=== PATIENT | female | born 1950 | race African-American/Black ===

== ENCOUNTER 2017-01-15 17:34 | Emergency (ER) | payer OTHER ==
[2017-01-15 17:41] VITALS: BP 151/53; PULSE 53; TEMP 98.4; BMI 41.9
--- NOTE | 2017-01-15 19:47 | PDOC ---
Attending Attestation - Resident Resident Name: Reyes Barnett - HPI HPI: 01/15/17 19:52 Pt comes with multiple complaints; chest pain, back pain and headache. Pt is slightly anxious and she wants to stay in the hospital as she thinks she breathed in some fumes and it is affecting her breathing. Pt wants to go to a group home because she doesn't want to go back home. - Physicial Exam PE: 01/16/17 00:36 Agree with resident exam. Pt's labs are normal; CXR normal; EKG NSR. - Medical Decision Making 01/16/17 00:37 Pt will be discharged as she is feeling better after hydration and meds for headache. She will be sent to a group home at [address]
[2017-01-15] MEDS ORDERED: SODIUM CHLORIDE 0.9% 1000 ML INFUS.BAG IV ONE ×2 (19:50→20:48)
[2017-01-15] MEDS ORDERED: ACETAMINOPHEN 1000 MG/100 ML VIAL (NON FORMULARY) IVPB ONE (19:50)
[2017-01-15] MEDS ORDERED: METOCLOPRAMIDE HCL INJECTION 10 MG/2 ML VIAL IVPB ONE (19:50)
[2017-01-15 19:52] LABS: BASOPHIL 0.6 % (0-2.0); EOSINOPHIL 1.7 % (0-4.5); MCH 30.6 pg (25.7-33.7); MEAN PLT VOLUME 9.4 fl (7.5-11.1); NEUTROPHILS 56.5 % (42.8-82.8); PLATELET COUNT 205 K/MM3 (134-434); RDW 13.6 % (11.6-15.6); WHITE BLOOD COUNT 4.3 K/mm3 (4.0-10.0)
[2017-01-15] MEDS ORDERED: METOCLOPRAMIDE HCL INJECTION 10 MG/2 ML VIAL ONE (19:59)
[2017-01-15] MEDS ORDERED: ACETAMINOPHEN INJECTION 100 ML IVPB ONE (19:59)
[2017-01-15 20:17] LABS: ALBUMIN 3.4 g/dl (3.4-5.0); ANION GAP 8 (8-16); BILIRUBIN,TOTAL 0.3 mg/dL (0.2-1.0); CALCIUM 8.8 mg/dL (8.5-10.1); CO2 28 mmol/L (21-32); CREATININE 1.1 mg/dL (0.55-1.02); SGOT/AST 12 U/L (15-37); SGPT/ALT 20 U/L (12-78); TOT PROT 6.7 g/dl (6.4-8.2)
[2017-01-15 20:20] LABS: ALK PHOS 95 U/L (45-117); CPK 244 IU/L (26-192); TROPONIN I < 0.02 ng/ml (0.00-0.05)
--- NOTE | 2017-01-15 20:28 | PDOC ---
History of Present Illness - General Chief Complaint: Headache Stated Complaint: HEADACHE Time Seen by Provider: 01/15/17 19:07 History Source: Patient Exam Limitations: No Limitations - History of Present Illness Initial Comments: 01/15/17 20:21 The patient is a 66F with a PMH of PR, CAD, HLD, DM, pacemaker, asthma, schizoaffective disorder who presented to the ED with complaints of a headache and chest pain. The patient states that her CP started 2 days ago, is retrosternal, does not radiate, and is not associated with nausea, vomiting, diaphoresis, or SOB. Her headache is located in her frontal area and radiates down her neck bilaterally and posteriorly. She states that it started last night after she smelled the food she was cooking in her kitchen. She also expressed that she has not been sleeping well and requested admission to the hospital so that she can sleep. Past History - Past Medical History Allergies/Adverse Reactions: Allergies Allergy/AdvReac Type Severity Reaction Status Date / Time morphine Allergy Intermediate Difficulty Verified 01/15/17 17:41 Breathing oxycodone HCl [From Percocet] Allergy Intermediate Verified 01/15/17 17:41 ibuprofen [From Motrin] Allergy Verified 01/15/17 17:41 Home Medications: Ambulatory Orders Amlodipine Besylate [Norvasc -] 10 mg PO DAILY #0 tablet 10/17/11 Benztropine Mesylate 2 mg PO DAILY #1 tablet 10/17/11 Divalproex Sodium [Depakote] 500 mg PO DAILY #0 tablet. 10/17/11 Quinapril HCl [Accupril] 40 mg PO DAILY #0 tablet 10/17/11 Divalproex [Depakote -] 1,000 mg PO HS 10/24/13 Atorvastatin Ca [Lipitor] 20 mg PO HS 01/15/17 Metoprolol Succinate [Toprol XL -] 25 mg PO DAILY 01/15/17 Sitagliptin Phosphate [Januvia] 50 mg PO DAILY 01/15/17 Anemia: No Asthma: Yes Cancer: No Cardiac Disorders: Yes CVA: No COPD: No Dementia: No Diabetes: Yes GI Disorders: No Disorders: No HTN: Yes Hypercholesterolemia: Yes Liver Disease: No Psychiatric Problems: Yes (schizo-effective disorder) Seizures: No Thyroid Disease: No Other medical history: CONSTIPATION - Surgical History Abdominal Surgery: Yes (HERNIA) Appendectomy: No Cardiac Surgery: Yes (STENT AND PACEMAKER) Cholecystectomy: No Lung Surgery: No Neurologic Surgery: No Orthopedic Surgery: No - Immunization History Immunization Up to Date: Yes (FLU/PNA) - Suicide/Smoking/Psychosocial Hx Smoking Status: No Smoking History: Never smoked Have you smoked in the past 12 months: No Number of Cigarettes Smoked Daily: 0 Hx Alcohol Use: No Drug/Substance Use Hx: No Substance Use Type: None Hx Substance Use Treatment: No Review of Systems - Review of Systems Able to Perform ROS?: Yes Is the patient limited Icelandic proficient: No Constitutional: No: Chills, Fever HEENTM: No: Blurred Vision, Double Vision Respiratory: No: Cough, Orthopnea, Shortness of Breath Cardiac (ROS): Yes: Chest Pain. No: Lightheadedness, Palpitations ABD/GI: No: Constipated, Diarrhea, Nausea, Vomiting : No: Burning, Dysuria, Discharge Musculoskeletal: Yes: Back Pain Integumentary: No: Bruising, Pallor, Pruritus, Rash Neurological: Yes: Numbness (b/l legs). No: Headache, Tingling, Weakness *Physical Exam - Vital Signs Last Vital Signs Temp Pulse Resp BP Pulse Ox 98.4 F 53 L 20 151/53 95 01/15/17 17:38 01/15/17 17:38 01/15/17 17:38 01/15/17 17:38 01/15/17 17:38 - Physical Exam General Appearance: Yes: Nourished, Appropriately Dressed, Obese. No: Apparent Distress HEENT: positive: Normal Voice, Hearing Grossly Normal. negative: Tonsillar Exudate, Tonsillar Erythema Respiratory/Chest: positive: Lungs Clear, Normal Breath Sounds. negative: Chest Tender, Respiratory Distress, Accessory Muscle Use, Rales, Rhonchi, Stridor, Wheezing Cardiovascular: positive: Regular Rhythm, Regular Rate, S1, S2. negative: Diastolic Murmur, Systolic Murmur Gastrointestinal/Abdominal: positive: Flat, Soft, Protuberent. negative: Tender , Distended, Guarding, Rebound, Tenderness Musculoskeletal: negative: CVA Tenderness, CVA Tenderness (R), CVA Tenderness (L ) Extremity: positive: Normal Inspection. negative: Coldness, Cyanosis, Swelling , Calf Tenderness Integumentary: positive: Dry, Warm. 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 negative: Abnormal Cranial NS, EOM Palsy, Facial Droop, Numbness, Sensory Deficit, Confused, Disoriented Heart Score/ECG Review - ECG Impressions Comment:: 01/15/17 20:33 NSR Rate 86 QRS 70 QT/QTC 374/447 ED Treatment Course - LABORATORY CBC & Chemistry Diagram: 01/15/17 19:40 01/15/17 19:40 - ADDITIONAL ORDERS Additional order review: 01/15/17 19:40 RBC 3.98 MCV 90.0 MCHC 34.0 RDW 13.6 MPV 9.4 Neutrophils % 56.5 Lymphocytes % 31.4 D Monocytes % 9.8 Eosinophils % 1.7 Basophils % 0.6 - Medications Given in the ED: ED Medications Discontinued Medications Generic Name Dose Route Start Last Admin Trade Name Freq PRN Reason Stop Dose Admin Acetaminophen 1,000 mg 01/15/17 19:50 01/15/17 20:17 Ofirmev Injection - IVPB 01/15/17 19:51 1,000 mg ONCE ONE Administration Sodium Chloride 500 ml 01/15/17 19:50 01/15/17 20:16 Normal Saline - IV 01/15/17 19:51 500 ml ONCE ONE Administration Medical Decision Making - Medical Decision Making 01/15/17 20:42 The patient is a 66F with a PMH of PR, CAD, DM, HLD, s/p pacemaker, and schizoaffective disorder who presents to the ED with multiple complaints. CP does not sound cardiac in nature but due to her significant history, I will order the cardiac profile and EKG to r/o any acute process. For her headache, this does not sound like a hemorrhage but I will do serial neuro exams to assess the patient. I will reassess the patient when labs return. 01/15/17 20:55 Labs WNL. Will reassess BG after fluids. Patient states that she is feeling better. 01/15/17 22:27 Patient states she is feeling better and ready for d/c. I have instructed her to follow up with her primary care doctor on Tuesday and take tylenol as needed. *DC/Admit/Observation/Transfer Diagnosis at time of Disposition: Headache Qualifiers: Headache type: unspecified Headache chronicity pattern: acute headache Intractability: not intractable Qualified Code(s): R51 - Headache - Discharge Dispostion Disposition: HOME Condition at time of disposition: Stable Admit: No - Patient Instructions Printed Discharge Instructions: Easing a Headache [address] Additional Instructions: Please return to the ER if symptoms persist, worsen, or if new symptoms arise. Please follow up with your primary care doctor on Tuesday.
[2017-01-15 20:33] LABS: GLUCOSE,RANDOM 323 mg/dL (74-106)
--- NOTE | 2017-01-16 08:36 | EKG ---
Test Reason : Blood Pressure : / mmHG Vent. Rate : 086 BPM Atrial Rate : 086 BPM P-R Int : 158 ms QRS Dur : 070 ms QT Int : 374 ms P-R-T Axes : 075 064 057 degrees QTc Int : 447 ms NORMAL SINUS RHYTHM NONSPECIFIC T WAVE ABNORMALITY ABNORMAL ECG Confirmed by MD RENO, CONSTANTINO ([id number]) on 01/16/2017 8:36:33 AM Referred By: Confirmed By:CONSTANTINO BOJORQUEZ MD
== END 2017-01-16 00:06 | disposition home or self-care (01) ==
LOC: JER 17:34
PROC: 3E033NZ Introduction of Analgesics, Hypnotics, Sedatives into Peripheral Vein, Percutaneous Approach (ICD-10-PCS; principal; 2017-01-15)
PROC: 3E033GC Introduction of Other Therapeutic Substance into Peripheral Vein, Percutaneous Approach (ICD-10-PCS; 2017-01-15)
DX: R51 Headache (principal); I25.10 Atherosclerotic heart disease of native coronary artery without angina pectoris; I10 Essential (primary) hypertension; Z95.5 Presence of coronary angioplasty implant and graft; Z95.0 Presence of cardiac pacemaker; J45.909 Unspecified asthma, uncomplicated; F25.9 Schizoaffective disorder, unspecified
CPT/HCPCS: 36415; 71020-TC; 80053; 82553; 83880; 84484; 85025; 93005; 93010; 96374; 96375; 99282-25

== ENCOUNTER 2017-05-23 06:17 | Day surgery (SDC) | payer OTHER ==
[2017-05-20 14:57] VITALS: BMI 40.8
[2017-05-23] MEDS ORDERED: ONDANSETRON 4 MG/2 ML VIAL IVPUSH PRN (09:16)
[2017-05-23] MEDS ORDERED: LIDOCAINE HCL 1%, 10 MG/ML (20ML VIAL) ONE (09:22)
[2017-05-23] MEDS ORDERED: LACTATED RINGERS SOLUTION 1,000 ML IV SCH (09:30)
[2017-05-23] MEDS ORDERED: MIDAZOLAM HCL 2 MG/2 ML SINGLE DOSE VIAL ONE ×2 (09:52→09:56)
[2017-05-23] MEDS ORDERED: ceFAZolin SODIUM 1 GM VIAL IVPB ONE (10:02)
[2017-05-23] MEDS ORDERED: PROPOFOL 20 ML ONE (10:02)
[2017-05-23] MEDS ORDERED: LIDOCAINE HCL 1%, 10 MG/ML (20ML VIAL) NR ONE (10:11)
[2017-05-23] MEDS ORDERED: BACITRACIN 50,000 UNITS VIAL TP ONE (10:30)
[2017-05-23] MEDS ORDERED: LIDOCAINE HCL 2% (20ML MULTI-DOSE VIAL) NR ONE (10:41)
[2017-05-23] MEDS ORDERED: LIDOCAINE HCL 2% (50ML VIAL) NR ONE (10:43)
[2017-05-23 12:28] VITALS: BP 130/70; PULSE 72
[2017-05-23 12:33] VITALS: TEMP 98.1
--- NOTE | 2017-05-23 17:26 | OP ---
Operative Note - Note: Operative Date: 05/23/17 Pre-Operative Diagnosis: urge incontinence Operation: full intestim implant Post-Operative Diagnosis: Same as Pre-op Surgeon: Yovany Tao Anesthesia: Fractional
== END 2017-05-23 17:37 | disposition home or self-care (01) ==
LOC: JASU-SURG 06:17
PROVIDERS: ATTEND Urology
PROC: 01HY0MZ Insertion of Neurostimulator Lead into Peripheral Nerve, Open Approach (ICD-10-PCS; 2017-05-23)
PROC: 0JH70CZ Insertion of Single Array Rechargeable Stimulator Generator into Back Subcutaneous Tissue and Fascia, Open Approach (ICD-10-PCS; principal; 2017-05-23 09:00)
DX: N39.41 Urge incontinence (principal); E66.01 Morbid (severe) obesity due to excess calories; E11.9 Type 2 diabetes mellitus without complications
CPT/HCPCS: 64581; 64590; C1767; C1778; 76000-TC; 82962; 94760

== ENCOUNTER 2018-02-08 05:32 | Emergency (ER) | payer OTHER ==
[2018-02-08 06:07] VITALS: BP 132/77; TEMP 98.5; BMI 43.7
[2018-02-08] MEDS ORDERED: ACETAMINOPHEN 1000 MG/100 ML VIAL (NON FORMULARY) IVPB ONE (06:32)
--- NOTE | 2018-02-08 06:35 | PDOC ---
History of Present Illness - General Chief Complaint: Pain Stated Complaint: SHOULDER/BACK PAIN Time Seen by Provider: 02/08/18 06:19 History Source: Patient - History of Present Illness Initial Comments: 02/08/18 06:35 67 year old female c/o b/l shoulder and lower back pain which is chronic. patient rpeorts that she takes tylenol 500 mg bid now the pain has been relieved with that dose. patient has poor tolerance to narcotic pain management due to side effects. denies trauma/ injury. denies incontinence of bowel or urine. no saddle anesthesia symptoms. no numbness or tingling to lower extremities.denies chest pain, abdominal pain, NVD Past History - Past Medical History Allergies/Adverse Reactions: Allergies Allergy/AdvReac Type Severity Reaction Status Date / Time codeine Allergy Intermediate Verified 02/08/18 06:18 morphine Allergy Intermediate Difficulty Verified 02/08/18 06:18 Breathing oxycodone HCl [From Percocet] Allergy Intermediate Verified 02/08/18 06:18 ibuprofen [From Motrin] Allergy Verified 02/08/18 06:18 Home Medications: Ambulatory Orders Atorvastatin Ca [Lipitor] 20 mg PO HS 01/15/17 Amlodipine Besylate 10 mg PO DAILY 05/20/17 Insulin Lispro Protamin/Lispro [Humalog Mix 75-25 Kwikpen] 70 unit SQ BID Omeprazole 20 mg PO DAILY 05/20/17 Sitagliptin Phosphate [Januvia] 100 mg PO DAILY 05/20/17 Divalproex [Depakote -] 250 mg PO DAILY 12/03/17 Divalproex [Depakote -] 500 mg PO DAILY 12/03/17 Mirabegron [Myrbetriq] 50 mg PO BID 12/03/17 Paliperidone Palmitate [Invega Sustenna] 234 mg IM ASDIR 12/03/17 Quinapril HCl 40 mg PO DAILY 12/03/17 Aspirin [ASA -] 81 mg PO DAILY 02/08/18 Anemia: No Asthma: Yes Cancer: No Cardiac Disorders: Yes (STENT) CVA: No COPD: No DVT: No Dementia: No Diabetes: Yes GI Disorders: No Disorders: No HTN: Yes Hypercholesterolemia: Yes Liver Disease: No Psychiatric Problems: Yes (schizo-effective disorder) Seizures: No Thyroid Disease: No - Surgical History Abdominal Surgery: Yes (HERNIA) Appendectomy: No Cardiac Surgery: Yes (STENT AND PACEMAKER) Cholecystectomy: No Lung Surgery: No Neurologic Surgery: No Orthopedic Surgery: Yes (TAY KNEE REPLACEMENT) - Immunization History Immunization Up to Date: Yes (FLU/PNA) - Suicide/Smoking/Psychosocial Hx Smoking Status: No Smoking History: Never smoked Have you smoked in the past 12 months: No Number of Cigarettes Smoked Daily: 0 Hx Alcohol Use: No Drug/Substance Use Hx: No Substance Use Type: None Hx Substance Use Treatment: No *Physical Exam - Vital Signs Last Vital Signs Temp Pulse Resp BP Pulse Ox 98.5 F 90 18 132/77 96 02/08/18 06:02 02/08/18 06:02 02/08/18 06:02 02/08/18 06:02 02/08/18 06:02 - Physical Exam General Appearance: Yes: Appropriately Dressed Respiratory/Chest: positive: Lungs Clear, Normal Breath Sounds Cardiovascular: positive: Regular Rhythm, Regular Rate Musculoskeletal: positive: Normal Inspection, Other (b/l shoulder full rom, pain to joint) Neurologic: positive: Fully Oriented, Alert, Normal Mood/Affect Progress Note - Progress Note Progress Note: A: chronic pain P: IV tylenol toradol UA *DC/Admit/Observation/Transfer Diagnosis at time of Disposition: Low back pain Qualifiers: Chronicity: chronic Back pain laterality: unspecified Sciatica presence: without sciatica Qualified Code(s): M54.5 - Low back pain; G89.29 - Other chronic pain Chronic back pain Qualifiers: Back pain location: low back pain Back pain laterality: unspecified Sciatica presence: without sciatica Qualified Code(s): M54.5 - Low back pain; G89.29 - Other chronic pain Shoulder pain, bilateral Qualifiers: Chronicity: acute Qualified Code(s): M25.511 - Pain in right shoulder; M25.512 - Pain in left shoulder - Referrals Referrals: Myla Martinez MD [Primary Care Provider] - Tim Moran MD [Staff Physician] - - Patient Instructions - Post Discharge Activity
[2018-02-08] MEDS ORDERED: KETOROLAC TROMETHAMINE 15 MG/ML VIAL IVPUSH ONE (06:43)
[2018-02-08] MEDS ORDERED: ACETAMINOPHEN INJECTION 100 ML IVPB ONE (06:53)
[2018-02-08] MEDS ORDERED: KETOROLAC TROMETHAMINE 15 MG/ML VIAL ONE (06:53)
--- NOTE | 2018-02-08 07:08 | PDOC ---
*Physical Exam - Vital Signs Last Vital Signs Temp Pulse Resp BP Pulse Ox 98.5 F 90 18 132/77 96 02/08/18 06:02 02/08/18 06:02 02/08/18 06:02 02/08/18 06:02 02/08/18 06:02 ED Treatment Course - Medications Given in the ED: ED Medications Discontinued Medications Generic Name Dose Route Start Last Admin Trade Name Deyanira PRN Reason Stop Dose Admin Acetaminophen 1,000 mg 02/08/18 06:32 02/08/18 06:59 Ofirmev Injection - IVPB 02/08/18 06:33 1,000 mg ONCE ONE Administration Ketorolac Tromethamine 15 mg 02/08/18 06:43 02/08/18 06:59 Toradol Injection - IVPUSH 02/08/18 06:44 15 mg ONCE ONE Administration Medical Decision Making - Medical Decision Making 02/08/18 07:08 Pt seen by Midlevel Provider under my direct supervision Ancillary studies reviewed I agree with plan as outlined by Midlevel Provider *DC/Admit/Observation/Transfer Diagnosis at time of Disposition: Low back pain Qualifiers: Chronicity: chronic Back pain laterality: unspecified Sciatica presence: without sciatica Qualified Code(s): M54.5 - Low back pain Chronic back pain Qualifiers: Back pain location: low back pain Back pain laterality: unspecified Sciatica presence: without sciatica Qualified Code(s): M54.5 - Low back pain Shoulder pain, bilateral Qualifiers: Chronicity: acute Qualified Code(s): M25.511 - Pain in right shoulder - Discharge Dispostion Disposition: HOME Condition at time of disposition: Improved - Prescriptions Prescriptions: Acetaminophen W/ Codeine #3 [Tylenol # 3 -] 1 tab PO Q6H #15 tablet MDD 4 tabs Docusate Sodium [Colace] 100 mg PO DAILY #20 capsule - Referrals Referrals: Dennis Lundberg MD [Staff Physician] - Tim Moran MD [Staff Physician] - Myla Martinez MD [Primary Care Provider] - - Patient Instructions Printed Discharge Instructions: DI for Low Back Pain Additional Instructions: Take medication as prescribed. Please make an appointment to see Dr. Lundberg of pain management. Also follow-up with your PMD - Post Discharge Activity
--- NOTE | 2018-02-08 08:21 | PDOC ---
*Physical Exam - Vital Signs Last Vital Signs Temp Pulse Resp BP Pulse Ox 98.5 F 90 18 132/77 96 02/08/18 06:02 02/08/18 06:02 02/08/18 06:02 02/08/18 06:02 02/08/18 06:02 - Physical Exam General Appearance: Yes: Appropriately Dressed. No: Apparent Distress HEENT: positive: Normal Voice Neck: positive: Supple Respiratory/Chest: negative: Respiratory Distress Gastrointestinal/Abdominal: positive: Soft. negative: Tender Musculoskeletal: negative: CVA Tenderness, Vertebral Tenderness Extremity: positive: Normal Inspection Integumentary: positive: Dry, Warm Neurologic: positive: Fully Oriented, Alert, Normal Mood/Affect ED Treatment Course - Medications Given in the ED: ED Medications Discontinued Medications Generic Name Dose Route Start Last Admin Trade Name Deyanira PRN Reason Stop Dose Admin Acetaminophen 1,000 mg 02/08/18 06:32 02/08/18 06:59 Ofirmev Injection - IVPB 02/08/18 06:33 1,000 mg ONCE ONE Administration Ketorolac Tromethamine 15 mg 02/08/18 06:43 02/08/18 06:59 Toradol Injection - IVPUSH 02/08/18 06:44 15 mg ONCE ONE Administration Medical Decision Making - Medical Decision Making 02/08/18 08:19 And signed out to me at 7 AM Patient is a 67-year-old, history of schizophrenic disorder, asthma, HTN, HLD, CAD, ND, pacemaker, DM, chronic back pain with DJD on CT remotely, ambulates w/ walker, usually takes Tylenol for pain, here with her usual lower back and left shoulder pain, not relieved w/ tylenol. Has since been given IV Tylenol and toradol. Pending reassessment. As per prior team, if improved, can be sent home with pain control and referral for pain management 02/08/18 08:21 Pt reports some improvement in pain and able to ambulate even without her walker in ED. Had extensive discussion regarding documented allergies. Patient states she is not allergic to codeine, but that when she took tylenol 3 in the past, she developed constipation. Prescription for Tylenol 3 and Colace sent to pharmacy. Instructed to also drink plenty of water and increase fiber in diet. Will refer to pain management at this time. Reasons to return d/w pt *DC/Admit/Observation/Transfer Diagnosis at time of Disposition: Low back pain Qualifiers: Chronicity: chronic Back pain laterality: unspecified Sciatica presence: without sciatica Qualified Code(s): M54.5 - Low back pain Chronic back pain Qualifiers: Back pain location: low back pain Back pain laterality: unspecified Sciatica presence: without sciatica Qualified Code(s): M54.5 - Low back pain Shoulder pain, bilateral Qualifiers: Chronicity: acute Qualified Code(s): M25.511 - Pain in right shoulder - Discharge Dispostion Disposition: HOME Condition at time of disposition: Improved - Prescriptions Prescriptions: Acetaminophen W/ Codeine #3 [Tylenol # 3 -] 1 tab PO Q6H #15 tablet MDD 4 tabs Docusate Sodium [Colace] 100 mg PO DAILY #20 capsule - Referrals Referrals: Tim Morna MD [Staff Physician] - Myla Martinez MD [Primary Care Provider] - Dennis Lundberg MD [Staff Physician] - - Patient Instructions Printed Discharge Instructions: DI for Low Back Pain Additional Instructions: Take medication as prescribed. Please make an appointment to see Dr. Lundberg of pain management. Also follow-up with your PMD - Post Discharge Activity
[2018-02-08 08:35] VITALS: PULSE 73
[2018-02-08 08:56] LABS: URINE APPEARANCE CLEAR; URINE BILIRUBIN NEGATIVE (<2.0 mg/dL); URINE COLOR LTYELLOW; URINE GLUCOSE (UA) 3+ (NEGATIVE); URINE KETONE NEGATIVE (NEGATIVE); URINE LEUK ESTERASE TRACE (NEGATIVE); URINE NITRITE NEGATIVE (NEGATIVE); URINE PROTEIN NEGATIVE (NEGATIVE); URINE UROBILINOGEN NEGATIVE mg/dL (0.2-1.0)
[2018-02-08 09:14] LABS: EPI CELLS RARE /HPF (FEW); URINE BACTERIA RARE /hpf (NONE SEEN); URINE MUCUS RARE
== END 2018-02-08 08:35 | disposition home or self-care (01) ==
LOC: JER 05:32
PROC: 3E033NZ Introduction of Analgesics, Hypnotics, Sedatives into Peripheral Vein, Percutaneous Approach (ICD-10-PCS; principal; 2018-02-08)
PROC: 3E0333Z Introduction of Anti-inflammatory into Peripheral Vein, Percutaneous Approach (ICD-10-PCS; 2018-02-08)
DX: M54.5 Low back pain (principal); G89.29 Other chronic pain; M25.511 Pain in right shoulder; M25.512 Pain in left shoulder; Z95.5 Presence of coronary angioplasty implant and graft; Z95.0 Presence of cardiac pacemaker; E78.00 Pure hypercholesterolemia, unspecified; F25.9 Schizoaffective disorder, unspecified; E11.9 Type 2 diabetes mellitus without complications
CPT/HCPCS: 81003; 81015; 96374; 96375; 99282-25; J0131

== ENCOUNTER 2018-09-02 00:18 | Emergency (ER) | payer OTHER ==
--- NOTE | 2018-09-02 00:22 | PDOC ---
History of Present Illness - General Stated Complaint: ARTHRITIC PAIN Time Seen by Provider: 09/02/18 00:22 History Source: Patient Exam Limitations: No Limitations - History of Present Illness Initial Comments: 09/02/18 00:33 67 year old female with PMH HTN, HLD, IDDM, [place] s/p stent, schizo-effective disorder, pacemaker, chronic back pain, osteoarthritis, asthma, ambulates with walker presented to ED for "pain all over" worsening over a couple of days. Pt denied chest pain, shortness of breath, fever, chills, nausea, vomiting, diarrhea, weakness, numbness, tingling. Pt stated every part of her body hurts "except for my chest". Pt denied fall or injury. Past History - Past Medical History Allergies/Adverse Reactions: Allergies Allergy/AdvReac Type Severity Reaction Status Date / Time codeine Allergy Intermediate Verified 09/02/18 01:04 morphine Allergy Intermediate Difficulty Verified 09/02/18 01:04 Breathing oxycodone HCl [From Percocet] Allergy Intermediate Verified 09/02/18 01:04 ibuprofen [From Motrin] Allergy Verified 09/02/18 01:04 Home Medications: Ambulatory Orders Atorvastatin Ca [Lipitor] 20 mg PO HS 01/15/17 Amlodipine Besylate 10 mg PO DAILY 05/20/17 Insulin Lispro Protamin/Lispro [Humalog Mix 75-25 Kwikpen] 70 unit SQ BID Omeprazole 20 mg PO DAILY 05/20/17 Sitagliptin Phosphate [Januvia] 100 mg PO DAILY 05/20/17 Divalproex [Depakote -] 250 mg PO DAILY 12/03/17 Divalproex [Depakote -] 500 mg PO DAILY 12/03/17 Mirabegron [Myrbetriq] 50 mg PO BID 12/03/17 Paliperidone Palmitate [Invega Sustenna] 234 mg IM ASDIR 12/03/17 Quinapril HCl 40 mg PO DAILY 12/03/17 Acetaminophen W/ Codeine #3 [Tylenol # 3 -] 1 tab PO Q6H #15 tablet MDD 4 tabs 02/08/18 Aspirin [ASA -] 81 mg PO DAILY 02/08/18 Docusate Sodium [Colace] 100 mg PO DAILY #20 capsule 02/08/18 Tramadol HCl 50 mg PO BID PRN #10 tablet MDD 2 09/02/18 Anemia: No Asthma: Yes Cancer: No Cardiac Disorders: Yes (STENT) CVA: No COPD: No DVT: No Dementia: No Diabetes: Yes GI Disorders: No Disorders: No HTN: Yes Hypercholesterolemia: Yes Liver Disease: No Psychiatric Problems: Yes (schizo-effective disorder) Seizures: No Thyroid Disease: No - Surgical History Abdominal Surgery: Yes (HERNIA) Appendectomy: No Cardiac Surgery: Yes (STENT AND PACEMAKER) Cholecystectomy: No Lung Surgery: No Neurologic Surgery: No Orthopedic Surgery: Yes (TAY KNEE REPLACEMENT) - Immunization History Immunization Up to Date: Yes (FLU/PNA) - Suicide/Smoking/Psychosocial Hx Smoking Status: No Smoking History: Never smoked Have you smoked in the past 12 months: No Number of Cigarettes Smoked Daily: 0 Hx Alcohol Use: No Drug/Substance Use Hx: No Substance Use Type: None Hx Substance Use Treatment: No Review of Systems - Review of Systems Able to Perform ROS?: Yes Comments:: 09/02/18 00:41 General: denied fever, chills, generalized weakness. HEENT: denied sore throat, rhinorrhea, ear pain. Heart: denied chest pain, palpitations, syncope, diaphoresis. Respiratory: denied shortness of breath, cough, sputum production, hemoptysis. Abdomen: denied abdominal pain, nausea, vomiting, diarrhea, constipation, blood in stool. : denied dysuria, increased urinary frequency, hematuria, urinary incontinence , flank pain. Back: denied back pain. Musculoskeletal: admitted to muscle pain, joint pain. Neurological: denied headache, dizziness, numbness, tingling, weakness. Skin: denied rash, laceration, abrasion. *Physical Exam - Physical Exam Comments: 09/02/18 00:41 Constitutional: Well-nourished, Well-developed, appearing stated age. morbidly obese. HEENT: head is normocephalic, atraumatic. EOMI. PERRLA. Neck: supple. Full ROM. Heart: regular rhythm. no murmurs, rubs or gallops. Lungs: clear to auscultation bilaterally. no crackles, rhonchi or wheezing. no stridor. Abdomen: soft, nontender. normal bowel sounds. no rebound, guarding, masses. Extremities: peripheral pulses intact. 3+ pitting LE edema bilaterally. pain with ROM bilateral knee. full ROM bilateral elbow without difficulty. full ROM bilateral shoulders without difficulty. Neurological: CN 2-12 grossly intact. moves all four extremities. Psych: awake, alert, oriented x3. follows commands. answers questions appropriately. ED Treatment Course - LABORATORY CBC & Chemistry Diagram: 09/02/18 00:00 09/02/18 00:00 Medical Decision Making - Medical Decision Making 09/02/18 00:43 67 year old female with above PMH presented to ED for pain all over and inability to ambulate. Pt is on statin. Initial Vital Signs Temp Pulse Resp BP Pulse Ox 98.1 F 80 18 140/79 95 09/02/18 00:32 09/02/18 00:32 09/02/18 00:32 09/02/18 00:32 09/02/18 00:32 Afebrile. No tachycardia. No tachypnea. Mild hypertension. No hypoxia on room air. Labs ordered: CBC, CMP, CPK Imaging ordered: none Medications ordered: tylenol IV 09/02/18 01:28 Pt reported no improvement of pain with Tylenol. Medications ordered: Dilaudid 1 mg IV once 09/02/18 01:38 CMP Sodium 135 mmol/L (136-145) L 09/02/18 00:00 Potassium 4.5 mmol/L (3.5-5.1) 09/02/18 00:00 Chloride 102 mmol/L (98-107) 09/02/18 00:00 Carbon Dioxide 27 mmol/L (21-32) 09/02/18 00:00 Anion Gap 6 MMOL/L (8-16) L 09/02/18 00:00 BUN 18 mg/dL (7-18) 09/02/18 00:00 Creatinine 0.9 mg/dL (0.55-1.3) 09/02/18 00:00 Est GFR (CKD-EPI)AfAm 76.68 09/02/18 00:00 Est GFR (CKD-EPI)NonAf 66.16 09/02/18 00:00 Random Glucose 134 mg/dL (74-106) H 09/02/18 00:00 Calcium 9.7 mg/dL (8.5-10.1) 09/02/18 00:00 Total Bilirubin 0.2 mg/dL (0.2-1) 09/02/18 00:00 AST 8 U/L (15-37) L 09/02/18 00:00 ALT 15 U/L (13-61) 09/02/18 00:00 Alkaline Phosphatase 87 U/L (45-117) 09/02/18 00:00 Creatine Kinase 261 U/L (26-192) H 09/02/18 00:00 Total Protein 7.0 g/dl (6.4-8.2) 09/02/18 00:00 Albumin 3.5 g/dl (3.4-5.0) 09/02/18 00:00 No electrolyte abnormalities. No JOVANY. CK mildly elevated but at baseline. 09/02/18 01:45 CBC WBC 5.5 K/mm3 (4.0-10.0) 09/02/18 00:00 RBC 3.57 M/mm3 (3.60-5.2) L 09/02/18 00:00 Hgb 10.8 GM/dL (10.7-15.3) 09/02/18 00:00 Hct 32.6 % (32.4-45.2) 09/02/18 00:00 MCV 91.5 fl (80-96) 09/02/18 00:00 MCH 30.2 pg (25.7-33.7) 09/02/18 00:00 MCHC 33.1 g/dl (32.0-36.0) 09/02/18 00:00 RDW 13.5 % (11.6-15.6) 09/02/18 00:00 Plt Count 257 K/MM3 (134-434) D 09/02/18 00:00 MPV 8.2 fl (7.5-11.1) D 09/02/18 00:00 Absolute Neuts (auto) 3.1 K/mm3 (1.5-8.0) 09/02/18 00:00 Neutrophils % 57.0 % (42.8-82.8) 09/02/18 00:00 Lymphocytes % 31.1 % (8-40) 09/02/18 00:00 Monocytes % 9.0 % (3.8-10.2) 09/02/18 00:00 Eosinophils % 1.9 % (0-4.5) 09/02/18 00:00 Basophils % 1.0 % (0-2.0) 09/02/18 00:00 Nucleated RBC % 0 % (0-0) 09/02/18 00:00 No leukocytosis. No anemia. 09/02/18 01:49 Pt able to ambulate with assistance, stood up and took a few steps. No walker present. Pt requesting more pain medication. Medications ordered: Dilaudid 1 mg PO once Pt discharged. Discharged medications: Tramadol. *DC/Admit/Observation/Transfer Diagnosis at time of Disposition: Diffuse pain - Discharge Dispostion Condition at time of disposition: Stable Decision to Admit order: No - Prescriptions Prescriptions: Tramadol HCl 50 mg PO BID PRN #10 tablet MDD 2 PRN Reason: Severe Pain - Referrals Referrals: Myla Martinez MD [Primary Care Provider] - - Patient Instructions Additional Instructions: You were seen today for pain. Your lab work was normal. I have sent a prescription to your pharmacy for Tramadol, a pain medication. Take as advised on label. Follow up with your primary care doctor in 2-3 days. Your care is not complete until you follow up. Return to the Emergency Department for increasing pain, chest pain, shortness of breath, fever, chills, vomiting, inability to ambulate or any other new, worsening or concerning symptoms. - Post Discharge Activity
[2018-09-02] MEDS ORDERED: ACETAMINOPHEN 1000 MG/100 ML VIAL (NON FORMULARY) IVPB ONE (00:33)
[2018-09-02 00:37] VITALS: BP 140/79; PULSE 80; TEMP 98.1; BMI 43.5
[2018-09-02] MEDS ORDERED: ACETAMINOPHEN INJECTION 100 ML IVPB ONE (00:57)
[2018-09-02 01:10] LABS: EOS % 1.9 % (0-4.5); HEMATOCRIT 32.6 % (32.4-45.2); HEMOGLOBIN 10.8 GM/dL (10.7-15.3); LYMPH % 31.1 % (8-40); MCH 30.2 pg (25.7-33.7); MCHC 33.1 g/dl (32.0-36.0); MEAN CELL VOLUME 91.5 fl (80-96); MEAN PLT VOLUME 8.2 fl (7.5-11.1); PLATELET COUNT 257 K/MM3 (134-434); RBC 3.57 M/mm3 (3.60-5.2); RDW 13.5 % (11.6-15.6); WHITE BLOOD COUNT 5.5 K/mm3 (4.0-10.0)
[2018-09-02] MEDS ORDERED: HYDROmorphone HCL CARPU-JECT 2 MG/1 ML DISP.SYRIN IVPUSH ONE (01:26)
[2018-09-02] MEDS ORDERED: HYDROmorphone HCl 2 MG/ML VIAL ONE (01:32)
[2018-09-02 01:37] LABS: ALBUMIN 3.5 g/dl (3.4-5.0); BILIRUBIN,TOTAL 0.2 mg/dL (0.2-1); CALCIUM 9.7 mg/dL (8.5-10.1); CREATININE 0.9 mg/dL (0.55-1.3); POTASSIUM 4.5 mmol/L (3.5-5.1)
--- NOTE | 2018-09-02 01:37 | PDOC ---
Documentation entered by Bety Weems SCRIBE, acting as scribe for Neyda Blount MD. Neyda Blount MD: This documentation has been prepared by the Dank garcia Adrianna, SCRIBE, under my direction and personally reviewed by me in its entirety. I confirm that the documentation accurately reflects all work, treatment, procedures, and medical decision making performed by me. Attending Attestation - Resident Resident Name: Milena Moore - [facility] HPI: The patient is a 67 year old female, with a significant PMH of hypertension, hyperlipidemia, insulin-dependent diabetes, myocardial infarction (s/p stent), pacemaker, schizophrenia, chronic back pain, osteoarthritis, and asthma, who presents to the emergency department today for diffuse pain for 2 days. Patient notes her pain is all over and has been progressively worsening. She denies any falls or recent trauma. Patient ambulates with walker at baseline, and reports that she cannot ambulate secondary to pain. She endorses being treated at [facility] 2 weeks ago for similar symptoms, and her workup was negative for DVT. The patient denies chest pain, shortness of breath, headache and dizziness. Denies fever, chills, nausea, vomit, diarrhea and constipation. Denies dysuria, frequency, urgency and hematuria. Allergies: Codeine, Morphine, Oxycodone, Ibuprofen Past surgical history: Hernia repair, stent, pacemaker, bilateral knee replacement Social history: No reported PCP: Dr. Myla Haynes 09/02/18 01:30 - Physicial Exam PE: GENERAL: Awake, alert, and fully oriented, in no acute distress HEAD: No signs of trauma EYES: PERRLA, EOMI, sclera anicteric, conjunctiva clear ENT: Auricles normal inspection, hearing grossly normal, nares patent, oropharynx clear without exudates. Moist mucosa NECK: Normal ROM, supple, no lymphadenopathy, JVD, or masses LUNGS: Breath sounds equal, clear to auscultation bilaterally. No wheezes, and no crackles HEART: Regular rate and rhythm, normal S1 and S2, no murmurs, rubs or gallops ABDOMEN: Soft, nontender, normoactive bowel sounds. No guarding, no rebound. No masses EXTREMITIES: Full range of motion of bilateral upper and bilateral lower extremities, no edema. No clubbing or cyanosis. No cords, erythema, or tenderness NEUROLOGICAL: Cranial nerves II through XII grossly intact. Normal speech. SKIN: Warm, Dry, normal turgor, no rashes or lesions noted. 09/02/18 01:30 - Medical Decision Making 09/02/18 01:35 Pt presents to the ED complaining of diffuse myalgias for two weeks. Seen at [facility] for the same complaint last week with negative work up. Patient is on a statin. Differential includes osteoarthritis, less likely rhabdomylosis , less likely infection. Will give pain control and check labs, likely discharge home if labs are within normal limits and pain is controlled. 09/02/18 01:58 CK 256, pain improved after dilaudid, patient able to ambulate short distances despite not having her walker. Most likely muscular pain. No emergent condition exists and patient can be safely discharged home.
[2018-09-02] MEDS ORDERED: HYDROmorphone HCL 2 MG TABLET PO ONE (01:56)
[2018-09-02] MEDS ORDERED: HYDROmorphone HCL 2 MG TABLET ONE (02:04)
== END 2018-09-02 04:18 | disposition home or self-care (01) ==
LOC: JER 00:18
PROC: 3E033NZ Introduction of Analgesics, Hypnotics, Sedatives into Peripheral Vein, Percutaneous Approach (ICD-10-PCS; principal; 2018-09-02)
DX: R52 Pain, unspecified (principal); J45.909 Unspecified asthma, uncomplicated; Z95.5 Presence of coronary angioplasty implant and graft; E11.9 Type 2 diabetes mellitus without complications; I10 Essential (primary) hypertension; E78.00 Pure hypercholesterolemia, unspecified; F25.9 Schizoaffective disorder, unspecified; Z96.653 Presence of artificial knee joint, bilateral
CPT/HCPCS: 36415; 80053; 82550; 82553; 85025; 96374; 96375; 99282-25; J0131

== ENCOUNTER 2018-12-17 01:28 | Inpatient (IN) | payer OTHER ==
--- NOTE | 2018-12-17 01:42 | PDOC ---
History of Present Illness - General Stated Complaint: URINARY RETENTION Time Seen by Provider: 12/17/18 01:42 History Source: Patient Exam Limitations: No Limitations - History of Present Illness Initial Comments: 68 year old female with PMH HTN, HLD, IDDM, [place] s/p stent, schizo-effective disorder, pacemaker, chronic back pain, osteoarthritis, asthma, bladder lift, ambulates with walker BIBA to ED for urinary retention x2 days. Pt reported she has been having alternating periods of being unable to urinate, feeling there is still urine in her bladder after urinating, and also having episodes of urinating on herself. Allergies: morphine, codeine, oxycodone, ibuprofen, gabapentin Past History - Past Medical History Allergies/Adverse Reactions: Allergies Allergy/AdvReac Type Severity Reaction Status Date / Time codeine Allergy Intermediate Verified 12/17/18 02:25 morphine Allergy Intermediate Difficulty Verified 12/17/18 02:25 Breathing oxycodone HCl [From Percocet] Allergy Intermediate d Verified 12/17/18 02:25 ibuprofen [From Motrin] Allergy Verified 12/17/18 02:25 gabapentin AdvReac Intermediate dizzy Verified 12/17/18 02:25 Home Medications: Ambulatory Orders Atorvastatin Ca [Lipitor] 20 mg PO HS 01/15/17 Insulin Lispro Protamin/Lispro [Humalog Mix 75-25 Kwikpen] 70 unit SQ BID Divalproex [Depakote -] 750 mg PO BID 12/03/17 Mirabegron [Myrbetriq] 50 mg PO BID 12/03/17 Paliperidone Palmitate [Invega Sustenna] 234 mg IM ASDIR 12/03/17 Aspirin [ASA -] 81 mg PO DAILY 02/08/18 Amlodipine Besylate [Norvasc -] 10 mg PO DAILY 10/10/18 Fluticasone/Vilanterol [Breo Ellipta 200-25 Mcg INH] 1 each IH DAILY 10/10/18 Losartan Potassium [Cozaar] 100 mg PO DAILY 10/10/18 Omeprazole Magnesium [Prilosec Otc] 20 mg PO DAILY 10/10/18 Risperidone [Risperdal] 1 mg PO DAILY 10/10/18 Sitagliptin Phosphate [Januvia -] 100 mg PO DAILY@0700 10/10/18 Spironolactone [Aldactone] 25 mg PO DAILY 10/10/18 Meloxicam 15 mg PO DAILY #30 tablet 11/09/18 Lupton-3 Fatty Acids/Fish Oil [Fish Oil 1,000 mg Capsule] 1 each PO BID #60 capsule 11/13/18 Acetaminophen [Pain Reliever] 500 mg PO TID PRN #90 tablet 12/14/18 Cholecalciferol (Vitamin D3) [Vitamin D3] 1,000 unit PO DAILY #30 capsule Diclofenac Sodium 3 gm TP TID #3 tube 12/14/18 Docusate Sodium [Colace] 100 mg PO TID #90 capsule 12/14/18 Anemia: No Asthma: Yes (on inhalers) Cancer: No Cardiac Disorders: Yes (one STENT) CVA: No COPD: No DVT: No Dementia: No Diabetes: Yes (IDDM, on meds) GI Disorders: No Disorders: Yes (GERD) HTN: Yes (on meds) Hypercholesterolemia: Yes (on meds) Liver Disease: No Psychiatric Problems: Yes (schizo-effective disorder) Seizures: No Thyroid Disease: No - Surgical History Abdominal Surgery: Yes (HERNIA) Appendectomy: No Cardiac Surgery: Yes (STENT AND PACEMAKER) Cholecystectomy: No Lung Surgery: No Neurologic Surgery: No Orthopedic Surgery: Yes ( 2017 bilateral knee replacement) - Immunization History Immunization Up to Date: Yes (FLU/PNA) - Suicide/Smoking/Psychosocial Hx Smoking Status: No Smoking History: Never smoked Have you smoked in the past 12 months: No Number of Cigarettes Smoked Daily: 0 Hx Alcohol Use: No Drug/Substance Use Hx: No Substance Use Type: None Hx Substance Use Treatment: No Review of Systems - Review of Systems Able to Perform ROS?: Yes Comments:: General: denied fever, chills, generalized weakness. HEENT: denied sore throat, rhinorrhea, ear pain. Cardiovascular: denied chest pain, palpitations, syncope, diaphoresis. Respiratory: denied shortness of breath, cough, sputum production, hemoptysis. Gastrointestinal: admitted to abdominal pain. denied nausea, vomiting, diarrhea , constipation, blood in stool. Genitourinary: admitted to urinary incontinence, dysuria, increased urinary frequency, urinary retention. denied hematuria, urinary incontinence, flank pain. Back: denied back pain. Musculoskeletal: denied joint pain, muscle pain, joint swelling. Neurological: denied headache, dizziness, numbness, tingling, weakness. Integumentary: denied rash, laceration, abrasion. Hematologic/Lymphatic: denied bruising or bleeding. *Physical Exam - Physical Exam Comments: Constitutional: Well-nourished, Well-developed, appearing stated age. morbidly obese. HEENT: head is normocephalic, atraumatic. EOMI. PERRLA. Neck: supple. Full ROM. Cardiovascular: regular heart rhythm. no murmurs. no pericardial friction rub. Respiratory: clear to auscultation bilaterally. no crackles, rhonchi or wheezing. no stridor. Gastrointestinal: soft, flat. mild tenderness to palpation of suprapubic area. normal bowel sounds. no rebound, guarding, masses. Extremities: peripheral pulses intact. no lower extremity edema. Neurological: CN 2-12 grossly intact. moves all four extremities. Psych: awake, alert, oriented x3. follows commands. answers questions appropriately. ED Treatment Course - LABORATORY CBC & Chemistry Diagram: 12/17/18 03:34 12/17/18 03:34 Medical Decision Making - Medical Decision Making 68 year old female with above PMH presented to ED for urinary retention x2 days. Initial Vital Signs Temp Pulse Resp BP Pulse Ox 98.0 F 71 18 118/59 L 94 L 12/17/18 02:18 12/17/18 02:18 12/17/18 02:18 12/17/18 02:18 12/17/18 02:18 Afebrile. No tachycardia. No tachypnea. No hypotension. Borderline hypoxia on room air. Labs ordered: CBC, CMP, UA/UC Imaging ordered: none Medications ordered: normal saline bolus 1000 cc once 12/17/18 03:43 Pt was a hard stick, multiple attempts by multiple RNs unsuccessful. Right 20G AC placed by me using US guidance. Pending labs. 12/17/18 04:37 CBC WBC 4.8 K/mm3 (4.0-10.0) 12/17/18 03:34 RBC 3.25 M/mm3 (3.60-5.2) L 12/17/18 03:34 Hgb 10.2 GM/dL (10.7-15.3) L 12/17/18 03:34 Hct 29.7 % (32.4-45.2) L 12/17/18 03:34 MCV 91.5 fl (80-96) 12/17/18 03:34 MCH 31.5 pg (25.7-33.7) 12/17/18 03:34 MCHC 34.5 g/dl (32.0-36.0) 12/17/18 03:34 RDW 13.6 % (11.6-15.6) 12/17/18 03:34 Plt Count 220 K/MM3 (134-434) 12/17/18 03:34 MPV 7.7 fl (7.5-11.1) 12/17/18 03:34 Absolute Neuts (auto) 2.4 K/mm3 (1.5-8.0) 12/17/18 03:34 Neutrophils % 49.3 % (42.8-82.8) D 12/17/18 03:34 Lymphocytes % 34.5 % (8-40) D 12/17/18 03:34 Monocytes % 13.1 % (3.8-10.2) H 12/17/18 03:34 Eosinophils % 2.3 % (0-4.5) D 12/17/18 03:34 Basophils % 0.8 % (0-2.0) 12/17/18 03:34 Nucleated RBC % 0 % (0-0) 12/17/18 03:34 No leukocytosis. Mild normocytic anemia. CMP Sodium 129 mmol/L (136-145) L 12/17/18 03:34 Potassium 4.4 mmol/L (3.5-5.1) 12/17/18 03:34 Chloride 92 mmol/L (98-107) L 12/17/18 03:34 Carbon Dioxide 28 mmol/L (21-32) 12/17/18 03:34 Anion Gap 9 MMOL/L (8-16) 12/17/18 03:34 BUN 15.5 mg/dL (7-18) 12/17/18 03:34 Creatinine 1.1 mg/dL (0.55-1.3) 12/17/18 03:34 Est GFR (CKD-EPI)AfAm 59.74 12/17/18 03:34 Est GFR (CKD-EPI)NonAf 51.55 12/17/18 03:34 Calcium 9.2 mg/dL (8.5-10.1) 12/17/18 03:34 Phosphorus 4.3 mg/dL (2.5-4.9) 12/17/18 03:34 Magnesium 1.9 mg/dL (1.8-2.4) 12/17/18 03:34 Total Bilirubin 0.4 mg/dL (0.2-1) 12/17/18 03:34 AST 43 U/L (15-37) H 12/17/18 03:34 ALT 26 U/L (13-61) 12/17/18 03:34 Alkaline Phosphatase 65 U/L (45-117) 12/17/18 03:34 Total Protein 6.8 g/dl (6.4-8.2) 12/17/18 03:34 Albumin 3.8 g/dl (3.4-5.0) 12/17/18 03:34 Hyponatremia No JOVANY Mag/Phos wnl Urine Test Results Urine Color Yellow 12/17/18 03:40 Urine Appearance Clear 12/17/18 03:40 Urine pH 5.0 (5.0-8.0) 12/17/18 03:40 Ur Specific [place] 1.012 (1.010-1.035) 12/17/18 03:40 Urine Protein Negative (NEGATIVE) 12/17/18 03:40 Urine Glucose (UA) Negative (NEGATIVE) 12/17/18 03:40 Urine Ketones Negative (NEGATIVE) 12/17/18 03:40 Urine Blood Negative (NEGATIVE) 12/17/18 03:40 Urine Nitrite Negative (NEGATIVE) 12/17/18 03:40 Urine Bilirubin Negative (NEGATIVE) 12/17/18 03:40 Ur Leukocyte Esterase Negative (NEGATIVE) 12/17/18 03:40 Negative for UTI. Will continue IV fluids for hyponatremia. Pt to be admitted for hyponatremia and urinary retention/incontinence. 12/17/18 05:14 Sign out given to IM Resident Dr. Monaco, pt to be admitted under Dr. Mckinney's care. Pending admission. *DC/Admit/Observation/Transfer Diagnosis at time of Disposition: Urinary retention, Hyponatremia - Discharge Dispostion Condition at time of disposition: Stable Decision to Admit order: Yes - Referrals Referrals: Myla Martinez MD [Primary Care Provider] - - Patient Instructions - Post Discharge Activity
--- NOTE | 2018-12-17 02:19 | PDOC ---
Attending Attestation - Resident Resident Name: Milena Moore - ED Attending Attestation I have performed the following: I have examined & evaluated the patient, The case was reviewed & discussed with the resident, I agree w/resident's findings & plan - HPI HPI: 12/17/18 03:06 Pt having urinary problems. - Physicial Exam PE: 12/17/18 23:33 Agree with resident exam. - Medical Decision Making 12/17/18 23:34 Pt will be signed out to hospitalist, as she has hyponatremia.
[2018-12-17 04:04] LABS: URINE APPEARANCE CLEAR; URINE BILIRUBIN NEGATIVE (NEGATIVE); URINE COLOR YELLOW; URINE GLUCOSE (UA) NEGATIVE (NEGATIVE); URINE KETONE NEGATIVE (NEGATIVE); URINE LEUK ESTERASE NEGATIVE (NEGATIVE); URINE NITRITE NEGATIVE (NEGATIVE); URINE PROTEIN NEGATIVE (NEGATIVE); URINE UROBILINOGEN 0.2 mg/dL (0.2-1.0)
[2018-12-17 04:04] LABS: BASO % 0.8 % (0-2.0); EOS % 2.3 % (0-4.5); HEMATOCRIT 29.7 % (32.4-45.2); HEMOGLOBIN 10.2 GM/dL (10.7-15.3); LYMPH % 34.5 % (8-40); MCH 31.5 pg (25.7-33.7); MCHC 34.5 g/dl (32.0-36.0); MEAN CELL VOLUME 91.5 fl (80-96); MEAN PLT VOLUME 7.7 fl (7.5-11.1); MONO % 13.1 % (3.8-10.2); NEUT % 49.3 % (42.8-82.8); PLATELET COUNT 220 K/MM3 (134-434); RBC 3.25 M/mm3 (3.60-5.2); RDW 13.6 % (11.6-15.6); WHITE BLOOD COUNT 4.8 K/mm3 (4.0-10.0)
[2018-12-17 04:37] LABS: ALBUMIN 3.8 g/dl (3.4-5.0); BILIRUBIN,TOTAL 0.4 mg/dL (0.2-1); BLOOD UREA NITROGEN 15.5 mg/dL (7-18); CALCIUM 9.2 mg/dL (8.5-10.1); CREATININE 1.1 mg/dL (0.55-1.3); MAGNESIUM 1.9 mg/dL (1.8-2.4); PHOSPHOROUS 4.3 mg/dL (2.5-4.9); POTASSIUM 4.4 mmol/L (3.5-5.1); TOT PROT 6.8 g/dl (6.4-8.2)
[2018-12-17] MEDS ORDERED: SODIUM CHLORIDE 1,000 ML IV STA (04:39)
[2018-12-17] MEDS ORDERED: DEXTROSE 50%-WATER - 25 GM/50 ML VIAL IVPUSH ONE (04:48)
[2018-12-17] MEDS ORDERED: DEXTROSE 50%-WATER 25 GM/50 ML DISP.SYRIN ONE (04:56)
--- NOTE | 2018-12-17 06:06 | HP ---
CHIEF COMPLAINT: incontinence and dizziness HISTORY OF PRESENT ILLNESS: Patient is a 68 year old female with PMH HTN, HLD, IDDM, NM s/p stent, schizo- effective disorder, pacemaker, chronic back pain, osteoarthritis, asthma, bladder lift, presenting to the ED because of incontinence and dizziness. She said she woke up yesterday with incontinence that is worse than usual. She said she has chronic incontinence for years. She says she has a stem which Dr. Carloz griffin placed. It will help her detect that she needs to urinate. She also complains of 8/10, throbbing, constant pain that also started yesterday with nausea and 2 episodes of NBNB vomiting. Patient said she has been dizzy since, especially when getting up from a seated position. Denies fevers, chills, LOC, diarrhea, bloody stool, constipation, numbness, tingling. ER course was notable for: (1) 129 sodium, 92 chloride (2) 45 glucose PAST MEDICAL HISTORY: per HPI Social History: Smoking:denies Alcohol: denies Drugs: denies Family History: Allergies codeine Allergy (Intermediate, Verified 12/17/18 02:25) morphine Allergy (Intermediate, Verified 12/17/18 02:25) Difficulty Breathing oxycodone HCl [From Percocet] Allergy (Intermediate, Verified 12/17/18 02:25) d "GET WILD" ibuprofen [From Motrin] Allergy (Verified 12/17/18 02:25) "GET CRAZY" gabapentin Adverse Reaction (Intermediate, Verified 12/17/18 02:25) dizzy HOME MEDICATIONS: Home Medications Medication Instructions Recorded Atorvastatin Ca [Lipitor] 20 mg PO HS 01/15/17 Divalproex [Depakote -] 750 mg PO BID 12/03/17 Mirabegron [Myrbetriq] 50 mg PO BID 12/03/17 Paliperidone Palmitate [Invega 234 mg IM Q1M 12/03/17 Sustenna] Aspirin [ASA -] 81 mg PO DAILY 02/08/18 Amlodipine Besylate [Norvasc -] 10 mg PO DAILY 10/10/18 Fluticasone/Vilanterol [Breo 1 each IH DAILY 10/10/18 Ellipta 200-25 Mcg INH] Losartan Potassium [Cozaar] 100 mg PO DAILY 10/10/18 Omeprazole Magnesium [Prilosec Otc] 20 mg PO DAILY 10/10/18 Risperidone [Risperdal] 1 mg PO DAILY 10/10/18 Sitagliptin Phosphate [Januvia -] 100 mg PO DAILY@0700 10/10/18 Spironolactone [Aldactone] 25 mg PO BID 10/10/18 Acetaminophen [Pain Reliever] 500 mg PO TID PRN #90 tablet 12/14/18 Cholecalciferol (Vitamin D3) 1,000 unit PO DAILY #30 capsule 12/14/18 [Vitamin D3] Diclofenac Sodium 3 gm TP TID #3 tube 12/14/18 REVIEW OF SYSTEMS CONSTITUTIONAL: generalized weakness Absent: fever, chills, diaphoresis, malaise, loss of appetite, weight change HEENT: Absent: rhinorrhea, nasal congestion, throat pain, throat swelling, difficulty swallowing, mouth swelling, ear pain, eye pain, visual changes CARDIOVASCULAR: Absent: chest pain, syncope, palpitations, irregular heart rate, lightheadedness , peripheral edema RESPIRATORY: Absent: cough, shortness of breath, dyspnea with exertion, orthopnea, wheezing, stridor, hemoptysis GASTROINTESTINAL: abd pain, nausea, vomiting Absent: abdominal distension, diarrhea, constipation, melena, hematochezia GENITOURINARY: incontinence Absent: dysuria, frequency, urgency, hesitancy, hematuria, flank pain, genital pain NEUROLOGIC: dizziness Absent: headache, focal weakness or paresthesias, unsteady gait, seizure, mental status changes PHYSICAL EXAMINATION Vital Signs - 24 hr 12/17/18 02:18 Temperature 98.0 F Pulse Rate 71 Respiratory 18 Rate Blood Pressure 118/59 L O2 Sat by Pulse 94 L Oximetry (%) GENERAL: a/o x 3, in nad HEAD: Normal with no signs of trauma. EYES: Pupils equal, round and reactive to light, sclera anicteric, pale conjunctiva EARS, NOSE, THROAT:oropharynx clear without exudates. dry mucous membranes. NECK: supple without lymphadenopathy, JVD, or masses. LUNGS: Breath sounds equal, clear to auscultation bilaterally. HEART: RRR, no MGR ABDOMEN: obese, nt, nd, +BS LOWER EXTREMITIES: 2+ pulses,No peripheral edema. NEUROLOGICAL: Cranial nerves II-XII intact ASSESSMENT/PLAN: Patient is a 68 year old female with PMH HTN, HLD, IDDM, NM s/p stent, schizo- effective disorder, pacemaker, chronic back pain, osteoarthritis, asthma, bladder lift, presenting to the ED because of incontinence and dizziness. #Moderate Hyponatremia -likely from hypovolemia 2/2 multiple diuretic use +/- vomiting and on psyche meds -Sodium 128, chloride 92 -urine osms, serum osms, urine sodium -hold diuretics -IV fluids. ER ordered 1 L NS Bolus. Has not been given yet. -repeat BMP in a few hours. #Urinary incontinence -chronic issue but worse since yesterday. -likely from diuretic use -consider Dr. Carloz Griffin consult. #Hypoglycemic -given 1 amp d50 -resolved -consider adjusting diabetes regimen #DM -ISS -BGMs #Anemia -iron studies #HTN -cont home meds: 10mg amlodipine, losartan 100mmg #Schizoaffective disorder -cont. home med. needs med rec #FEN -1 L NS ordered Bolus -monitor BMP, sodium -diabetic diet #Dvt -heparin sq Visit type - Emergency Visit Emergency Visit: Yes ED Registration Date: 12/17/18 Care time: The patient presented to the Emergency Department on the above date and was hospitalized for further evaluation of their emergent condition. - New Patient This patient is new to me today: Yes Date on this admission: 12/19/18 - Critical Care Critical Care patient: No ATTENDING PHYSICIAN STATEMENT I saw and evaluated the patient. I reviewed the resident's note and discussed the case with the resident. I agree with the resident's findings and plan as documented. SUBJECTIVE: OBJECTIVE: ASSESSMENT AND PLAN:
[2018-12-17] MEDS ORDERED: HEPARIN NA (PORCINE) 5,000 UNITS/ML 1ML VIAL ONE (06:08)
[2018-12-17] MEDS: HEPARIN NA (PORCINE) 5,000 UNITS/ML 1ML VIAL SQ SCH ×3 (06:12→21:48)
--- NOTE | 2018-12-17 06:12 | PN ---
Teaching Attending Note Name of Resident: Wolfgang Cerda ATTENDING PHYSICIAN STATEMENT I saw and evaluated the patient. I reviewed the resident's note and discussed the case with the resident. I agree with the resident's findings and plan as documented. Seen and examined; please refer to resident note for further historical information. Briefly, this is a 68 y/o female presenting to the ER with urinary incontinance; similar to when she got her bladder sling in the past with Dr. Tao (per operative note for urge incont). Initial concern for hyponatremia but this is essentially her baseline (I spoke to ER provider [facility] who told me she is 130 on her visits there, most recent 1 month ago). She is hemodynamically stable and afebrile. No neuro synmptoms. She gets occasional dysuria but negative UA and denies recent abx. Is on multiple diuretics and psych medications; does drink water but denies doing to excess. She denies seeing nephrology or having chronic issues with electrolytes. She hasn't been eating well. Initially hypoglycemic; 100s repeat after PO. VS, labs, imaging reviewed NAD, AAO, resting in chair NC AT EOMI PERRLA RRR s1/2 no mgr NT ND +BS CN2-12 wnl, no fnd Normal mood, appropriate behavior EKG pending; informed was done. Needs reviewed ASSESSMENT AND PLAN: Patient presents with urinary incontenance; is s/p sling. Negative UA. # Urinary incont -Per uro. Unremarkable UA; can consider repeating if symptomatic # Dizziness -She associates this with her pain from arthritis; she states has some occurance with orthostatic positioning. OSVS and echo FU. Negative EKG. Did not have any syncope. Has been happening for some time. Echo ordered # Hypoglycemia -Given PO; q4h fsg. Monitor; D50 if hypo. Likely 2/2 insulin use. # HypoNa -At baseline; chronic. OP workup if indeed chronic, but can consult nephrology if this is an acute notable change. This is relatively a minor value. She has risks for SIADH, etc. and clinically is a difficult to determine fluid status due to morbid obesity. Check 12P and followup on labs; EDWARD signed for [facility] to confirm information communicated from the ER. # HTN -Holding diuretics; resume if clinically appropriate given hypoNa. Continue losartan. # OA -Weight loss, consider bariatric referral # Morbid obesity -[employer]; consider bariatric referral. Full Code
[2018-12-17] MEDS ORDERED: INSULIN SLIDING SCALE (NOVOLOG) 1 VIAL SQ SCH (07:00)
[2018-12-17 09:05] LABS: BASO % 1.1 % (0-2.0); EOS % 2.1 % (0-4.5); HEMATOCRIT 28.6 % (32.4-45.2); HEMOGLOBIN 10.1 GM/dL (10.7-15.3); LYMPH % 26.5 % (8-40); MCH 32.1 pg (25.7-33.7); MCHC 35.4 g/dl (32.0-36.0); MEAN CELL VOLUME 90.7 fl (80-96); MEAN PLT VOLUME 7.4 fl (7.5-11.1); MONO % 12.1 % (3.8-10.2); NEUT % 58.2 % (42.8-82.8); PLATELET COUNT 221 K/MM3 (134-434); RBC 3.15 M/mm3 (3.60-5.2); WHITE BLOOD COUNT 4.4 K/mm3 (4.0-10.0)
[2018-12-17 09:17] LABS: ALBUMIN 3.7 g/dl (3.4-5.0); BILIRUBIN,TOTAL 0.4 mg/dL (0.2-1); BLOOD UREA NITROGEN 14.3 mg/dL (7-18); CREATININE 1.1 mg/dL (0.55-1.3); POTASSIUM 4.5 mmol/L (3.5-5.1); TOT PROT 6.7 g/dl (6.4-8.2)
[2018-12-17] MEDS ORDERED: DIVALPROEX SODIUM 250 MG TABLET E.C. PO SCH ×3 (10:00→22:00)
[2018-12-17] MEDS ORDERED: PATIENT'S OWN MEDICATION (NON-FORMULARY) (Mirabegron [Myrbetriq] 50 MG) PO SCH (10:00)
[2018-12-17] MEDS ORDERED: PALIPERIDONE 1.5 MG PO SCH (10:00)
[2018-12-17] MEDS ORDERED: DIVALPROEX SODIUM 500 MG TABLET E.C. PO SCH ×2 (10:00→15:45)
[2018-12-17] MEDS ORDERED: ALBUTEROL SO4 8 GM HFA INHALER IH SCH (10:00)
[2018-12-17] MEDS ORDERED: LOSARTAN POTASSIUM 50 MG TABLET (FP) PO SCH (10:00)
[2018-12-17] MEDS ORDERED: PT OWN MED DRAWER 7, Y5N ONE (12:18)
[2018-12-17] MEDS: PANTOPRAZOLE 20 MG TABLET (FP) PO SCH (12:25)
[2018-12-17] MEDS: amLODIPine BESYLATE 10 MG TABLET (FP) PO SCH (12:25)
[2018-12-17] MEDS: LOSARTAN POTASSIUM 50 MG TABLET (FP) PO SCH (12:26)
[2018-12-17] MEDS: ACETAMINOPHEN 500 MG TABLET (FP) PO SCH ×2 (12:27→21:49)
[2018-12-17] MEDS: risperiDONE 1 MG TABLET (FP) PO SCH (12:43)
[2018-12-17 12:53] LABS: BLOOD UREA NITROGEN 13.6 mg/dL (7-18); CALCIUM 9.4 mg/dL (8.5-10.1); POTASSIUM 4.7 mmol/L (3.5-5.1)
[2018-12-17] MEDS ORDERED: DIVALPROEX NA *ER* EXTEND REL 500 MG TABLET.SA (FP) PO SCH (13:15)
[2018-12-17 13:53] VITALS: BMI 43.7
[2018-12-17] MEDS ORDERED: PNEUMOC 13-VAL CONJ-DIP CRM/PF 0.5 ML DISP.SYRIN IM ONE (13:59)
--- NOTE | 2018-12-17 15:07 | CONSULT ---
Consult Consult Specialty:: Nephrology Reason for Consultation:: hyponatremia - History of Present Illness Chief Complaint: urinary incontinace History of Present Illness: Pt is a 68 year old female with pmhx of htn, hld, dm, asthma and bladder lift who presents with urinary incontinace. I was called to evaluate her for hyponatremia. She denies headache or change in vision. She does say that she tries to drink alot of water. She denies lower ext edema. She denies shortness of breath. She denies history of CKD. She is not any dietary restrictions. I was called to evaluate her for hyponatremia. - History Source History Provided By: Patient, Medical Record - Past Medical History Cardio/Vascular: Yes: HTN, Hyperlipdemia ...: No - Alcohol/Substance Use Hx Alcohol Use: No - Smoking History Smoking history: Never smoked Have you smoked in the past 12 months: No Aproximately how many cigarettes per day: 0 Home Medications - Allergies Allergies/Adverse Reactions: Allergies Allergy/AdvReac Type Severity Reaction Status Date / Time codeine Allergy Intermediate Verified 12/17/18 02:25 morphine Allergy Intermediate Difficulty Verified 12/17/18 02:25 Breathing oxycodone HCl [From Percocet] Allergy Intermediate d Verified 12/17/18 02:25 ibuprofen [From Motrin] Allergy Verified 12/17/18 02:25 gabapentin AdvReac Intermediate dizzy Verified 12/17/18 02:25 - Home Medications Home Medications: Ambulatory Orders Acetaminophen 500 mg PO BID 12/17/18 Albuterol Sulfate Inhaler - [Ventolin Hfa Inhaler -] 2 inh PO Q6H PRN 12/17/18 Amlodipine Besylate [Norvasc -] 10 mg PO DAILY 12/17/18 Amlodipine Besylate [Norvasc -] 10 mg PO DAILY 12/17/18 Atorvastatin Ca [Lipitor] 20 mg PO HS 12/17/18 Chlorthalidone [Hygroton -] 25 mg PO DAILY 12/17/18 Divalproex Sodium [Depakote] 750 mg PO BID 12/17/18 Fluticasone/Vilanterol [Breo Ellipta 100-25 Mcg INH] 1 each IH DAILY 12/17/18 Insulin Lispro Protamin/Lispro [Humalog Mix 75-25 Kwikpen] 70 unit SQ BID Losartan Potassium [Cozaar] 100 mg PO DAILY 12/17/18 Mirabegron [Myrbetriq] 50 mg PO DAILY 12/17/18 Omeprazole 20 mg PO DAILY 12/17/18 Paliperidone [Invega] 1.5 mg PO DAILY 12/17/18 Risperidone [Risperdal] 1 mg PO DAILY 12/17/18 Sitagliptin Phosphate [Januvia -] 100 mg PO DAILY@0700 12/17/18 Spironolactone 1 tab PO DAILY 12/17/18 Spironolactone [Aldactone] 25 mg PO BID 12/17/18 Family Disease History - Family Disease History Family Disease History: Diabetes: Mother ( - old age), Heart Disease: Father ( [place], hx eto), Mother, Other: Father, Mother, Brother (four - one (he 'took sick')), Sister (four ), Son (two living, one - schizophrenic ' he 'just gave up on life'), Daughter (two - adult - living) Review of Systems - Review of Systems Constitutional: reports: No Symptoms Eyes: reports: No Symptoms HENT: reports: No Symptoms Neck: reports: No Symptoms Cardiovascular: reports: No Symptoms Respiratory: reports: No Symptoms Gastrointestinal: reports: No Symptoms Genitourinary: reports: Incontinence Musculoskeletal: reports: No Symptoms Integumentary: reports: No Symptoms Neurological: reports: No Symptoms Endocrine: reports: No Symptoms Hematology/Lymphatic: reports: No Symptoms Psychiatric: reports: No Symptoms Physical Exam Vital Signs: Vital Signs Temperature 98 F 12/17/18 09:59 Pulse Rate 77 12/17/18 12:22 Respiratory Rate 20 12/17/18 12:22 Blood Pressure 145/67 12/17/18 12:22 O2 Sat by Pulse Oximetry (%) 96 12/17/18 14:03 Constitutional: Yes: Calm Eyes: Yes: Conjunctiva Clear HENT: Yes: Atraumatic Neck: Yes: Supple Cardiovascular: Yes: S1, S2 Respiratory: Yes: CTA Bilaterally Gastrointestinal: Yes: Soft, Abdomen, Obese Renal/: Yes: WNL Musculoskeletal: Yes: WNL Edema: No Neurological: Yes: Oriented Psychiatric: Yes: Oriented Labs: CBC, BMP 12/17/18 08:30 12/17/18 12:10 Problem List - Problems (1) Hyponatremia Code(s): E87.1 - HYPO-OSMOLALITY AND HYPONATREMIA Assessment/Plan Current Medications Generic Name Dose Route Start Last Admin Trade Name Deyanira PRN Reason Stop Dose Admin Acetaminophen 500 mg 12/17/18 10:00 12/17/18 12:27 Tylenol - PO 500 mg BID NUSRAT Administration Albuterol Sulfate puff 12/17/18 10:00 Ventolin Hfa Inhaler - IH DAILY NUSRAT Amlodipine Besylate 10 mg 12/17/18 10:00 12/17/18 12:25 Norvasc - PO 10 mg DAILY NUSRAT Administration Atorvastatin Calcium 20 mg 12/17/18 22:00 Lipitor - PO HS NUSRAT Divalproex Sodium 1,000 mg 12/17/18 13:15 Depakote *Er* - PO DAILY NUSRAT Divalproex Sodium 250 mg 12/17/18 13:15 Depakote - PO BID NUSRAT Heparin Sodium (Porcine) 5,000 unit 12/17/18 06:00 12/17/18 06:12 Heparin - SQ 5,000 unit TID NUSRAT Administration Losartan Potassium 100 mg 12/17/18 10:00 12/17/18 12:26 Cozaar - PO 100 mg DAILY NUSRAT Administration Non-Formulary Medication 1 each 12/17/18 13:00 Patient's Own Med PO DAILY NUSRAT Pantoprazole Sodium 20 mg 12/17/18 10:00 12/17/18 12:25 Protonix - PO 20 mg DAILY NUSRAT Administration Pneumococcal 13-Valent Conj Vacc 0.5 ml 12/17/18 13:59 Prevnar 13 Syringe - IM 12/17/18 14:00 .ONCE ONE Risperidone 1 mg 12/17/18 10:00 12/17/18 12:43 Risperdal - PO 1 mg DAILY NUSRAT Administration Fluticasone/Salmeterol 1 puff 12/17/18 22:00 Advair 100mcg/50mcg - IH BID NUSRAT Impression 1. hyponatremia 2. dm 3. htn 4. obesity Plan - d/c chlorthalidone - urine osm is low - restrict free water - can be liberal with salt intake over next few days - repeat labs in am - likely hyponatremia from the thiazide
[2018-12-17] MEDS: INSULIN SLIDING SCALE (NOVOLOG) 1 VIAL SQ SCH (17:42)
[2018-12-17] MEDS: DIVALPROEX SODIUM 250 MG TABLET E.C. PO SCH (21:48)
[2018-12-17] MEDS: FLUTICASONE/SALMETEROL 100 MCG/50 MCG DISKUS IH SCH (21:51)
[2018-12-17] MEDS ORDERED: ATORVASTATIN CA 20 MG TABLET (FP) PO SCH (22:00)
[2018-12-18] MEDS ORDERED: ACETAMINOPHEN 500 MG TABLET (FP) PO ONE (03:46)
[2018-12-18] MEDS: HEPARIN NA (PORCINE) 5,000 UNITS/ML 1ML VIAL SQ SCH ×2 (06:29→14:11)
[2018-12-18] MEDS: INSULIN SLIDING SCALE (NOVOLOG) 1 VIAL SQ SCH ×3 (06:29→17:00)
[2018-12-18 07:52] LABS: HEMATOCRIT 28.6 % (32.4-45.2); MCH 31.9 pg (25.7-33.7); MCHC 35.1 g/dl (32.0-36.0); MEAN CELL VOLUME 90.7 fl (80-96); MEAN PLT VOLUME 7.9 fl (7.5-11.1); PLATELET COUNT 218 K/MM3 (134-434); RBC 3.15 M/mm3 (3.60-5.2); RDW 13.1 % (11.6-15.6); WHITE BLOOD COUNT 3.9 K/mm3 (4.0-10.0)
[2018-12-18 08:13] LABS: ALBUMIN 3.5 g/dl (3.4-5.0); BILIRUBIN,TOTAL 0.4 mg/dL (0.2-1); BLOOD UREA NITROGEN 17.1 mg/dL (7-18); CALCIUM 9.2 mg/dL (8.5-10.1); MAGNESIUM 1.8 mg/dL (1.8-2.4); POTASSIUM 4.9 mmol/L (3.5-5.1); TOT PROT 6.6 g/dl (6.4-8.2)
[2018-12-18] MEDS ORDERED: INSULIN (LEVEMIR) 100 UNITS/ML UNITS SQ ONE (10:15)
[2018-12-18] MEDS ORDERED: PT OWN MED DRAWER 7, Y5N ONE (11:42)
[2018-12-18] MEDS: amLODIPine BESYLATE 10 MG TABLET (FP) PO SCH (11:43)
[2018-12-18] MEDS: LOSARTAN POTASSIUM 50 MG TABLET (FP) PO SCH (11:44)
[2018-12-18] MEDS: PANTOPRAZOLE 20 MG TABLET (FP) PO SCH (11:44)
[2018-12-18] MEDS: FLUTICASONE/SALMETEROL 100 MCG/50 MCG DISKUS IH SCH (11:45)
[2018-12-18] MEDS: DIVALPROEX SODIUM 250 MG TABLET E.C. PO SCH (11:45)
[2018-12-18] MEDS: ACETAMINOPHEN 500 MG TABLET (FP) PO SCH (11:46)
--- NOTE | 2018-12-18 12:22 | PN ---
Progress Note, Physician History of Present Illness: Pt seen and examined at bedside. She is awake and alert. She denies shortness of breath. - Current Medication List Current Medications: Active Medications Acetaminophen (Tylenol -) 500 mg PO BID [facility] Last Admin: 12/18/18 11:46 Dose: 500 mg Albuterol Sulfate (Ventolin Hfa Inhaler -) puff IH DAILY [facility] Amlodipine Besylate (Norvasc -) 10 mg PO DAILY [facility] Last Admin: 12/18/18 11:43 Dose: 10 mg Atorvastatin Calcium (Lipitor -) 20 mg PO HS [facility] Last Admin: 12/17/18 21:49 Dose: 20 mg Divalproex Sodium (Depakote -) 750 mg PO BID [facility] Last Admin: 12/18/18 11:45 Dose: 750 mg Heparin Sodium (Porcine) (Heparin -) 5,000 unit SQ TID [facility] Last Admin: 12/18/18 06:29 Dose: 5,000 unit Insulin Aspart (Novolog Vial Sliding Scale -) 1 vial SQ TIDAC [facility]; Protocol Last Admin: 12/18/18 06:29 Dose: 2 units Losartan Potassium (Cozaar -) 100 mg PO DAILY [facility] Last Admin: 12/18/18 11:44 Dose: 100 mg Non-Formulary Medication (Patient's Own Med) 1 each PO DAILY [facility] Pantoprazole Sodium (Protonix -) 20 mg PO DAILY [facility] Last Admin: 12/18/18 11:44 Dose: 20 mg Pneumococcal 13-Valent Conj Vacc (Prevnar 13 Syringe -) 0.5 ml IM .ONCE ONE Stop: 12/17/18 14:00 Risperidone (Risperdal -) 1 mg PO DAILY [facility] Last Admin: 12/17/18 12:43 Dose: 1 mg Fluticasone/Salmeterol (Advair 100mcg/50mcg -) 1 puff IH BID [facility] Last Admin: 12/18/18 11:45 Dose: 1 puff - Objective Vital Signs: Vital Signs Temperature 98.2 F 12/18/18 10:10 Pulse Rate 72 12/18/18 10:10 Respiratory Rate 20 12/18/18 10:10 Blood Pressure 136/72 12/18/18 10:10 O2 Sat by Pulse Oximetry (%) 97 12/17/18 21:00 Constitutional: Yes: Calm Eyes: Yes: Conjunctiva Clear HENT: Yes: Atraumatic Neck: Yes: Supple Cardiovascular: Yes: S1, S2 Respiratory: Yes: CTA Bilaterally Gastrointestinal: Yes: Soft, Abdomen, Obese Genitourinary: Yes: WNL Musculoskeletal: Yes: WNL Edema: No Neurological: Yes: Oriented Psychiatric: Yes: Oriented Labs: CBC, BMP 12/18/18 07:05 12/18/18 07:05 Problem List - Problems (1) Hyponatremia Code(s): E87.1 - HYPO-OSMOLALITY AND HYPONATREMIA Assessment/Plan Current Medications Generic Name Dose Route Start Last Admin Trade Name Deyanira PRN Reason Stop Dose Admin Acetaminophen 500 mg 12/17/18 10:00 12/18/18 11:46 Tylenol - PO 500 mg BID NUSRAT Administration Albuterol Sulfate puff 12/17/18 10:00 Ventolin Hfa Inhaler - IH DAILY NUSRAT Amlodipine Besylate 10 mg 12/17/18 10:00 12/18/18 11:43 Norvasc - PO 10 mg DAILY NUSRAT Administration Atorvastatin Calcium 20 mg 12/17/18 22:00 12/17/18 21:49 Lipitor - PO 20 mg HS NUSRAT Administration Divalproex Sodium 750 mg 12/17/18 22:00 12/18/18 11:45 Depakote - PO 750 mg BID NUSRAT Administration Heparin Sodium (Porcine) 5,000 unit 12/17/18 06:00 12/18/18 06:29 Heparin - SQ 5,000 unit TID NUSRAT Administration Insulin Aspart 1 vial 12/17/18 16:30 12/18/18 06:29 Novolog Vial Sliding Scale - SQ 2 units TIDAC NUSRAT Administration Protocol Losartan Potassium 100 mg 12/17/18 10:00 12/18/18 11:44 Cozaar - PO 100 mg DAILY NUSRAT Administration Non-Formulary Medication 1 each 12/17/18 15:37 Patient's Own Med PO DAILY NUSRAT Pantoprazole Sodium 20 mg 12/17/18 10:00 12/18/18 11:44 Protonix - PO 20 mg DAILY NUSRAT Administration Pneumococcal 13-Valent Conj Vacc 0.5 ml 12/17/18 13:59 Prevnar 13 Syringe - IM 12/17/18 14:00 .ONCE ONE Risperidone 1 mg 12/17/18 10:00 12/17/18 12:43 Risperdal - PO 1 mg DAILY NUSRAT Administration Fluticasone/Salmeterol 1 puff 12/17/18 22:00 12/18/18 11:45 Advair 100mcg/50mcg - IH 1 puff BID NUSRAT Administration Impression 1. hyponatremia 2. dm 3. htn 4. obesity Plan - do not restart thiazide - can be liberal with salt intake today - restrict free water - sodium slowly improving - likely hyponatremia from the thiazide
[2018-12-18 14:10] VITALS: BP 123/57
[2018-12-18] MEDS: risperiDONE 1 MG TABLET (FP) PO SCH (14:11)
[2018-12-18 14:14] VITALS: PULSE 75; TEMP 97.8
--- NOTE | 2018-12-18 15:15 | DS ---
Physical Exam: SUBJECTIVE: Patient seen and examined OBJECTIVE: Vital Signs Period Temp Pulse Resp BP Sys/Yip Pulse Ox Last 24 Hr 97.8 F-98.4 F 69-97 20-20 122-162/51-91 97 PHYSICAL EXAM GENERAL: The patient is awake, alert, and fully oriented, in no acute distress. HEAD: Normal with no signs of trauma. EYES: PERRL, extraocular movements intact, sclera anicteric, conjunctiva clear. ENT: Ears normal, nares patent, oropharynx clear without exudates, moist mucous membranes. NECK: Trachea midline, full range of motion, supple. LUNGS: Breath sounds equal, clear to auscultation bilaterally, no wheezes, no crackles, no accessory muscle use. HEART: Regular rate and rhythm, S1, S2 without murmur, rub or gallop. ABDOMEN: Soft, nontender, nondistended, normoactive bowel sounds, no guarding, no rebound, no hepatosplenomegaly, no masses. EXTREMITIES: 2+ pulses, warm, well-perfused, no edema. NEUROLOGICAL: Cranial nerves II through XII grossly intact. Normal speech, gait not observed. PSYCH: Normal mood, normal affect. SKIN: Warm, dry, normal turgor, no rashes or lesions noted. LABS Laboratory Results - last 24 hr 12/17/18 12/18/18 12/18/18 17:37 06:26 07:05 WBC 3.9 L RBC 3.15 L Hgb 10.0 L Hct 28.6 L MCV 90.7 MCH 31.9 MCHC 35.1 RDW 13.1 Plt Count 218 MPV 7.9 Sodium Potassium Chloride Carbon Dioxide Anion Gap BUN Creatinine Est GFR (CKD-EPI)AfAm Est GFR (CKD-EPI)NonAf POC Glucometer 233 182 Random Glucose Calcium Magnesium Total Bilirubin AST ALT Alkaline Phosphatase Total Protein Albumin 12/18/18 12/18/18 07:05 13:13 WBC RBC Hgb Hct MCV MCH MCHC RDW Plt Count MPV Sodium 131 L Potassium 4.9 Chloride 98 Carbon Dioxide 27 Anion Gap 6 L BUN 17.1 Creatinine 1.0 Est GFR (CKD-EPI)AfAm 67.04 Est GFR (CKD-EPI)NonAf 57.84 POC Glucometer 217 Random Glucose 168 H Calcium 9.2 Magnesium 1.8 Total Bilirubin 0.4 AST 22 ALT 24 Alkaline Phosphatase 66 Total Protein 6.6 Albumin 3.5 HOSPITAL COURSE: Date of Admission:12/17/18 Patient is a 68 year old female with PMH HTN, HLD, IDDM, [place] s/p stent, schizo- effective disorder, pacemaker, chronic back pain, osteoarthritis, asthma, bladder lift, presenting to the ED because of incontinence and dizziness in addition to of 8/10, throbbing, constant pain with nausea and 2 episodes of NBNB vomiting. Patient said she was especially dizzy when getting up from a seated position. Denied fevers, chills, LOC, diarrhea, bloody stool, constipation, numbness, tingling. Her ED course was notable for hyponatremia ( 129 sodium) and hypoglycemia (45 glucose). On review of meds it was discovered that the patient had been taking chlorthalidone. This medication was held, her free water was restricted and she was started on a normal diet allowing liberal salt intake. The patient's Na+ improved to 131, which is her baseline per the ED at [facility] where the patient is frequently treated. The patient's increased incontinence is likely due to her diuretic use, but she was instructed to follow up with her urologist Dr. Carloz Castanon on discharge. The patient reported she hadn't been checking her PM glucose before administering her evening dose of insulin. She also reported a decreased appetite as of late, which likely explains her hypoglycemia. We reduced her humalog from 70units BID to 20 units BID with instructions to F/U with her PCP for adjustment of dose. Bladder scan revealed the patient was not retaining urine, and an Echo showed preserved EF (65-70%) with mild LV hypertrophy, and Grade II diastolic dysfn. There was no previous echo for comparison. An EKG preformed was unremarkable. With the patient's hyponatremia resolved today and plans to f/u as an outpatient with her PCP and urologist, the patient was deemed medically stable for discharge to home. Date of Discharge: 12/18/18 Minutes to complete discharge: 40 <Aleksandra Walters - Last Filed: 12/18/18 20:57> Discharge Summary Reason For Visit: URINARY INCONTINENCE,HYPONATREMIA - Home Medications Comprehensive Discharge Medication List: Ambulatory Orders Acetaminophen 500 mg PO BID 12/17/18 Albuterol Sulfate Inhaler - [Ventolin Hfa Inhaler -] 2 inh PO Q6H PRN 12/17/18 Amlodipine Besylate [Norvasc -] 10 mg PO DAILY 12/17/18 Amlodipine Besylate [Norvasc -] 10 mg PO DAILY 12/17/18 Atorvastatin Ca [Lipitor] 20 mg PO HS 12/17/18 Chlorthalidone [Hygroton -] 25 mg PO DAILY 12/17/18 Divalproex Sodium [Depakote] 250 mg PO BID 12/17/18 Fluticasone/Vilanterol [Breo Ellipta 100-25 Mcg INH] 1 each IH DAILY 12/17/18 Insulin Lispro Protamin/Lispro [Humalog Mix 75-25 Kwikpen] 70 unit SQ BID Losartan Potassium [Cozaar] 100 mg PO DAILY 12/17/18 Mirabegron [Myrbetriq] 50 mg PO DAILY 12/17/18 Omeprazole 20 mg PO DAILY 12/17/18 Paliperidone [Invega] 234 mg PO MONTHLY 12/17/18 Risperidone [Risperdal] 1 mg PO DAILY 12/17/18 Sitagliptin Phosphate [Januvia -] 100 mg PO DAILY@0700 12/17/18 Spironolactone 25 mg PO BID 12/17/18 Cholecalciferol (Vitamin D3) [Vitamin D3] 1,000 unit PO DAILY 12/18/18 Ferrous Sulfate 325 mg PO TID 12/18/18 Folic Acid 1 mg PO DAILY 12/18/18 <Aleksandra Walters - Last Filed: 12/18/18 20:57> Hospital Course: CORRECTION OF THE DC MED LIST . she was dc on insulin Humalog 75-25 20 units BID not 70 units Chlorothalidone was discontinued . Divalproex DR dose is 750 BID. she is conintued on JAnuvia 100 mg daily patient was called and informed of the mistakes in dc meds. - Home Medications Comprehensive Discharge Medication List: Ambulatory Orders: This is the correct med list at tx Albuterol Sulfate Inhaler - [Ventolin HFA Inhaler -] 2 inh PO Q6H PRN 12/17/18 Amlodipine Besylate [Norvasc -] 10 mg PO DAILY 12/17/18 Atorvastatin Ca [Lipitor] 20 mg PO HS 12/17/[address] [Depakote] 750 mg PO BID 12/17/18 Fluticasone/Vilanterol [Breo Ellipta 100-25 Mcg INH] 1 each IH DAILY 12/17/18 Losartan Potassium [Cozaar] 100 mg PO DAILY 12/17/18 Mirabegron [Myrbetriq] 50 mg PO DAILY 12/17/18 Omeprazole 20 mg PO DAILY 12/17/18 Paliperidone [Invega] 234 mg PO MONTHLY 12/17/18 Risperidone [Risperdal -] 1 mg PO DAILY 12/17/18 Spironolactone 25 mg PO BID 12/17/18 Ferrous Sulfate 325 mg PO TID 12/18/18 Folic Acid 1 mg PO DAILY 12/18/18 Insulin (Humalog 75-25) 20 units SQ BIDAC. Acetaminophen 500 mg PO BID PRN #60 tablet 12/19/18 Cholecalciferol (Vitamin D3) [Vitamin D3] 1,000 unit PO DAILY #30 capsule Docusate Sodium [Colace -] 100 mg PO TID #90 capsule 12/19/18 Lancets [Lancets Thin] 1 each MC AC #100 each 12/19/18 Miscellaneous Medical Supply [Glucometer Device] 1 each SQ ASDIR #1 kit Miscellaneous Medical Supply [Glucometer Test Strips #100] 1 each SQ ASDIR #1 box 12/19/18 Pramipexole Dihydrochloride [Mirapex -] 0.5 mg PO HS #30 tablet 12/19/18 JAnuvia 100 mg daily <Eva Mix - Last Filed: 12/19/18 18:03> Condition: Improved - Instructions Diet, Activity, Other Instructions: You were admitted to the hospital on 12/17/2018 because you had symptoms of incontinence and dizziness and were found to have a low sodium level and a low blood sugar. We stopped your medicine Chlorthalidone and changed the dose of your insulin and your symptoms improved. We restricted your water intake to 1 liter per day. It is OK to drink other kinds of liquids, but try to restrict your water intake to NO MORE THAN 1 liter per day. You should resume eating a normal diabetic diet. Please keep a diary of your blood sugars BEFORE every meal so that your primary care doctor can adjusted your prescription as necessary. You also had problems of urinary incontinence which may be related to the bladder sling you had placed. You should follow up with your urologist Dr. Carloz Castanon an an outpatient. Continue home medications: - Continue all home medications as prescribed with the following changes: Changes to medications: - STOP taking Humalog ( 75-25) 70 units twice per day - START taking Humalog ( 75-25) 20 units twice per day before breakfast and dinner -please check blood sugars before each meal and record them and bring them to Dr. Mckeon. If sugar is below 70, do not take insulin and drink orange juice. if sugar is > 300 call your MD after injecting your insulin It is very important to eat before taking insulin Stop taking these mediaitons: - STOP Chlorthalidone- discuss this change with your primary doctor Follow up with your primary care physician Dr. Ramsey within 1 week Follow up with your urologist Dr. Carloz Castanon within 1 week If you experience any abdominal pain, dizziness with fainting, burining on urination, increased urinary frequency or urgency, please return to the ED. you need repeat blood work in 1 week ( BMP). We prescribed you a glucometer, so please use and get refills of lancets and test strips Referrals: Yovany Tao MD [Staff Physician] - 1 Week Myla Martinez MD [Primary Care Provider] - 1 Week Disposition: VNS/HOME HEALTH CARE This patient is new to me today: Yes Date on this admission: 12/18/18 Emergency Visit: Yes ED Registration Date: 12/17/18 Care time: The patient presented to the Emergency Department on the above date and was hospitalized for further evaluation of their emergent condition. Critical Care patient: No - Discharge Referral [facility]erred to [facility] No <Aleksandra Walters - Last Filed: 12/18/18 20:57> ATTENDING PHYSICIAN STATEMENT I saw and evaluated the patient. I reviewed the resident's note and discussed the case with the resident. I agree with the resident's findings and plan as documented. SUBJECTIVE: OBJECTIVE: ASSESSMENT AND PLAN: <Aleksandra Walters - Last Filed: 12/18/18 20:57> ATTENDING PHYSICIAN STATEMENT I saw and evaluated the patient. I reviewed the resident's note and discussed the case with the resident. I agree with the resident's findings and plan as documented. CORRECTION OF THE DC MED LIST . she was dc on insulin Humalog 75-25 20 units BID not 70 units Chlorothalidone was discontinued . Divalproex DR dose is 750 BID. she is conintued on JAnuvia 100 mg daily patient was called and informed of the mistakes in dc meds. <Eva Mix - Last Filed: 12/19/18 18:03>
--- NOTE | 2018-12-18 15:18 | PN ---
Teaching Attending Note Name of Resident: Jasmin Arteaga ATTENDING PHYSICIAN STATEMENT I saw and evaluated the patient. I reviewed the resident's note and discussed the case with the resident. I agree with the resident's findings and plan as documented. SUBJECTIVE: chronic pain in RLE, and chronic urinary incontinence. no cp or SOB . she feels better than before OBJECTIVE: NAD, MMM Cv : RRR, no MRG Lungs: CTAB Ext : No edema or erythema. Abd: soft, Nt, Nd , NL BS ASSESSMENT AND PLAN: 68 y/o lady with h/o DM , HTN, HLP, Asthma, Bladder lift and chronic urinary incontinence who presented for urinary incontinence and was found to have hyponatremia . 1- Chronic urinary incontinence: not changed form before . probably hyper- reactive bladder as per her description. need f/u with urology for further evaluation . bladder scan here with no residual 2- Hyponatremia: likely due to chlorthalidone and free water intake. - urine electrolytes reviewed. - cont free water restriction and will not resume chlorothalidone 3- h/o DM : became hypoglycemic due to poor po intake lately. does not monitor BGM before evening insulin - offered her to go on levemir and SSI but she refused - will decreased Humalog 75-25 to 20 uints BID - will prescribe glucometer and accessories for her to check sugar and take log to PCP. she agreed to check it at home . she was asked not to skin breakfast or dinner - cont Januvia 4- light headedness: due to orthostatic hypotension . repeat vitals resolved. was able to tolerate PT - echo done , will follow report 5- chronic problems: meds were confirmed and will continue dispo; will dc home with services today f/u with renal, uro, and PCP
--- NOTE | 2018-12-18 16:16 | ECHO ---
Name: MICHAEL KESSLERAN Exam:Adult Echocardiogram Study Date: 12/18/2018 12:08 PM Age: 68 yrs Reason For Study: DIZZINESS Height: 66 in Weight: 273 lb BSA: 2.3 m2 MMode/2D Measurements & Calculations IVSd: 1.1 cm Ao root diam: 2.6 cm LVIDd: 4.4 cm LA dimension: 2.9 cm LVIDs: 2.8 cm LVPWd: 1.2 cm LVPWs: 1.5 cm EDV(Teich): 88.5 ml ESV(Teich): 29.6 ml LVOT diam: 1.8 cm RV S Adeel: 21.4 cm/sec Doppler Measurements & Calculations MV E max adeel: 92.3 cm/sec Ao V2 max: 171.2 cm/sec MV A max adeel: 77.5 cm/sec Ao max P.7 mmHg MV E/A: 1.2 Ao V2 mean: 117.5 cm/sec MV dec time: 0.26 sec Ao mean P.3 mmHg Ao V2 VTI: 35.0 cm OSBALDO(I,D): 2.0 cm2 OSBALDO(V,D): 2.0 cm2 LV V1 max P.3 mmHg SV(LVOT): 69.7 ml LV V1 mean P.7 mmHg LV V1 max: 135.5 cm/sec LV V1 mean: 87.1 cm/sec LV V1 VTI: 27.5 cm TR max adeel: 211.7 cm/sec PA V2 max: 131.7 cm/sec TR max P.9 mmHg PA max P.9 mmHg RVSP(TR): 27.9 mmHg Med Peak E' Adeel: 5.4 cm/sec RAP systole: 10.0 mmHg Med E/e': 17.2 Lat Peak E' Adeel: 9.0 cm/sec Lat E/e': 10.3 Procedure A complete two-dimensional transthoracic echocardiogram was performed (2D, M-mode, Doppler and color flow Doppler). Technically limited study. Left Ventricle The left ventricle is normal in size. There is mild concentric left ventricular hypertrophy. Left lupe tricular systolic function is normal. Ejection Fraction = 65-70%. Diastolic dysfunction, Grade II (pseudonorma lization pattern). Ratio E/E'= 17. No regional wall motion abnormalities noted. Right Ventricle The right ventricle is normal size. There is a pacemaker lead in the right ventricle. The right ventr icular systolic function is normal. Atria The left atrial size is normal. Right atrial size is normal. Mitral Valve There is mild mitral annular calcification. There is no mitral regurgitation noted. Tricuspid Valve The tricuspid valve is normal in structure and function. There is mild tricuspid regurgitation. Right ventricular systolic pressure is normal. Aortic Valve There is mild aortic sclerosis.;. No aortic regurgitation is present. Pulmonic Valve The pulmonic valve is not well visualized. Great Vessels The aortic root is normal size. Pericardium/Pleura There is no pericardial effusion. Interpretation Summary Technically limited study The left ventricle is normal in size. There is mild concentric left ventricular hypertrophy. Left ventricular systolic function is normal. No regional wall motion abnormalities noted. Ejection Fraction = 65-70%. Diastolic dysfunction, Grade II (pseudonormalization pattern). Ratio E/E'= 17 There is a pacemaker lead in the right ventricle. The right ventricular systolic function is normal. The left atrial size is normal. Right atrial size is normal. There is mild mitral annular calcification. There is mild tricuspid regurgitation. Right ventricular systolic pressure is normal. There is mild aortic sclerosis. There is no pericardial effusion. Previous study is not available for comparison Anatoliy Lovett MD 12/18/2018 04:15 PM
[2018-12-18] MEDS ORDERED: INSULIN (NOVOLOG MIX 70/30) 100 UNITS/ML MDV SQ SCH (16:30)
== END 2018-12-18 17:04 | disposition home health service (06) | DRG 641 ==
LOC: JER 01:28 → JERBED 04:40 → J5S 09:14
PROVIDERS: ADMIT Internal Medicine; ATTEND Internal Medicine
DX: E87.1 Hypo-osmolality and hyponatremia (principal); Z68.41 Body mass index [BMI] 40.0-44.9, adult; I95.1 Orthostatic hypotension; E66.01 Morbid (severe) obesity due to excess calories; E11.649 Type 2 diabetes mellitus with hypoglycemia without coma; I10 Essential (primary) hypertension; E78.5 Hyperlipidemia, unspecified; F25.9 Schizoaffective disorder, unspecified; J45.909 Unspecified asthma, uncomplicated; M54.9 Dorsalgia, unspecified; R33.9 Retention of urine, unspecified; R42 Dizziness and giddiness; T50.2X5A Adverse effect of carbonic-anhydrase inhibitors, benzothiadiazides and other diuretics, initial encounter; Z79.4 Long term (current) use of insulin
CPT/HCPCS: 36415; 80048; 80053; 81003; 82436; 82728; 82962; 83540; 83550; 83735; 83930; 83935; 84100; 84133; 84300; 85025; 85027; 85730; 87086; 93306-TC; 97116-GP; 97161-GP; 99285-25; G0463-25; J1644; J2794; J7030

== ENCOUNTER 2019-03-06 04:29 | Emergency (ER) | payer OTHER ==
--- NOTE | 2019-03-06 04:54 | PDOC ---
Medical Decision Making - Medical Decision Making 03/06/19 04:53 Patient seen by the advanced practice provider under my direct supervision. Ancillary testing reviewed as necessary. I agree with plan as outlined by the advanced practice provider. Discharge - Discharge Information Problems reviewed: Yes Clinical Impression/Diagnosis: Chronic pain Qualifiers: Chronic pain type: other chronic pain Qualified Code(s): G89.29 - Other chronic pain Condition: Fair Disposition: HOME - Additional Discharge Information Prescriptions: traMADol HCL [Ultram -] 50 mg PO Q8H PRN #10 tablet MDD 3 PRN Reason: Severe Pain - Follow up/Referral - Patient Discharge Instructions Additional Instructions: Take Tylenol as directed by iron carrier's instructions for pain. For pain not relieved by the Tylenol take tramadol 50 mg every 8 hours as needed. 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 Return to the emergency department for any new or worsening symptoms. Thank you very much for choosing us to provide your emergent health care needs. - Post Discharge Activity
--- NOTE | 2019-03-06 05:14 | PDOC ---
History of Present Illness - General Chief Complaint: Pain, Acute Stated Complaint: ARTHRITIS PAIN Time Seen by Provider: 03/06/19 04:52 History Source: Patient, Old Records Exam Limitations: No Limitations - History of Present Illness Initial Comments: 03/06/19 05:14 HISTORY OF PRESENT ILLNESS: This is a 68-year-old woman past medical history of hypertension, hyperlipidemia, IDDM, ME status post stent, schizoaffective disorder, pacemaker, chronic back pain, osteoarthritis, asthma, bladder lift presents to the emergency department for evaluation of myalgias x3 days. Patient has been taken Tylenol with minimal relief of symptoms. Pain is specifically in her bilateral knees, bilateral shoulders and lower back. She rates her pain 10/10 describes it as an sharp aching sensation. Patient reports she is under the care of pain management and has an appointment in March. Patient reports this is an acute exacerbation of her chronic pain. No recent travel or sick contacts. PAST MEDICAL HISTORY: See HPI SURGICAL HISTORY: Denies ALLERGIES: Codeine, morphine, oxycodone, ibuprofen, gabapentin, Mirapex REVIEW OF SYSTEMS General/Constitutional: Denies fever or chills. Denies weakness, weight change. HEENT: Denies change in vision. Denies ear pain or discharge. Denies sore throat. Cardiovascular: Denies chest pain or shortness of breath. Respiratory: Denies cough, wheezing, or hemoptysis. Gastrointestinal: Denies nausea, vomiting, diarrhea or constipation. Denies rectal bleeding. Genitourinary: Denies dysuria, frequency, or change in urination. Musculoskeletal: See HPI Skin and breasts: Denies rash or easy bruising. Neurologic: Denies headache, vertigo, loss of consciousness, or loss of sensation. Psychiatric: Denies depression or anxiety. Endocrine: Denies increased thirst. Denies abnormal weight change. Hematologic/Lymphatic: Denies anemia, easy bleeding, or history of blood clots. Allergic/Immunologic: Denies hives or skin allergy. Denies latex allergy. PHYSICAL EXAM General Appearance: Well-appearing, appropriately dressed. No apparent distress , no intoxication. Respiratory/Chest: Lungs CTAB. No shortness of breath, chest tenderness, respiratory distress, accessory muscle use. No crackles, rales, rhonchi, stridor , wheezing, dullness Cardiovascular: RRR. S1, S2. No JVD, murmur, bradycardia, tachycardia. Vascular Pulses: Dorsalis-Pedis (R): 2+, Dorsalis-Pedis (L): 2+ Lymphatic: No adenopathy, tenderness. Musculoskeletal/Extremities: Normal inspection. FROM of all extremities, normal capillary refill. Pelvis Stable. No CVA tenderness. No tenderness to extremities, pedal edema, swelling, erythema or deformity. Integumentary: Appropriate color, dry, warm. No cyanosis, erythema, jaundice or rash 03/06/19 05:15 03/06/19 05:56 Past History - Past Medical History Allergies/Adverse Reactions: Allergies Allergy/AdvReac Type Severity Reaction Status Date / Time codeine Allergy Intermediate Verified 03/06/19 05:48 morphine Allergy Intermediate Difficulty Verified 03/06/19 05:48 Breathing oxycodone HCl [From Percocet] Allergy Intermediate d Verified 03/06/19 05:48 ibuprofen [From Motrin] Allergy Verified 03/06/19 05:48 gabapentin AdvReac Intermediate dizzy Verified 03/06/19 05:48 pramipexole [From Mirapex] AdvReac Intermediate dizzy Verified 03/06/19 05:48 Home Medications: Ambulatory Orders Albuterol Sulfate Inhaler - [Ventolin HFA Inhaler -] 2 inh PO Q6H PRN 12/17/18 Amlodipine Besylate [Norvasc -] 10 mg PO DAILY 12/17/18 Atorvastatin Ca [Lipitor] 20 mg PO HS 12/17/18 Divalproex Sodium [Depakote] 250 mg PO BID 12/17/18 Fluticasone/Vilanterol [Breo Ellipta 100-25 Mcg INH] 1 each IH DAILY 12/17/18 Losartan Potassium [Cozaar] 100 mg PO DAILY 12/17/18 Mirabegron [Myrbetriq] 50 mg PO DAILY 12/17/18 Omeprazole 20 mg PO DAILY 12/17/18 Paliperidone [Invega] 234 mg PO MONTHLY 12/17/18 Risperidone [Risperdal -] 1 mg PO DAILY 12/17/18 Spironolactone 25 mg PO BID 12/17/18 Ferrous Sulfate 325 mg PO TID 12/18/18 Folic Acid 1 mg PO DAILY 12/18/18 Insulin (Novolog 70/30) [Novolog Mix 70/30 Vial -] 20 units SQ BIDAC 30 Days # 12 vial 12/18/18 Diclofenac Sodium [Voltaren] 100 gm TP TID PRN #3 tube 12/19/18 Lancets [Lancets Thin] 1 each MC AC #100 each 12/19/18 Miscellaneous Medical Supply [Glucometer Test Strips #100] 1 each SQ ASDIR #1 box 12/19/18 Acetaminophen 500 mg PO BID PRN #60 tablet 01/29/19 Ascorbic Acid [Vitamin C -] 500 mg PO DAILY #30 tablet 01/29/19 Cholecalciferol (Vitamin D3) [Vitamin D3] 1,000 unit PO DAILY #30 capsule Docusate Sodium [Colace -] 100 mg PO TID #90 capsule 01/29/19 traMADol HCL [Ultram -] 50 mg PO Q8H PRN #10 tablet MDD 3 03/06/19 Anemia: No Asthma: Yes (on inhalers) Cancer: No Cardiac Disorders: Yes (one STENT) CVA: No COPD: No CHF: No DVT: No Dementia: No Diabetes: Yes (IDDM, on meds) GI Disorders: No Disorders: Yes (GERD) HTN: Yes (on meds) Hypercholesterolemia: Yes (on meds) Liver Disease: No Psychiatric Problems: Yes (schizo-effective disorder) Seizures: No Thyroid Disease: No - Surgical History Abdominal Surgery: Yes (HERNIA) Appendectomy: No Cardiac Surgery: Yes (STENT AND PACEMAKER) Cholecystectomy: No Lung Surgery: No Neurologic Surgery: No Orthopedic Surgery: Yes ( 2017 bilateral knee replacement) - Immunization History Immunization Up to Date: Yes (FLU/PNA) - Psycho Social/Smoking Cessation Hx Smoking Status: No Smoking History: Never smoked Have you smoked in the past 12 months: No Number of Cigarettes Smoked Daily: 0 Cigars Per Day: 0 Hx Alcohol Use: No Drug/Substance Use Hx: No Substance Use Type: None Hx Substance Use Treatment: No Medical Decision Making - Medical Decision Making 03/06/19 05:17 A/P: 68-year-old woman with acute on chronic arthritis pain Patient gives conflicting allergic reactions to her medications. Patient reports her allergy to ibuprofen is "it does not work." She denies having any adverse reactions to NSAID medication. Patient has taken tramadol in the past without difficulty. This patient is a poor historian and is taking a statin medication I will get labs including CPK to rule out rhabdo. Tramadol 50 mg orally now Likely discharge 03/06/19 05:40 Unable to obtain laboratory testing. Patient is refusing further needle sticks at this time. Reassess after tramadol likely discharge 03/06/19 05:56 Patient's pain is currently 5/10 after receiving tramadol dose. Patient is requesting discharge at this time. I will send a prescription for tramadol and encourage patient to make an appoint with her painter and grader cork for reevaluation within the next week. As explained to the patient that she will not be receiving a prescription for anything stronger should she return to the emergency department. Discharge - Discharge Information Problems reviewed: Yes Clinical Impression/Diagnosis: Chronic pain Qualifiers: Chronic pain type: other chronic pain Qualified Code(s): G89.29 - Other chronic pain Condition: Fair Disposition: HOME - Admission No - Additional Discharge Information Prescriptions: traMADol HCL [Ultram -] 50 mg PO Q8H PRN #10 tablet MDD 3 PRN Reason: Severe Pain - Follow up/Referral - Patient Discharge Instructions Additional Instructions: Take Tylenol as directed by steel rigger's instructions for pain. For pain not relieved by the Tylenol take tramadol 50 mg every 8 hours as needed. It is important that you make an appointment with your painter and grader cork for continued evaluation of this chronic pain. Return to the emergency department for any new or worsening symptoms. Thank you very much for choosing us to provide your emergent health care needs. - Post Discharge Activity
[2019-03-06] MEDS ORDERED: traMADol HCL 50 MG TABLET PO ONE (05:20)
[2019-03-06] MEDS ORDERED: traMADol HCL 50 MG TABLET ONE (05:40)
[2019-03-06 05:48] VITALS: PULSE 69; BMI 42.7
[2019-03-06] MEDS ORDERED: KETOROLAC TROMETHAMINE 60 MG/2 ML VIAL IM ONE (08:40)
[2019-03-06] MEDS ORDERED: KETOROLAC TROMETHAMINE 60 MG/2 ML VIAL ONE (10:33)
[2019-03-06 13:13] VITALS: BP 115/41; TEMP 97.7
== END 2019-03-06 11:45 | disposition home or self-care (01) ==
LOC: JER 04:29
PROC: 3E0233Z Introduction of Anti-inflammatory into Muscle, Percutaneous Approach (ICD-10-PCS; principal; 2019-03-06)
DX: M13.88 Other specified arthritis, other site (principal); G89.29 Other chronic pain; I25.10 Atherosclerotic heart disease of native coronary artery without angina pectoris; I10 Essential (primary) hypertension; Z95.5 Presence of coronary angioplasty implant and graft; I25.2 Old myocardial infarction; Z95.0 Presence of cardiac pacemaker; E11.9 Type 2 diabetes mellitus without complications; F25.9 Schizoaffective disorder, unspecified; Z79.4 Long term (current) use of insulin; E78.00 Pure hypercholesterolemia, unspecified; E78.5 Hyperlipidemia, unspecified; J45.909 Unspecified asthma, uncomplicated; Z88.5 Allergy status to narcotic agent; Z88.6 Allergy status to analgesic agent; Z88.8 Allergy status to other drugs, medicaments and biological substances
CPT/HCPCS: 96372; 99282-25

== ENCOUNTER 2019-05-06 04:22 | Emergency (ER) | payer OTHER ==
[2019-05-06 04:36] VITALS: BMI 42.4
[2019-05-06] MEDS ORDERED: ACETAMINOPHEN 500 MG TABLET (FP) PO ONE (04:49)
[2019-05-06] MEDS ORDERED: LIDOCAINE 5% TOPICAL PATCH TP ONE (04:49)
--- NOTE | 2019-05-06 04:50 | PDOC ---
History of Present Illness - General Chief Complaint: Pain Stated Complaint: MULTIPLE JOINT PAIN Time Seen by Provider: 05/06/19 04:45 History Source: Patient, Old Records Exam Limitations: No Limitations - History of Present Illness Initial Comments: HPI: 68 y/o female presenting to [facility] ER via EMS complaining of "pain all over my body" that started at approx. 2am. Pain is worse in the left shoulder and both knees. States his pain is likely related to her history of arthritis. Denies trauma, fevers, or other infectious symptoms. Attempted relief with Tylenol at 8pm yesterday, but did not have any more to take this morning. Questioned if she could get any more of the medication she was given last time she was seen in this department. Follows with a pain management physician, but "they don't do anything." Reviewed previous visit on 06 Mar 2019. Pt was prescribed Tramadol. CT I-STOP (ZINC FURNACE CHARGER) Search Reference # [id number] Results: Rx Written Rx Dispensed Drug Quantity Days Supply Prescriber Name 03/06/2019 03/13/2019 tramadol hcl 50 mg tablet 10 3 Walt Covington 09/07/2018 09/08/2018 tramadol-acetaminophen 37.5-325 mg tab 14 7 Myla Ramsey) Medical Hx: - HTN - HLD - IDDM - NE status post stent - Schizoaffective disorder - Pacemaker - Chronic back pain - Osteoarthritis - Asthma - S/p Bladder lift Review of Systems: In addition to that documented in the HPI above, the additional ROS was obtained : Constitutional- Denies fevers or chills ENMT- Denies sore throat CV- Denies chest pain Resp- Denies SOB GI- Denies vomiting or diarrhea - Denies dysuria, hematuria, or urinary frequency Physical Examination: Vital signs and nursing notes reviewed. Constitutional- Nontoxic adult female in no acute distress or obvious discomfort. Obese body habitus. Found semi-fowlers on hospital bed. Head- Normocephalic. No obvious external signs of trauma. Cardiovascular / Chest- Regular rate and regular rhythm. No murmur, rubs, clicks , or gallops. Peripheral pulses- radial pulses full. Pacemaker in left upper chest. Respiratory- Breathing unlabored. Equal chest rise and fall. Clear to auscultation bilaterally. No stridor, no wheezing, no rhonchi. Gastrointestinal- abdomen is soft, non-tender, non-distended. Neuro- Alert and oriented x4. Moving all four extremities spontaneously. MSK- Pt unable to fully flex R or L knee, nor abduct R or L arms above 90 degrees secondary to pain. All four extremities are warm and well perfused with intact distal pulses. No knee or AC joint deformity or swelling. No obvious long bone deformity. Skin- Warm, dry, and intact. No bruising, rashes, or other lesions. Psych- Affect- appropriate. Mood- normal. Speech was non-labored, non- pressured. MDM: 68 y/o female presenting for acute episode of arthritic pain seeking relief after depleting her home acetaminophen supply. Afebrile. Vitals unremarkable for hypotension or tachycardia. Physical exam as described above. Low suspicion for septic arthritis or acute bony injury or dislocation. Ordered Tylenol and Lidoderm patch. Pt reports this did not help her pain. Will give a single dose of Tramadol in this department and prescribe a temporizine course of Tramadol and topical Diclofenac until she can follow up with her pain management doctor. Past History - Past Medical History Allergies/Adverse Reactions: Allergies Allergy/AdvReac Type Severity Reaction Status Date / Time codeine Allergy Intermediate Verified 05/06/19 04:37 morphine Allergy Intermediate Difficulty Verified 05/06/19 04:37 Breathing oxycodone HCl [From Percocet] Allergy Intermediate d Verified 05/06/19 04:37 ibuprofen [From Motrin] Allergy Verified 05/06/19 04:37 gabapentin AdvReac Intermediate dizzy Verified 05/06/19 04:37 Home Medications: Ambulatory Orders Albuterol Sulfate Inhaler - [Ventolin HFA Inhaler -] 2 inh PO Q6H PRN 12/17/18 Amlodipine Besylate [Norvasc -] 10 mg PO DAILY 12/17/18 Atorvastatin Ca [Lipitor] 20 mg PO HS 12/17/18 Divalproex Sodium [Depakote] 250 mg PO BID 12/17/18 Fluticasone/Vilanterol [Breo Ellipta 100-25 Mcg INH] 1 each IH DAILY 12/17/18 Losartan Potassium [Cozaar] 100 mg PO DAILY 12/17/18 Mirabegron [Myrbetriq] 50 mg PO DAILY 12/17/18 Omeprazole 20 mg PO DAILY 12/17/18 Paliperidone [Invega] 234 mg PO MONTHLY 12/17/18 Risperidone [Risperdal -] 1 mg PO DAILY 12/17/18 Spironolactone 25 mg PO BID 12/17/18 Ferrous Sulfate 325 mg PO TID 12/18/18 Folic Acid 1 mg PO DAILY 12/18/18 Insulin (Novolog 70/30) [Novolog Mix 70/30 Vial -] 20 units SQ BIDAC 30 Days # 12 vial 12/18/18 Diclofenac Sodium [Voltaren] 100 gm TP TID PRN #3 tube 12/19/18 Lancets [Lancets Thin] 1 each MC AC #100 each 12/19/18 Miscellaneous Medical Supply [Glucometer Test Strips #100] 1 each SQ ASDIR #1 box 12/19/18 Ascorbic Acid [Vitamin C -] 500 mg PO DAILY #30 tablet 01/29/19 Cholecalciferol (Vitamin D3) [Vitamin D3] 1,000 unit PO DAILY #30 capsule Docusate Sodium [Colace -] 100 mg PO TID #90 capsule 01/29/19 traMADol HCL [Ultram -] 50 mg PO Q8H PRN #10 tablet MDD 3 03/06/19 Acetaminophen 500 mg PO BID PRN #60 tablet 03/12/19 Pramipexole Dihydrochloride [Mirapex -] 0.5 mg PO HS #30 tablet 03/12/19 Diclofenac Sodium [Diclofono] 2.5 gm TP BID PRN #1 gel.packet 05/06/19 traMADol HCL [Ultram -] 50 mg PO Q8H PRN #10 tablet MDD 200 05/06/19 Anemia: No Asthma: Yes (on inhalers) Cancer: No Cardiac Disorders: Yes (one STENT) CVA: No COPD: No CHF: No DVT: No Dementia: No Diabetes: Yes (IDDM, on meds) GI Disorders: No Disorders: Yes (GERD) HTN: Yes (on meds) Hypercholesterolemia: Yes (on meds) Liver Disease: No Psychiatric Problems: Yes (schizo) Seizures: No Thyroid Disease: No - Surgical History Abdominal Surgery: Yes (HERNIA) Appendectomy: No Cardiac Surgery: Yes (STENT AND PACEMAKER) Cholecystectomy: No Lung Surgery: No Neurologic Surgery: No Orthopedic Surgery: Yes ( 2017 bilateral knee replacement) - Immunization History Immunization Up to Date: Yes (FLU/PNA) - Psycho Social/Smoking Cessation Hx Smoking Status: No Smoking History: Never smoked Have you smoked in the past 12 months: No Number of Cigarettes Smoked Daily: 0 Cigars Per Day: 0 Hx Alcohol Use: No Drug/Substance Use Hx: No Substance Use Type: None Hx Substance Use Treatment: No *Physical Exam - Vital Signs Last Vital Signs Temp Pulse Resp BP Pulse Ox 98.2 F 72 18 115/72 96 05/06/19 04:33 05/06/19 04:33 05/06/19 04:33 05/06/19 04:33 05/06/19 04:33 Discharge - Discharge Information Problems reviewed: Yes Clinical Impression/Diagnosis: Osteoarthritis involving multiple joints on both sides of body Condition: Good Disposition: HOME - Admission No - Additional Discharge Information Prescriptions: Diclofenac Sodium [Diclofono] 2.5 gm TP BID PRN #1 gel.packet PRN Reason: Pain traMADol HCL [Ultram -] 50 mg PO Q8H PRN #10 tablet MDD 200 PRN Reason: Severe Pain Prescription Drug Monitoring Program (I-STOP) results: I-STOP reviewed and no issues identified - Follow up/Referral Referrals: Kelly Larry NP [Primary Care Provider] - - Patient Discharge Instructions Patient Printed Discharge Instructions: DI for Osteoarthritis, Diclofenac Topical (osteoarthritis pain), Tramadol Additional Instructions: You were seen today for arthritis pain. You were given Tylenol, a lidoderm patch , and Tramadol. I have sent two prescriptions to your pharmacy. The first is for Tramadol and the second is for a topical medication called Diclofenac. Take as directed on the package inserts. Do not exceed the recommended dosages. Read the attached informational packets on these medications. Follow up with your pain management doctor in the next 3-4 days. You will need to call to make an appointment. This person is the best to help with this type of pain. Go to the nearest emergency department if your condition worsens or you feel like you need additional emergency evaluation. Print Language: UKRAINIAN - Post Discharge Activity
[2019-05-06] MEDS ORDERED: ACETAMINOPHEN 325 MG TABLET (FP) ONE (04:56)
[2019-05-06] MEDS ORDERED: LIDOCAINE 5% TOPICAL PATCH ONE (04:56)
--- NOTE | 2019-05-06 05:19 | PDOC ---
Attending Attestation - Resident Resident Name: Khalif Nesbitt - ED Attending Attestation I have performed the following: I have examined & evaluated the patient, The case was reviewed & discussed with the resident, I agree w/resident's findings & plan - HPI HPI: 05/06/19 20:18 Pt comes with total body pains and joint pains. She has known arthritis. She is eating well and afebrile. She is sleeping well and she has a [employer] 5 days per week 4hrs at a time, who helps her with ADLs and with shopping and cooking. Pt has no other complaints She wants some analgesics for her pain. - Physicial Exam PE: 05/06/19 20:19 Agree with resident exam. Pt has obesity. She is well kempt She is afebrile; no rashes Pt has bilateral shoulder pain right >>left Pt has bilat knee pain. Pt has no neuro deficits; she is CN 2-12 intact Pt has clear heart and lungs. - Medical Decision Making 05/06/19 20:22 Pt will be discharged. She feels better after treatment in the ER. She will go home after breakfast.
[2019-05-06] MEDS ORDERED: traMADol HCL 50 MG TABLET PO ONE (05:51)
[2019-05-06] MEDS ORDERED: traMADol HCL 50 MG TABLET ONE (05:59)
[2019-05-06 08:54] VITALS: BP 108/61; PULSE 74; TEMP 98.3
[2019-05-06] MEDS ORDERED: LIDOCAINE PATCH REMOVAL MC SCH (22:00)
== END 2019-05-06 08:54 | disposition home or self-care (01) ==
LOC: JER 04:22
DX: M15.8 Other polyosteoarthritis (principal); I25.10 Atherosclerotic heart disease of native coronary artery without angina pectoris; I10 Essential (primary) hypertension; Z95.1 Presence of aortocoronary bypass graft; E11.9 Type 2 diabetes mellitus without complications; Z79.4 Long term (current) use of insulin; E78.00 Pure hypercholesterolemia, unspecified; K21.9 Gastro-esophageal reflux disease without esophagitis; J45.909 Unspecified asthma, uncomplicated; F25.9 Schizoaffective disorder, unspecified; Z95.0 Presence of cardiac pacemaker; Z96.653 Presence of artificial knee joint, bilateral; Z87.448 Personal history of other diseases of urinary system; Z88.8 Allergy status to other drugs, medicaments and biological substances; Z88.5 Allergy status to narcotic agent; Z88.6 Allergy status to analgesic agent
CPT/HCPCS: 99282-25

== ENCOUNTER 2019-06-03 04:52 | Emergency (ER) | payer OTHER ==
[2019-06-03 05:17] VITALS: BP 111/67; PULSE 73; TEMP 98.9; BMI 32.3
--- NOTE | 2019-06-03 05:51 | PDOC ---
History of Present Illness - General Chief Complaint: Pain, Acute Stated Complaint: RT SHOULDER PAIN Time Seen by Provider: 06/03/19 05:50 History Source: Patient Exam Limitations: No Limitations - History of Present Illness Initial Comments: 06/03/19 06:06 68yF w PMHx DM HTN HLD obesity chronic pain arthritis schizoaffective presenting w R shoulder pain. No trauma. Sudden onset severe pain around R shoulder joint yesterday afternoon, unable to raise arm. Still able to move fingers. Last took tylenol 8p last night. Seen multiple times in past for joint pain requesting pain meds, negative workup. Pt alternated between crying uncontrollably for meds and neutral affect. Denies chest pain, SOB. Past History - Past Medical History Allergies/Adverse Reactions: Allergies Allergy/AdvReac Type Severity Reaction Status Date / Time codeine Allergy Intermediate Verified 06/03/19 05:03 morphine Allergy Intermediate Difficulty Verified 06/03/19 05:03 Breathing oxycodone HCl [From Percocet] Allergy Intermediate d Verified 06/03/19 05:03 ibuprofen [From Motrin] Allergy Verified 06/03/19 05:03 gabapentin AdvReac Intermediate dizzy Verified 06/03/19 05:03 Home Medications: Ambulatory Orders Albuterol Sulfate Inhaler - [Ventolin HFA Inhaler -] 2 inh PO Q6H PRN 12/17/18 Amlodipine Besylate [Norvasc -] 10 mg PO DAILY 12/17/18 Atorvastatin Ca [Lipitor] 20 mg PO HS 12/17/18 Divalproex Sodium [Depakote] 250 mg PO BID 12/17/18 Fluticasone/Vilanterol [Breo Ellipta 100-25 Mcg INH] 1 each IH DAILY 12/17/18 Losartan Potassium [Cozaar] 100 mg PO DAILY 12/17/18 Mirabegron [Myrbetriq] 50 mg PO DAILY 12/17/18 Omeprazole 20 mg PO DAILY 12/17/18 Paliperidone [Invega] 234 mg PO MONTHLY 12/17/18 Risperidone [Risperdal -] 1 mg PO DAILY 12/17/18 Spironolactone 25 mg PO BID 12/17/18 Ferrous Sulfate 325 mg PO TID 12/18/18 Folic Acid 1 mg PO DAILY 12/18/18 Insulin (Novolog 70/30) [Novolog Mix 70/30 Vial -] 20 units SQ BIDAC 30 Days # 12 vial 12/18/18 Diclofenac Sodium [Voltaren] 100 gm TP TID PRN #3 tube 12/19/18 Lancets [Lancets Thin] 1 each MC AC #100 each 12/19/18 Miscellaneous Medical Supply [Glucometer Test Strips #100] 1 each SQ ASDIR #1 box 12/19/18 Ascorbic Acid [Vitamin C -] 500 mg PO DAILY #30 tablet 01/29/19 Cholecalciferol (Vitamin D3) [Vitamin D3] 1,000 unit PO DAILY #30 capsule Docusate Sodium [Colace -] 100 mg PO TID #90 capsule 01/29/19 traMADol HCL [Ultram -] 50 mg PO Q8H PRN #10 tablet MDD 3 03/06/19 Acetaminophen 500 mg PO BID PRN #60 tablet 03/12/19 Pramipexole Dihydrochloride [Mirapex -] 0.5 mg PO HS #30 tablet 03/12/19 Diclofenac Sodium [Diclofono] 2.5 gm TP BID PRN #1 gel.packet 05/06/19 traMADol HCL [Ultram -] 50 mg PO Q8H PRN #10 tablet MDD 200 05/06/19 Ketorolac Tromethamine [Toradol] 10 mg PO TID #30 tablet 06/03/19 Lidocaine 5% Patch [Lidoderm Patch -] 1 patch TP DAILY #30 patch 06/03/19 Tramadol HCl [Ultram] 50 mg PO BID #30 tablet MDD 2 06/03/19 Anemia: No Asthma: Yes (on inhalers) Cancer: No Cardiac Disorders: Yes (one STENT) CVA: No COPD: No CHF: No DVT: No Dementia: No Diabetes: Yes (IDDM, on meds) GI Disorders: No Disorders: Yes (GERD) HTN: Yes (on meds) Hypercholesterolemia: Yes (on meds) Liver Disease: No Psychiatric Problems: Yes (schizo) Seizures: No Thyroid Disease: No - Surgical History Abdominal Surgery: Yes (HERNIA) Appendectomy: No Cardiac Surgery: Yes (STENT AND PACEMAKER) Cholecystectomy: No Lung Surgery: No Neurologic Surgery: No Orthopedic Surgery: Yes ( 2017 bilateral knee replacement) - Immunization History Immunization Up to Date: Yes (FLU/PNA) - Psycho Social/Smoking Cessation Hx Smoking Status: No Smoking History: Never smoked Have you smoked in the past 12 months: No Number of Cigarettes Smoked Daily: 0 Cigars Per Day: 0 Information on smoking cessation initiated: No Hx Alcohol Use: No Drug/Substance Use Hx: No Substance Use Type: None Hx Substance Use Treatment: No Review of Systems - Review of Systems Constitutional: No: Chills, Fever HEENTM: No: Eye Pain Respiratory: No: Cough, Shortness of Breath Cardiac (ROS): No: Chest Pain, Palpitations, Syncope ABD/GI: No: Abdominal Distended, Constipated, Diarrhea, Nausea, Vomiting : No: Burning, Dysuria Musculoskeletal: Yes: Back Pain, Joint Pain Integumentary: No: Bruising, Flushing Neurological: No: Headache, Seizure Psychiatric: No: Anxiety, Depression Endocrine: No: Intolerance to Cold, Intolerance to Heat Hematologic/Lymphatic: No: Anemia, Blood Clots *Physical Exam - Vital Signs Last Vital Signs Temp Pulse Resp BP Pulse Ox 98.9 F 73 20 111/67 98 06/03/19 05:14 06/03/19 05:14 06/03/19 05:14 06/03/19 05:14 06/03/19 05:14 - Physical Exam General Appearance: Yes: Nourished, Appropriately Dressed, Mild Distress, Obese HEENT: positive: EOMI, DYAN, Normal Voice. negative: Scleral Icterus (R), Scleral Icterus (L) Respiratory/Chest: positive: Lungs Clear, Normal Breath Sounds. negative: Chest Tender, Respiratory Distress Cardiovascular: positive: Regular Rhythm, Regular Rate, S1, S2. negative: Edema , Murmur Gastrointestinal/Abdominal: positive: Normal Bowel Sounds, Flat, Soft. negative : Tender, Organomegaly Extremity: positive: Other (moderate R shoulder tenderness. 5/5 forearm/wrist/ finger strength, 2+ nick radial pulses, normal sensation to touch. Pt moves R arm when distracted) Integumentary: positive: Normal Color Neurologic: positive: Fully Oriented, Alert, Motor Strength 5/5, Responsive. negative: Normal Mood/Affect (histrionic personality), Numbness, Sensory Deficit , Confused, Disoriented Medical Decision Making - Medical Decision Making 06/03/19 06:17 EKG CXR R shoulder XR --- 68yF w PMHx DM HTN HLD obesity chronic pain arthritis schizoaffective presenting w R shoulder pain. 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 R arm neurovascular intact. Given toradol, lido patch Anticipate DC home w toradol prescription - pending chest/R shoulder XR, EKG Signed out to day team Discharge - Discharge Information Problems reviewed: Yes Clinical Impression/Diagnosis: Histrionic behavior Right shoulder pain Qualifiers: Chronicity: acute Qualified Code(s): M25.511 - Pain in right shoulder Condition: Good Disposition: HOME - Additional Discharge Information Prescriptions: Ketorolac Tromethamine [Toradol] 10 mg PO TID #30 tablet Lidocaine 5% Patch [Lidoderm Patch -] 1 patch TP DAILY #30 patch Tramadol HCl [Ultram] 50 mg PO BID #30 tablet MDD 2 - Follow up/Referral Referrals: Kelly Larry SURGEON'S ASSISTANT [Primary Care Provider] - - Patient Discharge Instructions - Post Discharge Activity
[2019-06-03] MEDS ORDERED: LIDOCAINE 5% TOPICAL PATCH TP ONE (06:11)
[2019-06-03] MEDS ORDERED: KETOROLAC TROMETHAMINE 15 MG/ML VIAL IM ONE (06:11)
[2019-06-03] MEDS ORDERED: LIDOCAINE 5% TOPICAL PATCH ONE (06:58)
[2019-06-03] MEDS ORDERED: KETOROLAC TROMETHAMINE 15 MG/ML VIAL ONE (06:59)
--- NOTE | 2019-06-03 07:26 | PDOC ---
Attending Attestation - Resident Resident Name: Rey,Hubert - ED Attending Attestation I have performed the following: I have examined & evaluated the patient, The case was reviewed & discussed with the resident, I agree w/resident's findings & plan - HPI HPI: 06/03/19 07:26 Pt comes with right shoulder pain - Physicial Exam PE: 06/03/19 20:13 Pt has right shoulder pain and limited ROM; she has no swelling or deformity. She has good pulses in the arm. She has no redness or rash. Afebrile. Pt is anxious and chatty at times. At other times she is tearful, and at times hungry and eating. She also sings and chats with us. Pt has normal heart and lungs abd obese soft NT ND - Medical Decision Making 06/03/19 20:15 Pain meds given and pt will get XRAYs of her shoulder. I will also do cxr and EKG and she will be reeval by the day team. If pt seems to have abnormal EKG or she has atypical CP, then a cardiac workup can be purused. However, I believe pain is solely in the right shoulder
[2019-06-03] MEDS ORDERED: traMADol HCL 50 MG TABLET PO ONE (10:10)
[2019-06-03] MEDS ORDERED: traMADol HCL 50 MG TABLET ONE (10:29)
--- NOTE | 2019-06-03 10:31 | PDOC ---
*Physical Exam - Vital Signs Last Vital Signs Temp Pulse Resp BP Pulse Ox 98.9 F 73 20 111/67 98 06/03/19 05:14 06/03/19 05:14 06/03/19 05:14 06/03/19 05:14 06/03/19 05:14 ED Treatment Course - Medications Given in the ED: ED Medications Discontinued Medications Generic Name Dose Route Start Last Admin Trade Name Deyanira PRN Reason Stop Dose Admin Ketorolac Tromethamine 15 mg 06/03/19 06:11 06/03/19 07:03 Toradol Injection - IM 06/03/19 06:12 15 mg ONCE ONE Administration Lidocaine 1 patch 06/03/19 06:11 06/03/19 07:03 Lidoderm Patch - TP 06/03/19 06:12 1 patch ONCE ONE Administration Medical Decision Making - Medical Decision Making 06/03/19 10:25 68 yo female presents to the ED with chronic shoulder pain. X ray shows chronic arthritic changes EKG done, NSR, no acute ischemic changes Pt states she has no relief from Tylenol, states she takes tramadol at home for arthritic pain with good relief. Will give 1 pill in the ED and send voltaren gel to pharmacy Pt will be given referral to Ortho and Pain management pt understands and agrees with plan Discharge - Discharge Information Problems reviewed: Yes Clinical Impression/Diagnosis: Histrionic behavior, Arthritis, shoulder region Right shoulder pain Qualifiers: Chronicity: acute Qualified Code(s): M25.511 - Pain in right shoulder Condition: Good Disposition: HOME - Admission No - Additional Discharge Information Prescriptions: Diclofenac Sodium [Voltaren] 100 gm TP TID #1 gel..gram. Ketorolac Tromethamine [Toradol] 10 mg PO TID #30 tablet Lidocaine 5% Patch [Lidoderm Patch -] 1 patch TP DAILY #30 patch Tramadol HCl [Ultram] 50 mg PO BID #30 tablet MDD 2 - Follow up/Referral Referrals: Kelly Larry NP [Primary Care Provider] - Micheal Prater MD [Staff Physician] - João Meehan MD [Staff Physician] - Pj Valdes MD [Staff Physician] - - Patient Discharge Instructions Patient Printed Discharge Instructions: DI for Osteoarthritis Additional Instructions: Please continue taking over the counter tylenol as needed for pain along with Voltaren gel sent to your Pharmacy. Stop using the cream if you have adverse reactions such as hives/itching or changes in breathing. Call the Orthopedic Doctor and Pain Doctor referred to you for follow up and definitive care for this pain. Return to the ER for new or concerning symptoms. Thank you - Post Discharge Activity
--- NOTE | 2019-06-03 14:11 | EKG ---
Test Reason : Blood Pressure : / mmHG Vent. Rate : 070 BPM Atrial Rate : 070 BPM P-R Int : 156 ms QRS Dur : 078 ms QT Int : 392 ms P-R-T Axes : 059 023 076 degrees QTc Int : 423 ms NORMAL SINUS RHYTHM NONSPECIFIC T WAVE ABNORMALITY ABNORMAL ECG Confirmed by MD RENO, CONSTANTINO ([id number]) on 06/03/2019 2:10:49 PM Referred By: Confirmed By:CONSTANTINO BOJORQUEZ MD
[2019-06-03] MEDS ORDERED: LIDOCAINE PATCH REMOVAL MC SCH (22:00)
== END 2019-06-03 12:14 | disposition home or self-care (01) ==
LOC: JER 04:52
PROC: 3E0233Z Introduction of Anti-inflammatory into Muscle, Percutaneous Approach (ICD-10-PCS; principal; 2019-06-03)
DX: M13.811 Other specified arthritis, right shoulder (principal); F60.4 Histrionic personality disorder; I25.10 Atherosclerotic heart disease of native coronary artery without angina pectoris; I10 Essential (primary) hypertension; Z95.5 Presence of coronary angioplasty implant and graft; E11.9 Type 2 diabetes mellitus without complications; Z79.4 Long term (current) use of insulin; E78.00 Pure hypercholesterolemia, unspecified; J45.909 Unspecified asthma, uncomplicated; F20.9 Schizophrenia, unspecified; Z88.5 Allergy status to narcotic agent; Z88.8 Allergy status to other drugs, medicaments and biological substances; E66.9 Obesity, unspecified; Z68.32 Body mass index [BMI] 32.0-32.9, adult
CPT/HCPCS: 71046-TC-FY; 73030-TC-RT-FY; 93005; 93010; 96372; 99284-25

== ENCOUNTER 2020-03-17 02:44 | Emergency (ER) | payer OTHER ==
[2020-03-17 03:01] VITALS: BP 134/70; PULSE 77; TEMP 98.5; BMI 41.1
[2020-03-17] MEDS ORDERED: LIDOCAINE 5% TOPICAL PATCH TP ONE (03:01)
[2020-03-17] MEDS ORDERED: traMADol HCL 50 MG TABLET PO ONE (03:06)
[2020-03-17] MEDS ORDERED: LIDOCAINE 5% TOPICAL PATCH ONE (03:10)
[2020-03-17] MEDS ORDERED: traMADol HCL 50 MG TABLET ONE (03:10)
[2020-03-17] MEDS ORDERED: LIDOCAINE PATCH REMOVAL MC ONE (15:30)
== END 2020-03-17 04:44 | disposition home or self-care (01) ==
LOC: JER 02:44
DX: M54.5 Low back pain (principal); M25.562 Pain in left knee; M25.561 Pain in right knee
CPT/HCPCS: 99283-25

== ENCOUNTER 2020-05-05 15:44 | Emergency (ER) | payer OTHER ==
[2020-05-05 16:02] VITALS: BMI 21.6
[2020-05-05 16:04] VITALS: TEMP 97.8
[2020-05-05] MEDS ORDERED: ASPIRIN 81 MG CHEWABLE TABLETS PO ONE (17:25)
[2020-05-05] MEDS ORDERED: ASPIRIN 81 MG CHEWABLE TABLETS ONE (18:14)
[2020-05-05 18:41] LABS: BASO % 0.9 % (0-2.0); EOS % 1.3 % (0-4.5); HEMATOCRIT 32.3 % (32.4-45.2); HEMOGLOBIN 10.6 GM/dL (10.7-15.3); LYMPH % 29.3 % (8-40); MCH 29.7 pg (25.7-33.7); MCHC 32.9 g/dl (32.0-36.0); MEAN CELL VOLUME 90.4 fl (80-96); MEAN PLT VOLUME 8.3 fl (7.5-11.1); MONO % 9.4 % (3.8-10.2); NEUT % 59.1 % (42.8-82.8); PLATELET COUNT 216 K/MM3 (134-434); RBC 3.58 M/mm3 (3.60-5.2); RDW 13.6 % (11.6-15.6); WHITE BLOOD COUNT 5.4 K/mm3 (4.0-10.0)
[2020-05-05 18:52] LABS: INR 0.89 (0.83-1.09); PROTHROMBIN TIME (PATIENT) 10.8 SEC (9.7-13.0)
[2020-05-05 18:54] LABS: ACTIVATED PTT 30.5 SECONDS (25.2-36.5)
[2020-05-05 18:58] LABS: CHLORIDE 97 mmol/L (98-107); SODIUM 133 mmol/L (136-145)
[2020-05-05 19:00] LABS: ALBUMIN 3.6 g/dl (3.4-5.0); ANION GAP 8 MMOL/L (8-16); BLOOD UREA NITROGEN 17.2 mg/dL (7-18); CALCIUM 9.2 mg/dL (8.5-10.1); CO2 28 mmol/L (21-32); GLUCOSE,RANDOM 333 mg/dL (74-106); MAGNESIUM 1.9 mg/dL (1.8-2.4)
[2020-05-05 19:03] LABS: SGOT/AST 8 U/L (15-37); SGPT/ALT 21 U/L (13-61)
[2020-05-05 19:04] LABS: CREATININE 1.1 mg/dL (0.55-1.3)
[2020-05-05 19:05] LABS: BILIRUBIN,TOTAL 0.3 mg/dL (0.2-1)
[2020-05-05 19:06] LABS: ALK PHOS 85 U/L (45-117)
[2020-05-05 19:54] LABS: URINE APPEARANCE CLEAR; URINE BILIRUBIN NEGATIVE (NEGATIVE); URINE COLOR YELLOW; URINE GLUCOSE (UA) 3+ (NEGATIVE); URINE KETONE NEGATIVE (NEGATIVE); URINE LEUK ESTERASE NEGATIVE (NEGATIVE); URINE NITRITE NEGATIVE (NEGATIVE); URINE PROTEIN NEGATIVE (NEGATIVE); URINE UROBILINOGEN 0.2 mg/dL (0.2-1.0)
[2020-05-05 23:34] VITALS: BP 130/72; PULSE 76
== END 2020-05-05 23:54 | disposition home or self-care (01) ==
LOC: JER 15:44
DX: R42 Dizziness and giddiness (principal); I10 Essential (primary) hypertension
CPT/HCPCS: 36415; 71046-TC-FY; 80053; 81003; 82550; 82553; 82962; 83735; 84484; 85025; 85610; 85730; 93005; 93010; 99285-25

== ENCOUNTER 2020-11-05 21:57 | Inpatient (IN) | payer OTHER ==
[2020-11-05 23:10] LABS: HEMATOCRIT 29.8 % (32.4-45.2); HEMOGLOBIN 10.4 GM/dL (10.7-15.3); MCH 30.2 pg (25.7-33.7); MEAN CELL VOLUME 86.4 fl (80-96); MEAN PLT VOLUME 8.1 fl (7.5-11.1); PLATELET COUNT 199 10^3/uL (134-434); RBC 3.45 M/mm3 (3.60-5.2); RDW 13.6 % (11.6-15.6); WHITE BLOOD COUNT 5.5 K/mm3 (4.0-10.0)
[2020-11-05 23:31] LABS: CHLORIDE 84 mmol/L (98-107); SODIUM 121 mmol/L (136-145)
[2020-11-05 23:33] LABS: PH,URINE 5.5 (5.0-8.0); URINE APPEARANCE CLEAR; URINE BILIRUBIN NEGATIVE (NEGATIVE); URINE COLOR YELLOW; URINE GLUCOSE (UA) NEGATIVE (NEGATIVE); URINE KETONE NEGATIVE (NEGATIVE); URINE LEUK ESTERASE NEGATIVE (NEGATIVE); URINE NITRITE NEGATIVE (NEGATIVE); URINE PROTEIN NEGATIVE (NEGATIVE); URINE UROBILINOGEN 0.2 mg/dL (0.2-1.0)
[2020-11-05 23:33] LABS: CALCIUM 8.6 mg/dL (8.5-10.1)
[2020-11-05 23:34] LABS: ALBUMIN 3.6 g/dl (3.4-5.0); ANION GAP 9 MMOL/L (8-16); BLOOD UREA NITROGEN 16.3 mg/dL (7-18); CO2 28 mmol/L (21-32); GLUCOSE,RANDOM 153 mg/dL (74-106)
[2020-11-05 23:37] LABS: SGOT/AST 29 U/L (15-37); SGPT/ALT 20 U/L (13-61)
[2020-11-05 23:38] LABS: BILIRUBIN,TOTAL 0.4 mg/dL (0.2-1)
[2020-11-05 23:39] LABS: TOT PROT 6.6 g/dl (6.4-8.2)
[2020-11-05 23:40] LABS: ALK PHOS 63 U/L (45-117)
[2020-11-05 23:42] LABS: N-TERMINAL BNP 63.2 pg/ml (5-125)
[2020-11-06] MEDS ORDERED: HALOPERIDOL LACTATE 5 MG/ML IM ONE (00:33)
[2020-11-06] MEDS ORDERED: HALOPERIDOL LACTATE 5 MG/ML ONE (00:34)
[2020-11-06 02:22] LABS: OSMOLALITY,SERUM 252 mosm/kg (278-305)
[2020-11-06] MEDS ORDERED: SODIUM CHLORIDE 1,000 ML IV SCH ×3 (03:15→06:30)
[2020-11-06] MEDS ORDERED: ACETAMINOPHEN 500 MG TABLET (FP) PO PRN (06:49)
[2020-11-06] MEDS ORDERED: KETOROLAC TROMETHAMINE 15 MG/ML VIAL IVPUSH PRN (06:49)
[2020-11-06] MEDS ORDERED: ACETAMINOPHEN 1000 MG/100 ML VIAL (NON FORMULARY) IVPB ONE (06:49)
[2020-11-06 06:55] LABS: CALCIUM 8.6 mg/dL (8.5-10.1)
[2020-11-06 06:56] LABS: BLOOD UREA NITROGEN 16.2 mg/dL (7-18); MAGNESIUM 1.9 mg/dL (1.8-2.4)
[2020-11-06] MEDS ORDERED: POTASSIUM CHLORIDE TABS 20 MEQ TABLET.ER (FP) PO ONE (07:02)
[2020-11-06] MEDS: LIDOCAINE 5% TOPICAL PATCH TP SCH (09:34)
[2020-11-06] MEDS: ENOXAPARIN NA (PORCINE) 40 MG/0.4 ML DISP.SYRIN SQ SCH ×2 (09:34→21:54)
[2020-11-06] MEDS ORDERED: ENOXAPARIN NA (PORCINE) 40 MG/0.4 ML DISP.SYRIN SQ SCH (10:00)
[2020-11-06] MEDS: ASPIRIN 81 MG CHEWABLE TABLETS PO SCH (10:04)
[2020-11-06] MEDS: CARVEDILOL 6.25 MG TABLET (FP) PO SCH ×2 (10:04→21:54)
[2020-11-06] MEDS: risperiDONE 1 MG TABLET PO SCH ×2 (11:13→11:46)
[2020-11-06 11:21] LABS: BLOOD UREA NITROGEN 16.2 mg/dL (7-18); CALCIUM 8.5 mg/dL (8.5-10.1)
[2020-11-06 11:25] LABS: CREATININE 0.9 mg/dL (0.55-1.3)
[2020-11-06 16:55] LABS: CALCIUM 8.6 mg/dL (8.5-10.1)
[2020-11-06 16:56] LABS: BLOOD UREA NITROGEN 16.5 mg/dL (7-18)
[2020-11-06] MEDS: ACETAMINOPHEN 500 MG TABLET (FP) PO PRN (20:27)
[2020-11-06] MEDS: INSULIN SLIDING SCALE (NOVOLOG) 1 VIAL SQ SCH (21:54)
[2020-11-06] MEDS: LIDOCAINE PATCH REMOVAL MC SCH (21:54)
[2020-11-07 02:02] LABS: CALCIUM 9.1 mg/dL (8.5-10.1); MAGNESIUM 2.1 mg/dL (1.8-2.4)
[2020-11-07 02:05] LABS: CREATININE 0.9 mg/dL (0.55-1.3); PHOSPHOROUS 3.3 mg/dL (2.5-4.9)
[2020-11-07 09:33] LABS: BLOOD UREA NITROGEN 17.1 mg/dL (7-18)
[2020-11-07 09:36] LABS: CALCIUM 9.1 mg/dL (8.5-10.1); CREATININE 0.8 mg/dL (0.55-1.3)
[2020-11-07] MEDS ORDERED: PT OWN MED DRAWER 7, Y5N ONE ×2 (10:16→13:51)
[2020-11-07] MEDS: LIDOCAINE 5% TOPICAL PATCH TP SCH (10:19)
[2020-11-07] MEDS: ASPIRIN 81 MG CHEWABLE TABLETS PO SCH (10:21)
[2020-11-07] MEDS: ENOXAPARIN NA (PORCINE) 40 MG/0.4 ML DISP.SYRIN SQ SCH ×2 (10:21→21:38)
[2020-11-07] MEDS: CARVEDILOL 6.25 MG TABLET (FP) PO SCH ×2 (10:21→21:42)
[2020-11-07] MEDS: risperiDONE 1 MG TABLET PO SCH (10:21)
[2020-11-07 12:18] LABS: CALCIUM 9.2 mg/dL (8.5-10.1)
[2020-11-07 12:19] LABS: BLOOD UREA NITROGEN 16.6 mg/dL (7-18)
[2020-11-07 12:22] LABS: CREATININE 0.9 mg/dL (0.55-1.3)
[2020-11-07 12:34] VITALS: BMI 44.4
[2020-11-07] MEDS: ACETAMINOPHEN 500 MG TABLET (FP) PO PRN ×2 (14:36→21:42)
[2020-11-07] MEDS ORDERED: LORazepam 2 MG/ML SDV VIAL IM ONE (16:15)
[2020-11-07] MEDS: INSULIN SLIDING SCALE (NOVOLOG) 1 VIAL SQ SCH (21:45)
[2020-11-07] MEDS: LIDOCAINE PATCH REMOVAL MC SCH (21:52)
[2020-11-08] MEDS ORDERED: PT OWN MED DRAWER 7, Y5N ONE ×2 (07:06→09:52)
[2020-11-08] MEDS ORDERED: INSULIN (NOVOLOG) ASPART 100 UNITS/ML 10ML VIAL ONE ×3 (07:07→20:36)
[2020-11-08] MEDS: LIDOCAINE 5% TOPICAL PATCH TP SCH (09:56)
[2020-11-08] MEDS: BENZOCAINE/MENTH/CETYLPYRD CL 1 EACH LOZENGE MM PRN ×2 (09:57→21:04)
[2020-11-08] MEDS: ASPIRIN 81 MG CHEWABLE TABLETS PO SCH (09:57)
[2020-11-08] MEDS: ENOXAPARIN NA (PORCINE) 40 MG/0.4 ML DISP.SYRIN SQ SCH ×2 (09:57→21:01)
[2020-11-08] MEDS: CARVEDILOL 6.25 MG TABLET (FP) PO SCH ×2 (09:57→21:03)
[2020-11-08] MEDS: risperiDONE 1 MG TABLET PO SCH (09:58)
[2020-11-08 10:58] LABS: CALCIUM 9.4 mg/dL (8.5-10.1)
[2020-11-08] MEDS: INSULIN SLIDING SCALE (NOVOLOG) 1 VIAL SQ SCH ×2 (16:54→21:03)
[2020-11-08] MEDS: ACETAMINOPHEN 500 MG TABLET (FP) PO PRN (21:02)
[2020-11-08] MEDS: LIDOCAINE PATCH REMOVAL MC SCH (21:03)
[2020-11-09] MEDS: INSULIN SLIDING SCALE (NOVOLOG) 1 VIAL SQ SCH ×2 (06:26→11:23)
[2020-11-09 06:43] VITALS: BP 140/68; PULSE 64; TEMP 98.2
[2020-11-09 08:52] LABS: CALCIUM 9.2 mg/dL (8.5-10.1)
[2020-11-09 08:53] LABS: BLOOD UREA NITROGEN 16.8 mg/dL (7-18)
[2020-11-09 08:56] LABS: CREATININE 0.9 mg/dL (0.55-1.3)
[2020-11-09] MEDS: LIDOCAINE 5% TOPICAL PATCH TP SCH (09:40)
[2020-11-09] MEDS: ASPIRIN 81 MG CHEWABLE TABLETS PO SCH (09:40)
[2020-11-09] MEDS: CARVEDILOL 6.25 MG TABLET (FP) PO SCH (09:40)
[2020-11-09] MEDS: ENOXAPARIN NA (PORCINE) 40 MG/0.4 ML DISP.SYRIN SQ SCH (09:41)
[2020-11-09] MEDS: BENZOCAINE/MENTH/CETYLPYRD CL 1 EACH LOZENGE MM PRN (09:43)
[2020-11-09] MEDS ORDERED: PT OWN MED DRAWER 7, Y5N ONE (09:43)
[2020-11-09] MEDS: risperiDONE 1 MG TABLET PO SCH (09:43)
[2020-11-09] MEDS ORDERED: SODIUM BICARBONATE 650 MG TABLET PO ONE (11:33)
== END 2020-11-09 17:31 | disposition home or self-care (01) | DRG 641 ==
LOC: JER 21:57 → JERBED 22:15 → J6S 11-06 05:56
PROVIDERS: ADMIT Hospitalist; ATTEND Internal Medicine
DX: E87.1 Hypo-osmolality and hyponatremia (principal); R44.0 Auditory hallucinations; Z68.41 Body mass index [BMI] 40.0-44.9, adult; M54.9 Dorsalgia, unspecified; E11.9 Type 2 diabetes mellitus without complications; K21.9 Gastro-esophageal reflux disease without esophagitis; I10 Essential (primary) hypertension; E78.5 Hyperlipidemia, unspecified; E66.9 Obesity, unspecified; F25.9 Schizoaffective disorder, unspecified; I25.10 Atherosclerotic heart disease of native coronary artery without angina pectoris; M19.90 Unspecified osteoarthritis, unspecified site; T50.2X5A Adverse effect of carbonic-anhydrase inhibitors, benzothiadiazides and other diuretics, initial encounter; T42.6X5A Adverse effect of other antiepileptic and sedative-hypnotic drugs, initial encounter
CPT/HCPCS: 36415; 71045-TC-FY; 74176-TC; 80048; 80053; 80061; 81003; 82436; 82530; 82533; 82550; 82553; 82962; 83036; 83605; 83721; 83735; 83880; 83930; 83935; 84100; 84133; 84300; 84439; 84443; 84484; 85027; 87040; 87086; 93005; 93010; 97116-GP; 97161-GP; 99285-25; C9803; J2794; U0003; U0005

== ENCOUNTER 2021-01-27 18:04 | Inpatient (IN) | payer OTHER ==
[2021-01-27] MEDS ORDERED: ACETAMINOPHEN 1000 MG/100 ML VIAL IVPB ONE (19:52)
[2021-01-27] MEDS ORDERED: ACETAMINOPHEN INJECTION 100 ML IVPB ONE (20:03)
[2021-01-27 20:39] LABS: BASO % 0.7 % (0-2.0); EOS % 0.7 % (0-4.5); HEMATOCRIT 28.7 % (32.4-45.2); HEMOGLOBIN 10.1 GM/dL (10.7-15.3); LYMPH % 32.5 % (8-40); MCH 29.6 pg (25.7-33.7); MCHC 35.1 g/dl (32.0-36.0); MEAN CELL VOLUME 84.3 fl (80-96); MEAN PLT VOLUME 7.7 fl (7.5-11.1); MONO % 12.1 % (3.8-10.2); PLATELET COUNT 222 10^3/uL (134-434); RDW 13.8 % (11.6-15.6); WHITE BLOOD COUNT 5.7 K/mm3 (4.0-10.0)
[2021-01-27 20:57] LABS: CHLORIDE 82 mmol/L (98-107)
[2021-01-27 20:59] LABS: ALBUMIN 3.3 g/dl (3.4-5.0); BLOOD UREA NITROGEN 16.4 mg/dL (7-18); CALCIUM 8.7 mg/dL (8.5-10.1); CO2 27 mmol/L (21-32)
[2021-01-27 21:00] LABS: LIPASE 61 U/L (73-393)
[2021-01-27 21:02] LABS: CREATININE 0.8 mg/dL (0.55-1.3); SGOT/AST 48 U/L (15-37); SGPT/ALT 18 U/L (13-61)
[2021-01-27 21:04] LABS: BILIRUBIN,TOTAL 0.6 mg/dL (0.2-1); TOT PROT 6.5 g/dl (6.4-8.2)
[2021-01-27 21:05] LABS: ALK PHOS 62 U/L (45-117)
[2021-01-27 21:08] LABS: N-TERMINAL BNP 164.1 pg/ml (5-125)
[2021-01-27 21:33] LABS: URINE APPEARANCE CLEAR; URINE BILIRUBIN NEGATIVE (NEGATIVE); URINE COLOR YELLOW; URINE GLUCOSE (UA) NEGATIVE (NEGATIVE); URINE KETONE NEGATIVE (NEGATIVE); URINE LEUK ESTERASE NEGATIVE (NEGATIVE); URINE NITRITE NEGATIVE (NEGATIVE); URINE PROTEIN NEGATIVE (NEGATIVE); URINE UROBILINOGEN 0.2 mg/dL (0.2-1.0)
[2021-01-27 21:37] LABS: ANION GAP 11 MMOL/L (8-16); GLUCOSE,RANDOM 42 mg/dL (74-106); SODIUM 120 mmol/L (136-145)
[2021-01-27] MEDS ORDERED: SODIUM CHLORIDE 0.9% 500 ML INFUS.BAG IV ONE (22:04)
[2021-01-27] MEDS ORDERED: ENOXAPARIN NA (PORCINE) 40 MG/0.4 ML DISP.SYRIN SQ SCH (23:30)
[2021-01-28] MEDS ORDERED: ALBUTEROL SO4 HFA INHALER IH PRN (02:09)
[2021-01-28 04:46] LABS: CALCIUM 8.5 mg/dL (8.5-10.1)
[2021-01-28 04:50] LABS: CREATININE 0.8 mg/dL (0.55-1.3)
[2021-01-28] MEDS ORDERED: POTASSIUM CHLORIDE TABS 20 MEQ TABLET.ER (FP) PO ONE (05:11)
[2021-01-28] MEDS: INSULIN SLIDING SCALE (NOVOLOG) 1 VIAL SQ SCH ×4 (06:11→21:19)
[2021-01-28 08:38] LABS: BASO % 0.5 % (0-2.0); EOS % 0.8 % (0-4.5); HEMATOCRIT 27.2 % (32.4-45.2); HEMOGLOBIN 9.8 GM/dL (10.7-15.3); LYMPH % 31.4 % (8-40); MCH 30.2 pg (25.7-33.7); MCHC 35.9 g/dl (32.0-36.0); MEAN CELL VOLUME 84.1 fl (80-96); MONO % 13.3 % (3.8-10.2); PLATELET COUNT 205 10^3/uL (134-434); RBC 3.24 M/mm3 (3.60-5.2); RDW 13.6 % (11.6-15.6)
[2021-01-28 09:02] LABS: CALCIUM 8.7 mg/dL (8.5-10.1)
[2021-01-28 09:03] LABS: ALBUMIN 3.1 g/dl (3.4-5.0); MAGNESIUM 1.9 mg/dL (1.8-2.4)
[2021-01-28 09:06] LABS: CREATININE 0.8 mg/dL (0.55-1.3); PHOSPHOROUS 3.8 mg/dL (2.5-4.9)
[2021-01-28 09:07] LABS: BILIRUBIN,TOTAL 0.4 mg/dL (0.2-1)
[2021-01-28 09:08] LABS: IRON SERUM 58 ug/dL (50-175)
[2021-01-28 09:09] LABS: TOTAL IRON BINDING CAPACITY 290 ug/dL (250-450)
[2021-01-28] MEDS: CARVEDILOL 6.25 MG TABLET (FP) PO SCH ×2 (09:31→21:19)
[2021-01-28] MEDS: amLODIPine BESYLATE 10 MG TABLET (FP) PO SCH (09:31)
[2021-01-28] MEDS ORDERED: FLU VACC QS2021-22(6MOS UP)/PF 60 MCG/0.5 ML SYRINGE IM ONE (10:00)
[2021-01-28] MEDS ORDERED: ATORVASTATIN CA 20 MG TABLET (FP) PO SCH (10:00)
[2021-01-28] MEDS: ACETAMINOPHEN 325 MG TABLET (FP) PO PRN ×2 (12:32→18:49)
[2021-01-28 15:26] LABS: CALCIUM 8.7 mg/dL (8.5-10.1)
[2021-01-28 15:27] LABS: BLOOD UREA NITROGEN 13.2 mg/dL (7-18)
[2021-01-28 15:30] LABS: CREATININE 0.7 mg/dL (0.55-1.3)
[2021-01-28] MEDS ORDERED: risperiDONE 1 MG TABLET PO SCH (22:00)
[2021-01-29] MEDS: MELATONIN 1 MG TABLET PO SCH ×2 (03:09→21:19)
[2021-01-29] MEDS: INSULIN SLIDING SCALE (NOVOLOG) 1 VIAL SQ SCH ×4 (06:04→21:19)
[2021-01-29 09:45] LABS: BASO % 0.8 % (0-2.0); EOS % 1.4 % (0-4.5); HEMATOCRIT 29.4 % (32.4-45.2); HEMOGLOBIN 10.1 GM/dL (10.7-15.3); LYMPH % 25.4 % (8-40); MCH 29.9 pg (25.7-33.7); MCHC 34.5 g/dl (32.0-36.0); MEAN CELL VOLUME 86.8 fl (80-96); MEAN PLT VOLUME 8.2 fl (7.5-11.1); MONO % 13.7 % (3.8-10.2); NEUT % 58.7 % (42.8-82.8); PLATELET COUNT 206 10^3/uL (134-434); RBC 3.39 M/mm3 (3.60-5.2); RDW 13.9 % (11.6-15.6); WHITE BLOOD COUNT 4.4 K/mm3 (4.0-10.0)
[2021-01-29] MEDS: amLODIPine BESYLATE 10 MG TABLET (FP) PO SCH (10:08)
[2021-01-29] MEDS: ACETAMINOPHEN 325 MG TABLET (FP) PO PRN ×2 (10:08→20:43)
[2021-01-29] MEDS: CARVEDILOL 6.25 MG TABLET (FP) PO SCH ×2 (10:08→21:19)
[2021-01-29] MEDS: DIVALPROEX SODIUM 250 MG TABLET E.C. PO SCH (10:08)
[2021-01-29 10:20] LABS: CALCIUM 8.9 mg/dL (8.5-10.1)
[2021-01-29 10:21] LABS: ALBUMIN 3.1 g/dl (3.4-5.0); MAGNESIUM 2.1 mg/dL (1.8-2.4)
[2021-01-29 10:23] LABS: CREATININE 0.9 mg/dL (0.55-1.3)
[2021-01-29 10:24] LABS: BILIRUBIN,TOTAL 0.3 mg/dL (0.2-1); TOT PROT 6.1 g/dl (6.4-8.2)
[2021-01-29 10:35] LABS: PHOSPHOROUS 3.2 mg/dL (2.5-4.9)
[2021-01-29] MEDS ORDERED: INSULIN SLIDING SCALE (NOVOLOG) 1 VIAL SQ ONE (11:59)
[2021-01-29] MEDS: ENOXAPARIN NA (PORCINE) 40 MG/0.4 ML DISP.SYRIN SQ SCH (12:04)
[2021-01-29] MEDS: DOCUSATE SODIUM 100 MG CAPSULE (FP) PO PRN ×2 (12:09→20:43)
[2021-01-29 17:11] VITALS: BMI 43.7
[2021-01-30] MEDS: INSULIN SLIDING SCALE (NOVOLOG) 1 VIAL SQ SCH ×4 (06:41→22:06)
[2021-01-30 08:10] LABS: BASO % 0.6 % (0-2.0); HEMATOCRIT 29.6 % (32.4-45.2); HEMOGLOBIN 10.3 GM/dL (10.7-15.3); LYMPH % 30.8 % (8-40); MCHC 34.8 g/dl (32.0-36.0); MEAN CELL VOLUME 86.4 fl (80-96); MONO % 14.8 % (3.8-10.2); NEUT % 52.8 % (42.8-82.8); PLATELET COUNT 220 10^3/uL (134-434); RBC 3.43 M/mm3 (3.60-5.2); RDW 14.2 % (11.6-15.6); WHITE BLOOD COUNT 4.7 K/mm3 (4.0-10.0)
[2021-01-30 08:58] LABS: ALBUMIN 3.2 g/dl (3.4-5.0); CALCIUM 9.5 mg/dL (8.5-10.1)
[2021-01-30 08:59] LABS: BLOOD UREA NITROGEN 17.9 mg/dL (7-18); MAGNESIUM 1.9 mg/dL (1.8-2.4)
[2021-01-30 09:01] LABS: CREATININE 0.8 mg/dL (0.55-1.3)
[2021-01-30 09:02] LABS: BILIRUBIN,TOTAL 0.4 mg/dL (0.2-1)
[2021-01-30 09:03] LABS: TOT PROT 6.4 g/dl (6.4-8.2)
[2021-01-30] MEDS: DOCUSATE SODIUM 100 MG CAPSULE (FP) PO PRN (09:29)
[2021-01-30] MEDS: CARVEDILOL 6.25 MG TABLET (FP) PO SCH ×2 (09:29→22:06)
[2021-01-30] MEDS: ENOXAPARIN NA (PORCINE) 40 MG/0.4 ML DISP.SYRIN SQ SCH (09:29)
[2021-01-30] MEDS: DIVALPROEX SODIUM 250 MG TABLET E.C. PO SCH (09:29)
[2021-01-30] MEDS: amLODIPine BESYLATE 10 MG TABLET (FP) PO SCH (09:29)
[2021-01-30] MEDS: ACETAMINOPHEN 325 MG TABLET (FP) PO PRN (09:30)
[2021-01-30] MEDS ORDERED: BISACODYL 5 MG TABLET.DR (FP) PO ONE (14:00)
[2021-01-30] MEDS ORDERED: ZOLPIDEM TARTRATE 5 MG TABLET PO PRN (21:00)
[2021-01-30] MEDS: MELATONIN 1 MG TABLET PO SCH (22:06)
[2021-01-31] MEDS: INSULIN SLIDING SCALE (NOVOLOG) 1 VIAL SQ SCH ×4 (06:07→21:34)
[2021-01-31] MEDS: amLODIPine BESYLATE 10 MG TABLET (FP) PO SCH (11:46)
[2021-01-31] MEDS: ENOXAPARIN NA (PORCINE) 40 MG/0.4 ML DISP.SYRIN SQ SCH (11:46)
[2021-01-31] MEDS: CARVEDILOL 6.25 MG TABLET (FP) PO SCH ×2 (11:46→21:34)
[2021-01-31] MEDS: DIVALPROEX SODIUM 250 MG TABLET E.C. PO SCH (11:47)
[2021-01-31 12:26] LABS: BASO % 0.6 % (0-2.0); EOS % 1.5 % (0-4.5); HEMATOCRIT 30.8 % (32.4-45.2); HEMOGLOBIN 10.6 GM/dL (10.7-15.3); LYMPH % 29.1 % (8-40); MCH 29.8 pg (25.7-33.7); MCHC 34.4 g/dl (32.0-36.0); MEAN CELL VOLUME 86.7 fl (80-96); MEAN PLT VOLUME 7.5 fl (7.5-11.1); MONO % 11.8 % (3.8-10.2); PLATELET COUNT 220 10^3/uL (134-434); RBC 3.56 M/mm3 (3.60-5.2); RDW 14.2 % (11.6-15.6)
[2021-01-31 13:12] LABS: ALBUMIN 3.2 g/dl (3.4-5.0); BLOOD UREA NITROGEN 17.8 mg/dL (7-18); CALCIUM 9.1 mg/dL (8.5-10.1); MAGNESIUM 1.8 mg/dL (1.8-2.4)
[2021-01-31 13:15] LABS: CREATININE 0.8 mg/dL (0.55-1.3)
[2021-01-31 13:16] LABS: PHOSPHOROUS 3.6 mg/dL (2.5-4.9)
[2021-01-31 13:17] LABS: TOT PROT 6.8 g/dl (6.4-8.2)
[2021-01-31 13:18] LABS: BILIRUBIN,TOTAL 0.3 mg/dL (0.2-1)
[2021-01-31 20:29] VITALS: BP 148/65; PULSE 67; TEMP 98.6
[2021-01-31] MEDS: ACETAMINOPHEN 325 MG TABLET (FP) PO PRN (21:35)
[2021-01-31] MEDS: MELATONIN 1 MG TABLET PO SCH (21:39)
== END 2021-01-31 23:15 | DRG 641 ==
LOC: JER 18:04 → JERBED 21:59 → J5S 01-28 01:20
PROVIDERS: ADMIT Internal Medicine; ATTEND Internal Medicine
DX: E87.1 Hypo-osmolality and hyponatremia (principal); Z68.41 Body mass index [BMI] 40.0-44.9, adult; E11.649 Type 2 diabetes mellitus with hypoglycemia without coma; E87.8 Other disorders of electrolyte and fluid balance, not elsewhere classified; E78.5 Hyperlipidemia, unspecified; M25.562 Pain in left knee; M54.30 Sciatica, unspecified side; F25.0 Schizoaffective disorder, bipolar type; J45.909 Unspecified asthma, uncomplicated; D64.9 Anemia, unspecified; I25.10 Atherosclerotic heart disease of native coronary artery without angina pectoris; I10 Essential (primary) hypertension; M54.9 Dorsalgia, unspecified; M25.561 Pain in right knee; I25.2 Old myocardial infarction; M17.0 Bilateral primary osteoarthritis of knee; E66.9 Obesity, unspecified; K21.9 Gastro-esophageal reflux disease without esophagitis
CPT/HCPCS: 36415; 71260-TC; 74177-TC; 80048; 80053; 81003; 82550; 82553; 82962; 83540; 83550; 83605; 83690; 83735; 83880; 83930; 83935; 84100; 84146; 84443; 84484; 85025; 87086; 90686; 93005; 93010; 93970-TC; 97116-GP; 97161-GP; 99285-25; C9803; G0008; J0131; Q9967; U0003; U0005

== ENCOUNTER 2021-05-31 14:34 | Inpatient (IN) | payer OTHER ==
[2021-05-31] MEDS ORDERED: LACTATED RINGERS SOLUTION 1000 ML INFUS.BAG IV ONE ×2 (14:55→19:32)
[2021-05-31 15:25] LABS: VENOUS BASE EXCESS -3.6 mmol/L (-2-2); VENOUS PCO2 47.7 mmHg (38-52); VENOUS PH 7.303 (7.310-7.410)
[2021-05-31 15:38] LABS: HEMATOCRIT 34.2 % (32.4-45.2); INR 1.03 (0.83-1.09); MCH 29.7 pg (25.7-33.7); MEAN CELL VOLUME 84.7 fl (80-96); MEAN PLT VOLUME 8.5 fl (7.5-11.1); PLATELET COUNT 223 10^3/uL (134-434); PROTHROMBIN TIME (PATIENT) 11.8 SEC (9.7-13.0); RBC 4.04 M/mm3 (3.60-5.2); RDW 13.3 % (11.6-15.6); WHITE BLOOD COUNT 7.9 K/mm3 (4.0-10.0)
[2021-05-31 15:40] LABS: ACTIVATED PTT 25.5 SECONDS (25.2-36.5)
[2021-05-31 15:42] LABS: CHLORIDE 74 mmol/L (98-107)
[2021-05-31 15:46] LABS: BLOOD UREA NITROGEN 21.6 mg/dL (7-18); CALCIUM 8.9 mg/dL (8.5-10.1); CO2 26 mmol/L (21-32)
[2021-05-31 15:47] LABS: ALBUMIN 3.5 g/dl (3.4-5.0)
[2021-05-31 15:49] LABS: CREATININE 1.6 mg/dL (0.55-1.3); SGOT/AST 189 U/L (15-37); SGPT/ALT 49 U/L (13-61)
[2021-05-31 15:50] LABS: BILIRUBIN,TOTAL 1.1 mg/dL (0.2-1); TOT PROT 6.4 g/dl (6.4-8.2)
[2021-05-31 15:52] LABS: ALK PHOS 75 U/L (45-117)
[2021-05-31 16:06] LABS: ANION GAP 17 MMOL/L (8-16); GLUCOSE,RANDOM 405 mg/dL (74-106); SODIUM 117 mmol/L (136-145)
[2021-05-31 17:41] LABS: ANISOCYTOSIS 2+; MACROCYTOSIS 0; PLATELET ESTIMATE NORMAL; TEAR DROP CELLS 1+
[2021-05-31 18:46] LABS: EPI CELLS >36 /uL (0-25.1); HYALINE CASTS 2 /uL (0-3.1); URINE APPEARANCE CLOUDY; URINE BACTERIA 7720 /uL (0-1359); URINE BILIRUBIN NEGATIVE (NEGATIVE); URINE COLOR YELLOW; URINE GLUCOSE (UA) 3+ (NEGATIVE); URINE KETONE 2+ (NEGATIVE); URINE LEUK ESTERASE 1+ (NEGATIVE); URINE NITRITE NEGATIVE (NEGATIVE); URINE PROTEIN TRACE (NEGATIVE); URINE RBC 22 /uL (0-23.9); URINE UROBILINOGEN 0.2 mg/dL (0.2-1.0); URINE WBC 81 /uL (0-25.8)
[2021-05-31 19:10] LABS: MAGNESIUM 1.5 mg/dL (1.8-2.4)
[2021-05-31] MEDS ORDERED: MAGNESIUM SULF 50% (8.12 MEQ/2 ML-1 GM VIAL) IVPB ONE (19:16)
[2021-05-31 19:29] LABS: BLOOD UREA NITROGEN 19.4 mg/dL (7-18); CALCIUM 9.1 mg/dL (8.5-10.1); MAGNESIUM 1.4 mg/dL (1.8-2.4)
[2021-05-31] MEDS ORDERED: INSULIN (NOVOLOG) ASPART 100 UNITS/ML 10ML VIAL SQ ONE (19:31)
[2021-05-31 19:33] LABS: CREATININE 1.2 mg/dL (0.55-1.3)
[2021-05-31] MEDS ORDERED: INSULIN REGULAR HUMAN 100 UNITS/ML *VIAL SQ ONE (19:37)
[2021-05-31] MEDS ORDERED: MAGNESIUM SULFATE IN WATER 2 GM/50 ML IVPB IVPB ONE (19:40)
[2021-05-31 21:25] LABS: CALCIUM 8.8 mg/dL (8.5-10.1); CHLORIDE 78 mmol/L (98-107)
[2021-05-31 21:27] LABS: BLOOD UREA NITROGEN 22.6 mg/dL (7-18); CO2 24 mmol/L (21-32); GLUCOSE,RANDOM 336 mg/dL (74-106); MAGNESIUM 2.1 mg/dL (1.8-2.4)
[2021-05-31 21:30] LABS: CREATININE 1.4 mg/dL (0.55-1.3); PHOSPHOROUS 4.3 mg/dL (2.5-4.9)
[2021-05-31 21:32] LABS: ANION GAP 18 MMOL/L (8-16); SODIUM 119 mmol/L (136-145)
[2021-05-31] MEDS ORDERED: LACTATED RINGERS SOLUTION 1,000 ML/1,000 ML INFUS.BAG IV SCH (22:45)
[2021-05-31] MEDS: INSULIN (LEVEMIR) 100 UNITS/ML UNITS SQ ONE ×2 (23:34→23:54)
[2021-05-31 23:41] LABS: URINE APPEARANCE CLOUDY; URINE BILIRUBIN NEGATIVE (NEGATIVE); URINE COLOR YELLOW; URINE GLUCOSE (UA) 3+ (NEGATIVE); URINE KETONE 1+ (NEGATIVE); URINE LEUK ESTERASE NEGATIVE (NEGATIVE); URINE NITRITE NEGATIVE (NEGATIVE); URINE PROTEIN TRACE (NEGATIVE); URINE UROBILINOGEN 0.2 mg/dL (0.2-1.0)
[2021-05-31] MEDS ORDERED: INSULIN (LEVEMIR) 100 UNITS/ML UNITS SQ ONE (23:51)
[2021-05-31] MEDS ORDERED: ALBUTEROL SO4 HFA INHALER IH PRN (23:57)
[2021-06-01] MEDS ORDERED: risperiDONE 0.5 MG TABLET ONE (00:34)
[2021-06-01] MEDS: ACETAMINOPHEN 325 MG TABLET (FP) PO PRN ×2 (05:55→20:30)
[2021-06-01] MEDS ORDERED: ACETAMINOPHEN 325 MG TABLET (FP) ONE (06:20)
[2021-06-01] MEDS ORDERED: HEPARIN NA (PORCINE) 5,000 UNITS/ML 1ML VIAL ONE ×2 (06:24→14:57)
[2021-06-01] MEDS: HEPARIN NA (PORCINE) 5,000 UNITS/ML 1ML VIAL SQ SCH ×3 (06:28→21:12)
[2021-06-01] MEDS ORDERED: sitaGLIPtin PHOSPHATE 50 MG TABLET ONE (06:30)
[2021-06-01 08:19] LABS: BASO % 0.3 % (0-2.0); EOS % 0.5 % (0-4.5); HEMATOCRIT 28.8 % (32.4-45.2); HEMOGLOBIN 10.4 GM/dL (10.7-15.3); MCH 30.4 pg (25.7-33.7); MCHC 36.2 g/dl (32.0-36.0); MEAN CELL VOLUME 83.9 fl (80-96); MEAN PLT VOLUME 7.4 fl (7.5-11.1); MONO % 10.1 % (3.8-10.2); NEUT % 78.1 % (42.8-82.8); PLATELET COUNT 178 10^3/uL (134-434); RBC 3.43 M/mm3 (3.60-5.2); RDW 13.5 % (11.6-15.6); WHITE BLOOD COUNT 6.2 K/mm3 (4.0-10.0)
[2021-06-01 08:30] LABS: INR 0.99 (0.83-1.09); PROTHROMBIN TIME (PATIENT) 11.4 SEC (9.7-13.0)
[2021-06-01 08:33] LABS: ACTIVATED PTT 25.3 SECONDS (25.2-36.5)
[2021-06-01 08:39] LABS: CHLORIDE 77 mmol/L (98-107)
[2021-06-01 08:41] LABS: CALCIUM 8.6 mg/dL (8.5-10.1)
[2021-06-01 08:43] LABS: ALBUMIN 2.9 g/dl (3.4-5.0); BLOOD UREA NITROGEN 22.7 mg/dL (7-18); CO2 29 mmol/L (21-32); GLUCOSE,RANDOM 238 mg/dL (74-106); MAGNESIUM 2.1 mg/dL (1.8-2.4)
[2021-06-01 08:44] LABS: SGPT/ALT 46 U/L (13-61)
[2021-06-01 08:45] LABS: CREATININE 1.5 mg/dL (0.55-1.3); SGOT/AST 151 U/L (15-37)
[2021-06-01 08:47] LABS: BILIRUBIN,TOTAL 0.9 mg/dL (0.2-1); TOT PROT 5.4 g/dl (6.4-8.2)
[2021-06-01 08:48] LABS: ALK PHOS 64 U/L (45-117)
[2021-06-01 09:14] LABS: ANION GAP 10 MMOL/L (8-16); SODIUM 117 mmol/L (136-145)
[2021-06-01] MEDS ORDERED: LACTATED RINGERS SOLUTION 1,000 ML/1,000 ML INFUS.BAG IV SCH (09:30)
[2021-06-01] MEDS ORDERED: PATIENT'S OWN MEDICATION (NON-FORMULARY) (Mirabegron [Myrbetriq] 50 MG Tab.Er.24h) PO SCH (10:00)
[2021-06-01] MEDS ORDERED: ASPIRIN 81 MG CHEWABLE TABLETS ONE (10:25)
[2021-06-01] MEDS ORDERED: CARVEDILOL 3.125 MG TABLET (FP) ONE (10:25)
[2021-06-01] MEDS ORDERED: FOLIC ACID 1 MG TABLET (FP) ONE (10:25)
[2021-06-01] MEDS: DIVALPROEX SODIUM 500 MG TABLET E.C. PO SCH ×2 (10:30→21:12)
[2021-06-01] MEDS: CARVEDILOL 6.25 MG TABLET (FP) PO SCH ×2 (10:30→21:11)
[2021-06-01] MEDS: INSULIN SLIDING SCALE (NOVOLOG) 1 VIAL SQ SCH ×4 (10:30→21:34)
[2021-06-01] MEDS: FOLIC ACID 1 MG TABLET (FP) PO SCH (10:30)
[2021-06-01] MEDS: ASPIRIN 81 MG CHEWABLE TABLETS PO SCH (10:30)
[2021-06-01 16:40] VITALS: BMI 40.3
[2021-06-01] MEDS ORDERED: SODIUM CHLORIDE 1,000 ML IV SCH (16:45)
[2021-06-01] MEDS ORDERED: PNEUMOC 13-VAL CONJ-DIP CRM/PF 0.5 ML DISP.SYRIN IM ONE (16:50)
[2021-06-01] MEDS: risperiDONE 1 MG TABLET PO SCH ×2 (21:12→23:54)
[2021-06-01 23:24] LABS: EPI CELLS 2 /uL (0-25.1); HYALINE CASTS 1 /uL (0-3.1); URINE APPEARANCE CLEAR; URINE BACTERIA 330 /uL (0-1359); URINE BILIRUBIN NEGATIVE (NEGATIVE); URINE COLOR YELLOW; URINE GLUCOSE (UA) 1+ (NEGATIVE); URINE KETONE TRACE (NEGATIVE); URINE LEUK ESTERASE 2+ (NEGATIVE); URINE NITRITE NEGATIVE (NEGATIVE); URINE PROTEIN NEGATIVE (NEGATIVE); URINE RBC 13 /uL (0-23.9); URINE UROBILINOGEN 0.2 mg/dL (0.2-1.0); URINE WBC 128 /uL (0-25.8)
[2021-06-02] MEDS: INSULIN SLIDING SCALE (NOVOLOG) 1 VIAL SQ SCH ×5 (06:00→21:37)
[2021-06-02] MEDS: HEPARIN NA (PORCINE) 5,000 UNITS/ML 1ML VIAL SQ SCH ×3 (06:01→21:33)
[2021-06-02] MEDS: ACETAMINOPHEN 325 MG TABLET (FP) PO PRN ×2 (06:09→20:00)
[2021-06-02 07:58] LABS: CHLORIDE 82 mmol/L (98-107)
[2021-06-02 08:13] LABS: CALCIUM 8.4 mg/dL (8.5-10.1)
[2021-06-02 08:14] LABS: ALBUMIN 2.6 g/dl (3.4-5.0); CO2 28 mmol/L (21-32); GLUCOSE,RANDOM 228 mg/dL (74-106)
[2021-06-02 08:16] LABS: BLOOD UREA NITROGEN 20.2 mg/dL (7-18)
[2021-06-02 08:17] LABS: SGPT/ALT 49 U/L (13-61)
[2021-06-02 08:19] LABS: BILIRUBIN,TOTAL 0.7 mg/dL (0.2-1); SGOT/AST 129 U/L (15-37)
[2021-06-02 08:21] LABS: ALK PHOS 62 U/L (45-117); ANION GAP 9 MMOL/L (8-16); SODIUM 118 mmol/L (136-145); TOT PROT 5.2 g/dl (6.4-8.2)
[2021-06-02] MEDS: CARVEDILOL 6.25 MG TABLET (FP) PO SCH ×2 (09:17→21:32)
[2021-06-02] MEDS: DIVALPROEX SODIUM 500 MG TABLET E.C. PO SCH ×2 (09:17→21:33)
[2021-06-02] MEDS: FOLIC ACID 1 MG TABLET (FP) PO SCH (09:17)
[2021-06-02] MEDS: ASPIRIN 81 MG CHEWABLE TABLETS PO SCH (09:17)
[2021-06-02] MEDS: SODIUM CHLORIDE 1,000 ML IV SCH (09:18)
[2021-06-02] MEDS ORDERED: ACETAMINOPHEN 1000 MG/100 ML BAG IVPB PRN (10:13)
[2021-06-02 13:49] LABS: CHLORIDE 81 mmol/L (98-107)
[2021-06-02 13:50] LABS: CALCIUM 8.1 mg/dL (8.5-10.1)
[2021-06-02 13:51] LABS: BLOOD UREA NITROGEN 19.4 mg/dL (7-18); CO2 27 mmol/L (21-32); GLUCOSE,RANDOM 361 mg/dL (74-106)
[2021-06-02 13:57] LABS: ANION GAP 10 MMOL/L (8-16); SODIUM 118 mmol/L (136-145)
[2021-06-02] MEDS: SODIUM CHLORIDE 1 GM TABLET PO SCH ×2 (14:15→21:33)
[2021-06-02] MEDS: risperiDONE 1 MG TABLET PO SCH (21:33)
[2021-06-03] MEDS: guaiFENesin/D-METHORPHAN HB 10 ML UNIT-DOSE CUPS PO PRN ×2 (01:50→21:39)
[2021-06-03] MEDS: ACETAMINOPHEN 325 MG TABLET (FP) PO PRN ×2 (06:00→21:38)
[2021-06-03] MEDS: HEPARIN NA (PORCINE) 5,000 UNITS/ML 1ML VIAL SQ SCH ×3 (06:03→21:26)
[2021-06-03] MEDS: INSULIN SLIDING SCALE (NOVOLOG) 1 VIAL SQ SCH ×5 (06:09→21:38)
[2021-06-03] MEDS: SODIUM CHLORIDE 1,000 ML IV SCH (09:00)
[2021-06-03] MEDS: FOLIC ACID 1 MG TABLET (FP) PO SCH (11:04)
[2021-06-03] MEDS: SODIUM CHLORIDE 1 GM TABLET PO SCH (11:04)
[2021-06-03] MEDS: CARVEDILOL 6.25 MG TABLET (FP) PO SCH ×2 (11:04→21:25)
[2021-06-03] MEDS: ASPIRIN 81 MG CHEWABLE TABLETS PO SCH (11:04)
[2021-06-03] MEDS: DIVALPROEX SODIUM 500 MG TABLET E.C. PO SCH ×2 (11:04→21:25)
[2021-06-03 12:35] LABS: BLOOD UREA NITROGEN 13.1 mg/dL (7-18); CALCIUM 8.5 mg/dL (8.5-10.1)
[2021-06-03 12:39] LABS: CREATININE 0.8 mg/dL (0.55-1.3)
[2021-06-03] MEDS ORDERED: DEXTROSE 5%-WATER - 1,000 ML IV SCH (13:00)
[2021-06-03] MEDS: risperiDONE 1 MG TABLET PO SCH (21:26)
[2021-06-04] MEDS: HEPARIN NA (PORCINE) 5,000 UNITS/ML 1ML VIAL SQ SCH ×3 (06:16→21:08)
[2021-06-04] MEDS: INSULIN SLIDING SCALE (NOVOLOG) 1 VIAL SQ SCH ×5 (06:18→21:25)
[2021-06-04 07:22] LABS: HEMATOCRIT 27.5 % (32.4-45.2); MCH 31.3 pg (25.7-33.7); MCHC 36.5 g/dl (32.0-36.0); MEAN CELL VOLUME 85.8 fl (80-96); PLATELET COUNT 186 10^3/uL (134-434); RBC 3.21 M/mm3 (3.60-5.2); RDW 13.3 % (11.6-15.6); WHITE BLOOD COUNT 5.5 K/mm3 (4.0-10.0)
[2021-06-04 07:39] LABS: ALBUMIN 2.6 g/dl (3.4-5.0); BLOOD UREA NITROGEN 11.4 mg/dL (7-18)
[2021-06-04 07:43] LABS: CREATININE 0.8 mg/dL (0.55-1.3)
[2021-06-04 07:44] LABS: BILIRUBIN,TOTAL 0.6 mg/dL (0.2-1)
[2021-06-04 07:45] LABS: TOT PROT 5.6 g/dl (6.4-8.2)
[2021-06-04 08:42] LABS: CALCIUM 8.5 mg/dL (8.5-10.1)
[2021-06-04 09:27] LABS: ANISOCYTOSIS 0; HELMET CELLS 0; HOWELL-JOLLY BODIES 0; MACROCYTOSIS 0; OVALOCYTE 0; PLATELET ESTIMATE NORMAL; ROULEAU 0; SICKELED CELLS 0; TARGET CELLS 0; TEAR DROP CELLS 0; TOXIC GRANULATION 0
[2021-06-04] MEDS: DIVALPROEX SODIUM 500 MG TABLET E.C. PO SCH ×2 (10:31→21:08)
[2021-06-04] MEDS: CARVEDILOL 6.25 MG TABLET (FP) PO SCH ×2 (10:31→21:08)
[2021-06-04] MEDS: ASPIRIN 81 MG CHEWABLE TABLETS PO SCH (10:31)
[2021-06-04] MEDS: FOLIC ACID 1 MG TABLET (FP) PO SCH (10:31)
[2021-06-04] MEDS ORDERED: guaiFENesin 200 MG/10 ML 10 ML UNIT-DOSE CUPS PO PRN (10:47)
[2021-06-04] MEDS ORDERED: POLYETHYLENE GLYCOL (HEALTHYLAX) 3350 17 GM PACKET PO PRN (10:47)
[2021-06-04] MEDS: ACETAMINOPHEN 325 MG TABLET (FP) PO PRN (11:04)
[2021-06-04] MEDS: LOSARTAN POTASSIUM 50 MG TABLET PO SCH (14:26)
[2021-06-04] MEDS: risperiDONE 1 MG TABLET PO SCH (21:08)
[2021-06-04] MEDS ORDERED: metroNIDAZOLE 0.75% VAGINAL GEL 70 GM TUBE VG SCH (22:00)
[2021-06-05] MEDS: guaiFENesin/D-METHORPHAN HB 10 ML UNIT-DOSE CUPS PO PRN (01:06)
[2021-06-05] MEDS: HEPARIN NA (PORCINE) 5,000 UNITS/ML 1ML VIAL SQ SCH ×2 (05:44→15:05)
[2021-06-05] MEDS: INSULIN SLIDING SCALE (NOVOLOG) 1 VIAL SQ SCH ×3 (06:18→15:05)
[2021-06-05] MEDS: FOLIC ACID 1 MG TABLET (FP) PO SCH (10:30)
[2021-06-05] MEDS: DIVALPROEX SODIUM 500 MG TABLET E.C. PO SCH (10:30)
[2021-06-05] MEDS: ASPIRIN 81 MG CHEWABLE TABLETS PO SCH (10:30)
[2021-06-05] MEDS: CARVEDILOL 6.25 MG TABLET (FP) PO SCH (10:30)
[2021-06-05] MEDS: LOSARTAN POTASSIUM 50 MG TABLET PO SCH (10:30)
[2021-06-05] MEDS ORDERED: INSULIN (LEVEMIR) 100 UNITS/ML UNITS SQ ONE (13:09)
[2021-06-05 14:49] VITALS: BP 147/77; PULSE 72; TEMP 98.6
== END 2021-06-05 18:50 | disposition home health service (06) | DRG 682 ==
LOC: JER 14:34 → JERBED 18:29 → OBSVTOIN 18:29 → J4W 06-01 15:17
PROVIDERS: ADMIT Hospitalist; ATTEND Internal Medicine
DX: N17.9 Acute kidney failure, unspecified (principal); E11.10 Type 2 diabetes mellitus with ketoacidosis without coma; E87.1 Hypo-osmolality and hyponatremia; M62.82 Rhabdomyolysis; I24.8 Other forms of acute ischemic heart disease; Z68.41 Body mass index [BMI] 40.0-44.9, adult; F25.0 Schizoaffective disorder, bipolar type; I10 Essential (primary) hypertension; I25.10 Atherosclerotic heart disease of native coronary artery without angina pectoris; K21.9 Gastro-esophageal reflux disease without esophagitis; E78.5 Hyperlipidemia, unspecified; E66.01 Morbid (severe) obesity due to excess calories
CPT/HCPCS: 36415; 70450-TC; 71045-TC-FY; 72125-TC; 72170-TC-FY; 74176-TC; 80048; 80053; 81003; 82010; 82436; 82550; 82553; 82803; 82962; 83735; 83930; 83935; 84100; 84133; 84300; 84484; 85025; 85610; 85730; 86850; 86900; 86901; 87040; 87086; 90670; 93005; 93010; 93306-TC; 97116-GP; 97162-GP; 99291; C9803; J1644; J2794; U0003; U0005

== ENCOUNTER 2021-06-11 11:49 | Inpatient (IN) | payer OTHER ==
[2021-06-11] MEDS ORDERED: SODIUM CHLORIDE 0.9% 500 ML INFUS.BAG IV ONE (12:18)
[2021-06-11 13:17] LABS: VENOUS BASE EXCESS 4.1 mmol/L (-2-2); VENOUS PCO2 49.2 mmHg (38-52); VENOUS PH 7.397 (7.310-7.410)
[2021-06-11 13:44] LABS: BASO % 0.5 % (0-2.0); EOS % 0.7 % (0-4.5); HEMATOCRIT 29.1 % (32.4-45.2); HEMOGLOBIN 9.7 GM/dL (10.7-15.3); MCH 29.6 pg (25.7-33.7); MCHC 33.2 g/dl (32.0-36.0); MEAN CELL VOLUME 89.1 fl (80-96); MEAN PLT VOLUME 8.3 fl (7.5-11.1); MONO % 9.6 % (3.8-10.2); NEUT % 65.2 % (42.8-82.8); PLATELET COUNT 270 10^3/uL (134-434); RBC 3.26 M/mm3 (3.60-5.2); RDW 13.4 % (11.6-15.6); WHITE BLOOD COUNT 5.3 K/mm3 (4.0-10.0)
[2021-06-11 14:01] LABS: BLOOD UREA NITROGEN 15.6 mg/dL (7-18); CALCIUM 9.3 mg/dL (8.5-10.1)
[2021-06-11 14:03] LABS: ACTIVATED PTT 24.3 SECONDS (25.2-36.5); INR 0.89 (0.83-1.09); PROTHROMBIN TIME (PATIENT) 10.2 SEC (9.7-13.0)
[2021-06-11 14:05] LABS: CREATININE 1.1 mg/dL (0.55-1.3)
[2021-06-11 14:06] LABS: BILIRUBIN,TOTAL 0.3 mg/dL (0.2-1); TOT PROT 6.5 g/dl (6.4-8.2)
[2021-06-11 14:30] LABS: ALBUMIN 3.2 g/dl (3.4-5.0)
[2021-06-11 15:59] LABS: EPI CELLS 22 /uL (0-25.1); HYALINE CASTS 1 /uL (0-3.1); URINE APPEARANCE CLOUDY; URINE BACTERIA >9,000 /uL (0-1359); URINE BILIRUBIN NEGATIVE (NEGATIVE); URINE COLOR YELLOW; URINE GLUCOSE (UA) 3+ (NEGATIVE); URINE KETONE NEGATIVE (NEGATIVE); URINE LEUK ESTERASE 2+ (NEGATIVE); URINE NITRITE NEGATIVE (NEGATIVE); URINE PROTEIN TRACE (NEGATIVE); URINE RBC 33 /uL (0-23.9); URINE UROBILINOGEN 0.2 mg/dL (0.2-1.0); URINE WBC 2187 /uL (0-25.8)
[2021-06-11] MEDS ORDERED: CEFTRIAXONE 1,000 MG in DEXTROSE 5%-WATER - 50 ML IVPB ONE (16:05)
[2021-06-11 16:13] LABS: CALCIUM 8.9 mg/dL (8.5-10.1)
[2021-06-11 16:14] LABS: BLOOD UREA NITROGEN 13.9 mg/dL (7-18)
[2021-06-11] MEDS ORDERED: CEFTRIAXONE 1 GM/50 ML BAG ONE (16:17)
[2021-06-11] MEDS ORDERED: ALBUTEROL SO4 HFA INHALER IH PRN (16:34)
[2021-06-11] MEDS ORDERED: SODIUM CHLORIDE 1,000 ML IV SCH (16:45)
[2021-06-11] MEDS ORDERED: DIVALPROEX SODIUM 250 MG TABLET E.C. PO SCH (22:00)
[2021-06-11] MEDS ORDERED: INSULIN (LEVEMIR) 100 UNITS/ML UNITS SQ SCH (22:00)
[2021-06-11] MEDS ORDERED: CARVEDILOL 3.125 MG TABLET (FP) ONE (22:26)
[2021-06-11] MEDS ORDERED: risperiDONE 0.5 MG TABLET ONE (22:27)
[2021-06-11] MEDS ORDERED: DIVALPROEX SODIUM 500 MG TABLET E.C. ONE (22:27)
[2021-06-11] MEDS: risperiDONE 1 MG TABLET PO SCH (22:36)
[2021-06-11] MEDS: CARVEDILOL 6.25 MG TABLET (FP) PO SCH (22:36)
[2021-06-12] MEDS: ACETAMINOPHEN 325 MG TABLET (FP) PO PRN ×2 (01:44→21:41)
[2021-06-12] MEDS: INSULIN (NOVOLOG) ASPART 100 UNITS/ML 10ML VIAL SQ SCH ×5 (06:23→16:46)
[2021-06-12] MEDS ORDERED: DEXTROSE 5%-WATER - 50 ML IVPB ONE (09:39)
[2021-06-12] MEDS ORDERED: cefTRIAXone SODIUM 1 GM VIAL ONE (09:39)
[2021-06-12] MEDS: CEFTRIAXONE 1 GM in DEXTROSE 5%-WATER - 50 ML IVPB SCH (09:42)
[2021-06-12] MEDS: SOLIFENACIN SUCCINATE 5 MG TAB PO SCH (09:44)
[2021-06-12] MEDS: amLODIPine BESYLATE 5 MG TABLET (FP) PO SCH (09:44)
[2021-06-12] MEDS: ASPIRIN 81 MG CHEWABLE TABLETS PO SCH (09:44)
[2021-06-12] MEDS: LOSARTAN POTASSIUM 50 MG TABLET PO SCH (09:44)
[2021-06-12] MEDS: ATORVASTATIN CA 20 MG TABLET (FP) PO SCH (09:45)
[2021-06-12] MEDS: DIVALPROEX SODIUM 500 MG TABLET E.C. PO SCH ×2 (09:45→21:26)
[2021-06-12] MEDS: CARVEDILOL 6.25 MG TABLET (FP) PO SCH ×2 (09:45→21:26)
[2021-06-12] MEDS ORDERED: cefTRIAXone SODIUM 1 GM VIAL IVPB SCH (10:00)
[2021-06-12 10:03] LABS: BASO % 0.6 % (0-2.0); EOS % 1.4 % (0-4.5); HEMATOCRIT 29.1 % (32.4-45.2); HEMOGLOBIN 9.8 GM/dL (10.7-15.3); LYMPH % 23.2 % (8-40); MCH 30.1 pg (25.7-33.7); MCHC 33.6 g/dl (32.0-36.0); MEAN CELL VOLUME 89.4 fl (80-96); MEAN PLT VOLUME 8.1 fl (7.5-11.1); MONO % 13.4 % (3.8-10.2); NEUT % 61.4 % (42.8-82.8); PLATELET COUNT 275 10^3/uL (134-434); RBC 3.26 M/mm3 (3.60-5.2); RDW 13.1 % (11.6-15.6)
[2021-06-12 10:26] LABS: BLOOD UREA NITROGEN 12.6 mg/dL (7-18); CALCIUM 9.2 mg/dL (8.5-10.1)
[2021-06-12 10:31] LABS: BILIRUBIN,TOTAL 0.4 mg/dL (0.2-1); TOT PROT 6.4 g/dl (6.4-8.2)
[2021-06-12] MEDS: POLYETHYLENE GLYCOL (HEALTHYLAX) 3350 17 GM PACKET PO PRN (11:52)
[2021-06-12] MEDS ORDERED: INSULIN (LEVEMIR) 100 UNITS/ML UNITS SQ SCH (13:46)
[2021-06-12] MEDS: ENOXAPARIN NA (PORCINE) 40 MG/0.4 ML DISP.SYRIN SQ SCH (14:15)
[2021-06-12] MEDS ORDERED: INSULIN (NOVOLOG) ASPART 100 UNITS/ML 10ML VIAL ONE (16:42)
[2021-06-12] MEDS: guaiFENesin/D-M SUGAR-FREE/ACLHOL-FREE 5 ML UNIT DOSE PO PRN (17:39)
[2021-06-12] MEDS: risperiDONE 1 MG TABLET PO SCH (21:26)
[2021-06-13] MEDS ORDERED: INSULIN (NOVOLOG) ASPART 100 UNITS/ML 10ML VIAL ONE (05:58)
[2021-06-13] MEDS: INSULIN (NOVOLOG) ASPART 100 UNITS/ML 10ML VIAL SQ SCH ×3 (06:04→17:11)
[2021-06-13] MEDS ORDERED: DEXTROSE 5%-WATER - 50 ML IVPB ONE (07:57)
[2021-06-13] MEDS ORDERED: cefTRIAXone SODIUM 1 GM VIAL ONE (07:57)
[2021-06-13] MEDS: ASPIRIN 81 MG CHEWABLE TABLETS PO SCH (09:18)
[2021-06-13] MEDS: CARVEDILOL 6.25 MG TABLET (FP) PO SCH ×2 (09:18→21:09)
[2021-06-13] MEDS: LOSARTAN POTASSIUM 50 MG TABLET PO SCH (09:18)
[2021-06-13] MEDS: SOLIFENACIN SUCCINATE 5 MG TAB PO SCH (09:19)
[2021-06-13] MEDS: ATORVASTATIN CA 20 MG TABLET (FP) PO SCH (09:19)
[2021-06-13] MEDS: CEFTRIAXONE 1 GM in DEXTROSE 5%-WATER - 50 ML IVPB SCH (09:20)
[2021-06-13] MEDS: ENOXAPARIN NA (PORCINE) 40 MG/0.4 ML DISP.SYRIN SQ SCH (09:20)
[2021-06-13] MEDS: amLODIPine BESYLATE 5 MG TABLET (FP) PO SCH (09:20)
[2021-06-13] MEDS: DIVALPROEX SODIUM 500 MG TABLET E.C. PO SCH ×2 (09:22→21:10)
[2021-06-13] MEDS: ACETAMINOPHEN 325 MG TABLET (FP) PO PRN ×2 (11:31→21:09)
[2021-06-13 14:53] VITALS: BMI 41.3
[2021-06-13] MEDS: risperiDONE 1 MG TABLET PO SCH (21:09)
[2021-06-13] MEDS: INSULIN (LEVEMIR) 100 UNITS/ML UNITS SQ SCH (21:11)
[2021-06-13] MEDS: guaiFENesin/D-M SUGAR-FREE/ACLHOL-FREE 5 ML UNIT DOSE PO PRN (22:54)
[2021-06-14] MEDS: guaiFENesin/D-M SUGAR-FREE/ACLHOL-FREE 5 ML UNIT DOSE PO PRN ×2 (05:21→20:39)
[2021-06-14] MEDS: POLYETHYLENE GLYCOL (HEALTHYLAX) 3350 17 GM PACKET PO PRN (05:27)
[2021-06-14] MEDS: INSULIN (NOVOLOG) ASPART 100 UNITS/ML 10ML VIAL SQ SCH ×3 (06:00→16:39)
[2021-06-14] MEDS: AMINO ACIDS/PROTEIN HYDROLYS 30 ML LIQUID.PKT PO SCH (08:31)
[2021-06-14] MEDS ORDERED: DEXTROSE 5%-WATER - 50 ML IVPB ONE (09:26)
[2021-06-14] MEDS ORDERED: cefTRIAXone SODIUM 1 GM VIAL ONE (09:26)
[2021-06-14] MEDS: ASPIRIN 81 MG CHEWABLE TABLETS PO SCH (09:29)
[2021-06-14] MEDS: LOSARTAN POTASSIUM 50 MG TABLET PO SCH (09:29)
[2021-06-14] MEDS: CARVEDILOL 6.25 MG TABLET (FP) PO SCH ×2 (09:29→21:01)
[2021-06-14] MEDS: DIVALPROEX SODIUM 500 MG TABLET E.C. PO SCH ×2 (09:30→21:01)
[2021-06-14] MEDS: ATORVASTATIN CA 20 MG TABLET (FP) PO SCH (09:30)
[2021-06-14] MEDS: amLODIPine BESYLATE 5 MG TABLET (FP) PO SCH (09:30)
[2021-06-14] MEDS: SOLIFENACIN SUCCINATE 5 MG TAB PO SCH (09:31)
[2021-06-14] MEDS: MULTIVITAMINS (DAILY MVI) TABLET (FP) PO SCH (09:31)
[2021-06-14] MEDS: CEFTRIAXONE 1 GM in DEXTROSE 5%-WATER - 50 ML IVPB SCH (09:32)
[2021-06-14] MEDS: ENOXAPARIN NA (PORCINE) 40 MG/0.4 ML DISP.SYRIN SQ SCH (09:33)
[2021-06-14] MEDS: ACETAMINOPHEN 325 MG TABLET (FP) PO PRN ×2 (13:43→20:39)
[2021-06-14] MEDS: INSULIN (LEVEMIR) 100 UNITS/ML UNITS SQ SCH (21:01)
[2021-06-14] MEDS: risperiDONE 1 MG TABLET PO SCH (21:01)
[2021-06-15] MEDS: guaiFENesin/D-M SUGAR-FREE/ACLHOL-FREE 5 ML UNIT DOSE PO PRN (05:29)
[2021-06-15] MEDS: INSULIN (NOVOLOG) ASPART 100 UNITS/ML 10ML VIAL SQ SCH ×3 (06:01→17:45)
[2021-06-15] MEDS ORDERED: cefTRIAXone SODIUM 1 GM VIAL ONE (10:08)
[2021-06-15] MEDS ORDERED: DEXTROSE 5%-WATER - 50 ML IVPB ONE (10:08)
[2021-06-15] MEDS: AMINO ACIDS/PROTEIN HYDROLYS 30 ML LIQUID.PKT PO SCH (10:10)
[2021-06-15] MEDS: CEFTRIAXONE 1 GM in DEXTROSE 5%-WATER - 50 ML IVPB SCH (10:10)
[2021-06-15] MEDS: ENOXAPARIN NA (PORCINE) 40 MG/0.4 ML DISP.SYRIN SQ SCH (10:11)
[2021-06-15] MEDS: MULTIVITAMINS (DAILY MVI) TABLET (FP) PO SCH (10:11)
[2021-06-15] MEDS: SOLIFENACIN SUCCINATE 5 MG TAB PO SCH (10:11)
[2021-06-15] MEDS: ASPIRIN 81 MG CHEWABLE TABLETS PO SCH (10:11)
[2021-06-15] MEDS: CARVEDILOL 6.25 MG TABLET (FP) PO SCH ×2 (10:12→21:10)
[2021-06-15] MEDS: amLODIPine BESYLATE 5 MG TABLET (FP) PO SCH (10:12)
[2021-06-15] MEDS: LOSARTAN POTASSIUM 50 MG TABLET PO SCH (10:12)
[2021-06-15] MEDS: ATORVASTATIN CA 20 MG TABLET (FP) PO SCH (10:12)
[2021-06-15] MEDS: DIVALPROEX SODIUM 500 MG TABLET E.C. PO SCH ×2 (10:13→21:10)
[2021-06-15] MEDS ORDERED: INSULIN (NOVOLOG) ASPART 100 UNITS/ML 10ML VIAL ONE (11:35)
[2021-06-15] MEDS: ACETAMINOPHEN 325 MG TABLET (FP) PO PRN (17:35)
[2021-06-15] MEDS: INSULIN (LEVEMIR) 100 UNITS/ML UNITS SQ SCH (21:09)
[2021-06-15] MEDS: risperiDONE 1 MG TABLET PO SCH (21:10)
[2021-06-16] MEDS: ACETAMINOPHEN 325 MG TABLET (FP) PO PRN ×2 (06:35→21:38)
[2021-06-16] MEDS: INSULIN (NOVOLOG) ASPART 100 UNITS/ML 10ML VIAL SQ SCH ×3 (06:36→16:59)
[2021-06-16 09:59] LABS: BASO % 0.9 % (0-2.0); EOS % 1.7 % (0-4.5); HEMATOCRIT 28.2 % (32.4-45.2); HEMOGLOBIN 9.6 GM/dL (10.7-15.3); LYMPH % 28.3 % (8-40); MCH 30.1 pg (25.7-33.7); MEAN CELL VOLUME 88.5 fl (80-96); MEAN PLT VOLUME 8.1 fl (7.5-11.1); MONO % 13.2 % (3.8-10.2); NEUT % 55.9 % (42.8-82.8); PLATELET COUNT 291 10^3/uL (134-434); RBC 3.18 M/mm3 (3.60-5.2); RDW 13.4 % (11.6-15.6); WHITE BLOOD COUNT 3.8 K/mm3 (4.0-10.0)
[2021-06-16] MEDS ORDERED: cefTRIAXone SODIUM 1 GM VIAL ONE (10:22)
[2021-06-16] MEDS ORDERED: DEXTROSE 5%-WATER - 50 ML IVPB ONE (10:22)
[2021-06-16] MEDS: AMINO ACIDS/PROTEIN HYDROLYS 30 ML LIQUID.PKT PO SCH (10:28)
[2021-06-16] MEDS: ENOXAPARIN NA (PORCINE) 40 MG/0.4 ML DISP.SYRIN SQ SCH (10:29)
[2021-06-16] MEDS: SOLIFENACIN SUCCINATE 5 MG TAB PO SCH (10:29)
[2021-06-16] MEDS: CEFTRIAXONE 1 GM in DEXTROSE 5%-WATER - 50 ML IVPB SCH (10:29)
[2021-06-16 10:30] LABS: CALCIUM 9.5 mg/dL (8.5-10.1)
[2021-06-16] MEDS: ASPIRIN 81 MG CHEWABLE TABLETS PO SCH (10:30)
[2021-06-16] MEDS: MULTIVITAMINS (DAILY MVI) TABLET (FP) PO SCH (10:30)
[2021-06-16] MEDS: CARVEDILOL 6.25 MG TABLET (FP) PO SCH ×2 (10:30→21:38)
[2021-06-16] MEDS: ATORVASTATIN CA 20 MG TABLET (FP) PO SCH (10:30)
[2021-06-16] MEDS: LOSARTAN POTASSIUM 50 MG TABLET PO SCH (10:30)
[2021-06-16] MEDS: DIVALPROEX SODIUM 500 MG TABLET E.C. PO SCH ×2 (10:30→21:39)
[2021-06-16] MEDS: amLODIPine BESYLATE 5 MG TABLET (FP) PO SCH (10:30)
[2021-06-16 10:31] LABS: BLOOD UREA NITROGEN 15.8 mg/dL (7-18)
[2021-06-16 10:34] LABS: CREATININE 0.8 mg/dL (0.55-1.3)
[2021-06-16 10:35] LABS: BILIRUBIN,TOTAL 0.4 mg/dL (0.2-1); TOT PROT 6.1 g/dl (6.4-8.2)
[2021-06-16] MEDS: POLYETHYLENE GLYCOL (HEALTHYLAX) 3350 17 GM PACKET PO PRN (17:00)
[2021-06-16] MEDS: guaiFENesin/D-M SUGAR-FREE/ACLHOL-FREE 5 ML UNIT DOSE PO PRN (17:01)
[2021-06-16] MEDS: risperiDONE 1 MG TABLET PO SCH (21:38)
[2021-06-16] MEDS: INSULIN (LEVEMIR) 100 UNITS/ML UNITS SQ SCH (21:41)
[2021-06-17] MEDS: guaiFENesin/D-M SUGAR-FREE/ACLHOL-FREE 5 ML UNIT DOSE PO PRN ×2 (01:05→10:09)
[2021-06-17] MEDS: INSULIN (NOVOLOG) ASPART 100 UNITS/ML 10ML VIAL SQ SCH ×3 (06:37→16:56)
[2021-06-17] MEDS ORDERED: DEXTROSE 5%-WATER - 50 ML IVPB ONE (09:56)
[2021-06-17] MEDS ORDERED: cefTRIAXone SODIUM 1 GM VIAL ONE (09:56)
[2021-06-17] MEDS: AMINO ACIDS/PROTEIN HYDROLYS 30 ML LIQUID.PKT PO SCH (10:07)
[2021-06-17] MEDS: CEFTRIAXONE 1 GM in DEXTROSE 5%-WATER - 50 ML IVPB SCH (10:07)
[2021-06-17] MEDS: ASPIRIN 81 MG CHEWABLE TABLETS PO SCH (10:08)
[2021-06-17] MEDS: LOSARTAN POTASSIUM 50 MG TABLET PO SCH (10:08)
[2021-06-17] MEDS: ATORVASTATIN CA 20 MG TABLET (FP) PO SCH (10:08)
[2021-06-17] MEDS: ENOXAPARIN NA (PORCINE) 40 MG/0.4 ML DISP.SYRIN SQ SCH (10:08)
[2021-06-17] MEDS: SOLIFENACIN SUCCINATE 5 MG TAB PO SCH (10:09)
[2021-06-17] MEDS: amLODIPine BESYLATE 5 MG TABLET (FP) PO SCH (10:09)
[2021-06-17] MEDS: MULTIVITAMINS (DAILY MVI) TABLET (FP) PO SCH (10:09)
[2021-06-17] MEDS: DIVALPROEX SODIUM 500 MG TABLET E.C. PO SCH (10:10)
[2021-06-17] MEDS: CARVEDILOL 6.25 MG TABLET (FP) PO SCH (10:10)
[2021-06-17 10:26] VITALS: PULSE 63
[2021-06-17 14:29] VITALS: BP 133/63; TEMP 98.3
[2021-06-17] MEDS: ACETAMINOPHEN 325 MG TABLET (FP) PO PRN (16:57)
== END 2021-06-17 18:45 | DRG 690 ==
LOC: JER 11:49 → JERBED 16:07 → J6S 06-12 01:27
PROVIDERS: ADMIT Internal Medicine; ATTEND Internal Medicine
DX: N39.0 Urinary tract infection, site not specified (principal); Z68.41 Body mass index [BMI] 40.0-44.9, adult; E87.1 Hypo-osmolality and hyponatremia; I10 Essential (primary) hypertension; E78.5 Hyperlipidemia, unspecified; I25.10 Atherosclerotic heart disease of native coronary artery without angina pectoris; E11.9 Type 2 diabetes mellitus without complications; Z95.0 Presence of cardiac pacemaker; F25.9 Schizoaffective disorder, unspecified; J45.909 Unspecified asthma, uncomplicated; R42 Dizziness and giddiness; M25.561 Pain in right knee; M25.562 Pain in left knee; E66.9 Obesity, unspecified; E11.65 Type 2 diabetes mellitus with hyperglycemia; B96.20 Unspecified Escherichia coli [E. coli] as the cause of diseases classified elsewhere
CPT/HCPCS: 36415; 70450-TC; 71045-TC-FY; 80048; 80053; 81003; 82010; 82550; 82553; 82803; 82962; 84484; 85025; 85610; 85730; 87086; 87186; 93005; 93010; 97116-GP; 97162-GP; 99285-25; C9803; J2794; U0003; U0005

== ENCOUNTER 2021-08-19 12:31 | Emergency (ER) | payer OTHER ==
[2021-08-19 12:45] VITALS: BP 144/79; PULSE 66; TEMP 98; BMI 39.4
[2021-08-19] MEDS ORDERED: SODIUM CHLORIDE 0.9% 500 ML INFUS.BAG IV ONE (13:38)
[2021-08-19 15:12] LABS: BASO % 0.5 % (0-2.0); EOS % 1.2 % (0-4.5); HEMATOCRIT 31.9 % (32.4-45.2); HEMOGLOBIN 10.9 GM/dL (10.7-15.3); LYMPH % 46.9 % (8-40); MCH 30.4 pg (25.7-33.7); MCHC 34.2 g/dl (32.0-36.0); MEAN CELL VOLUME 88.8 fl (80-96); MEAN PLT VOLUME 9.1 fl (7.5-11.1); MONO % 8.8 % (3.8-10.2); NEUT % 42.6 % (42.8-82.8); PLATELET COUNT 217 10^3/uL (134-434); RBC 3.59 M/mm3 (3.60-5.2); RDW 13.4 % (11.6-15.6); WHITE BLOOD COUNT 4.2 K/mm3 (4.0-10.0)
[2021-08-19 15:32] LABS: CALCIUM 9.1 mg/dL (8.5-10.1); CHLORIDE 98 mmol/L (98-107); SODIUM 134 mmol/L (136-145)
[2021-08-19 15:33] LABS: ALBUMIN 3.4 g/dl (3.4-5.0); ANION GAP 6 MMOL/L (8-16); BLOOD UREA NITROGEN 21.1 mg/dL (7-18); CO2 30 mmol/L (21-32); GLUCOSE,RANDOM 353 mg/dL (74-106); MAGNESIUM 1.9 mg/dL (1.8-2.4)
[2021-08-19 15:37] LABS: CREATININE 1.1 mg/dL (0.55-1.3); SGPT/ALT 15 U/L (13-61)
[2021-08-19 15:38] LABS: BILIRUBIN,TOTAL 0.4 mg/dL (0.2-1); TOT PROT 6.7 g/dl (6.4-8.2)
[2021-08-19 15:39] LABS: ALK PHOS 87 U/L (45-117); VENOUS BASE EXCESS -4.1 mmol/L (-2-2); VENOUS O2 SATURATION 82.4 % (70-80); VENOUS PCO2 48.9 mmHg (38-52)
[2021-08-19 15:40] LABS: VENOUS PH 7.285 (7.310-7.410)
[2021-08-19 15:41] LABS: SGOT/AST < 3 U/L (15-37)
== END 2021-08-19 21:41 | disposition home or self-care (01) ==
LOC: JER 12:31
DX: R73.9 Hyperglycemia, unspecified (principal); R60.0 Localized edema
CPT/HCPCS: 36415; 71045-TC-FY; 76937; 80053; 82010; 82803; 82962; 83735; 84484; 85025; 93005; 93010; 93971-TC; 99285-25

== ENCOUNTER 2021-10-13 17:15 | Emergency (ER) | payer OTHER ==
[2021-10-13 18:06] VITALS: BP 123/62; PULSE 63; TEMP 99; BMI 41.9
[2021-10-13] MEDS ORDERED: KETOROLAC TROMETHAMINE 30 MG/1 ML VIAL IM ONE (21:02)
[2021-10-13] MEDS ORDERED: KETOROLAC TROMETHAMINE 30 MG/1 ML VIAL ONE (21:03)
== END 2021-10-13 22:54 | disposition home or self-care (01) ==
LOC: JER 17:15 → JERFT 17:15
PROC: 3E0233Z Introduction of Anti-inflammatory into Muscle, Percutaneous Approach (ICD-10-PCS; principal; 2021-10-13)
DX: M79.605 Pain in left leg (principal)
CPT/HCPCS: 73562-TC-LT-FY; 93970-TC; 99284-25

== ENCOUNTER 2021-11-17 20:15 | Inpatient (IN) | payer OTHER ==
[2021-11-17 21:28] LABS: BASO % 0.6 % (0-2.0); EOS % 1.3 % (0-4.5); HEMATOCRIT 29.9 % (32.4-45.2); HEMOGLOBIN 10.6 GM/dL (10.7-15.3); LYMPH % 32.2 % (8-40); MCH 30.2 pg (25.7-33.7); MCHC 35.5 g/dl (32.0-36.0); MEAN CELL VOLUME 85.1 fl (80-96); MONO % 12.3 % (3.8-10.2); NEUT % 53.6 % (42.8-82.8); PLATELET COUNT 220 10^3/uL (134-434); RBC 3.52 M/mm3 (3.60-5.2); RDW 13.6 % (11.6-15.6); WHITE BLOOD COUNT 4.3 K/mm3 (4.0-10.0)
[2021-11-17 21:47] LABS: ALBUMIN 3.7 g/dl (3.4-5.0); BLOOD UREA NITROGEN 14.2 mg/dL (7-18)
[2021-11-17 21:50] LABS: CREATININE 0.8 mg/dL (0.55-1.3)
[2021-11-17 21:51] LABS: TOT PROT 6.9 g/dl (6.4-8.2)
[2021-11-17 21:52] LABS: BILIRUBIN,TOTAL 0.4 mg/dL (0.2-1)
[2021-11-17] MEDS ORDERED: SODIUM CHLORIDE 0.9% 500 ML INFUS.BAG IV ONE (22:27)
[2021-11-17 22:54] LABS: PH,URINE 5.5 (5.0-8.0); URINE APPEARANCE CLEAR; URINE BILIRUBIN NEGATIVE (NEGATIVE); URINE COLOR YELLOW; URINE GLUCOSE (UA) NEGATIVE (NEGATIVE); URINE KETONE NEGATIVE (NEGATIVE); URINE LEUK ESTERASE NEGATIVE (NEGATIVE); URINE NITRITE NEGATIVE (NEGATIVE); URINE PROTEIN NEGATIVE (NEGATIVE); URINE UROBILINOGEN 0.2 mg/dL (0.2-1.0)
[2021-11-17 23:05] LABS: CALCIUM 9.1 mg/dL (8.5-10.1)
[2021-11-17 23:06] LABS: ALBUMIN 3.7 g/dl (3.4-5.0); BLOOD UREA NITROGEN 13.4 mg/dL (7-18)
[2021-11-17 23:09] LABS: CREATININE 0.8 mg/dL (0.55-1.3)
[2021-11-17 23:10] LABS: BILIRUBIN,TOTAL 0.4 mg/dL (0.2-1)
[2021-11-17 23:11] LABS: TOT PROT 6.9 g/dl (6.4-8.2)
[2021-11-17] MEDS: SODIUM CHLORIDE 1,000 ML IV SCH (23:28)
[2021-11-18 04:09] LABS: CALCIUM 8.9 mg/dL (8.5-10.1)
[2021-11-18 04:10] LABS: BLOOD UREA NITROGEN 12.9 mg/dL (7-18); MAGNESIUM 1.7 mg/dL (1.8-2.4)
[2021-11-18 04:13] LABS: CREATININE 0.7 mg/dL (0.55-1.3); PHOSPHOROUS 2.9 mg/dL (2.5-4.9)
[2021-11-18 04:53] VITALS: BMI 41.0
[2021-11-18] MEDS: SODIUM CHLORIDE 1,000 ML IV SCH (05:08)
[2021-11-18] MEDS ORDERED: ALBUTEROL SO4 HFA INHALER IH PRN (05:12)
[2021-11-18] MEDS ORDERED: POLYETHYLENE GLYCOL (HEALTHYLAX) 3350 17 GM PACKET PO PRN (05:12)
[2021-11-18] MEDS: ACETAMINOPHEN 325 MG TABLET (FP) PO PRN (06:22)
[2021-11-18] MEDS: INSULIN SLIDING SCALE (NOVOLOG) 1 VIAL SQ SCH ×4 (06:36→22:06)
[2021-11-18] MEDS ORDERED: INSULIN SLIDING SCALE (NOVOLOG) 1 VIAL SQ SCH ×2 (07:00)
[2021-11-18] MEDS ORDERED: PATIENT'S OWN MEDICATION (NON-FORMULARY) (Mirabegron [Myrbetriq] 50 MG Tab.Er.24h) PO SCH (10:00)
[2021-11-18] MEDS ORDERED: PATIENT'S OWN MEDICATION (NON-FORMULARY) (Icosapent Ethyl [Vascepa] 1 GM Capsule) PO SCH (10:00)
[2021-11-18] MEDS: ENOXAPARIN NA (PORCINE) 40 MG/0.4 ML DISP.SYRIN SQ SCH (10:18)
[2021-11-18] MEDS: CARVEDILOL 6.25 MG TABLET (FP) PO SCH ×2 (10:18→22:04)
[2021-11-18] MEDS: LOSARTAN POTASSIUM 50 MG TABLET PO SCH (10:18)
[2021-11-18] MEDS: amLODIPine BESYLATE 5 MG TABLET (FP) PO SCH (10:18)
[2021-11-18] MEDS: FOLIC ACID 1 MG TABLET (FP) PO SCH (10:18)
[2021-11-18] MEDS: SOLIFENACIN SUCCINATE 5 MG TAB PO SCH (10:19)
[2021-11-18] MEDS: ASPIRIN 81 MG CHEWABLE TABLETS PO SCH (10:19)
[2021-11-18] MEDS: DIVALPROEX SODIUM 250 MG TABLET E.C. PO SCH ×2 (10:28→22:04)
[2021-11-18 16:35] LABS: CALCIUM 8.9 mg/dL (8.5-10.1)
[2021-11-18 16:36] LABS: BLOOD UREA NITROGEN 13.2 mg/dL (7-18)
[2021-11-18 16:39] LABS: CREATININE 0.9 mg/dL (0.55-1.3)
[2021-11-18] MEDS: risperiDONE 1 MG TABLET PO SCH (22:05)
[2021-11-18] MEDS: ATORVASTATIN CA 20 MG TABLET (FP) PO SCH (22:05)
[2021-11-18] MEDS: INSULIN (LEVEMIR) 100 UNITS/ML UNITS SQ SCH (22:05)
[2021-11-19 06:06] VITALS: RESP 18
[2021-11-19] MEDS: INSULIN SLIDING SCALE (NOVOLOG) 1 VIAL SQ SCH ×4 (06:50→22:05)
[2021-11-19 07:26] LABS: HEMATOCRIT 30.5 % (32.4-45.2); HEMOGLOBIN 10.7 GM/dL (10.7-15.3); MCH 30.4 pg (25.7-33.7); MEAN CELL VOLUME 86.9 fl (80-96); PLATELET COUNT 211 10^3/uL (134-434); RBC 3.51 M/mm3 (3.60-5.2); RDW 13.9 % (11.6-15.6); WHITE BLOOD COUNT 4.1 K/mm3 (4.0-10.0)
[2021-11-19 07:51] LABS: CALCIUM 9.1 mg/dL (8.5-10.1)
[2021-11-19 07:52] LABS: ALBUMIN 3.6 g/dl (3.4-5.0); BLOOD UREA NITROGEN 15.5 mg/dL (7-18)
[2021-11-19 07:55] LABS: CREATININE 0.8 mg/dL (0.55-1.3)
[2021-11-19 07:57] LABS: BILIRUBIN,TOTAL 0.5 mg/dL (0.2-1); TOT PROT 6.7 g/dl (6.4-8.2)
[2021-11-19] MEDS: amLODIPine BESYLATE 5 MG TABLET (FP) PO SCH (09:54)
[2021-11-19] MEDS: LOSARTAN POTASSIUM 50 MG TABLET PO SCH (09:54)
[2021-11-19] MEDS: ASPIRIN 81 MG CHEWABLE TABLETS PO SCH (09:54)
[2021-11-19] MEDS: CARVEDILOL 6.25 MG TABLET (FP) PO SCH ×2 (09:54→22:04)
[2021-11-19] MEDS: SOLIFENACIN SUCCINATE 5 MG TAB PO SCH (09:55)
[2021-11-19] MEDS: DIVALPROEX SODIUM 250 MG TABLET E.C. PO SCH (09:56)
[2021-11-19] MEDS: ENOXAPARIN NA (PORCINE) 40 MG/0.4 ML DISP.SYRIN SQ SCH (09:58)
[2021-11-19] MEDS: FOLIC ACID 1 MG TABLET (FP) PO SCH (09:58)
[2021-11-19] MEDS: INSULIN (LEVEMIR) 100 UNITS/ML UNITS SQ SCH (22:04)
[2021-11-19] MEDS: ATORVASTATIN CA 20 MG TABLET (FP) PO SCH (22:04)
[2021-11-19] MEDS: ACETAMINOPHEN 325 MG TABLET (FP) PO PRN (22:07)
[2021-11-19] MEDS: risperiDONE 1 MG TABLET PO SCH (22:11)
[2021-11-20] MEDS: INSULIN SLIDING SCALE (NOVOLOG) 1 VIAL SQ SCH ×3 (06:20→16:38)
[2021-11-20] MEDS: LOSARTAN POTASSIUM 50 MG TABLET PO SCH (08:59)
[2021-11-20] MEDS: ENOXAPARIN NA (PORCINE) 40 MG/0.4 ML DISP.SYRIN SQ SCH (08:59)
[2021-11-20] MEDS: CARVEDILOL 6.25 MG TABLET (FP) PO SCH ×2 (09:00→09:19)
[2021-11-20] MEDS: SOLIFENACIN SUCCINATE 5 MG TAB PO SCH (09:00)
[2021-11-20] MEDS: amLODIPine BESYLATE 5 MG TABLET (FP) PO SCH (09:00)
[2021-11-20] MEDS: ASPIRIN 81 MG CHEWABLE TABLETS PO SCH (09:00)
[2021-11-20] MEDS: FOLIC ACID 1 MG TABLET (FP) PO SCH (09:05)
[2021-11-20 09:44] LABS: BASO % 0.8 % (0-2.0); EOS % 1.8 % (0-4.5); HEMATOCRIT 31.3 % (32.4-45.2); LYMPH % 26.4 % (8-40); MCH 30.3 pg (25.7-33.7); MCHC 35.1 g/dl (32.0-36.0); MEAN CELL VOLUME 86.4 fl (80-96); MEAN PLT VOLUME 6.8 fl (7.5-11.1); MONO % 12.2 % (3.8-10.2); NEUT % 58.8 % (42.8-82.8); PLATELET COUNT 224 10^3/uL (134-434); RBC 3.63 M/mm3 (3.60-5.2); RDW 13.8 % (11.6-15.6); WHITE BLOOD COUNT 3.8 K/mm3 (4.0-10.0)
[2021-11-20 10:16] LABS: BLOOD UREA NITROGEN 15.8 mg/dL (7-18); CALCIUM 9.4 mg/dL (8.5-10.1)
[2021-11-20 10:21] LABS: CREATININE 0.7 mg/dL (0.55-1.3)
[2021-11-20 15:09] VITALS: BP 144/70; PULSE 66; TEMP 98.4
== END 2021-11-20 19:21 | disposition home or self-care (01) | DRG 641 ==
LOC: JER 20:15 → JERBED 23:54 → J7W 11-18 02:52
PROVIDERS: ADMIT Hospitalist; ATTEND Internal Medicine
DX: E87.1 Hypo-osmolality and hyponatremia (principal); M62.82 Rhabdomyolysis; Z68.41 Body mass index [BMI] 40.0-44.9, adult; I25.10 Atherosclerotic heart disease of native coronary artery without angina pectoris; I10 Essential (primary) hypertension; E66.9 Obesity, unspecified; E78.5 Hyperlipidemia, unspecified; K59.00 Constipation, unspecified; K21.9 Gastro-esophageal reflux disease without esophagitis; E86.0 Dehydration; E11.9 Type 2 diabetes mellitus without complications; F20.9 Schizophrenia, unspecified; Z95.5 Presence of coronary angioplasty implant and graft; Z96.653 Presence of artificial knee joint, bilateral; Z95.0 Presence of cardiac pacemaker
CPT/HCPCS: 0241U-QW; 36415; 71045-TC-FY; 80048; 80053; 81003; 82550; 82553; 82570; 82962; 83735; 83880; 83935; 84100; 84300; 84484; 85025; 85027; 87086; 93005; 93010; 93971-TC; 97116-GP; 97161-GP; 99285-25; C9803-CS; J2794; U0003; U0005

== ENCOUNTER 2021-11-22 20:17 | Inpatient (IN) | payer OTHER ==
[2021-11-22 20:36] VITALS: BMI 40.3
[2021-11-22] MEDS ORDERED: methylPREDNISolone NA SUCC 125 MG/2 ML VIAL IVPUSH ONE (20:50)
[2021-11-22] MEDS ORDERED: ONDANSETRON 4 MG/2 ML VIAL IVPUSH ONE (20:52)
[2021-11-22] MEDS ORDERED: ACETAMINOPHEN 1000 MG/100 ML BAG IVPB ONE (20:56)
[2021-11-22] MEDS ORDERED: ACETAMINOPHEN INJECTION 100 ML IVPB ONE (21:19)
[2021-11-22] MEDS ORDERED: methylPREDNISolone NA SUCC 125 MG/2 ML VIAL ONE (21:19)
[2021-11-22] MEDS ORDERED: ONDANSETRON 4 MG/2 ML VIAL ONE (21:19)
[2021-11-22] MEDS ORDERED: ALBUTEROL SO4 2.5/IPRATROPIUM 0.5 INH SOL 3 ML VIAL.NEB. NEB ONE (21:19)
[2021-11-22] MEDS: ALBUTEROL SO4 2.5/IPRATROPIUM 0.5 INH SOL 3 ML VIAL.NEB. NEB SCH ×3 (21:20→22:21)
[2021-11-22 22:25] LABS: BASO % 0.9 % (0-2.0); EOS % 1.2 % (0-4.5); HEMATOCRIT 27.1 % (32.4-45.2); HEMOGLOBIN 9.8 GM/dL (10.7-15.3); MCH 30.7 pg (25.7-33.7); MCHC 36.3 g/dl (32.0-36.0); MEAN CELL VOLUME 84.6 fl (80-96); MEAN PLT VOLUME 7.1 fl (7.5-11.1); MONO % 11.8 % (3.8-10.2); NEUT % 61.1 % (42.8-82.8); PLATELET COUNT 235 10^3/uL (134-434); RDW 13.7 % (11.6-15.6); WHITE BLOOD COUNT 6.3 K/mm3 (4.0-10.0)
[2021-11-22 22:48] LABS: CHLORIDE 82 mmol/L (98-107)
[2021-11-22 22:50] LABS: ALBUMIN 3.8 g/dl (3.4-5.0); BLOOD UREA NITROGEN 14.2 mg/dL (7-18); CALCIUM 8.8 mg/dL (8.5-10.1); CO2 25 mmol/L (21-32)
[2021-11-22 22:51] LABS: GLUCOSE,RANDOM 140 mg/dL (74-106); MAGNESIUM 1.6 mg/dL (1.8-2.4)
[2021-11-22 22:53] LABS: CREATININE 0.8 mg/dL (0.55-1.3); SGOT/AST 36 U/L (15-37)
[2021-11-22 22:54] LABS: SGPT/ALT 31 U/L (13-61)
[2021-11-22 22:55] LABS: BILIRUBIN,TOTAL 0.4 mg/dL (0.2-1)
[2021-11-22 22:56] LABS: ALK PHOS 86 U/L (45-117)
[2021-11-22 23:06] LABS: PH,URINE 6.5 (5.0-8.0); URINE APPEARANCE CLEAR; URINE BILIRUBIN NEGATIVE (NEGATIVE); URINE COLOR YELLOW; URINE GLUCOSE (UA) NEGATIVE (NEGATIVE); URINE KETONE NEGATIVE (NEGATIVE); URINE LEUK ESTERASE NEGATIVE (NEGATIVE); URINE NITRITE NEGATIVE (NEGATIVE); URINE PROTEIN NEGATIVE (NEGATIVE); URINE UROBILINOGEN 0.2 mg/dL (0.2-1.0)
[2021-11-22 23:09] LABS: ANION GAP 11 MMOL/L (8-16); SODIUM 119 mmol/L (136-145)
[2021-11-22] MEDS ORDERED: SODIUM CHLORIDE 0.9% 500 ML INFUS.BAG IV ONE (23:39)
[2021-11-23 03:17] LABS: BLOOD UREA NITROGEN 11.5 mg/dL (7-18); CALCIUM 9.3 mg/dL (8.5-10.1)
[2021-11-23 03:21] LABS: CREATININE 0.8 mg/dL (0.55-1.3)
[2021-11-23] MEDS ORDERED: ALBUTEROL SO4 HFA INHALER IH PRN (04:04)
[2021-11-23 04:42] LABS: MAGNESIUM 1.6 mg/dL (1.8-2.4)
[2021-11-23 04:46] LABS: PHOSPHOROUS 3.2 mg/dL (2.5-4.9)
[2021-11-23] MEDS: INSULIN SLIDING SCALE (NOVOLOG) 1 VIAL SQ SCH ×4 (06:38→22:20)
[2021-11-23] MEDS: ENOXAPARIN NA (PORCINE) 40 MG/0.4 ML DISP.SYRIN SQ SCH (09:47)
[2021-11-23] MEDS: amLODIPine BESYLATE 5 MG TABLET (FP) PO SCH (09:49)
[2021-11-23] MEDS: LOSARTAN POTASSIUM 50 MG TABLET PO SCH (09:49)
[2021-11-23] MEDS: FOLIC ACID 1 MG TABLET (FP) PO SCH (09:49)
[2021-11-23] MEDS: CARVEDILOL 6.25 MG TABLET (FP) PO SCH ×2 (09:50→22:18)
[2021-11-23] MEDS: ASPIRIN 81 MG CHEWABLE TABLETS PO SCH (09:50)
[2021-11-23] MEDS ORDERED: DIVALPROEX SODIUM 500 MG TABLET E.C. PO SCH (10:00)
[2021-11-23] MEDS ORDERED: MAGNESIUM 1GM/D5W 100ML - 100 ML IVPB IVPB ONE (10:16)
[2021-11-23 12:17] LABS: CALCIUM 9.6 mg/dL (8.5-10.1)
[2021-11-23] MEDS: SOLIFENACIN SUCCINATE 5 MG TAB PO SCH (14:43)
[2021-11-23] MEDS: ACETAMINOPHEN 325 MG TABLET (FP) PO PRN ×2 (14:46→22:20)
[2021-11-23 14:50] LABS: BLOOD UREA NITROGEN 16.7 mg/dL (7-18); CALCIUM 9.6 mg/dL (8.5-10.1)
[2021-11-23] MEDS ORDERED: SODIUM CHLORIDE 1,000 ML IV SCH (16:00)
[2021-11-23 20:09] LABS: CALCIUM 9.5 mg/dL (8.5-10.1)
[2021-11-23 20:10] LABS: BLOOD UREA NITROGEN 18.7 mg/dL (7-18)
[2021-11-23 20:13] LABS: CREATININE 1.1 mg/dL (0.55-1.3)
[2021-11-23] MEDS ORDERED: ATORVASTATIN CA 20 MG TABLET (FP) PO SCH (22:00)
[2021-11-23] MEDS ORDERED: risperiDONE 1 MG TABLET PO SCH (22:00)
[2021-11-23] MEDS: risperiDONE 1 MG TABLET PO SCH (22:18)
[2021-11-23] MEDS: INSULIN (LEVEMIR) 100 UNITS/ML UNITS SQ SCH (22:21)
[2021-11-24] MEDS: ACETAMINOPHEN 325 MG TABLET (FP) PO PRN ×2 (06:02→14:59)
[2021-11-24] MEDS: INSULIN SLIDING SCALE (NOVOLOG) 1 VIAL SQ SCH ×4 (06:03→22:18)
[2021-11-24 08:38] LABS: HEMATOCRIT 28.5 % (32.4-45.2); HEMOGLOBIN 10.1 GM/dL (10.7-15.3); MCH 30.6 pg (25.7-33.7); MCHC 35.5 g/dl (32.0-36.0); MEAN CELL VOLUME 86.3 fl (80-96); MEAN PLT VOLUME 7.1 fl (7.5-11.1); PLATELET COUNT 213 10^3/uL (134-434); RBC 3.31 M/mm3 (3.60-5.2); RDW 14.1 % (11.6-15.6); WHITE BLOOD COUNT 7.1 K/mm3 (4.0-10.0)
[2021-11-24 09:03] LABS: CALCIUM 9.8 mg/dL (8.5-10.1)
[2021-11-24 09:04] LABS: BLOOD UREA NITROGEN 16.2 mg/dL (7-18)
[2021-11-24 09:07] LABS: CREATININE 0.8 mg/dL (0.55-1.3)
[2021-11-24 09:13] LABS: BILIRUBIN,TOTAL 0.5 mg/dL (0.2-1)
[2021-11-24 09:15] LABS: ALBUMIN 3.7 g/dl (3.4-5.0)
[2021-11-24 09:17] LABS: CALCIUM 9.5 mg/dL (8.5-10.1); PHOSPHOROUS 2.9 mg/dL (2.5-4.9)
[2021-11-24 09:18] LABS: BLOOD UREA NITROGEN 16.8 mg/dL (7-18); CREATININE 0.8 mg/dL (0.55-1.3); MAGNESIUM 1.9 mg/dL (1.8-2.4)
[2021-11-24] MEDS: ENOXAPARIN NA (PORCINE) 40 MG/0.4 ML DISP.SYRIN SQ SCH (10:39)
[2021-11-24] MEDS: amLODIPine BESYLATE 5 MG TABLET (FP) PO SCH (10:39)
[2021-11-24] MEDS: SOLIFENACIN SUCCINATE 5 MG TAB PO SCH (10:40)
[2021-11-24] MEDS: CARVEDILOL 6.25 MG TABLET (FP) PO SCH ×3 (10:40→22:17)
[2021-11-24] MEDS: ASPIRIN 81 MG CHEWABLE TABLETS PO SCH (10:40)
[2021-11-24] MEDS: risperiDONE 1 MG TABLET PO SCH ×2 (10:40→22:18)
[2021-11-24] MEDS: LOSARTAN POTASSIUM 50 MG TABLET PO SCH (10:40)
[2021-11-24] MEDS: FOLIC ACID 1 MG TABLET (FP) PO SCH (10:41)
[2021-11-24] MEDS ORDERED: SODIUM CHLORIDE 1,000 ML IV SCH (11:00)
[2021-11-24] MEDS: PATIENT'S OWN MEDICATION (NON-FORMULARY) (Mirabegron [Myrbetriq] 50 MG Tab.Er.24h) PO SCH (16:30)
[2021-11-24] MEDS: PATIENT'S OWN MEDICATION (NON-FORMULARY) (Icosapent Ethyl [Vascepa] 1 GM Capsule) PO SCH (16:30)
[2021-11-24] MEDS: INSULIN (LEVEMIR) 100 UNITS/ML UNITS SQ SCH (22:18)
[2021-11-25] MEDS: INSULIN SLIDING SCALE (NOVOLOG) 1 VIAL SQ SCH ×4 (06:26→21:52)
[2021-11-25 08:50] LABS: HEMATOCRIT 28.9 % (32.4-45.2); MCH 30.3 pg (25.7-33.7); MCHC 34.8 g/dl (32.0-36.0); MEAN CELL VOLUME 87.2 fl (80-96); MEAN PLT VOLUME 6.8 fl (7.5-11.1); PLATELET COUNT 219 10^3/uL (134-434); RBC 3.31 M/mm3 (3.60-5.2); RDW 14.2 % (11.6-15.6); WHITE BLOOD COUNT 4.7 K/mm3 (4.0-10.0)
[2021-11-25 09:18] LABS: BLOOD UREA NITROGEN 16.7 mg/dL (7-18); CALCIUM 9.6 mg/dL (8.5-10.1)
[2021-11-25 09:22] LABS: CREATININE 0.8 mg/dL (0.55-1.3)
[2021-11-25] MEDS: LOSARTAN POTASSIUM 50 MG TABLET PO SCH (10:50)
[2021-11-25] MEDS: ENOXAPARIN NA (PORCINE) 40 MG/0.4 ML DISP.SYRIN SQ SCH (10:50)
[2021-11-25] MEDS: ASPIRIN 81 MG CHEWABLE TABLETS PO SCH (10:51)
[2021-11-25] MEDS: CARVEDILOL 6.25 MG TABLET (FP) PO SCH ×2 (10:51→21:50)
[2021-11-25] MEDS: amLODIPine BESYLATE 5 MG TABLET (FP) PO SCH (10:51)
[2021-11-25] MEDS: risperiDONE 1 MG TABLET PO SCH ×2 (10:51→21:51)
[2021-11-25] MEDS: SOLIFENACIN SUCCINATE 5 MG TAB PO SCH (10:52)
[2021-11-25] MEDS: ACETAMINOPHEN 325 MG TABLET (FP) PO PRN ×2 (10:55→17:38)
[2021-11-25] MEDS: FOLIC ACID 1 MG TABLET (FP) PO SCH (11:04)
[2021-11-25] MEDS ORDERED: SODIUM CHLORIDE 1,000 ML IV SCH (13:30)
[2021-11-25] MEDS: INSULIN (LEVEMIR) 100 UNITS/ML UNITS SQ SCH (21:55)
[2021-11-26] MEDS: INSULIN SLIDING SCALE (NOVOLOG) 1 VIAL SQ SCH ×4 (06:22→23:48)
[2021-11-26 09:07] LABS: HEMATOCRIT 29.1 % (32.4-45.2); HEMOGLOBIN 10.4 GM/dL (10.7-15.3); MCH 30.9 pg (25.7-33.7); MCHC 35.6 g/dl (32.0-36.0); MEAN PLT VOLUME 7.1 fl (7.5-11.1); PLATELET COUNT 214 10^3/uL (134-434); RBC 3.35 M/mm3 (3.60-5.2); RDW 13.9 % (11.6-15.6)
[2021-11-26 10:02] LABS: BLOOD UREA NITROGEN 17.4 mg/dL (7-18)
[2021-11-26 10:03] LABS: ALBUMIN 3.3 g/dl (3.4-5.0); CALCIUM 9.4 mg/dL (8.5-10.1); MAGNESIUM 1.8 mg/dL (1.8-2.4)
[2021-11-26 10:05] LABS: CREATININE 0.7 mg/dL (0.55-1.3); PHOSPHOROUS 3.7 mg/dL (2.5-4.9)
[2021-11-26 10:06] LABS: BILIRUBIN,TOTAL 0.5 mg/dL (0.2-1); TOT PROT 6.5 g/dl (6.4-8.2)
[2021-11-26] MEDS: ENOXAPARIN NA (PORCINE) 40 MG/0.4 ML DISP.SYRIN SQ SCH (11:28)
[2021-11-26] MEDS: LOSARTAN POTASSIUM 50 MG TABLET PO SCH (11:29)
[2021-11-26] MEDS: CARVEDILOL 6.25 MG TABLET (FP) PO SCH ×2 (11:29→23:46)
[2021-11-26] MEDS: ASPIRIN 81 MG CHEWABLE TABLETS PO SCH (11:29)
[2021-11-26] MEDS: FOLIC ACID 1 MG TABLET (FP) PO SCH (11:29)
[2021-11-26] MEDS: amLODIPine BESYLATE 5 MG TABLET (FP) PO SCH (11:29)
[2021-11-26] MEDS: ACETAMINOPHEN 325 MG TABLET (FP) PO PRN (11:31)
[2021-11-26] MEDS: SOLIFENACIN SUCCINATE 5 MG TAB PO SCH (11:33)
[2021-11-26] MEDS: risperiDONE 1 MG TABLET PO SCH ×2 (11:34→23:46)
[2021-11-26] MEDS: INSULIN (LEVEMIR) 100 UNITS/ML UNITS SQ SCH (23:47)
[2021-11-27] MEDS: ACETAMINOPHEN 325 MG TABLET (FP) PO PRN ×3 (00:01→18:12)
[2021-11-27] MEDS: INSULIN SLIDING SCALE (NOVOLOG) 1 VIAL SQ SCH ×4 (06:07→21:44)
[2021-11-27] MEDS: ENOXAPARIN NA (PORCINE) 40 MG/0.4 ML DISP.SYRIN SQ SCH (09:53)
[2021-11-27] MEDS: LOSARTAN POTASSIUM 50 MG TABLET PO SCH (09:54)
[2021-11-27] MEDS: ASPIRIN 81 MG CHEWABLE TABLETS PO SCH (09:54)
[2021-11-27] MEDS: FOLIC ACID 1 MG TABLET (FP) PO SCH (09:54)
[2021-11-27] MEDS: amLODIPine BESYLATE 5 MG TABLET (FP) PO SCH (09:55)
[2021-11-27] MEDS: risperiDONE 1 MG TABLET PO SCH ×2 (09:57→21:45)
[2021-11-27] MEDS: CARVEDILOL 6.25 MG TABLET (FP) PO SCH ×2 (09:57→21:45)
[2021-11-27] MEDS: SOLIFENACIN SUCCINATE 5 MG TAB PO SCH (09:58)
[2021-11-27] MEDS: INSULIN (LEVEMIR) 100 UNITS/ML UNITS SQ SCH (21:44)
[2021-11-28] MEDS: ACETAMINOPHEN 325 MG TABLET (FP) PO PRN ×3 (04:14→23:16)
[2021-11-28] MEDS: INSULIN SLIDING SCALE (NOVOLOG) 1 VIAL SQ SCH ×4 (06:26→22:51)
[2021-11-28] MEDS: ENOXAPARIN NA (PORCINE) 40 MG/0.4 ML DISP.SYRIN SQ SCH (10:35)
[2021-11-28] MEDS: POLYETHYLENE GLYCOL (HEALTHYLAX) 3350 17 GM PACKET PO PRN (10:35)
[2021-11-28] MEDS: ASPIRIN 81 MG CHEWABLE TABLETS PO SCH (10:36)
[2021-11-28] MEDS: CARVEDILOL 6.25 MG TABLET (FP) PO SCH ×4 (10:36→22:47)
[2021-11-28] MEDS: SOLIFENACIN SUCCINATE 5 MG TAB PO SCH (10:37)
[2021-11-28] MEDS: FOLIC ACID 1 MG TABLET (FP) PO SCH (10:37)
[2021-11-28] MEDS: risperiDONE 1 MG TABLET PO SCH ×2 (10:37→22:47)
[2021-11-28] MEDS: LOSARTAN POTASSIUM 50 MG TABLET PO SCH (10:38)
[2021-11-28] MEDS: amLODIPine BESYLATE 5 MG TABLET (FP) PO SCH (10:38)
[2021-11-28] MEDS: INSULIN (NOVOLOG) ASPART 100 UNITS/ML 10ML VIAL SQ SCH ×2 (11:38→17:12)
[2021-11-28] MEDS ORDERED: INSULIN (LEVEMIR) 100 UNITS/ML UNITS SQ ONE (21:27)
[2021-11-28] MEDS: INSULIN (LEVEMIR) 100 UNITS/ML UNITS SQ SCH (22:47)
[2021-11-29] MEDS: INSULIN (NOVOLOG) ASPART 100 UNITS/ML 10ML VIAL SQ SCH ×3 (07:08→17:01)
[2021-11-29] MEDS: INSULIN SLIDING SCALE (NOVOLOG) 1 VIAL SQ SCH ×4 (07:09→21:13)
[2021-11-29] MEDS: amLODIPine BESYLATE 5 MG TABLET (FP) PO SCH (09:55)
[2021-11-29] MEDS: FOLIC ACID 1 MG TABLET (FP) PO SCH (09:56)
[2021-11-29] MEDS: LOSARTAN POTASSIUM 50 MG TABLET PO SCH (09:56)
[2021-11-29] MEDS: ENOXAPARIN NA (PORCINE) 40 MG/0.4 ML DISP.SYRIN SQ SCH (09:56)
[2021-11-29] MEDS: ASPIRIN 81 MG CHEWABLE TABLETS PO SCH (09:56)
[2021-11-29] MEDS: ACETAMINOPHEN 325 MG TABLET (FP) PO PRN ×2 (09:57→21:07)
[2021-11-29] MEDS: SOLIFENACIN SUCCINATE 5 MG TAB PO SCH (09:57)
[2021-11-29] MEDS: risperiDONE 1 MG TABLET PO SCH ×2 (09:57→21:07)
[2021-11-29] MEDS: CARVEDILOL 6.25 MG TABLET (FP) PO SCH ×2 (10:01→21:07)
[2021-11-29] MEDS: INSULIN (LEVEMIR) 100 UNITS/ML UNITS SQ SCH (21:12)
[2021-11-30] MEDS: INSULIN (NOVOLOG) ASPART 100 UNITS/ML 10ML VIAL SQ SCH ×3 (06:49→16:45)
[2021-11-30] MEDS: INSULIN SLIDING SCALE (NOVOLOG) 1 VIAL SQ SCH ×4 (06:50→22:48)
[2021-11-30] MEDS: ACETAMINOPHEN 325 MG TABLET (FP) PO PRN ×2 (06:51→22:44)
[2021-11-30] MEDS: SOLIFENACIN SUCCINATE 5 MG TAB PO SCH (09:47)
[2021-11-30] MEDS: LOSARTAN POTASSIUM 50 MG TABLET PO SCH (09:48)
[2021-11-30] MEDS: ASPIRIN 81 MG CHEWABLE TABLETS PO SCH (09:48)
[2021-11-30] MEDS: ENOXAPARIN NA (PORCINE) 40 MG/0.4 ML DISP.SYRIN SQ SCH (09:48)
[2021-11-30] MEDS: risperiDONE 1 MG TABLET PO SCH ×2 (09:48→22:44)
[2021-11-30] MEDS: amLODIPine BESYLATE 5 MG TABLET (FP) PO SCH (09:48)
[2021-11-30] MEDS: FOLIC ACID 1 MG TABLET (FP) PO SCH (09:49)
[2021-11-30] MEDS: CARVEDILOL 6.25 MG TABLET (FP) PO SCH ×2 (09:52→22:44)
[2021-11-30] MEDS: INSULIN (LEVEMIR) 100 UNITS/ML UNITS SQ SCH (22:47)
[2021-12-01] MEDS: INSULIN (NOVOLOG) ASPART 100 UNITS/ML 10ML VIAL SQ SCH ×3 (06:31→16:40)
[2021-12-01] MEDS: INSULIN SLIDING SCALE (NOVOLOG) 1 VIAL SQ SCH ×4 (06:31→21:45)
[2021-12-01 10:36] LABS: CREATININE 0.8 mg/dL (0.55-1.3)
[2021-12-01 10:39] LABS: ALBUMIN 3.4 g/dl (3.4-5.0); BILIRUBIN,TOTAL 0.5 mg/dL (0.2-1); BLOOD UREA NITROGEN 15.1 mg/dL (7-18); CALCIUM 9.8 mg/dL (8.5-10.1); TOT PROT 6.4 g/dl (6.4-8.2)
[2021-12-01] MEDS: SOLIFENACIN SUCCINATE 5 MG TAB PO SCH (12:20)
[2021-12-01] MEDS: ASPIRIN 81 MG CHEWABLE TABLETS PO SCH (12:20)
[2021-12-01] MEDS: CARVEDILOL 6.25 MG TABLET (FP) PO SCH ×3 (12:21→21:45)
[2021-12-01] MEDS: ENOXAPARIN NA (PORCINE) 40 MG/0.4 ML DISP.SYRIN SQ SCH (12:21)
[2021-12-01] MEDS: amLODIPine BESYLATE 5 MG TABLET (FP) PO SCH (12:21)
[2021-12-01] MEDS: LOSARTAN POTASSIUM 50 MG TABLET PO SCH (12:21)
[2021-12-01] MEDS: risperiDONE 1 MG TABLET PO SCH ×2 (12:22→21:45)
[2021-12-01] MEDS: FOLIC ACID 1 MG TABLET (FP) PO SCH (12:23)
[2021-12-01] MEDS: INSULIN (LEVEMIR) 100 UNITS/ML UNITS SQ SCH (21:43)
[2021-12-01] MEDS: ACETAMINOPHEN 325 MG TABLET (FP) PO PRN (21:50)
[2021-12-02] MEDS: INSULIN SLIDING SCALE (NOVOLOG) 1 VIAL SQ SCH ×4 (06:52→22:27)
[2021-12-02] MEDS: INSULIN (NOVOLOG) ASPART 100 UNITS/ML 10ML VIAL SQ SCH ×3 (06:52→17:19)
[2021-12-02] MEDS: POLYETHYLENE GLYCOL (HEALTHYLAX) 3350 17 GM PACKET PO PRN (10:07)
[2021-12-02] MEDS: SOLIFENACIN SUCCINATE 5 MG TAB PO SCH (10:08)
[2021-12-02] MEDS: risperiDONE 1 MG TABLET PO SCH ×2 (10:08→22:31)
[2021-12-02] MEDS: ENOXAPARIN NA (PORCINE) 40 MG/0.4 ML DISP.SYRIN SQ SCH (10:09)
[2021-12-02] MEDS: amLODIPine BESYLATE 5 MG TABLET (FP) PO SCH (10:09)
[2021-12-02] MEDS: CARVEDILOL 6.25 MG TABLET (FP) PO SCH ×2 (10:10→22:29)
[2021-12-02] MEDS: ASPIRIN 81 MG CHEWABLE TABLETS PO SCH (10:10)
[2021-12-02] MEDS: FOLIC ACID 1 MG TABLET (FP) PO SCH (10:10)
[2021-12-02] MEDS: LOSARTAN POTASSIUM 50 MG TABLET PO SCH (10:10)
[2021-12-02] MEDS ORDERED: FUROSEMIDE 20 MG TABLET (FP) PO ONE (12:45)
[2021-12-02] MEDS: INSULIN (LEVEMIR) 100 UNITS/ML UNITS SQ SCH (22:25)
[2021-12-02] MEDS: ACETAMINOPHEN 325 MG TABLET (FP) PO PRN (22:30)
[2021-12-03] MEDS: INSULIN SLIDING SCALE (NOVOLOG) 1 VIAL SQ SCH ×4 (07:05→22:12)
[2021-12-03] MEDS: INSULIN (NOVOLOG) ASPART 100 UNITS/ML 10ML VIAL SQ SCH ×3 (07:06→16:12)
[2021-12-03] MEDS: CARVEDILOL 6.25 MG TABLET (FP) PO SCH ×2 (10:03→22:15)
[2021-12-03] MEDS: ASPIRIN 81 MG CHEWABLE TABLETS PO SCH (10:03)
[2021-12-03] MEDS: amLODIPine BESYLATE 5 MG TABLET (FP) PO SCH (10:04)
[2021-12-03] MEDS: ENOXAPARIN NA (PORCINE) 40 MG/0.4 ML DISP.SYRIN SQ SCH (10:04)
[2021-12-03] MEDS: FOLIC ACID 1 MG TABLET (FP) PO SCH (10:08)
[2021-12-03] MEDS: LOSARTAN POTASSIUM 50 MG TABLET PO SCH (10:08)
[2021-12-03] MEDS: SOLIFENACIN SUCCINATE 5 MG TAB PO SCH (10:09)
[2021-12-03] MEDS: risperiDONE 1 MG TABLET PO SCH ×2 (10:10→22:09)
[2021-12-03] MEDS: ACETAMINOPHEN 325 MG TABLET (FP) PO PRN ×2 (14:47→22:33)
[2021-12-03] MEDS: INSULIN (LEVEMIR) 100 UNITS/ML UNITS SQ SCH (22:10)
[2021-12-04] MEDS: INSULIN (NOVOLOG) ASPART 100 UNITS/ML 10ML VIAL SQ SCH ×2 (06:09→11:18)
[2021-12-04] MEDS: INSULIN SLIDING SCALE (NOVOLOG) 1 VIAL SQ SCH ×2 (06:09→11:17)
[2021-12-04 08:32] LABS: CALCIUM 9.3 mg/dL (8.5-10.1)
[2021-12-04 08:33] LABS: ALBUMIN 3.2 g/dl (3.4-5.0); BLOOD UREA NITROGEN 19.4 mg/dL (7-18)
[2021-12-04 08:34] LABS: CREATININE 0.8 mg/dL (0.55-1.3)
[2021-12-04 08:36] LABS: BILIRUBIN,TOTAL 0.7 mg/dL (0.2-1); TOT PROT 6.3 g/dl (6.4-8.2)
[2021-12-04] MEDS: ENOXAPARIN NA (PORCINE) 40 MG/0.4 ML DISP.SYRIN SQ SCH (10:04)
[2021-12-04] MEDS: POLYETHYLENE GLYCOL (HEALTHYLAX) 3350 17 GM PACKET PO PRN (10:04)
[2021-12-04] MEDS: FOLIC ACID 1 MG TABLET (FP) PO SCH (10:05)
[2021-12-04] MEDS: amLODIPine BESYLATE 5 MG TABLET (FP) PO SCH (10:06)
[2021-12-04] MEDS: LOSARTAN POTASSIUM 50 MG TABLET PO SCH (10:06)
[2021-12-04] MEDS: ASPIRIN 81 MG CHEWABLE TABLETS PO SCH (10:06)
[2021-12-04] MEDS: CARVEDILOL 6.25 MG TABLET (FP) PO SCH (10:07)
[2021-12-04] MEDS: risperiDONE 1 MG TABLET PO SCH (10:07)
[2021-12-04] MEDS: SOLIFENACIN SUCCINATE 5 MG TAB PO SCH (10:07)
[2021-12-04 15:56] VITALS: BP 112/58; PULSE 68; RESP 18; TEMP 99.5
== END 2021-12-04 13:50 | DRG 641 ==
LOC: JER 20:17 → JERBED 23:34 → J7W 11-23 04:28
PROVIDERS: ADMIT Internal Medicine; ATTEND Internal Medicine
DX: E87.1 Hypo-osmolality and hyponatremia (principal); Z68.41 Body mass index [BMI] 40.0-44.9, adult; M62.82 Rhabdomyolysis; I25.10 Atherosclerotic heart disease of native coronary artery without angina pectoris; E78.5 Hyperlipidemia, unspecified; E11.9 Type 2 diabetes mellitus without complications; F25.9 Schizoaffective disorder, unspecified; Z95.0 Presence of cardiac pacemaker; E66.01 Morbid (severe) obesity due to excess calories; G89.4 Chronic pain syndrome; D64.9 Anemia, unspecified; J44.9 Chronic obstructive pulmonary disease, unspecified; M54.50 Low back pain, unspecified; I25.2 Old myocardial infarction
CPT/HCPCS: 0241U-QW; 36415; 71045-TC-FY; 72170-TC-FY; 80048; 80053; 81003; 82436; 82550; 82553; 82728; 82962; 83010; 83540; 83550; 83615; 83735; 83935; 84100; 84133; 84300; 84439; 84443; 84484; 85025; 85027; 85651; 86140; 87040; 87086; 87899; 93005; 93010; 97116-GP; 97161-GP; 99285-25; C9803-CS; J2794; U0003; U0005

== ENCOUNTER 2022-02-15 14:56 | Inpatient (IN) | payer OTHER ==
[2022-02-15] MEDS ORDERED: ALBUTEROL SO4 2.5/IPRATROPIUM 0.5 INH SOL 3 ML VIAL.NEB. NEB ONE ×2 (16:55→17:02)
[2022-02-15] MEDS ORDERED: ACETAMINOPHEN 1000 MG/100 ML BAG IVPB ONE (16:57)
[2022-02-15] MEDS ORDERED: ACETAMINOPHEN INJECTION 100 ML IVPB ONE (17:03)
[2022-02-15 17:34] LABS: BASO % 0.7 % (0-2.0); EOS % 1.2 % (0-4.5); HEMATOCRIT 30.1 % (32.4-45.2); HEMOGLOBIN 10.3 GM/dL (10.7-15.3); LYMPH % 26.2 % (8-40); MCH 30.1 pg (25.7-33.7); MCHC 34.3 g/dl (32.0-36.0); MEAN CELL VOLUME 87.7 fl (80-96); MEAN PLT VOLUME 7.5 fl (7.5-11.1); MONO % 10.6 % (3.8-10.2); NEUT % 61.3 % (42.8-82.8); PLATELET COUNT 246 10^3/uL (134-434); RBC 3.43 M/mm3 (3.60-5.2); RDW 13.5 % (11.6-15.6); WHITE BLOOD COUNT 3.6 K/mm3 (4.0-10.0)
[2022-02-15 17:37] LABS: URINE APPEARANCE CLEAR; URINE BILIRUBIN NEGATIVE (NEGATIVE); URINE COLOR YELLOW; URINE GLUCOSE (UA) NEGATIVE (NEGATIVE); URINE KETONE NEGATIVE (NEGATIVE); URINE LEUK ESTERASE NEGATIVE (NEGATIVE); URINE NITRITE NEGATIVE (NEGATIVE); URINE PROTEIN NEGATIVE (NEGATIVE); URINE UROBILINOGEN 0.2 mg/dL (0.2-1.0)
[2022-02-15 17:54] LABS: ALBUMIN 3.6 g/dl (3.4-5.0); BLOOD UREA NITROGEN 12.7 mg/dL (7-18); CALCIUM 9.5 mg/dL (8.5-10.1)
[2022-02-15 17:57] LABS: CREATININE 0.9 mg/dL (0.55-1.3)
[2022-02-15 17:59] LABS: BILIRUBIN,TOTAL 0.4 mg/dL (0.2-1); TOT PROT 6.8 g/dl (6.4-8.2)
[2022-02-15 18:02] LABS: N-TERMINAL BNP 118.6 pg/ml (5-125)
[2022-02-15] MEDS ORDERED: ALBUTEROL SO4 0.083% IH SOL 2.5 MG/3 ML VIAL.NEB. NEB ONE ×4 (18:37→19:24)
[2022-02-15] MEDS ORDERED: methylPREDNISolone NA SUCC 125 MG/2 ML VIAL IVPUSH ONE (18:58)
[2022-02-15] MEDS ORDERED: methylPREDNISolone NA SUCC 125 MG/2 ML VIAL ONE (19:01)
[2022-02-15] MEDS ORDERED: ALBUTEROL SO4 HFA INHALER IH PRN (23:00)
[2022-02-16] MEDS ORDERED: ENOXAPARIN NA (PORCINE) 40 MG/0.4 ML DISP.SYRIN SQ ONE (00:36)
[2022-02-16] MEDS: INSULIN SLIDING SCALE (NOVOLOG) 1 VIAL SQ SCH ×5 (01:26→21:41)
[2022-02-16] MEDS: ENOXAPARIN NA (PORCINE) 40 MG/0.4 ML DISP.SYRIN SQ SCH ×3 (01:27→21:51)
[2022-02-16 04:24] VITALS: BMI 44.0
[2022-02-16] MEDS ORDERED: SODIUM CHLORIDE 1,000 ML IV SCH (06:45)
[2022-02-16] MEDS ORDERED: methylPREDNISolone NA SUCC 40 MG/1 ML VIAL IVPUSH SCH (10:00)
[2022-02-16 10:23] LABS: HEMATOCRIT 30.3 % (32.4-45.2); HEMOGLOBIN 10.3 GM/dL (10.7-15.3); MCHC 34.1 g/dl (32.0-36.0); MEAN CELL VOLUME 87.9 fl (80-96); MEAN PLT VOLUME 7.6 fl (7.5-11.1); PLATELET COUNT 260 10^3/uL (134-434); RBC 3.45 M/mm3 (3.60-5.2); RDW 13.3 % (11.6-15.6); WHITE BLOOD COUNT 4.3 K/mm3 (4.0-10.0)
[2022-02-16 11:00] LABS: BLOOD UREA NITROGEN 20.8 mg/dL (7-18); CALCIUM 9.6 mg/dL (8.5-10.1)
[2022-02-16 11:01] LABS: ALBUMIN 3.6 g/dl (3.4-5.0); MAGNESIUM 2.1 mg/dL (1.8-2.4); PHOSPHOROUS 2.7 mg/dL (2.5-4.9)
[2022-02-16 11:02] LABS: CREATININE 1.1 mg/dL (0.55-1.3)
[2022-02-16 11:03] LABS: BILIRUBIN,TOTAL 0.3 mg/dL (0.2-1); TOT PROT 6.6 g/dl (6.4-8.2)
[2022-02-16] MEDS ORDERED: ACETAMINOPHEN 325 MG TABLET (FP) PO ONE (11:43)
[2022-02-16] MEDS: ATORVASTATIN CA 20 MG TABLET (FP) PO SCH (11:49)
[2022-02-16] MEDS: amLODIPine BESYLATE 5 MG TABLET (FP) PO SCH (11:49)
[2022-02-16] MEDS: ASPIRIN 81 MG CHEWABLE TABLETS PO SCH (11:50)
[2022-02-16] MEDS: CARVEDILOL 6.25 MG TABLET (FP) PO SCH (11:50)
[2022-02-16] MEDS: INSULIN (LEVEMIR) 100 UNITS/ML UNITS SQ SCH (16:36)
[2022-02-17] MEDS: LOSARTAN POTASSIUM 50 MG TABLET PO SCH (06:27)
[2022-02-17] MEDS: INSULIN (LEVEMIR) 100 UNITS/ML UNITS SQ SCH ×2 (06:28→16:52)
[2022-02-17] MEDS: INSULIN SLIDING SCALE (NOVOLOG) 1 VIAL SQ SCH ×4 (06:29→21:40)
[2022-02-17] MEDS ORDERED: INSULIN (NOVOLOG) ASPART 100 UNITS/ML 10ML VIAL ONE (06:58)
[2022-02-17] MEDS: ASPIRIN 81 MG CHEWABLE TABLETS PO SCH (09:25)
[2022-02-17] MEDS: ATORVASTATIN CA 20 MG TABLET (FP) PO SCH (09:26)
[2022-02-17] MEDS: CARVEDILOL 6.25 MG TABLET (FP) PO SCH (09:26)
[2022-02-17] MEDS: amLODIPine BESYLATE 5 MG TABLET (FP) PO SCH (09:26)
[2022-02-17] MEDS: ENOXAPARIN NA (PORCINE) 40 MG/0.4 ML DISP.SYRIN SQ SCH ×2 (09:26→21:40)
[2022-02-17 10:33] LABS: BASO % 0.6 % (0-2.0); EOS % 0.5 % (0-4.5); HEMATOCRIT 32.5 % (32.4-45.2); HEMOGLOBIN 11.2 GM/dL (10.7-15.3); LYMPH % 22.2 % (8-40); MCH 30.9 pg (25.7-33.7); MCHC 34.4 g/dl (32.0-36.0); MEAN CELL VOLUME 89.8 fl (80-96); MEAN PLT VOLUME 7.3 fl (7.5-11.1); MONO % 8.1 % (3.8-10.2); NEUT % 68.6 % (42.8-82.8); PLATELET COUNT 250 10^3/uL (134-434); RBC 3.62 M/mm3 (3.60-5.2); RDW 13.3 % (11.6-15.6); WHITE BLOOD COUNT 6.8 K/mm3 (4.0-10.0)
[2022-02-17 10:43] LABS: BLOOD UREA NITROGEN 21.7 mg/dL (7-18); CALCIUM 9.8 mg/dL (8.5-10.1)
[2022-02-17 10:44] LABS: ALBUMIN 3.5 g/dl (3.4-5.0)
[2022-02-17 10:46] LABS: CREATININE 0.9 mg/dL (0.55-1.3); PHOSPHOROUS 2.8 mg/dL (2.5-4.9)
[2022-02-17 10:48] LABS: BILIRUBIN,TOTAL 0.3 mg/dL (0.2-1); TOT PROT 6.9 g/dl (6.4-8.2)
[2022-02-18] MEDS ORDERED: ACETAMINOPHEN 1000 MG/100 ML BAG IVPB ONE (01:15)
[2022-02-18] MEDS ORDERED: COSYNTROPIN 0.25 MG VIAL IVPB ONE ×3 (06:00)
[2022-02-18] MEDS ORDERED: COSYNTROPIN 0.25 MG VIAL IVPUSH ONE (06:00)
[2022-02-18] MEDS: INSULIN (LEVEMIR) 100 UNITS/ML UNITS SQ SCH ×2 (06:45→17:23)
[2022-02-18] MEDS: LOSARTAN POTASSIUM 50 MG TABLET PO SCH (06:45)
[2022-02-18] MEDS: INSULIN SLIDING SCALE (NOVOLOG) 1 VIAL SQ SCH ×4 (06:46→21:23)
[2022-02-18] MEDS: amLODIPine BESYLATE 5 MG TABLET (FP) PO SCH (09:33)
[2022-02-18] MEDS: ASPIRIN 81 MG CHEWABLE TABLETS PO SCH (09:33)
[2022-02-18] MEDS: CARVEDILOL 6.25 MG TABLET (FP) PO SCH (09:33)
[2022-02-18] MEDS: ATORVASTATIN CA 20 MG TABLET (FP) PO SCH (09:33)
[2022-02-18 10:13] LABS: CALCIUM 9.5 mg/dL (8.5-10.1)
[2022-02-18 10:14] LABS: ALBUMIN 3.4 g/dl (3.4-5.0); BLOOD UREA NITROGEN 26.4 mg/dL (7-18); MAGNESIUM 1.6 mg/dL (1.8-2.4)
[2022-02-18 10:17] LABS: CREATININE 0.9 mg/dL (0.55-1.3); PHOSPHOROUS 3.9 mg/dL (2.5-4.9)
[2022-02-18 10:18] LABS: BILIRUBIN,TOTAL 0.4 mg/dL (0.2-1); TOT PROT 6.4 g/dl (6.4-8.2)
[2022-02-18] MEDS: ENOXAPARIN NA (PORCINE) 40 MG/0.4 ML DISP.SYRIN SQ SCH ×2 (10:30→21:21)
[2022-02-18] MEDS ORDERED: INSULIN (NOVOLOG) ASPART 100 UNITS/ML 10ML VIAL ONE (11:11)
[2022-02-18 13:42] LABS: HEMATOCRIT 32.8 % (32.4-45.2); HEMOGLOBIN 11.1 GM/dL (10.7-15.3); MCHC 33.9 g/dl (32.0-36.0); MEAN CELL VOLUME 88.5 fl (80-96); MEAN PLT VOLUME 7.8 fl (7.5-11.1); PLATELET COUNT 279 10^3/uL (134-434); RDW 13.2 % (11.6-15.6); WHITE BLOOD COUNT 5.5 K/mm3 (4.0-10.0)
[2022-02-18] MEDS ORDERED: MAGNESIUM SULF 50% (8.12 MEQ/2 ML-1 GM VIAL) IVPB ONE (14:39)
[2022-02-18] MEDS ORDERED: ACETAMINOPHEN 325 MG TABLET (FP) PO ONE (14:58)
[2022-02-18] MEDS ORDERED: INSULIN SLIDING SCALE (NOVOLOG) 1 VIAL SQ SCH (22:20)
[2022-02-19] MEDS ORDERED: ACETAMINOPHEN 1000 MG/100 ML BAG IVPB PRN (04:53)
[2022-02-19] MEDS ORDERED: COSYNTROPIN 0.25 MG VIAL IVPUSH ONE (06:01)
[2022-02-19] MEDS: LOSARTAN POTASSIUM 50 MG TABLET PO SCH (06:15)
[2022-02-19] MEDS: INSULIN (NOVOLOG) ASPART 100 UNITS/ML 10ML VIAL SQ SCH ×3 (06:19→17:35)
[2022-02-19] MEDS: INSULIN (LEVEMIR) 100 UNITS/ML UNITS SQ SCH ×2 (06:20→17:35)
[2022-02-19 08:40] LABS: BASO % 0.7 % (0-2.0); EOS % 2.1 % (0-4.5); HEMATOCRIT 31.8 % (32.4-45.2); HEMOGLOBIN 11.3 GM/dL (10.7-15.3); LYMPH % 21.2 % (8-40); MCH 31.4 pg (25.7-33.7); MCHC 35.5 g/dl (32.0-36.0); MEAN CELL VOLUME 88.5 fl (80-96); MEAN PLT VOLUME 7.1 fl (7.5-11.1); MONO % 13.4 % (3.8-10.2); NEUT % 62.6 % (42.8-82.8); PLATELET COUNT 243 10^3/uL (134-434); RBC 3.59 M/mm3 (3.60-5.2); RDW 13.3 % (11.6-15.6); WHITE BLOOD COUNT 4.1 K/mm3 (4.0-10.0)
[2022-02-19 09:09] LABS: ALBUMIN 3.3 g/dl (3.4-5.0); CALCIUM 9.3 mg/dL (8.5-10.1); MAGNESIUM 1.6 mg/dL (1.8-2.4)
[2022-02-19 09:12] LABS: CREATININE 0.9 mg/dL (0.55-1.3); PHOSPHOROUS 3.6 mg/dL (2.5-4.9)
[2022-02-19 09:14] LABS: BILIRUBIN,TOTAL 0.5 mg/dL (0.2-1); TOT PROT 6.4 g/dl (6.4-8.2)
[2022-02-19] MEDS: ATORVASTATIN CA 20 MG TABLET (FP) PO SCH (10:37)
[2022-02-19] MEDS: CARVEDILOL 6.25 MG TABLET (FP) PO SCH (10:37)
[2022-02-19] MEDS: ASPIRIN 81 MG CHEWABLE TABLETS PO SCH (10:37)
[2022-02-19] MEDS: ENOXAPARIN NA (PORCINE) 40 MG/0.4 ML DISP.SYRIN SQ SCH ×2 (10:37→22:06)
[2022-02-19] MEDS: amLODIPine BESYLATE 5 MG TABLET (FP) PO SCH (10:37)
[2022-02-19 14:22] VITALS: RESP 18
[2022-02-19] MEDS ORDERED: MAGNESIUM SULF 50% (8.12 MEQ/2 ML-1 GM VIAL) IVPB ONE (15:04)
[2022-02-20] MEDS: LOSARTAN POTASSIUM 50 MG TABLET PO SCH (06:19)
[2022-02-20] MEDS: INSULIN (NOVOLOG) ASPART 100 UNITS/ML 10ML VIAL SQ SCH ×3 (06:19→17:26)
[2022-02-20] MEDS: INSULIN (LEVEMIR) 100 UNITS/ML UNITS SQ SCH ×2 (06:20→17:25)
[2022-02-20] MEDS: ATORVASTATIN CA 20 MG TABLET (FP) PO SCH (10:27)
[2022-02-20] MEDS: ENOXAPARIN NA (PORCINE) 40 MG/0.4 ML DISP.SYRIN SQ SCH ×2 (10:27→21:13)
[2022-02-20] MEDS: ASPIRIN 81 MG CHEWABLE TABLETS PO SCH (10:27)
[2022-02-20] MEDS: amLODIPine BESYLATE 5 MG TABLET (FP) PO SCH (10:27)
[2022-02-20] MEDS: CARVEDILOL 6.25 MG TABLET (FP) PO SCH (10:28)
[2022-02-20] MEDS ORDERED: ACETAMINOPHEN 500 MG TABLET (FP) PO ONE (21:36)
[2022-02-21] MEDS: LOSARTAN POTASSIUM 50 MG TABLET PO SCH (05:58)
[2022-02-21] MEDS: INSULIN (NOVOLOG) ASPART 100 UNITS/ML 10ML VIAL SQ SCH ×3 (06:00→17:00)
[2022-02-21] MEDS: INSULIN (LEVEMIR) 100 UNITS/ML UNITS SQ SCH ×2 (06:01→17:00)
[2022-02-21] MEDS: amLODIPine BESYLATE 5 MG TABLET (FP) PO SCH (09:58)
[2022-02-21] MEDS: ENOXAPARIN NA (PORCINE) 40 MG/0.4 ML DISP.SYRIN SQ SCH ×2 (09:58→21:33)
[2022-02-21] MEDS: CARVEDILOL 6.25 MG TABLET (FP) PO SCH (09:58)
[2022-02-21] MEDS: ATORVASTATIN CA 20 MG TABLET (FP) PO SCH (09:58)
[2022-02-21] MEDS: ASPIRIN 81 MG CHEWABLE TABLETS PO SCH (09:58)
[2022-02-22] MEDS: LOSARTAN POTASSIUM 50 MG TABLET PO SCH (06:19)
[2022-02-22] MEDS: INSULIN (LEVEMIR) 100 UNITS/ML UNITS SQ SCH (06:21)
[2022-02-22] MEDS: INSULIN (NOVOLOG) ASPART 100 UNITS/ML 10ML VIAL SQ SCH ×2 (06:21→12:19)
[2022-02-22 10:07] VITALS: BP 138/66; PULSE 73; TEMP 98.5
[2022-02-22] MEDS: ATORVASTATIN CA 20 MG TABLET (FP) PO SCH (11:02)
[2022-02-22] MEDS: ENOXAPARIN NA (PORCINE) 40 MG/0.4 ML DISP.SYRIN SQ SCH (11:02)
[2022-02-22] MEDS: amLODIPine BESYLATE 5 MG TABLET (FP) PO SCH (11:02)
[2022-02-22] MEDS: ASPIRIN 81 MG CHEWABLE TABLETS PO SCH (11:03)
[2022-02-22] MEDS: CARVEDILOL 6.25 MG TABLET (FP) PO SCH (11:03)
[2022-02-22] MEDS ORDERED: INSULIN (NOVOLOG) ASPART 100 UNITS/ML 10ML VIAL ONE (12:17)
== END 2022-02-22 12:50 | disposition home or self-care (01) | DRG 638 ==
LOC: JER 14:56 → JERBED 16:58 → J6S 02-16 03:36
PROVIDERS: ADMIT Internal Medicine; ATTEND Internal Medicine
DX: E11.65 Type 2 diabetes mellitus with hyperglycemia (principal); E87.1 Hypo-osmolality and hyponatremia; Z68.41 Body mass index [BMI] 40.0-44.9, adult; M79.7 Fibromyalgia; I10 Essential (primary) hypertension; I25.10 Atherosclerotic heart disease of native coronary artery without angina pectoris; K21.9 Gastro-esophageal reflux disease without esophagitis; E78.5 Hyperlipidemia, unspecified; E66.01 Morbid (severe) obesity due to excess calories; G89.4 Chronic pain syndrome; I25.2 Old myocardial infarction; E27.8 Other specified disorders of adrenal gland; N28.89 Other specified disorders of kidney and ureter; D64.9 Anemia, unspecified; M17.10 Unilateral primary osteoarthritis, unspecified knee; T50.2X5A Adverse effect of carbonic-anhydrase inhibitors, benzothiadiazides and other diuretics, initial encounter; F25.8 Other schizoaffective disorders; Z95.0 Presence of cardiac pacemaker; Z96.653 Presence of artificial knee joint, bilateral; Z95.5 Presence of coronary angioplasty implant and graft
CPT/HCPCS: 0241U-QW; 36415; 71045-TC-FY; 71250-TC; 76775-TC; 80053; 81003; 82024; 82533; 82570; 82607; 82962; 83036; 83540; 83550; 83615; 83735; 83880; 83930; 83935; 84100; 84300; 84443; 84466; 84484; 85025; 85027; 85045; 87086; 93005; 93010; 94010; 97116-GP; 97162-GP; 99285-25; J0834

== ENCOUNTER 2022-03-23 18:44 | Emergency (ER) | payer OTHER ==
[2022-03-23 19:14] VITALS: BP 124/55; PULSE 74; RESP 18; TEMP 99.3; BMI 40.3
[2022-03-23] MEDS ORDERED: ACETAMINOPHEN 500 MG TABLET (FP) PO ONE (21:26)
[2022-03-23] MEDS ORDERED: LIDOCAINE 5% TOPICAL PATCH ONE (21:30)
[2022-03-23] MEDS ORDERED: ACETAMINOPHEN 500 MG TABLET (FP) ONE (21:30)
[2022-03-23] MEDS ORDERED: LIDOCAINE 5% TOPICAL PATCH TP ONE (21:30)
[2022-03-23] MEDS ORDERED: LIDOCAINE PATCH REMOVAL MC ONE (22:00)
[2022-03-23 23:18] LABS: HEMOGLOBIN 10.2 GM/dL (10.7-15.3); MCHC 34.1 g/dl (32.0-36.0); MEAN CELL VOLUME 87.8 fl (80-96); MEAN PLT VOLUME 6.9 fl (7.5-11.1); PLATELET COUNT 237 10^3/uL (134-434); RBC 3.41 M/mm3 (3.60-5.2); RDW 13.3 % (11.6-15.6); WHITE BLOOD COUNT 4.5 K/mm3 (4.0-10.0)
[2022-03-23 23:42] LABS: ALBUMIN 3.6 g/dl (3.4-5.0); BLOOD UREA NITROGEN 11.4 mg/dL (7-18); CALCIUM 9.2 mg/dL (8.5-10.1)
[2022-03-23 23:45] LABS: CREATININE 0.9 mg/dL (0.55-1.3)
[2022-03-23 23:47] LABS: BILIRUBIN,TOTAL 0.2 mg/dL (0.2-1); TOT PROT 6.8 g/dl (6.4-8.2)
[2022-03-23 23:53] LABS: THROAT:GRP A STREP NOT DETECTED (NOTDETECTED)
== END 2022-03-24 01:11 | disposition home or self-care (01) ==
LOC: JER 18:44
DX: U07.1 COVID-19 (principal)
CPT/HCPCS: 0241U-QW; 36415; 70360-TC-FY; 71046-TC-FY; 80053; 84484; 85027; 87651; 93005; 93010; 99285-25

== ENCOUNTER 2022-05-06 15:55 | Inpatient (IN) | payer OTHER ==
[2022-05-06 16:03] VITALS: BMI 41.0
[2022-05-06] MEDS ORDERED: METOCLOPRAMIDE HCL INJECTION 10 MG/2 ML VIAL IVPUSH ONE (18:01)
[2022-05-06] MEDS ORDERED: MECLIZINE HCL 25 MG TABLET (FP) PO ONE (18:01)
[2022-05-06] MEDS ORDERED: MECLIZINE HCL 25 MG TABLET (FP) ONE (18:12)
[2022-05-06] MEDS ORDERED: METOCLOPRAMIDE HCL INJECTION 10 MG/2 ML VIAL ONE (18:12)
[2022-05-06 18:35] LABS: BASO % 0.6 % (0-2.0); EOS % 1.8 % (0-4.5); HEMATOCRIT 32.3 % (32.4-45.2); HEMOGLOBIN 10.9 GM/dL (10.7-15.3); LYMPH % 23.2 % (8-40); MCHC 33.7 g/dl (32.0-36.0); MEAN CELL VOLUME 89.1 fl (80-96); MEAN PLT VOLUME 7.7 fl (7.5-11.1); MONO % 8.2 % (3.8-10.2); NEUT % 66.2 % (42.8-82.8); PLATELET COUNT 242 10^3/uL (134-434); RBC 3.63 M/mm3 (3.60-5.2); RDW 13.4 % (11.6-15.6); WHITE BLOOD COUNT 4.5 K/mm3 (4.0-10.0)
[2022-05-06 18:38] LABS: URINE APPEARANCE CLEAR; URINE BILIRUBIN NEGATIVE (NEGATIVE); URINE COLOR YELLOW; URINE GLUCOSE (UA) 3+ (NEGATIVE); URINE KETONE NEGATIVE (NEGATIVE); URINE LEUK ESTERASE NEGATIVE (NEGATIVE); URINE NITRITE NEGATIVE (NEGATIVE); URINE PROTEIN NEGATIVE (NEGATIVE); URINE UROBILINOGEN 0.2 mg/dL (0.2-1.0)
[2022-05-06 18:56] LABS: BLOOD UREA NITROGEN 17.9 mg/dL (7-18)
[2022-05-06 18:57] LABS: ALBUMIN 3.7 g/dl (3.4-5.0); MAGNESIUM 1.9 mg/dL (1.8-2.4)
[2022-05-06 18:59] LABS: CREATININE 1.1 mg/dL (0.55-1.3)
[2022-05-06 19:01] LABS: BILIRUBIN,TOTAL 0.3 mg/dL (0.2-1); TOT PROT 6.8 g/dl (6.4-8.2)
[2022-05-06 19:05] LABS: ACTIVATED PTT 24.6 SECONDS (25.2-36.5); INR 0.92 (0.83-1.09); N-TERMINAL BNP 69.6 pg/ml (5-125); PROTHROMBIN TIME (PATIENT) 10.6 SEC (9.7-13.0)
[2022-05-07] MEDS ORDERED: ALBUTEROL SO4 HFA INHALER IH PRN (03:25)
[2022-05-07 09:00] LABS: BASO % 1.2 % (0-2.0); EOS % 2.4 % (0-4.5); HEMATOCRIT 32.7 % (32.4-45.2); HEMOGLOBIN 11.1 GM/dL (10.7-15.3); LYMPH % 30.5 % (8-40); MCH 30.2 pg (25.7-33.7); MEAN CELL VOLUME 88.8 fl (80-96); MEAN PLT VOLUME 7.8 fl (7.5-11.1); MONO % 12.3 % (3.8-10.2); NEUT % 53.6 % (42.8-82.8); PLATELET COUNT 258 10^3/uL (134-434); RBC 3.68 M/mm3 (3.60-5.2); RDW 13.5 % (11.6-15.6); WHITE BLOOD COUNT 3.7 K/mm3 (4.0-10.0)
[2022-05-07] MEDS: INSULIN SLIDING SCALE (NOVOLOG) 1 VIAL SQ SCH ×3 (09:10→18:24)
[2022-05-07 09:28] LABS: CALCIUM 9.4 mg/dL (8.5-10.1)
[2022-05-07 09:29] LABS: ALBUMIN 3.9 g/dl (3.4-5.0); BLOOD UREA NITROGEN 19.6 mg/dL (7-18); MAGNESIUM 2.2 mg/dL (1.8-2.4)
[2022-05-07 09:32] LABS: CREATININE 0.9 mg/dL (0.55-1.3); PHOSPHOROUS 3.3 mg/dL (2.5-4.9)
[2022-05-07 09:33] LABS: BILIRUBIN,TOTAL 0.5 mg/dL (0.2-1)
[2022-05-07] MEDS ORDERED: INSULIN (LEVEMIR) 100 UNITS/ML UNITS SQ SCH (10:00)
[2022-05-07] MEDS ORDERED: ENOXAPARIN NA (PORCINE) 40 MG/0.4 ML DISP.SYRIN SQ SCH (10:00)
[2022-05-07] MEDS ORDERED: amLODIPine BESYLATE 5 MG TABLET (FP) PO SCH (10:00)
[2022-05-07] MEDS ORDERED: LOSARTAN POTASSIUM 100 MG TABLET PO SCH (10:00)
[2022-05-07] MEDS ORDERED: LOSARTAN POTASSIUM 50 MG TABLET ONE (12:47)
[2022-05-07] MEDS ORDERED: ENOXAPARIN NA (PORCINE) 40 MG/0.4 ML DISP.SYRIN SQ ONE (12:47)
[2022-05-07] MEDS ORDERED: amLODIPine BESYLATE 10 MG TABLET (FP) ONE (12:48)
[2022-05-07 21:04] VITALS: BP 178/86; PULSE 79; RESP 19; TEMP 98.3
[2022-05-07] MEDS ORDERED: ATORVASTATIN CA 20 MG TABLET (FP) PO SCH (22:00)
[2022-05-08] MEDS ORDERED: LOSARTAN POTASSIUM 50 MG TABLET PO SCH (10:00)
== END 2022-05-07 21:25 | disposition home or self-care (01) | DRG 638 ==
LOC: JER 15:55 → JERBED 19:34 → OBSVTOIN 19:34
PROVIDERS: ADMIT Internal Medicine
DX: E11.65 Type 2 diabetes mellitus with hyperglycemia (principal); E87.1 Hypo-osmolality and hyponatremia; Z68.41 Body mass index [BMI] 40.0-44.9, adult; R42 Dizziness and giddiness; R55 Syncope and collapse; I25.10 Atherosclerotic heart disease of native coronary artery without angina pectoris; F25.9 Schizoaffective disorder, unspecified; I10 Essential (primary) hypertension; E78.5 Hyperlipidemia, unspecified; J45.909 Unspecified asthma, uncomplicated; Z86.16 Personal history of COVID-19; Z95.0 Presence of cardiac pacemaker; E66.01 Morbid (severe) obesity due to excess calories; D64.9 Anemia, unspecified; F32.A Depression, unspecified; M79.7 Fibromyalgia; N32.81 Overactive bladder; F39 Unspecified mood [affective] disorder; E86.9 Volume depletion, unspecified
CPT/HCPCS: 0241U-QW; 36415; 71045-TC-FY; 80053; 81003; 82962; 83036; 83735; 83880; 84100; 84484; 85025; 85610; 85730; 87077; 87086; 87186; 93005; 93010; 93306-TC; 97116-GP; 97162-GP; 99285-25

== ENCOUNTER 2022-07-17 14:31 | Emergency (ER) | payer OTHER ==
[2022-07-17 14:55] VITALS: BP 162/66; PULSE 81; RESP 19; TEMP 98.8; BMI 41.1
[2022-07-17 17:22] LABS: BASO % 0.5 % (0-2.0); EOS % 1.6 % (0-4.5); HEMATOCRIT 29.5 % (32.4-45.2); HEMOGLOBIN 10.4 GM/dL (10.7-15.3); LYMPH % 20.1 % (8-40); MCH 30.3 pg (25.7-33.7); MCHC 35.2 g/dl (32.0-36.0); MEAN CELL VOLUME 86.1 fl (80-96); MEAN PLT VOLUME 8.4 fl (7.5-11.1); MONO % 7.5 % (3.8-10.2); NEUT % 70.3 % (42.8-82.8); PLATELET COUNT 294 10^3/uL (134-434); RBC 3.42 M/mm3 (3.60-5.2); RDW 13.7 % (11.6-15.6); WHITE BLOOD COUNT 5.6 K/mm3 (4.0-10.0)
[2022-07-17 17:39] LABS: CHLORIDE 107 mmol/L (98-107); SODIUM 136 mmol/L (136-145)
[2022-07-17 17:42] LABS: ALBUMIN 3.6 g/dl (3.4-5.0); BLOOD UREA NITROGEN 16.1 mg/dL (7-18); CALCIUM 9.5 mg/dL (8.5-10.1); CO2 27 mmol/L (21-32); GLUCOSE,RANDOM 131 mg/dL (74-106)
[2022-07-17 17:46] LABS: BILIRUBIN,TOTAL 0.6 mg/dL (0.2-1); CREATININE 0.9 mg/dL (0.55-1.3); SGOT/AST 102 U/L (15-37); TOT PROT 7.9 g/dl (6.4-8.2)
[2022-07-17 17:47] LABS: ALK PHOS 102 U/L (45-117)
[2022-07-17 17:50] LABS: N-TERMINAL BNP 36.4 pg/ml (5-125)
[2022-07-17 17:55] LABS: ANION GAP 2 MMOL/L (8-16); SGPT/ALT 35 U/L (13-61)
[2022-07-17 19:02] LABS: CALCIUM 9.5 mg/dL (8.5-10.1)
[2022-07-17 19:04] LABS: ALBUMIN 3.6 g/dl (3.4-5.0); BLOOD UREA NITROGEN 15.6 mg/dL (7-18)
[2022-07-17 19:06] LABS: CREATININE 0.8 mg/dL (0.55-1.3)
[2022-07-17 19:08] LABS: BILIRUBIN,TOTAL 0.4 mg/dL (0.2-1); TOT PROT 6.8 g/dl (6.4-8.2)
[2022-07-17] MEDS ORDERED: ACETAMINOPHEN 325 MG TABLET (FP) ONE (21:52)
[2022-07-17] MEDS ORDERED: ACETAMINOPHEN 500 MG TABLET (FP) PO ONE (21:52)
== END 2022-07-17 22:34 | disposition home or self-care (01) ==
LOC: JER 14:31
DX: R60.0 Localized edema (principal)
CPT/HCPCS: 0241U-QW; 36415; 71045-TC-FY; 80053; 83880; 84484; 85025; 93005; 93010; 93970-TC; 99285-25

== ENCOUNTER 2022-10-26 16:23 | Emergency (ER) | payer OTHER ==
[2022-10-26] MEDS ORDERED: SODIUM CHLORIDE 0.9% 500 ML INFUS.BAG IV ONE (16:38)
[2022-10-26] MEDS ORDERED: ONDANSETRON 4 MG/2 ML VIAL IVPUSH ONE (16:38)
[2022-10-26] MEDS ORDERED: FAMOTIDINE 20 MG/50 ML IVPB 20 MG/50 ML MG IVPB ONE ×2 (16:38→17:32)
[2022-10-26 17:16] VITALS: RESP 19; BMI 38.7
[2022-10-26 17:27] LABS: BASO % 0.6 % (0-2.0); EOS % 0.7 % (0-4.5); HEMATOCRIT 33.4 % (32.4-45.2); HEMOGLOBIN 11.3 GM/dL (10.7-15.3); LYMPH % 10.1 % (8-40); MCH 29.2 pg (25.7-33.7); MCHC 33.7 g/dl (32.0-36.0); MEAN CELL VOLUME 86.6 fl (80-96); MEAN PLT VOLUME 7.8 fl (7.5-11.1); MONO % 6.9 % (3.8-10.2); NEUT % 81.7 % (42.8-82.8); PLATELET COUNT 216 10^3/uL (134-434); RBC 3.86 M/mm3 (3.60-5.2); RDW 13.9 % (11.6-15.6); WHITE BLOOD COUNT 6.1 K/mm3 (4.0-10.0)
[2022-10-26 17:31] LABS: VENOUS BASE EXCESS -1.1 mmol/L (-2-2); VENOUS O2 SATURATION 72.7 % (70-80); VENOUS PCO2 46.9 mmHg (38-52); VENOUS PH 7.343 (7.310-7.410)
[2022-10-26] MEDS ORDERED: ONDANSETRON 4 MG/2 ML VIAL ONE (17:32)
[2022-10-26 17:41] LABS: PLATELET ESTIMATE ADEQUATE
[2022-10-26 17:52] LABS: POTASSIUM 4.7 mmol/L (3.5-5.1)
[2022-10-26 17:55] LABS: CALCIUM 9.8 mg/dL (8.5-10.1)
[2022-10-26 17:58] LABS: PHOSPHOROUS 4.4 mg/dL (2.5-4.9)
[2022-10-26 17:59] LABS: TOT PROT 7.1 g/dl (6.4-8.2)
[2022-10-26 18:00] LABS: BILIRUBIN,TOTAL 0.4 mg/dL (0.2-1)
[2022-10-26 18:12] LABS: PH,URINE 5.5 (5.0-8.0); URINE APPEARANCE CLEAR; URINE BILIRUBIN NEGATIVE (NEGATIVE); URINE COLOR YELLOW; URINE GLUCOSE (UA) 3+ (NEGATIVE); URINE KETONE NEGATIVE (NEGATIVE); URINE LEUK ESTERASE NEGATIVE (NEGATIVE); URINE NITRITE NEGATIVE (NEGATIVE); URINE PROTEIN NEGATIVE (NEGATIVE); URINE UROBILINOGEN 0.2 mg/dL (0.2-1.0)
[2022-10-26 18:36] LABS: POTASSIUM 4.5 mmol/L (3.5-5.1)
[2022-10-26 18:37] LABS: CALCIUM 9.8 mg/dL (8.5-10.1)
[2022-10-26 18:38] LABS: BLOOD UREA NITROGEN 13.6 mg/dL (7-18)
[2022-10-26 18:41] LABS: CREATININE 0.9 mg/dL (0.55-1.3)
[2022-10-26] MEDS ORDERED: BISACODYL 5 MG TABLET.DR (FP) PO ONE (19:01)
[2022-10-26] MEDS ORDERED: BISACODYL 10 MG SUPP.RECT PR ONE (19:01)
[2022-10-26] MEDS ORDERED: POLYETHYLENE GLYCOL (HEALTHYLAX) 3350 17 GM PACKET ONE (19:05)
[2022-10-26] MEDS ORDERED: BISACODYL 10 MG SUPP.RECT ONE (19:09)
[2022-10-26] MEDS ORDERED: POLYETHYLENE GLYCOL (HEALTHYLAX) 3350 17 GM PACKET PO ONE (19:15)
[2022-10-26] MEDS ORDERED: INSULIN REGULAR HUMAN 100 UNITS/ML *VIAL SQ ONE (19:30)
[2022-10-26] MEDS ORDERED: INSULIN REGULAR HUMAN 100 UNITS/ML *VIAL ONE (19:47)
[2022-10-26] MEDS ORDERED: AZITHROMYCIN 250 MG TABLET PO ONE (20:10)
[2022-10-26] MEDS ORDERED: AMOX TR/POT CLAV 875MG/125MG TABLETS (FP) PO ONE (20:11)
[2022-10-26] MEDS ORDERED: AMOX TR/POT CLAV 875MG/125MG TABLETS (FP) ONE (20:16)
[2022-10-26] MEDS ORDERED: AZITHROMYCIN 500 MG TABLET ONE (20:16)
[2022-10-26 20:26] VITALS: BP 152/64; PULSE 79; TEMP 98.5
== END 2022-10-26 22:58 | disposition home or self-care (01) ==
LOC: JER 16:23
PROC: 3E033GC Introduction of Other Therapeutic Substance into Peripheral Vein, Percutaneous Approach (ICD-10-PCS; principal; 2022-10-26)
PROC: 3E033GC Introduction of Other Therapeutic Substance into Peripheral Vein, Percutaneous Approach (ICD-10-PCS; 2022-10-26)
PROC: 3E013VG Introduction of Insulin into Subcutaneous Tissue, Percutaneous Approach (ICD-10-PCS; 2022-10-26)
DX: J18.9 Pneumonia, unspecified organism (principal); R11.2 Nausea with vomiting, unspecified; R42 Dizziness and giddiness; K59.00 Constipation, unspecified
CPT/HCPCS: 36415; 71045-TC-FY; 74019-TC-FY; 80048; 80053; 81003; 82010; 82803; 82962; 83605; 83690; 83735; 84100; 84484; 85025; 93005; 93010; 99285-25

== ENCOUNTER 2022-11-09 15:41 | Inpatient (IN) | payer OTHER ==
[2022-11-09 15:59] VITALS: BMI 41.1
[2022-11-09] MEDS ORDERED: ONDANSETRON 4 MG/2 ML VIAL IVPUSH ONE (17:02)
[2022-11-09] MEDS ORDERED: ONDANSETRON 4 MG/2 ML VIAL ONE (17:12)
[2022-11-09 17:37] LABS: BASO % 0.4 % (0-2.0); EOS % 0.5 % (0-4.5); HEMATOCRIT 33.2 % (32.4-45.2); HEMOGLOBIN 11.3 GM/dL (10.7-15.3); LYMPH % 18.2 % (8-40); MCH 29.9 pg (25.7-33.7); MCHC 34.1 g/dl (32.0-36.0); MEAN CELL VOLUME 87.9 fl (80-96); MEAN PLT VOLUME 7.9 fl (7.5-11.1); MONO % 9.3 % (3.8-10.2); NEUT % 71.6 % (42.8-82.8); PLATELET COUNT 194 10^3/uL (134-434); RBC 3.77 M/mm3 (3.60-5.2); RDW 13.7 % (11.6-15.6); WHITE BLOOD COUNT 6.2 K/mm3 (4.0-10.0)
[2022-11-09 17:55] LABS: POTASSIUM 4.5 mmol/L (3.5-5.1)
[2022-11-09 17:59] LABS: ALBUMIN 3.3 g/dl (3.4-5.0); BLOOD UREA NITROGEN 15.6 mg/dL (7-18); CALCIUM 9.1 mg/dL (8.5-10.1)
[2022-11-09 18:01] LABS: CREATININE 0.9 mg/dL (0.55-1.3)
[2022-11-09 18:04] LABS: BILIRUBIN,TOTAL 0.3 mg/dL (0.2-1); TOT PROT 6.4 g/dl (6.4-8.2)
[2022-11-09] MEDS ORDERED: risperiDONE 1 MG TABLET PO SCH (22:00)
[2022-11-09] MEDS ORDERED: ENOXAPARIN NA (PORCINE) 40 MG/0.4 ML DISP.SYRIN SQ ONE (23:02)
[2022-11-09] MEDS: ENOXAPARIN NA (PORCINE) 40 MG/0.4 ML DISP.SYRIN SQ SCH (23:08)
[2022-11-09] MEDS: INSULIN SLIDING SCALE (NOVOLOG) 1 VIAL SQ SCH (23:10)
[2022-11-09] MEDS: INSULIN (LEVEMIR) 100 UNITS/ML UNITS SQ SCH (23:44)
[2022-11-10] MEDS: FAMOTIDINE 10 MG TABLET PO SCH ×2 (02:33→09:48)
[2022-11-10] MEDS ORDERED: PATIENT'S OWN MEDICATION (NON-FORMULARY) (Mirabegron [Myrbetriq] 50 MG Tab.Er.24h) PO SCH (07:00)
[2022-11-10] MEDS ORDERED: SOLIFENACIN SUCCINATE 5 MG TAB PO SCH (07:00)
[2022-11-10] MEDS ORDERED: FOLIC ACID 1 MG TABLET (FP) ONE (07:32)
[2022-11-10 07:38] LABS: BASO % 0.8 % (0-2.0); HEMATOCRIT 30.2 % (32.4-45.2); HEMOGLOBIN 10.4 GM/dL (10.7-15.3); LYMPH % 25.2 % (8-40); MCHC 34.3 g/dl (32.0-36.0); MEAN CELL VOLUME 87.6 fl (80-96); MEAN PLT VOLUME 7.3 fl (7.5-11.1); PLATELET COUNT 173 10^3/uL (134-434); RBC 3.45 M/mm3 (3.60-5.2); RDW 13.8 % (11.6-15.6); WHITE BLOOD COUNT 4.3 K/mm3 (4.0-10.0)
[2022-11-10] MEDS: FOLIC ACID 1 MG TABLET (FP) PO SCH (08:17)
[2022-11-10] MEDS: INSULIN (NOVOLOG) ASPART 100 UNITS/ML 10ML VIAL SQ SCH ×3 (08:17→17:48)
[2022-11-10] MEDS: INSULIN (LEVEMIR) 100 UNITS/ML UNITS SQ SCH ×2 (08:17→22:55)
[2022-11-10] MEDS: INSULIN SLIDING SCALE (NOVOLOG) 1 VIAL SQ SCH ×4 (08:18→22:56)
[2022-11-10] MEDS ORDERED: LOSARTAN POTASSIUM 50 MG TABLET ONE (09:45)
[2022-11-10] MEDS ORDERED: ASPIRIN COATED 81 MG TABLET.EC ONE (09:45)
[2022-11-10] MEDS ORDERED: FAMOTIDINE 10 MG TABLET ONE (09:45)
[2022-11-10] MEDS: LOSARTAN POTASSIUM 50 MG TABLET PO SCH (09:48)
[2022-11-10] MEDS: ASPIRIN 81 MG CHEWABLE TABLETS PO SCH (09:48)
[2022-11-10] MEDS ORDERED: PATIENT'S OWN MEDICATION (NON-FORMULARY) (Meloxicam 15 MG Tablet) PO SCH (10:00)
[2022-11-10] MEDS ORDERED: BENZTROPINE MESYLATE 1 MG TABLET PO SCH (10:00)
[2022-11-10] MEDS ORDERED: ENOXAPARIN NA (PORCINE) 40 MG/0.4 ML DISP.SYRIN SQ ONE (10:26)
[2022-11-10] MEDS: ENOXAPARIN NA (PORCINE) 40 MG/0.4 ML DISP.SYRIN SQ SCH ×2 (10:29→22:57)
[2022-11-10] MEDS: NEBIVOLOL 5 MG TABLET (FP) PO SCH (11:18)
[2022-11-10] MEDS ORDERED: LISINOPRIL 5 MG TABLET PO ONE (14:11)
[2022-11-10] MEDS ORDERED: LISINOPRIL 5 MG TABLET ONE (14:19)
[2022-11-10] MEDS ORDERED: ATORVASTATIN CA 20 MG TABLET (FP) PO SCH (22:00)
[2022-11-10] MEDS: POLYETHYLENE GLYCOL (HEALTHYLAX) 3350 17 GM PACKET PO SCH (22:57)
[2022-11-10] MEDS: ATORVASTATIN CA 40 MG TABLET (FP) PO SCH (22:57)
[2022-11-11] MEDS: FOLIC ACID 1 MG TABLET (FP) PO SCH (06:46)
[2022-11-11] MEDS: INSULIN (LEVEMIR) 100 UNITS/ML UNITS SQ SCH ×2 (06:46→21:15)
[2022-11-11] MEDS: INSULIN SLIDING SCALE (NOVOLOG) 1 VIAL SQ SCH ×4 (06:47→21:18)
[2022-11-11] MEDS: INSULIN (NOVOLOG) ASPART 100 UNITS/ML 10ML VIAL SQ SCH ×3 (06:47→17:11)
[2022-11-11] MEDS ORDERED: MAG HYDROX/AL HYDROX/SIMETH 30 ML UNIT-DOSE CUP PO ONE (06:51)
[2022-11-11] MEDS: LOSARTAN POTASSIUM 50 MG TABLET PO SCH (10:12)
[2022-11-11] MEDS: FAMOTIDINE 10 MG TABLET PO SCH (10:12)
[2022-11-11] MEDS: POLYETHYLENE GLYCOL (HEALTHYLAX) 3350 17 GM PACKET PO SCH ×2 (10:12→21:12)
[2022-11-11] MEDS: ENOXAPARIN NA (PORCINE) 40 MG/0.4 ML DISP.SYRIN SQ SCH ×2 (10:12→21:11)
[2022-11-11] MEDS: ASPIRIN 81 MG CHEWABLE TABLETS PO SCH (10:12)
[2022-11-11] MEDS: NEBIVOLOL 5 MG TABLET (FP) PO SCH (10:12)
[2022-11-11] MEDS ORDERED: ONDANSETRON *ODT* 4 MG TABLET SL ONE (19:14)
[2022-11-11] MEDS: ATORVASTATIN CA 40 MG TABLET (FP) PO SCH (21:12)
[2022-11-12] MEDS: FOLIC ACID 1 MG TABLET (FP) PO SCH (06:49)
[2022-11-12] MEDS: INSULIN SLIDING SCALE (NOVOLOG) 1 VIAL SQ SCH ×4 (06:50→22:30)
[2022-11-12] MEDS: INSULIN (NOVOLOG) ASPART 100 UNITS/ML 10ML VIAL SQ SCH ×3 (06:52→17:24)
[2022-11-12] MEDS: INSULIN (LEVEMIR) 100 UNITS/ML UNITS SQ SCH ×2 (06:53→22:30)
[2022-11-12 07:34] LABS: HEMATOCRIT 34.2 % (32.4-45.2); HEMOGLOBIN 11.3 GM/dL (10.7-15.3); MCH 29.6 pg (25.7-33.7); MCHC 33.2 g/dl (32.0-36.0); MEAN CELL VOLUME 89.3 fl (80-96); MEAN PLT VOLUME 8.6 fl (7.5-11.1); PLATELET COUNT 199 10^3/uL (134-434); RBC 3.83 M/mm3 (3.60-5.2); RDW 13.4 % (11.6-15.6); WHITE BLOOD COUNT 4.4 K/mm3 (4.0-10.0)
[2022-11-12 08:36] LABS: CALCIUM 9.2 mg/dL (8.5-10.1)
[2022-11-12 08:37] LABS: BLOOD UREA NITROGEN 12.7 mg/dL (7-18); POTASSIUM 4.5 mmol/L (3.5-5.1)
[2022-11-12 08:40] LABS: CREATININE 0.9 mg/dL (0.55-1.3)
[2022-11-12] MEDS: LOSARTAN POTASSIUM 50 MG TABLET PO SCH (09:51)
[2022-11-12] MEDS: ASPIRIN 81 MG CHEWABLE TABLETS PO SCH (09:51)
[2022-11-12] MEDS: POLYETHYLENE GLYCOL (HEALTHYLAX) 3350 17 GM PACKET PO SCH ×2 (09:51→22:36)
[2022-11-12] MEDS: NEBIVOLOL 5 MG TABLET (FP) PO SCH (09:51)
[2022-11-12] MEDS: FAMOTIDINE 10 MG TABLET PO SCH (09:51)
[2022-11-12] MEDS: ENOXAPARIN NA (PORCINE) 40 MG/0.4 ML DISP.SYRIN SQ SCH ×2 (09:51→22:30)
[2022-11-12] MEDS ORDERED: BISACODYL 10 MG SUPP.RECT PR ONE (10:30)
[2022-11-12] MEDS ORDERED: DOCUSATE SODIUM 100 MG CAPSULE (FP) PO ONE (11:00)
[2022-11-12] MEDS: ATORVASTATIN CA 40 MG TABLET (FP) PO SCH (22:29)
[2022-11-12] MEDS: risperiDONE 1 MG TABLET PO SCH (22:29)
[2022-11-13] MEDS: FOLIC ACID 1 MG TABLET (FP) PO SCH (06:32)
[2022-11-13] MEDS: INSULIN (LEVEMIR) 100 UNITS/ML UNITS SQ SCH ×2 (06:37→21:32)
[2022-11-13] MEDS: INSULIN (NOVOLOG) ASPART 100 UNITS/ML 10ML VIAL SQ SCH ×3 (06:40→16:57)
[2022-11-13] MEDS: INSULIN SLIDING SCALE (NOVOLOG) 1 VIAL SQ SCH ×4 (06:41→21:31)
[2022-11-13 07:39] LABS: BASO % 0.8 % (0-2.0); EOS % 1.7 % (0-4.5); HEMATOCRIT 31.8 % (32.4-45.2); HEMOGLOBIN 10.9 GM/dL (10.7-15.3); LYMPH % 26.5 % (8-40); MCH 30.2 pg (25.7-33.7); MCHC 34.2 g/dl (32.0-36.0); MEAN CELL VOLUME 88.4 fl (80-96); MEAN PLT VOLUME 8.7 fl (7.5-11.1); MONO % 12.3 % (3.8-10.2); NEUT % 58.7 % (42.8-82.8); PLATELET COUNT 192 10^3/uL (134-434); WHITE BLOOD COUNT 4.1 K/mm3 (4.0-10.0)
[2022-11-13 07:56] LABS: POTASSIUM 4.2 mmol/L (3.5-5.1)
[2022-11-13 08:05] LABS: CALCIUM 9.3 mg/dL (8.5-10.1)
[2022-11-13 08:06] LABS: ALBUMIN 3.2 g/dl (3.4-5.0); BLOOD UREA NITROGEN 10.8 mg/dL (7-18)
[2022-11-13 08:09] LABS: CREATININE 0.8 mg/dL (0.55-1.3)
[2022-11-13 08:11] LABS: BILIRUBIN,TOTAL 0.6 mg/dL (0.2-1); TOT PROT 5.9 g/dl (6.4-8.2)
[2022-11-13] MEDS: LOSARTAN POTASSIUM 50 MG TABLET PO SCH (10:51)
[2022-11-13] MEDS: POLYETHYLENE GLYCOL (HEALTHYLAX) 3350 17 GM PACKET PO SCH ×2 (10:51→21:33)
[2022-11-13] MEDS: NEBIVOLOL 5 MG TABLET (FP) PO SCH (10:51)
[2022-11-13] MEDS: ENOXAPARIN NA (PORCINE) 40 MG/0.4 ML DISP.SYRIN SQ SCH ×2 (10:52→21:31)
[2022-11-13] MEDS: ASPIRIN 81 MG CHEWABLE TABLETS PO SCH (10:52)
[2022-11-13] MEDS: FAMOTIDINE 10 MG TABLET PO SCH (10:52)
[2022-11-13] MEDS: risperiDONE 1 MG TABLET PO SCH ×2 (10:55→21:30)
[2022-11-13] MEDS: BENZTROPINE MESYLATE 1 MG TABLET PO SCH (10:55)
[2022-11-13] MEDS ORDERED: LORazepam 1 MG TABLET PO PRN (15:25)
[2022-11-13] MEDS: ATORVASTATIN CA 40 MG TABLET (FP) PO SCH (21:31)
[2022-11-14] MEDS: FOLIC ACID 1 MG TABLET (FP) PO SCH (06:54)
[2022-11-14] MEDS: INSULIN SLIDING SCALE (NOVOLOG) 1 VIAL SQ SCH ×4 (06:55→21:42)
[2022-11-14] MEDS: INSULIN (NOVOLOG) ASPART 100 UNITS/ML 10ML VIAL SQ SCH ×3 (06:57→16:31)
[2022-11-14] MEDS: INSULIN (LEVEMIR) 100 UNITS/ML UNITS SQ SCH ×2 (06:57→21:43)
[2022-11-14] MEDS: NEBIVOLOL 5 MG TABLET (FP) PO SCH (09:26)
[2022-11-14] MEDS: FAMOTIDINE 10 MG TABLET PO SCH (09:26)
[2022-11-14] MEDS: ASPIRIN 81 MG CHEWABLE TABLETS PO SCH (09:26)
[2022-11-14] MEDS: LOSARTAN POTASSIUM 50 MG TABLET PO SCH (09:26)
[2022-11-14 09:27] LABS: BASO % 0.7 % (0-2.0); EOS % 1.3 % (0-4.5); HEMATOCRIT 30.2 % (32.4-45.2); HEMOGLOBIN 10.4 GM/dL (10.7-15.3); LYMPH % 25.3 % (8-40); MCH 30.4 pg (25.7-33.7); MCHC 34.3 g/dl (32.0-36.0); MEAN CELL VOLUME 88.4 fl (80-96); MEAN PLT VOLUME 8.6 fl (7.5-11.1); MONO % 14.3 % (3.8-10.2); NEUT % 58.4 % (42.8-82.8); PLATELET COUNT 188 10^3/uL (134-434); RBC 3.42 M/mm3 (3.60-5.2); RDW 13.2 % (11.6-15.6); WHITE BLOOD COUNT 4.2 K/mm3 (4.0-10.0)
[2022-11-14] MEDS: BENZTROPINE MESYLATE 1 MG TABLET PO SCH (09:27)
[2022-11-14] MEDS: ENOXAPARIN NA (PORCINE) 40 MG/0.4 ML DISP.SYRIN SQ SCH ×2 (09:27→21:42)
[2022-11-14] MEDS: POLYETHYLENE GLYCOL (HEALTHYLAX) 3350 17 GM PACKET PO SCH ×2 (09:27→21:41)
[2022-11-14] MEDS: risperiDONE 1 MG TABLET PO SCH ×2 (09:28→21:42)
[2022-11-14 09:50] LABS: POTASSIUM 4.3 mmol/L (3.5-5.1)
[2022-11-14 09:56] LABS: CALCIUM 8.5 mg/dL (8.5-10.1)
[2022-11-14 09:57] LABS: BLOOD UREA NITROGEN 11.6 mg/dL (7-18)
[2022-11-14 10:00] LABS: CREATININE 0.8 mg/dL (0.55-1.3)
[2022-11-14] MEDS: ATORVASTATIN CA 40 MG TABLET (FP) PO SCH (21:41)
[2022-11-15] MEDS: FOLIC ACID 1 MG TABLET (FP) PO SCH (06:01)
[2022-11-15] MEDS: INSULIN (LEVEMIR) 100 UNITS/ML UNITS SQ SCH (06:01)
[2022-11-15] MEDS: INSULIN SLIDING SCALE (NOVOLOG) 1 VIAL SQ SCH ×2 (06:03→11:32)
[2022-11-15] MEDS: INSULIN (NOVOLOG) ASPART 100 UNITS/ML 10ML VIAL SQ SCH ×2 (06:03→11:33)
[2022-11-15 06:18] VITALS: RESP 18
[2022-11-15] MEDS: LOSARTAN POTASSIUM 50 MG TABLET PO SCH (09:04)
[2022-11-15] MEDS: ASPIRIN 81 MG CHEWABLE TABLETS PO SCH (09:05)
[2022-11-15] MEDS: FAMOTIDINE 10 MG TABLET PO SCH (09:05)
[2022-11-15] MEDS: ENOXAPARIN NA (PORCINE) 40 MG/0.4 ML DISP.SYRIN SQ SCH (09:05)
[2022-11-15] MEDS: NEBIVOLOL 5 MG TABLET (FP) PO SCH (09:05)
[2022-11-15] MEDS: POLYETHYLENE GLYCOL (HEALTHYLAX) 3350 17 GM PACKET PO SCH (09:06)
[2022-11-15] MEDS: BENZTROPINE MESYLATE 1 MG TABLET PO SCH (09:07)
[2022-11-15] MEDS: risperiDONE 1 MG TABLET PO SCH (09:08)
[2022-11-15 14:57] VITALS: BP 138/51; PULSE 63; TEMP 98.3
== END 2022-11-15 15:04 | disposition home or self-care (01) | DRG 149 ==
LOC: JER 15:41 → JERBED 18:47 → OBSVTOIN 20:10 → J4S 11-10 14:36
PROVIDERS: ADMIT Internal Medicine; ATTEND Internal Medicine
DX: R42 Dizziness and giddiness (principal); Z68.41 Body mass index [BMI] 40.0-44.9, adult; I10 Essential (primary) hypertension; E78.5 Hyperlipidemia, unspecified; E11.9 Type 2 diabetes mellitus without complications; I25.2 Old myocardial infarction; E11.42 Type 2 diabetes mellitus with diabetic polyneuropathy; K21.9 Gastro-esophageal reflux disease without esophagitis; F20.9 Schizophrenia, unspecified; K59.03 Drug induced constipation; T44.3X5A Adverse effect of other parasympatholytics [anticholinergics and antimuscarinics] and spasmolytics, initial encounter; I25.10 Atherosclerotic heart disease of native coronary artery without angina pectoris; H83.09 Labyrinthitis, unspecified ear; E11.65 Type 2 diabetes mellitus with hyperglycemia; E66.01 Morbid (severe) obesity due to excess calories; G89.4 Chronic pain syndrome; Z95.0 Presence of cardiac pacemaker; Z95.5 Presence of coronary angioplasty implant and graft; Z79.899 Other long term (current) drug therapy
CPT/HCPCS: 36415; 70450-TC; 71045-TC-FY; 74176-TC; 80048; 80053; 80061; 82962; 83036; 83690; 84484; 85025; 85027; 93005; 93010; 97116-GP; 99285-25; G0378; Q0162

== ENCOUNTER 2022-12-30 17:14 | Emergency (ER) | payer OTHER ==
[2022-12-30 18:00] VITALS: BMI 37.8
[2022-12-30] MEDS ORDERED: ACETAMINOPHEN 500 MG TABLET (FP) PO ONE (18:29)
[2022-12-30] MEDS ORDERED: LIDOCAINE 5% TOPICAL PATCH TP ONE (18:39)
[2022-12-30] MEDS ORDERED: ACETAMINOPHEN 500 MG TABLET (FP) ONE (18:39)
[2022-12-30] MEDS ORDERED: LIDOCAINE 5% TOPICAL PATCH ONE (18:42)
[2022-12-30 18:54] LABS: BASO % 0.9 % (0-2.0); HEMATOCRIT 33.9 % (32.4-45.2); HEMOGLOBIN 11.5 GM/dL (10.7-15.3); LYMPH % 19.8 % (8-40); MCH 29.9 pg (25.7-33.7); MCHC 33.9 g/dl (32.0-36.0); MEAN CELL VOLUME 88.3 fl (80-96); MONO % 9.7 % (3.8-10.2); NEUT % 68.6 % (42.8-82.8); PLATELET COUNT 202 10^3/uL (134-434); RBC 3.84 M/mm3 (3.60-5.2); RDW 13.8 % (11.6-15.6); WHITE BLOOD COUNT 5.2 K/mm3 (4.0-10.0)
[2022-12-30] MEDS ORDERED: SODIUM CHLORIDE 0.9% 500 ML INFUS.BAG IV ONE (18:58)
[2022-12-30 19:08] LABS: POTASSIUM 4.7 mmol/L (3.5-5.1)
[2022-12-30 19:12] LABS: BLOOD UREA NITROGEN 15.4 mg/dL (7-18); CALCIUM 9.6 mg/dL (8.5-10.1); MAGNESIUM 2.1 mg/dL (1.8-2.4)
[2022-12-30 19:15] LABS: CREATININE 1.8 mg/dL (0.55-1.3)
[2022-12-30 19:17] LABS: BILIRUBIN,TOTAL 0.6 mg/dL (0.2-1); TOT PROT 7.1 g/dl (6.4-8.2)
[2022-12-30] MEDS ORDERED: LIDOCAINE PATCH REMOVAL MC SCH (22:00)
[2022-12-30 23:51] LABS: URINE APPEARANCE CLEAR; URINE BILIRUBIN NEGATIVE (NEGATIVE); URINE COLOR YELLOW; URINE GLUCOSE (UA) 3+ (NEGATIVE); URINE KETONE NEGATIVE (NEGATIVE); URINE LEUK ESTERASE NEGATIVE (NEGATIVE); URINE NITRITE NEGATIVE (NEGATIVE); URINE PROTEIN NEGATIVE (NEGATIVE); URINE UROBILINOGEN 0.2 mg/dL (0.2-1.0)
[2022-12-31 00:51] LABS: POTASSIUM 4.6 mmol/L (3.5-5.1)
[2022-12-31 00:52] LABS: CALCIUM 9.4 mg/dL (8.5-10.1)
[2022-12-31 00:53] LABS: ALBUMIN 3.4 g/dl (3.4-5.0); BLOOD UREA NITROGEN 17.3 mg/dL (7-18)
[2022-12-31 00:56] LABS: CREATININE 1.3 mg/dL (0.55-1.3)
[2022-12-31 00:58] LABS: BILIRUBIN,TOTAL 0.4 mg/dL (0.2-1); TOT PROT 6.5 g/dl (6.4-8.2)
[2022-12-31 01:30] VITALS: BP 126/61; PULSE 65; RESP 17; TEMP 97.7
== END 2022-12-31 02:41 | disposition home or self-care (01) ==
LOC: JER 17:14
DX: M54.2 Cervicalgia (principal); R53.1 Weakness; E86.0 Dehydration; Z20.822 Contact with and (suspected) exposure to COVID-19
CPT/HCPCS: 0241U-QW; 36415; 71045-TC-FY; 80053; 81003; 82550; 82553; 83735; 84484; 85025; 87077; 87086; 99284-25

== ENCOUNTER 2023-08-03 17:56 | Emergency (ER) | payer OTHER ==
[2023-08-03 18:24] VITALS: BMI 42.0
[2023-08-03 19:58] LABS: BASO % 1.6 % (0-2.0); EOS % 5.1 % (0-4.5); HEMATOCRIT 30.5 % (32.4-45.2); HEMOGLOBIN 10.4 GM/dL (10.7-15.3); LYMPH % 17.6 % (8-40); MCH 29.7 pg (25.7-33.7); MCHC 34.1 g/dl (32.0-36.0); MEAN CELL VOLUME 87.2 fl (80-96); MONO % 9.8 % (3.8-10.2); NEUT % 65.9 % (42.8-82.8); WHITE BLOOD COUNT 6.7 K/mm3 (4.0-10.0)
[2023-08-03 20:13] LABS: POTASSIUM 4.6 mmol/L (3.5-5.1)
[2023-08-03 20:16] LABS: CALCIUM 9.1 mg/dL (8.5-10.1)
[2023-08-03 20:17] LABS: ALBUMIN 3.5 g/dl (3.4-5.0); BLOOD UREA NITROGEN 18.6 mg/dL (7-18); MAGNESIUM 1.8 mg/dL (1.8-2.4)
[2023-08-03 20:20] LABS: CREATININE 1.3 mg/dL (0.55-1.3)
[2023-08-03 20:22] LABS: BILIRUBIN,TOTAL 0.7 mg/dL (0.2-1); TOT PROT 6.3 g/dl (6.4-8.2)
[2023-08-03] MEDS ORDERED: ACETAMINOPHEN INJECTION 100 ML IVPB ONE (20:28)
[2023-08-03 20:32] LABS: MEAN PLT VOLUME 7.9 fl (7.5-11.1); PLATELET COUNT 200 10^3/uL (134-434)
[2023-08-03] MEDS: ACETAMINOPHEN 1000 MG/100 ML BAG IVPB ONE (20:33)
[2023-08-04 03:57] VITALS: BP 101/53; PULSE 75; RESP 16; TEMP 98.5
== END 2023-08-04 05:23 | disposition home or self-care (01) ==
LOC: JER 17:56
PROC: 3E033NZ Introduction of Analgesics, Hypnotics, Sedatives into Peripheral Vein, Percutaneous Approach (ICD-10-PCS; principal; 2023-08-03)
DX: M54.2 Cervicalgia (principal); M54.9 Dorsalgia, unspecified
CPT/HCPCS: 36415; 71046-TC-FY; 71275-TC; 74174-TC; 80053; 83735; 84484; 85025; 93005; 93010; 99285-25; J0131; Q9967

== ENCOUNTER 2023-08-11 20:54 | Observation (INO) | payer OTHER ==
[2023-08-11 21:36] VITALS: BMI 42.9
[2023-08-11 22:42] LABS: BASO % 1.1 % (0-2.0); HEMATOCRIT 30.6 % (32.4-45.2); HEMOGLOBIN 10.2 GM/dL (10.7-15.3); LYMPH % 26.4 % (8-40); MCH 29.6 pg (25.7-33.7); MCHC 33.5 g/dl (32.0-36.0); MEAN CELL VOLUME 88.6 fl (80-96); MONO % 8.8 % (3.8-10.2); NEUT % 56.7 % (42.8-82.8); PLATELET COUNT 228 10^3/uL (134-434); RBC 3.45 M/mm3 (3.60-5.2); WHITE BLOOD COUNT 4.9 K/mm3 (4.0-10.0)
[2023-08-11 22:57] LABS: CHLORIDE 103 mmol/L (98-107); POTASSIUM 4.6 mmol/L (3.5-5.1); SODIUM 133 mmol/L (136-145)
[2023-08-11 22:59] LABS: ALBUMIN 3.8 g/dl (3.4-5.0); ANION GAP 4 mmol/L (4-13); BLOOD UREA NITROGEN 16.1 mg/dL (7-18); CALCIUM 9.4 mg/dL (8.5-10.1); CO2 26 mmol/L (21-32)
[2023-08-11] MEDS ORDERED: ACETAMINOPHEN INJECTION 100 ML IVPB ONE (23:00)
[2023-08-11 23:02] LABS: SGOT/AST 10 U/L (15-37); SGPT/ALT 17 U/L (13-61)
[2023-08-11 23:04] LABS: BILIRUBIN,TOTAL 0.6 mg/dL (0.2-1); TOT PROT 6.8 g/dl (6.4-8.2)
[2023-08-11] MEDS: ACETAMINOPHEN 1000 MG/100 ML BAG IVPB ONE (23:04)
[2023-08-11 23:05] LABS: ALK PHOS 116 U/L (45-117)
[2023-08-11] MEDS ORDERED: DEXTROSE 50%-WATER 25 GM/50 ML DISP.SYRIN ONE (23:05)
[2023-08-11 23:07] LABS: N-TERMINAL BNP 612.5 pg/ml (5-125)
[2023-08-11] MEDS: DEXTROSE 50%-WATER - 25 GM/50 ML VIAL IVPUSH ONE (23:09)
[2023-08-11 23:12] LABS: GLUCOSE,RANDOM 49 mg/dL (74-106)
[2023-08-12] MEDS ORDERED: FUROSEMIDE 40 MG/4 ML INJECTABLE VIAL ONE (03:15)
[2023-08-12] MEDS: FUROSEMIDE 40 MG/4 ML INJECTABLE VIAL IVPUSH ONE ×2 (03:19→04:32)
[2023-08-12] MEDS ORDERED: ALBUTEROL SO4 2.5/IPRATROPIUM 0.5 INH SOL 3 ML VIAL.NEB. NEB PRN (05:34)
[2023-08-12 06:06] VITALS: RESP 18
[2023-08-12 12:47] LABS: BASO % 1.1 % (0-2.0); EOS % 8.2 % (0-4.5); HEMATOCRIT 34.5 % (32.4-45.2); HEMOGLOBIN 11.2 GM/dL (10.7-15.3); LYMPH % 21.1 % (8-40); MCHC 32.4 g/dl (32.0-36.0); MEAN CELL VOLUME 89.4 fl (80-96); MEAN PLT VOLUME 7.2 fl (7.5-11.1); MONO % 8.9 % (3.8-10.2); NEUT % 60.7 % (42.8-82.8); PLATELET COUNT 256 10^3/uL (134-434); RBC 3.86 M/mm3 (3.60-5.2); RDW 15.1 % (11.6-15.6)
[2023-08-12 13:08] LABS: POTASSIUM 4.7 mmol/L (3.5-5.1)
[2023-08-12 13:10] LABS: BLOOD UREA NITROGEN 14.4 mg/dL (7-18)
[2023-08-12 13:11] LABS: ALBUMIN 3.8 g/dl (3.4-5.0); MAGNESIUM 1.9 mg/dL (1.8-2.4)
[2023-08-12 13:13] LABS: PHOSPHOROUS 4.8 mg/dL (2.5-4.9)
[2023-08-12 13:15] LABS: BILIRUBIN,TOTAL 0.8 mg/dL (0.2-1); TOT PROT 7.2 g/dl (6.4-8.2)
[2023-08-12] MEDS: PREGABALIN 25 MG CAPSULE PO ONE (13:40)
[2023-08-12] MEDS: amLODIPine BESYLATE 10 MG TABLET (FP) PO SCH (18:07)
[2023-08-12] MEDS: FAMOTIDINE 20 MG TABLET PO SCH (18:07)
[2023-08-12] MEDS: BENZTROPINE MESYLATE 1 MG TABLET PO SCH (18:07)
[2023-08-12] MEDS: risperiDONE 1 MG TABLET PO SCH (18:08)
[2023-08-12] MEDS: HALOPERIDOL 5 MG TABLET PO SCH (21:22)
[2023-08-12] MEDS: SENNOSIDES 8.6MG TABLET (FP) PO SCH (21:23)
[2023-08-12] MEDS: ATORVASTATIN CA 40 MG TABLET (FP) PO SCH (21:23)
[2023-08-12] MEDS: ACETAMINOPHEN 325 MG TABLET (FP) PO PRN (21:23)
[2023-08-13] MEDS: FUROSEMIDE 40 MG/4 ML INJECTABLE VIAL IVPUSH SCH (05:28)
[2023-08-13] MEDS: FOLIC ACID 1 MG TABLET (FP) PO SCH (06:09)
[2023-08-13 08:43] LABS: BASO % 0.9 % (0-2.0); EOS % 7.8 % (0-4.5); HEMATOCRIT 32.4 % (32.4-45.2); HEMOGLOBIN 10.9 GM/dL (10.7-15.3); LYMPH % 26.7 % (8-40); MCH 29.7 pg (25.7-33.7); MCHC 33.5 g/dl (32.0-36.0); MEAN CELL VOLUME 88.8 fl (80-96); MEAN PLT VOLUME 7.2 fl (7.5-11.1); MONO % 9.9 % (3.8-10.2); NEUT % 54.7 % (42.8-82.8); PLATELET COUNT 227 10^3/uL (134-434); RBC 3.65 M/mm3 (3.60-5.2); WHITE BLOOD COUNT 4.6 K/mm3 (4.0-10.0)
[2023-08-13 09:00] LABS: POTASSIUM 4.7 mmol/L (3.5-5.1)
[2023-08-13 09:01] LABS: BLOOD UREA NITROGEN 19.5 mg/dL (7-18); CALCIUM 9.9 mg/dL (8.5-10.1); MAGNESIUM 1.9 mg/dL (1.8-2.4)
[2023-08-13 09:05] LABS: CREATININE 1.1 mg/dL (0.55-1.3)
[2023-08-13] MEDS: ASPIRIN 81 MG CHEWABLE TABLETS PO SCH (09:53)
[2023-08-13] MEDS: LOSARTAN POTASSIUM 25 MG TABLET PO SCH (09:53)
[2023-08-13] MEDS ORDERED: PATIENT'S OWN MEDICATION (NON-FORMULARY) (Meloxicam 15 MG Tablet) PO SCH (10:00)
[2023-08-13 14:24] VITALS: BP 119/57; PULSE 75; TEMP 98.4
== END 2023-08-13 16:36 | disposition home health service (06) ==
LOC: JER 20:54 → UNDOADMOB 08-12 02:20 → JERBED 08-12 02:20 → INTOOBSV 08-12 04:23 → OBSVTOIN 08-12 04:23 → JERBED 08-12 06:18 → J4S 08-12 06:18 → JERBED 08-12 11:21
PROVIDERS: ADMIT Student in an Organized Health Care Education/Training Program; ATTEND Internal Medicine
PROC: 3E033NZ Introduction of Analgesics, Hypnotics, Sedatives into Peripheral Vein, Percutaneous Approach (ICD-10-PCS; principal; 2023-08-12)
PROC: 3E0337Z Introduction of Electrolytic and Water Balance Substance into Peripheral Vein, Percutaneous Approach (ICD-10-PCS; 2023-08-12)
DX: I50.33 Acute on chronic diastolic (congestive) heart failure (principal); E11.9 Type 2 diabetes mellitus without complications; J45.909 Unspecified asthma, uncomplicated; F25.9 Schizoaffective disorder, unspecified; Z29.89 Encounter for other specified prophylactic measures; Z79.4 Long term (current) use of insulin; I25.10 Atherosclerotic heart disease of native coronary artery without angina pectoris; E78.5 Hyperlipidemia, unspecified; Z95.0 Presence of cardiac pacemaker; Z88.5 Allergy status to narcotic agent; Z88.8 Allergy status to other drugs, medicaments and biological substances
CPT/HCPCS: 36415; 71046-TC-FY; 73030-TC-LT-FY; 80048; 80053; 82962; 83036; 83735; 83880; 84100; 84484; 85025; 93005; 93010; 93306-TC; 93970-TC; 96374; 96375; 96376; 97116-GP; 97162-GP; 99285-25; G0378; J0131

== ENCOUNTER 2023-08-17 04:55 | Emergency (ER) | payer OTHER ==
[2023-08-17 05:09] VITALS: TEMP 98.2; BMI 43.6
[2023-08-17] MEDS ORDERED: MECLIZINE HCL 25 MG TABLET (FP) ONE (06:29)
[2023-08-17 06:32] LABS: BASO % 0.6 % (0-2.0); HEMATOCRIT 31.4 % (32.4-45.2); HEMOGLOBIN 10.4 GM/dL (10.7-15.3); LYMPH % 10.3 % (8-40); MCH 29.7 pg (25.7-33.7); MCHC 33.1 g/dl (32.0-36.0); MEAN CELL VOLUME 89.8 fl (80-96); MEAN PLT VOLUME 6.8 fl (7.5-11.1); MONO % 6.5 % (3.8-10.2); NEUT % 81.6 % (42.8-82.8); PLATELET COUNT 205 10^3/uL (134-434); RBC 3.49 M/mm3 (3.60-5.2); RDW 14.9 % (11.6-15.6); WHITE BLOOD COUNT 6.1 K/mm3 (4.0-10.0)
[2023-08-17 06:37] LABS: EPI CELLS 18 /uL (0-25.1); HYALINE CASTS 2 /uL (0-3.1); URINE APPEARANCE CLEAR; URINE BACTERIA 31 /uL (0-1359); URINE BILIRUBIN NEGATIVE (NEGATIVE); URINE COLOR YELLOW; URINE GLUCOSE (UA) 3+ (NEGATIVE); URINE KETONE NEGATIVE (NEGATIVE); URINE LEUK ESTERASE 1+ (NEGATIVE); URINE NITRITE NEGATIVE (NEGATIVE); URINE PROTEIN NEGATIVE (NEGATIVE); URINE RBC 13 /uL (0-23.9); URINE UROBILINOGEN 0.2 mg/dL (0.2-1.0); URINE WBC 36 /uL (0-25.8)
[2023-08-17] MEDS: MECLIZINE HCL 25 MG TABLET (FP) PO ONE (06:38)
[2023-08-17] MEDS: DEXTROSE 5%-0.45% SALINE 1,000 ML IV SCH (06:38)
[2023-08-17 06:46] LABS: PROTHROMBIN TIME (PATIENT) 11.6 SEC (9.7-13.0)
[2023-08-17 06:49] LABS: ACTIVATED PTT 29.6 SECONDS (25.2-36.5)
[2023-08-17 07:14] LABS: ALBUMIN 3.8 g/dl (3.4-5.0); BLOOD UREA NITROGEN 17.5 mg/dL (7-18); CALCIUM 9.7 mg/dL (8.5-10.1)
[2023-08-17 07:17] LABS: CREATININE 1.1 mg/dL (0.55-1.3)
[2023-08-17 07:19] LABS: BILIRUBIN,TOTAL 0.5 mg/dL (0.2-1); TOT PROT 6.8 g/dl (6.4-8.2)
[2023-08-17 07:44] LABS: POTASSIUM 4.4 mmol/L (3.5-5.1)
[2023-08-17 10:38] VITALS: BP 157/77; PULSE 75; RESP 23
== END 2023-08-17 10:45 | disposition home or self-care (01) ==
LOC: JER 04:55
DX: R42 Dizziness and giddiness (principal); R53.1 Weakness; R55 Syncope and collapse
CPT/HCPCS: 36415; 71045-TC-FY; 80053; 81003; 84484; 85025; 85610; 85730; 87077; 87086; 93005; 93010; 99285-25

== ENCOUNTER 2023-09-02 05:25 | Emergency (ER) | payer OTHER ==
[2023-09-02] MEDS ORDERED: DEXTROSE 50%-WATER 25 GM/50 ML DISP.SYRIN ONE (05:50)
[2023-09-02 05:58] VITALS: BP 136/74; RESP 12; TEMP 97.6; BMI 46.3
[2023-09-02 06:38] VITALS: PULSE 74
[2023-09-02] MEDS ORDERED: METOCLOPRAMIDE HCL INJECTION 10 MG/2 ML VIAL ONE (06:41)
[2023-09-02 06:44] LABS: BASO % 0.7 % (0-2.0); EOS % 2.2 % (0-4.5); HEMATOCRIT 34.6 % (32.4-45.2); HEMOGLOBIN 11.7 GM/dL (10.7-15.3); LYMPH % 14.2 % (8-40); MCH 29.8 pg (25.7-33.7); MCHC 33.9 g/dl (32.0-36.0); MEAN CELL VOLUME 87.8 fl (80-96); MEAN PLT VOLUME 6.9 fl (7.5-11.1); MONO % 6.5 % (3.8-10.2); NEUT % 76.4 % (42.8-82.8); PLATELET COUNT 215 10^3/uL (134-434); RBC 3.94 M/mm3 (3.60-5.2); RDW 14.7 % (11.6-15.6); WHITE BLOOD COUNT 5.5 K/mm3 (4.0-10.0)
[2023-09-02] MEDS: SODIUM CHLORIDE 0.9% 500 ML INFUS.BAG IV ONE (06:49)
[2023-09-02] MEDS: METOCLOPRAMIDE HCL INJECTION 10 MG/2 ML VIAL IVPB ONE (06:50)
[2023-09-02] MEDS ORDERED: ACETAMINOPHEN INJECTION 100 ML IVPB ONE (06:51)
[2023-09-02] MEDS: DEXTROSE 50%-WATER - 25 GM/50 ML VIAL IVPUSH ONE (07:00)
[2023-09-02] MEDS: ACETAMINOPHEN 1000 MG/100 ML BAG IVPB ONE (07:00)
[2023-09-02 07:09] LABS: POTASSIUM 4.2 mmol/L (3.5-5.1)
[2023-09-02] MEDS ORDERED: KETOROLAC TROMETHAMINE 15 MG/ML VIAL ONE (07:10)
[2023-09-02 07:11] LABS: ALBUMIN 4.2 g/dl (3.4-5.0); BLOOD UREA NITROGEN 23.7 mg/dL (7-18); CALCIUM 9.4 mg/dL (8.5-10.1)
[2023-09-02 07:12] LABS: MAGNESIUM 1.6 mg/dL (1.8-2.4)
[2023-09-02] MEDS: KETOROLAC TROMETHAMINE 15 MG/ML VIAL IVPUSH ONE (07:13)
[2023-09-02 07:15] LABS: CREATININE 1.2 mg/dL (0.55-1.3)
[2023-09-02 07:16] LABS: BILIRUBIN,TOTAL 0.5 mg/dL (0.2-1); TOT PROT 7.8 g/dl (6.4-8.2)
[2023-09-02 07:19] LABS: N-TERMINAL BNP 356.2 pg/ml (5-125)
== END 2023-09-02 11:31 | disposition home or self-care (01) ==
LOC: JER 05:25
PROC: 3E033NZ Introduction of Analgesics, Hypnotics, Sedatives into Peripheral Vein, Percutaneous Approach (ICD-10-PCS; principal; 2023-09-02)
PROC: 3E0333Z Introduction of Anti-inflammatory into Peripheral Vein, Percutaneous Approach (ICD-10-PCS; 2023-09-02)
PROC: 3E033GC Introduction of Other Therapeutic Substance into Peripheral Vein, Percutaneous Approach (ICD-10-PCS; 2023-09-02)
DX: R42 Dizziness and giddiness (principal); E16.2 Hypoglycemia, unspecified; Z20.822 Contact with and (suspected) exposure to COVID-19
CPT/HCPCS: 0241U-QW; 36415; 71045-TC-FY; 80053; 82962; 83735; 83880; 84484; 85025; 93005; 93010; 96374; 96375; 99285-25; J0131

== ENCOUNTER 2023-10-05 02:20 | Emergency (ER) | payer OTHER ==
[2023-10-05 02:36] VITALS: PULSE 75; RESP 18; TEMP 97.9; BMI 41.0
[2023-10-05 03:51] LABS: BASO % 1.2 % (0-2.0); EOS % 2.1 % (0-4.5); HEMOGLOBIN 11.6 GM/dL (10.7-15.3); LYMPH % 21.7 % (8-40); MCH 30.2 pg (25.7-33.7); MCHC 34.1 g/dl (32.0-36.0); MEAN CELL VOLUME 88.5 fl (80-96); MEAN PLT VOLUME 7.8 fl (7.5-11.1); MONO % 9.5 % (3.8-10.2); NEUT % 65.5 % (42.8-82.8); PLATELET COUNT 227 10^3/uL (134-434); RBC 3.85 M/mm3 (3.60-5.2); RDW 15.2 % (11.6-15.6); WHITE BLOOD COUNT 4.9 K/mm3 (4.0-10.0)
[2023-10-05 03:54] LABS: URINE APPEARANCE CLEAR; URINE BILIRUBIN NEGATIVE (NEGATIVE); URINE COLOR YELLOW; URINE GLUCOSE (UA) 1+ (NEGATIVE); URINE KETONE NEGATIVE (NEGATIVE); URINE LEUK ESTERASE TRACE (NEGATIVE); URINE NITRITE NEGATIVE (NEGATIVE); URINE PROTEIN NEGATIVE (NEGATIVE); URINE UROBILINOGEN 0.2 mg/dL (0.2-1.0)
[2023-10-05 04:02] LABS: INR 0.88 (0.83-1.09)
[2023-10-05 04:05] LABS: ACTIVATED PTT 29.7 SECONDS (25.2-36.5)
[2023-10-05 04:12] LABS: CHLORIDE 99 mmol/L (98-107); SODIUM 133 mmol/L (136-145)
[2023-10-05 04:14] LABS: CALCIUM 9.5 mg/dL (8.5-10.1)
[2023-10-05 04:15] LABS: BLOOD UREA NITROGEN 28.9 mg/dL (7-18); CO2 28 mmol/L (21-32); GLUCOSE,RANDOM 74 mg/dL (74-106)
[2023-10-05 04:17] LABS: CREATININE 1.1 mg/dL (0.55-1.3)
[2023-10-05 04:18] LABS: SGOT/AST 54 U/L (15-37); SGPT/ALT 23 U/L (13-61)
[2023-10-05 04:19] LABS: BILIRUBIN,TOTAL 0.8 mg/dL (0.2-1); TOT PROT 7.7 g/dl (6.4-8.2)
[2023-10-05 04:20] LABS: ALK PHOS 101 U/L (45-117)
[2023-10-05 04:30] LABS: EPI CELLS 11 /uL (0-25.1); HYALINE CASTS 0 /uL (0-3.1); URINE BACTERIA 103 /uL (0-1359); URINE RBC 19 /uL (0-23.9); URINE WBC 9 /uL (0-25.8)
[2023-10-05 05:13] LABS: ANION GAP 6 mmol/L (4-13); POTASSIUM 6.6 mmol/L (3.5-5.1)
[2023-10-05 05:34] VITALS: BP 140/69
== END 2023-10-05 05:49 | disposition home or self-care (01) ==
LOC: JER 02:20
DX: R11.0 Nausea (principal); R53.81 Other malaise
CPT/HCPCS: 36415; 80053; 81003; 82550; 82553; 83690; 84484; 85025; 85610; 85730; 93005; 93010; 99284-25

== ENCOUNTER 2023-10-16 16:44 | Observation (INO) | payer OTHER ==
[2023-10-16] MEDS ORDERED: DEXTROSE 50%-WATER 25 GM/50 ML DISP.SYRIN ONE ×2 (17:43→19:32)
[2023-10-16 18:39] LABS: BASO % 1.1 % (0-2.0); EOS % 1.9 % (0-4.5); HEMATOCRIT 31.2 % (32.4-45.2); HEMOGLOBIN 10.4 GM/dL (10.7-15.3); LYMPH % 23.2 % (8-40); MCH 30.1 pg (25.7-33.7); MCHC 33.5 g/dl (32.0-36.0); MEAN CELL VOLUME 89.7 fl (80-96); MEAN PLT VOLUME 7.2 fl (7.5-11.1); MONO % 7.2 % (3.8-10.2); NEUT % 66.6 % (42.8-82.8); PLATELET COUNT 221 10^3/uL (134-434); RBC 3.48 M/mm3 (3.60-5.2); RDW 14.8 % (11.6-15.6); WHITE BLOOD COUNT 4.7 K/mm3 (4.0-10.0)
[2023-10-16 18:41] LABS: INR 0.9 (0.83-1.09); PROTHROMBIN TIME (PATIENT) 10.4 SEC (9.7-13.0)
[2023-10-16 18:44] LABS: VENOUS BASE EXCESS -4.5 mmol/L (-2-2); VENOUS O2 SATURATION 66.9 % (70-80); VENOUS PCO2 38.8 mmHg (38-52); VENOUS PH 7.346 (7.310-7.410)
[2023-10-16 18:57] LABS: CHLORIDE 102 mmol/L (98-107); SODIUM 133 mmol/L (136-145)
[2023-10-16 18:59] LABS: ALBUMIN 3.6 g/dl (3.4-5.0); ANION GAP 8 mmol/L (4-13); BLOOD UREA NITROGEN 18.2 mg/dL (7-18); CALCIUM 9.3 mg/dL (8.5-10.1); CO2 24 mmol/L (21-32)
[2023-10-16 19:02] LABS: CREATININE 0.9 mg/dL (0.55-1.3); SGOT/AST 23 U/L (15-37); SGPT/ALT 19 U/L (13-61)
[2023-10-16 19:04] LABS: BILIRUBIN,TOTAL 0.5 mg/dL (0.2-1); TOT PROT 6.8 g/dl (6.4-8.2)
[2023-10-16 19:05] LABS: ALK PHOS 90 U/L (45-117)
[2023-10-16 19:07] LABS: N-TERMINAL BNP 364.4 pg/ml (5-125)
[2023-10-16 19:17] LABS: GLUCOSE,RANDOM 39 mg/dL (74-106); LACTIC ACID 2.4 mmol/L (0.4-2.0)
[2023-10-16] MEDS: SODIUM CHLORIDE 0.9% 500 ML INFUS.BAG IV ONE (19:38)
[2023-10-16] MEDS: DEXTROSE 50%-WATER 25 GM/50 ML DISP.SYRIN IVPUSH ONE (19:38)
[2023-10-16] MEDS ORDERED: MECLIZINE HCL 25 MG TABLET (FP) ONE (20:05)
[2023-10-16] MEDS: MECLIZINE HCL 25 MG TABLET (FP) PO ONE (20:12)
[2023-10-16] MEDS ORDERED: PIPERACILLIN/TAZOB 4.5 GM 4.5 GM/100 ML BAG IVPB ONE (20:40)
[2023-10-16] MEDS ORDERED: VANCOMYCIN 1 GRAM (PRE-DOCKED) 1,000 MG/250 ML BAG IVPB ONE (20:51)
[2023-10-16] MEDS: PIPERACILLIN/TAZOB 4.5 GM 4.5 GM in DEXTROSE 5%-WATER 100 ML IVPB ONE (20:51)
[2023-10-16 21:33] LABS: LACTIC ACID 2.1 mmol/L (0.4-2.0)
[2023-10-16] MEDS: VANCOMYCIN 1,000 MG in DEXTROSE 5%-WATER - 250 ML IVPB ONE (21:56)
[2023-10-16] MEDS ORDERED: MAGNESIUM SULFATE IN WATER 2 GM/50 ML IVPB IVPB ONE (23:16)
[2023-10-16] MEDS ORDERED: ALBUTEROL SO4 HFA INHALER IH PRN (23:16)
[2023-10-16 23:22] LABS: PH,URINE 5.5 (5.0-8.0); URINE APPEARANCE CLEAR; URINE BILIRUBIN NEGATIVE (NEGATIVE); URINE COLOR YELLOW; URINE GLUCOSE (UA) 2+ (NEGATIVE); URINE KETONE NEGATIVE (NEGATIVE); URINE LEUK ESTERASE NEGATIVE (NEGATIVE); URINE NITRITE NEGATIVE (NEGATIVE); URINE PROTEIN NEGATIVE (NEGATIVE); URINE UROBILINOGEN 0.2 mg/dL (0.2-1.0)
[2023-10-16] MEDS: MAGNESIUM SULFATE IN WATER 2 GM/50 ML IVPB IVPB ONE (23:36)
[2023-10-17] MEDS: DEXTROSE 5%-WATER - 1,000 ML IV SCH (05:32)
[2023-10-17] MEDS: risperiDONE 2 MG TABLET PO SCH (06:17)
[2023-10-17] MEDS: FOLIC ACID 1 MG TABLET (FP) PO SCH (06:19)
[2023-10-17] MEDS ORDERED: INSULIN ASPART SLIDING SCALE (NOVOLOG) 1 VIAL SQ SCH (07:00)
[2023-10-17 09:13] LABS: HEMATOCRIT 29.3 % (32.4-45.2); HEMOGLOBIN 10.2 GM/dL (10.7-15.3); MCH 30.7 pg (25.7-33.7); MCHC 34.8 g/dl (32.0-36.0); MEAN CELL VOLUME 88.2 fl (80-96); MEAN PLT VOLUME 7.2 fl (7.5-11.1); PLATELET COUNT 208 10^3/uL (134-434); RBC 3.32 M/mm3 (3.60-5.2); RDW 15.1 % (11.6-15.6)
[2023-10-17 09:18] LABS: POTASSIUM 4.8 mmol/L (3.5-5.1)
[2023-10-17 09:25] LABS: LACTIC ACID 2.1 mmol/L (0.4-2.0)
[2023-10-17 09:27] LABS: CALCIUM 9.7 mg/dL (8.5-10.1)
[2023-10-17 09:28] LABS: ALBUMIN 3.4 g/dl (3.4-5.0); BLOOD UREA NITROGEN 16.5 mg/dL (7-18); MAGNESIUM 2.2 mg/dL (1.8-2.4); PHOSPHOROUS 4.4 mg/dL (2.5-4.9)
[2023-10-17 09:30] LABS: BILIRUBIN,TOTAL 0.5 mg/dL (0.2-1); TOT PROT 6.2 g/dl (6.4-8.2)
[2023-10-17 09:31] LABS: CREATININE 0.9 mg/dL (0.55-1.3)
[2023-10-17] MEDS ORDERED: ASPIRIN 81 MG CHEWABLE TABLETS PO SCH (10:00)
[2023-10-17] MEDS ORDERED: PATIENT'S OWN MEDICATION (NON-FORMULARY) (Mirabegron [Myrbetriq] 50 MG Tab.Er.24h) PO SCH (10:00)
[2023-10-17] MEDS ORDERED: PATIENT'S OWN MEDICATION (NON-FORMULARY) (Meloxicam 15 MG Tablet) PO SCH (10:00)
[2023-10-17] MEDS: amLODIPine BESYLATE 5 MG TABLET (FP) PO SCH (10:17)
[2023-10-17] MEDS: ASPIRIN COATED 81 MG TABLET.EC PO SCH (10:17)
[2023-10-17] MEDS: SOLIFENACIN SUCCINATE 5 MG TAB PO SCH (10:17)
[2023-10-17] MEDS: ENOXAPARIN NA (PORCINE) 40 MG/0.4 ML DISP.SYRIN SQ SCH (10:17)
[2023-10-17] MEDS: FAMOTIDINE 20 MG TABLET PO SCH (10:17)
[2023-10-17] MEDS: POLYETHYLENE GLYCOL (HEALTHYLAX) 3350 17 GM PACKET PO SCH (10:18)
[2023-10-17] MEDS: INSULIN (LEVEMIR) 100 UNITS/ML UNITS SQ SCH (10:18)
[2023-10-17] MEDS: LOSARTAN POTASSIUM 25 MG TABLET PO SCH (10:18)
[2023-10-17] MEDS: LACTATED RINGERS SOLUTION 1000 ML INFUS.BAG IV ONE (11:03)
[2023-10-17] MEDS: INSULIN (NOVOLOG) ASPART 100 UNITS/ML 10ML VIAL SQ SCH (11:04)
[2023-10-17] MEDS: BENZTROPINE MESYLATE 1 MG TABLET PO SCH (11:27)
[2023-10-17] MEDS: ACETAMINOPHEN 650 MG/20.3 ML ORAL SOLUTION (CUPS) PO PRN (17:13)
[2023-10-17] MEDS: ATORVASTATIN CA 40 MG TABLET (FP) PO SCH (21:40)
[2023-10-17] MEDS: risperiDONE 3 MG TABLET PO SCH (21:42)
[2023-10-17] MEDS: SENNOSIDES 8.6MG TABLET (FP) PO SCH (21:42)
[2023-10-17] MEDS: HALOPERIDOL 5 MG TABLET PO SCH (21:42)
[2023-10-18] MEDS: INSULIN (LEVEMIR) 100 UNITS/ML UNITS SQ SCH (06:08)
[2023-10-18] MEDS: risperiDONE 1 MG TABLET PO SCH ×2 (06:22→22:05)
[2023-10-18 08:33] LABS: POTASSIUM 4.3 mmol/L (3.5-5.1)
[2023-10-18 08:35] LABS: CALCIUM 9.6 mg/dL (8.5-10.1)
[2023-10-18 08:36] LABS: ALBUMIN 3.4 g/dl (3.4-5.0); BLOOD UREA NITROGEN 14.5 mg/dL (7-18)
[2023-10-18 08:38] LABS: HEMATOCRIT 30.2 % (32.4-45.2); HEMOGLOBIN 10.3 GM/dL (10.7-15.3); MCH 30.6 pg (25.7-33.7); MCHC 34.2 g/dl (32.0-36.0); MEAN CELL VOLUME 89.5 fl (80-96); RBC 3.37 M/mm3 (3.60-5.2)
[2023-10-18 08:39] LABS: CREATININE 0.8 mg/dL (0.55-1.3); WHITE BLOOD COUNT 7.2 K/mm3 (4.0-10.0)
[2023-10-18 08:40] LABS: TOT PROT 6.2 g/dl (6.4-8.2)
[2023-10-18 08:41] LABS: BILIRUBIN,TOTAL 0.6 mg/dL (0.2-1)
[2023-10-18 09:41] LABS: ANISOCYTOSIS 0; MACROCYTOSIS 0
[2023-10-18 09:49] LABS: PLATELET ESTIMATE ADEQUATE
[2023-10-18] MEDS: LIDOCAINE 5% TOPICAL PATCH TP SCH (12:39)
[2023-10-18 15:24] VITALS: BMI 41.5
[2023-10-18] MEDS: LIDOCAINE PATCH REMOVAL MC SCH (22:07)
[2023-10-19 11:15] VITALS: RESP 18
[2023-10-20 11:34] VITALS: BP 130/66; PULSE 82; TEMP 98.2
== END 2023-10-20 11:34 | disposition home or self-care (01) ==
LOC: JER 16:44 → INTOOBSV 21:22 → UNDOADMOB 21:22 → JERBED 21:22 → J5S 10-17 01:36 → JERBED 10-17 01:36 → J5S 10-17 09:27
PROVIDERS: ADMIT Internal Medicine; ATTEND Internal Medicine
PROC: 3E0337Z Introduction of Electrolytic and Water Balance Substance into Peripheral Vein, Percutaneous Approach (ICD-10-PCS; principal; 2023-10-17)
PROC: 3E013VG Introduction of Insulin into Subcutaneous Tissue, Percutaneous Approach (ICD-10-PCS; 2023-10-17)
PROC: 3E033GC Introduction of Other Therapeutic Substance into Peripheral Vein, Percutaneous Approach (ICD-10-PCS; 2023-10-17)
DX: E11.649 Type 2 diabetes mellitus with hypoglycemia without coma (principal); J18.9 Pneumonia, unspecified organism; R42 Dizziness and giddiness; E11.40 Type 2 diabetes mellitus with diabetic neuropathy, unspecified; I10 Essential (primary) hypertension; E78.5 Hyperlipidemia, unspecified; I25.10 Atherosclerotic heart disease of native coronary artery without angina pectoris; I11.0 Hypertensive heart disease with heart failure; Z95.0 Presence of cardiac pacemaker; F25.9 Schizoaffective disorder, unspecified; K59.00 Constipation, unspecified; M13.812 Other specified arthritis, left shoulder; Z87.738 Personal history of other specified (corrected) congenital malformations of digestive system; Z88.5 Allergy status to narcotic agent; Z88.8 Allergy status to other drugs, medicaments and biological substances
CPT/HCPCS: 0241U-QW; 36415; 70450-TC; 71045-TC-FY; 73030-TC-LT-FY; 80053; 81003; 82803; 82962; 83036; 83605; 83735; 83880; 84100; 84484; 85025; 85027; 85610; 85730; 86850; 86900; 86901; 93005; 93010; 96361; 96365; 96367; 96372; 96375; 97116-GP; 97161-GP; 99285-25; G0378

== ENCOUNTER 2023-12-18 11:20 | Emergency (ER) | payer OTHER ==
[2023-12-18 11:47] VITALS: BMI 32.3
[2023-12-18 12:48] LABS: PH,URINE 5.5 (5.0-8.0); URINE APPEARANCE CLEAR; URINE BILIRUBIN NEGATIVE (NEGATIVE); URINE COLOR YELLOW; URINE GLUCOSE (UA) 3+ (NEGATIVE); URINE KETONE NEGATIVE (NEGATIVE); URINE LEUK ESTERASE NEGATIVE (NEGATIVE); URINE NITRITE NEGATIVE (NEGATIVE); URINE PROTEIN NEGATIVE (NEGATIVE); URINE UROBILINOGEN 0.2 mg/dL (0.2-1.0)
[2023-12-18 12:57] LABS: VENOUS BASE EXCESS -1.3 mmol/L (-2-2); VENOUS O2 SATURATION 29.5 % (70-80); VENOUS PCO2 51.1 mmHg (38-52); VENOUS PH 7.315 (7.310-7.410)
[2023-12-18 12:58] LABS: BASO % 0.4 % (0-2.0); EOS % 3.2 % (0-4.5); HEMATOCRIT 36.5 % (32.4-45.2); HEMOGLOBIN 12.5 GM/dL (10.7-15.3); LYMPH % 17.5 % (8-40); MCH 30.9 pg (25.7-33.7); MCHC 34.2 g/dl (32.0-36.0); MEAN CELL VOLUME 90.3 fl (80-96); MEAN PLT VOLUME 8.3 fl (7.5-11.1); MONO % 9.3 % (3.8-10.2); NEUT % 69.6 % (42.8-82.8); PLATELET COUNT 223 10^3/uL (134-434); RBC 4.04 M/mm3 (3.60-5.2); RDW 13.9 % (11.6-15.6); WHITE BLOOD COUNT 4.4 K/mm3 (4.0-10.0)
[2023-12-18 13:05] LABS: INR 0.9 (0.83-1.09); PROTHROMBIN TIME (PATIENT) 10.4 SEC (9.7-13.0)
[2023-12-18 13:07] LABS: ACTIVATED PTT 28.1 SECONDS (25.2-36.5)
[2023-12-18 13:19] LABS: CHLORIDE 100 mmol/L (98-107); POTASSIUM 5.1 mmol/L (3.5-5.1); SODIUM 133 mmol/L (136-145)
[2023-12-18 13:22] LABS: ALBUMIN 3.8 g/dl (3.4-5.0); ANION GAP 9 mmol/L (4-13); BLOOD UREA NITROGEN 19.7 mg/dL (7-18); CALCIUM 9.8 mg/dL (8.5-10.1); CO2 24 mmol/L (21-32)
[2023-12-18 13:24] LABS: GLUCOSE,RANDOM 431 mg/dL (74-106)
[2023-12-18 13:25] LABS: SGPT/ALT 17 U/L (13-61)
[2023-12-18 13:26] LABS: CREATININE 1.1 mg/dL (0.55-1.3); SGOT/AST 24 U/L (15-37)
[2023-12-18 13:27] LABS: BILIRUBIN,TOTAL 0.7 mg/dL (0.2-1)
[2023-12-18 13:28] LABS: ALK PHOS 157 U/L (45-117)
[2023-12-18] MEDS: SODIUM CHLORIDE 1,000 ML IV STA (14:02)
[2023-12-18] MEDS ORDERED: FLUCONAZOLE 150 MG TABLET PO ONE (16:38)
[2023-12-18] MEDS: FLUCONAZOLE 150 MG TABLET PO ONE (16:40)
[2023-12-18 17:19] VITALS: BP 129/61; PULSE 83; RESP 18; TEMP 97.8
== END 2023-12-18 23:22 | disposition home or self-care (01) ==
LOC: JER 11:20
PROC: 3E0337Z Introduction of Electrolytic and Water Balance Substance into Peripheral Vein, Percutaneous Approach (ICD-10-PCS; principal; 2023-12-18)
DX: R42 Dizziness and giddiness (principal); M25.511 Pain in right shoulder; M25.512 Pain in left shoulder; R30.0 Dysuria; L29.9 Pruritus, unspecified; N89.8 Other specified noninflammatory disorders of vagina; B37.31 Acute candidiasis of vulva and vagina; W06.XXXA Fall from bed, initial encounter; Z20.822 Contact with and (suspected) exposure to COVID-19
CPT/HCPCS: 0241U-QW; 36415; 70450-TC; 71045-TC-FY; 80053; 81003; 82010; 82550; 82803; 82962; 84484; 85025; 85610; 85730; 87086; 93005; 93010; 96360; 99285-25

== ENCOUNTER 2024-01-06 18:34 | Inpatient (IN) | payer OTHER ==
[2024-01-06 18:54] VITALS: BMI 39.2
[2024-01-06 20:15] LABS: EOS % 2.6 % (0-4.5); HEMATOCRIT 34.7 % (32.4-45.2); HEMOGLOBIN 11.9 GM/dL (10.7-15.3); LYMPH % 26.6 % (8-40); MCH 30.9 pg (25.7-33.7); MCHC 34.2 g/dl (32.0-36.0); MEAN CELL VOLUME 90.3 fl (80-96); MEAN PLT VOLUME 8.6 fl (7.5-11.1); MONO % 10.6 % (3.8-10.2); NEUT % 59.2 % (42.8-82.8); PLATELET COUNT 184 10^3/uL (134-434); RBC 3.84 M/mm3 (3.60-5.2); WHITE BLOOD COUNT 4.5 K/mm3 (4.0-10.0)
[2024-01-06 20:22] LABS: INR 0.87 (0.83-1.09); PROTHROMBIN TIME (PATIENT) 9.9 SEC (9.7-13.0)
[2024-01-06 20:25] LABS: ACTIVATED PTT 29.3 SECONDS (25.2-36.5)
[2024-01-06 20:33] LABS: CHLORIDE 96 mmol/L (98-107); POTASSIUM 4.7 mmol/L (3.5-5.1); SODIUM 129 mmol/L (136-145)
[2024-01-06 20:37] LABS: CALCIUM 9.5 mg/dL (8.5-10.1)
[2024-01-06 20:38] LABS: ALBUMIN 3.8 g/dl (3.4-5.0); ANION GAP 8 mmol/L (4-13); BLOOD UREA NITROGEN 17.5 mg/dL (7-18); CO2 26 mmol/L (21-32); MAGNESIUM 1.6 mg/dL (1.8-2.4)
[2024-01-06 20:39] LABS: GLUCOSE,RANDOM 420 mg/dL (74-106)
[2024-01-06 20:40] LABS: CREATININE 1.1 mg/dL (0.55-1.3); SGOT/AST 11 U/L (15-37); SGPT/ALT 19 U/L (13-61)
[2024-01-06 20:42] LABS: BILIRUBIN,TOTAL 0.6 mg/dL (0.2-1)
[2024-01-06 20:43] LABS: ALK PHOS 151 U/L (45-117)
[2024-01-06 20:46] LABS: N-TERMINAL BNP 310.4 pg/ml (5-125)
[2024-01-06] MEDS ORDERED: INSULIN (NOVOLOG MIX 70/30) 100 UNITS/ML MDV SQ ONE (20:52)
[2024-01-06] MEDS: INSULIN (NOVOLOG MIX 70/30) 100 UNITS/ML MDV SQ ONE (20:55)
[2024-01-06] MEDS: MAGNESIUM SULF 50% (8.12 MEQ/2 ML-1 GM VIAL) IVPB ONE (21:22)
[2024-01-06] MEDS: SODIUM CHLORIDE 1,000 ML IV STA (21:22)
[2024-01-06 21:26] LABS: EPI CELLS 14 /uL (0-25.1); HYALINE CASTS 0 /uL (0-3.1); PH,URINE 5.5 (5.0-8.0); URINE APPEARANCE CLEAR; URINE BACTERIA 96 /uL (0-1359); URINE BILIRUBIN NEGATIVE (NEGATIVE); URINE COLOR YELLOW; URINE GLUCOSE (UA) 3+ (NEGATIVE); URINE KETONE NEGATIVE (NEGATIVE); URINE LEUK ESTERASE 1+ (NEGATIVE); URINE NITRITE NEGATIVE (NEGATIVE); URINE PROTEIN NEGATIVE (NEGATIVE); URINE RBC 8 /uL (0-23.9); URINE UROBILINOGEN 0.2 mg/dL (0.2-1.0); URINE WBC 46 /uL (0-25.8)
[2024-01-06] MEDS: ENOXAPARIN NA (PORCINE) 120 MG/0.8 ML DISP.SYRIN SQ SCH (22:49)
[2024-01-06] MEDS ORDERED: ACETAMINOPHEN INJECTION 100 ML ONE (23:04)
[2024-01-06] MEDS: ENOXAPARIN NA (PORCINE) 120 MG/0.8 ML DISP.SYRIN SQ ONE (23:21)
[2024-01-06] MEDS: ACETAMINOPHEN 1000 MG/100 ML BAG IVPB ONE (23:21)
[2024-01-07 00:05] LABS: POTASSIUM 4.7 mmol/L (3.5-5.1)
[2024-01-07 00:07] LABS: BLOOD UREA NITROGEN 16.5 mg/dL (7-18); CALCIUM 9.4 mg/dL (8.5-10.1)
[2024-01-07 00:11] LABS: CREATININE 1.2 mg/dL (0.55-1.3)
[2024-01-07] MEDS ORDERED: ALBUTEROL SO4 0.083% IH SOL 2.5 MG/3 ML VIAL.NEB. NEB ONE (00:50)
[2024-01-07] MEDS: ALBUTEROL SO4 0.083% IH SOL 2.5 MG/3 ML VIAL.NEB. NEB ONE (01:06)
[2024-01-07] MEDS: SODIUM CHLORIDE 1,000 ML IV STA (01:06)
[2024-01-07] MEDS: INSULIN (LEVEMIR) 100 UNITS/ML UNITS SQ ONE ×2 (01:22→02:03)
[2024-01-07] MEDS ORDERED: ALBUTEROL SO4 HFA INHALER IH PRN (03:24)
[2024-01-07] MEDS: guaiFENesin 200 MG/10 ML 10 ML UNIT-DOSE CUPS PO PRN (05:24)
[2024-01-07] MEDS: INSULIN ASPART SLIDING SCALE (NOVOLOG) 1 VIAL SQ SCH (06:13)
[2024-01-07] MEDS: risperiDONE 1 MG TABLET PO SCH ×2 (06:53→22:26)
[2024-01-07] MEDS: FOLIC ACID 1 MG TABLET (FP) PO SCH (06:53)
[2024-01-07] MEDS ORDERED: risperiDONE 2 MG TABLET PO SCH (07:00)
[2024-01-07] MEDS ORDERED: INSULIN (LEVEMIR) 100 UNITS/ML UNITS SQ SCH (08:00)
[2024-01-07] MEDS: INSULIN (LEVEMIR) 100 UNITS/ML UNITS SQ SCH (08:16)
[2024-01-07 09:11] LABS: HEMATOCRIT 31.4 % (32.4-45.2); HEMOGLOBIN 10.7 GM/dL (10.7-15.3); MCH 30.8 pg (25.7-33.7); MEAN CELL VOLUME 90.6 fl (80-96); PLATELET COUNT 162 10^3/uL (134-434); RBC 3.46 M/mm3 (3.60-5.2); RDW 12.7 % (11.6-15.6); WHITE BLOOD COUNT 4.3 K/mm3 (4.0-10.0)
[2024-01-07 09:31] LABS: POTASSIUM 4.1 mmol/L (3.5-5.1)
[2024-01-07 09:40] LABS: ALBUMIN 3.2 g/dl (3.4-5.0); CALCIUM 9.3 mg/dL (8.5-10.1)
[2024-01-07 09:41] LABS: BLOOD UREA NITROGEN 11.6 mg/dL (7-18); MAGNESIUM 1.9 mg/dL (1.8-2.4)
[2024-01-07 09:44] LABS: CREATININE 0.8 mg/dL (0.55-1.3); PHOSPHOROUS 2.9 mg/dL (2.5-4.9)
[2024-01-07 09:45] LABS: BILIRUBIN,TOTAL 0.6 mg/dL (0.2-1); TOT PROT 5.9 g/dl (6.4-8.2)
[2024-01-07] MEDS ORDERED: PATIENT'S OWN MEDICATION (NON-FORMULARY) (Vibegron [Gemtesa] 75 MG Tablet) PO SCH (10:00)
[2024-01-07] MEDS: LOSARTAN POTASSIUM 50 MG TABLET PO SCH (11:04)
[2024-01-07] MEDS: PANTOPRAZOLE 40 MG TABLET PO SCH (11:04)
[2024-01-07] MEDS: POLYETHYLENE GLYCOL (HEALTHYLAX) 3350 17 GM PACKET PO SCH (11:04)
[2024-01-07] MEDS: ASPIRIN 81 MG CHEWABLE TABLETS PO SCH (11:04)
[2024-01-07] MEDS: BENZTROPINE MESYLATE 1 MG TABLET PO SCH (11:05)
[2024-01-07] MEDS: APIXABAN 5 MG TABLET PO SCH (11:05)
[2024-01-07] MEDS: SOLIFENACIN SUCCINATE 5 MG TAB PO SCH (11:05)
[2024-01-07] MEDS: amLODIPine BESYLATE 5 MG TABLET (FP) PO SCH (11:08)
[2024-01-07] MEDS: BISACODYL 10 MG SUPP.RECT PR ONE (11:13)
[2024-01-07] MEDS: ATORVASTATIN CA 40 MG TABLET (FP) PO SCH (22:25)
[2024-01-07] MEDS: HALOPERIDOL 5 MG TABLET PO SCH (22:25)
[2024-01-07] MEDS: SENNOSIDES 8.6MG TABLET (FP) PO SCH (22:40)
[2024-01-08 10:02] LABS: POTASSIUM 4.4 mmol/L (3.5-5.1)
[2024-01-08 10:06] LABS: BASO % 0.9 % (0-2.0); EOS % 3.6 % (0-4.5); HEMATOCRIT 31.8 % (32.4-45.2); HEMOGLOBIN 10.9 GM/dL (10.7-15.3); LYMPH % 28.9 % (8-40); MCH 30.9 pg (25.7-33.7); MCHC 34.2 g/dl (32.0-36.0); MEAN CELL VOLUME 90.4 fl (80-96); MEAN PLT VOLUME 8.1 fl (7.5-11.1); MONO % 10.7 % (3.8-10.2); NEUT % 55.9 % (42.8-82.8); PLATELET COUNT 168 10^3/uL (134-434); RBC 3.52 M/mm3 (3.60-5.2); RDW 13.2 % (11.6-15.6); WHITE BLOOD COUNT 3.7 K/mm3 (4.0-10.0)
[2024-01-08 10:07] LABS: BLOOD UREA NITROGEN 9.8 mg/dL (7-18); CALCIUM 9.5 mg/dL (8.5-10.1)
[2024-01-08 10:10] LABS: CREATININE 0.7 mg/dL (0.55-1.3)
[2024-01-08 10:12] LABS: TOT PROT 5.8 g/dl (6.4-8.2)
[2024-01-08 10:48] LABS: BILIRUBIN,TOTAL 0.6 mg/dL (0.2-1)
[2024-01-08] MEDS: ACETAMINOPHEN 500 MG TABLET (FP) PO ONE (17:14)
[2024-01-09 12:45] LABS: BASO % 0.7 % (0-2.0); EOS % 3.1 % (0-4.5); HEMATOCRIT 31.9 % (32.4-45.2); MCH 31.3 pg (25.7-33.7); MCHC 34.4 g/dl (32.0-36.0); MEAN CELL VOLUME 90.9 fl (80-96); MEAN PLT VOLUME 8.2 fl (7.5-11.1); MONO % 10.2 % (3.8-10.2); PLATELET COUNT 168 10^3/uL (134-434); RBC 3.51 M/mm3 (3.60-5.2)
[2024-01-09 12:54] LABS: POTASSIUM 4.5 mmol/L (3.5-5.1)
[2024-01-09 12:56] LABS: ALBUMIN 3.1 g/dl (3.4-5.0); BLOOD UREA NITROGEN 11.5 mg/dL (7-18); CALCIUM 9.2 mg/dL (8.5-10.1)
[2024-01-09 13:00] LABS: CREATININE 0.8 mg/dL (0.55-1.3)
[2024-01-09 13:01] LABS: BILIRUBIN,TOTAL 0.6 mg/dL (0.2-1); TOT PROT 6.1 g/dl (6.4-8.2)
[2024-01-10] MEDS: SENNOSIDES 8.6MG TABLET (FP) PO SCH (08:00)
[2024-01-10 09:32] VITALS: BP 118/75; PULSE 84; RESP 19; TEMP 98.6
== END 2024-01-10 12:01 | disposition home or self-care (01) | DRG 300 ==
LOC: JER 18:34 → JERBED 01-07 00:30 → J5S 01-07 03:49
PROVIDERS: ADMIT Internal Medicine; ATTEND Internal Medicine
DX: I82.431 Acute embolism and thrombosis of right popliteal vein (principal); I50.32 Chronic diastolic (congestive) heart failure; E78.5 Hyperlipidemia, unspecified; I25.10 Atherosclerotic heart disease of native coronary artery without angina pectoris; J45.909 Unspecified asthma, uncomplicated; F25.9 Schizoaffective disorder, unspecified; I11.0 Hypertensive heart disease with heart failure; E66.01 Morbid (severe) obesity due to excess calories; Z68.39 Body mass index [BMI] 39.0-39.9, adult; E11.65 Type 2 diabetes mellitus with hyperglycemia; F32.A Depression, unspecified; M79.7 Fibromyalgia; F39 Unspecified mood [affective] disorder; N32.81 Overactive bladder; Z79.4 Long term (current) use of insulin
CPT/HCPCS: 0241U-QW; 36415; 71045-TC-FY; 80048; 80053; 81003; 81240; 81241; 82140; 82962; 83735; 83880; 84100; 84484; 85025; 85027; 85300; 85303; 85610; 85730; 86850; 86900; 86901; 87086; 87186; 93005; 93010; 93971-TC; 97116-GP; 97161-GP; 99285-25; J0131

== ENCOUNTER 2024-01-28 16:56 | Observation (INO) | payer OTHER ==
[2024-01-28 17:06] VITALS: BMI 35.0
[2024-01-28] MEDS ORDERED: ACETAMINOPHEN INJECTION 100 ML ONE (18:29)
[2024-01-28] MEDS: ACETAMINOPHEN 1000 MG/100 ML BAG IVPB ONE (18:35)
[2024-01-28 18:39] LABS: POTASSIUM 4.8 mmol/L (3.5-5.1)
[2024-01-28 18:41] LABS: CALCIUM 8.7 mg/dL (8.5-10.1)
[2024-01-28 18:42] LABS: ALBUMIN 3.2 g/dl (3.4-5.0); BLOOD UREA NITROGEN 13.5 mg/dL (7-18); INR 1.57 (0.83-1.09); MAGNESIUM 1.5 mg/dL (1.8-2.4); PROTHROMBIN TIME (PATIENT) 17.5 SEC (9.7-13.0)
[2024-01-28 18:44] LABS: ACTIVATED PTT 24.7 SECONDS (25.2-36.5)
[2024-01-28 18:45] LABS: CREATININE 1.3 mg/dL (0.55-1.3)
[2024-01-28 18:47] LABS: BILIRUBIN,TOTAL 0.4 mg/dL (0.2-1); TOT PROT 6.3 g/dl (6.4-8.2)
[2024-01-28 19:05] LABS: HEMATOCRIT 30.8 % (32.4-45.2); HEMOGLOBIN 10.4 GM/dL (10.7-15.3); LYMPH % 24.8 % (8-40); MCH 30.8 pg (25.7-33.7); MCHC 33.6 g/dl (32.0-36.0); MEAN CELL VOLUME 91.8 fl (80-96); MEAN PLT VOLUME 8.4 fl (7.5-11.1); NEUT % 62.2 % (42.8-82.8); PLATELET COUNT 206 10^3/uL (134-434); RBC 3.36 M/mm3 (3.60-5.2); RDW 13.6 % (11.6-15.6); WHITE BLOOD COUNT 5.3 K/mm3 (4.0-10.0)
[2024-01-28] MEDS ORDERED: MAGNESIUM SULFATE IN WATER 2 GM/50 ML IVPB IVPB ONE (21:32)
[2024-01-28] MEDS ORDERED: ALBUTEROL SO4 HFA INHALER IH PRN (22:59)
[2024-01-29] MEDS ORDERED: APIXABAN 5 MG TABLET ONE (01:29)
[2024-01-29] MEDS: SODIUM CHLORIDE 0.9% 500 ML INFUS.BAG IV ONE (01:50)
[2024-01-29] MEDS: APIXABAN 5 MG TABLET PO SCH (01:50)
[2024-01-29] MEDS: MAGNESIUM SULF 50% (8.12 MEQ/2 ML-1 GM VIAL) IVPB ONE ×2 (01:50)
[2024-01-29 02:18] LABS: CHLORIDE 104 mmol/L (98-107); SODIUM 136 mmol/L (136-145)
[2024-01-29 02:19] LABS: CALCIUM 9.3 mg/dL (8.5-10.1)
[2024-01-29 02:20] LABS: ANION GAP 5 mmol/L (4-13); BLOOD UREA NITROGEN 12.7 mg/dL (7-18); CO2 28 mmol/L (21-32); GLUCOSE,RANDOM 218 mg/dL (74-106); MAGNESIUM 1.8 mg/dL (1.8-2.4); POTASSIUM 6.5 mmol/L (3.5-5.1)
[2024-01-29 03:28] VITALS: RESP 18
[2024-01-29] MEDS: FOLIC ACID 1 MG TABLET (FP) PO SCH (06:30)
[2024-01-29] MEDS: PANTOPRAZOLE 40 MG TABLET PO SCH (06:30)
[2024-01-29] MEDS: risperiDONE 1 MG TABLET PO SCH (06:32)
[2024-01-29] MEDS: INSULIN (LEVEMIR) 100 UNITS/ML UNITS SQ SCH (06:35)
[2024-01-29 07:17] LABS: HEMATOCRIT 29.5 % (32.4-45.2); HEMOGLOBIN 9.9 GM/dL (10.7-15.3); MCH 31.3 pg (25.7-33.7); MCHC 33.6 g/dl (32.0-36.0); MEAN PLT VOLUME 8.1 fl (7.5-11.1); PLATELET COUNT 205 10^3/uL (134-434); RBC 3.17 M/mm3 (3.60-5.2); RDW 13.2 % (11.6-15.6)
[2024-01-29 07:58] LABS: CALCIUM 8.9 mg/dL (8.5-10.1); POTASSIUM 4.3 mmol/L (3.5-5.1)
[2024-01-29 07:59] LABS: MAGNESIUM 1.9 mg/dL (1.8-2.4)
[2024-01-29 08:02] LABS: CREATININE 0.9 mg/dL (0.55-1.3); PHOSPHOROUS 3.3 mg/dL (2.5-4.9)
[2024-01-29 08:03] LABS: BLOOD UREA NITROGEN 11.8 mg/dL (7-18)
[2024-01-29] MEDS: amLODIPine BESYLATE 5 MG TABLET (FP) PO SCH (09:51)
[2024-01-29] MEDS: LOSARTAN POTASSIUM 50 MG TABLET PO SCH (09:52)
[2024-01-29] MEDS: ASPIRIN 81 MG CHEWABLE TABLETS PO SCH (09:52)
[2024-01-29] MEDS: POLYETHYLENE GLYCOL (HEALTHYLAX) 3350 17 GM PACKET PO SCH (09:52)
[2024-01-29] MEDS ORDERED: PATIENT'S OWN MEDICATION (NON-FORMULARY) (Meloxicam 15 MG Tablet) PO SCH (10:00)
[2024-01-29] MEDS ORDERED: PATIENT'S OWN MEDICATION (NON-FORMULARY) (Vibegron [Gemtesa] 75 MG Tablet) PO SCH (10:00)
[2024-01-29 10:58] VITALS: BP 134/68; PULSE 78; TEMP 98.4
[2024-01-29] MEDS: CELECOXIB 200 MG CAPSULE PO ONE (11:36)
[2024-01-29] MEDS: BENZTROPINE MESYLATE 1 MG TABLET PO SCH (11:36)
[2024-01-29] MEDS: INSULIN ASPART SLIDING SCALE (NOVOLOG) 1 VIAL SQ SCH (13:38)
[2024-01-29] MEDS ORDERED: NAPROXEN 375 MG TABLET PO ONE (14:10)
[2024-01-29] MEDS ORDERED: INSULIN ASPART SLIDING SCALE (NOVOLOG) 1 VIAL SQ SCH (16:30)
[2024-01-29] MEDS ORDERED: SENNOSIDES 8.6MG TABLET (FP) PO SCH (22:00)
[2024-01-29] MEDS ORDERED: HALOPERIDOL 5 MG TABLET PO SCH (22:00)
[2024-01-29] MEDS ORDERED: ATORVASTATIN CA 40 MG TABLET (FP) PO SCH (22:00)
[2024-01-29] MEDS ORDERED: INSULIN (LEVEMIR) 100 UNITS/ML UNITS SQ SCH (22:00)
[2024-01-29] MEDS ORDERED: risperiDONE 1 MG TABLET PO SCH (22:00)
== END 2024-01-29 13:00 | disposition home or self-care (01) ==
LOC: JER 16:56 → JERBED 23:37 → J4S 01-29 03:09
PROVIDERS: ADMIT Internal Medicine; ATTEND Internal Medicine
PROC: 3E033NZ Introduction of Analgesics, Hypnotics, Sedatives into Peripheral Vein, Percutaneous Approach (ICD-10-PCS; principal; 2024-01-28)
PROC: 3E013VG Introduction of Insulin into Subcutaneous Tissue, Percutaneous Approach (ICD-10-PCS; 2024-01-28)
PROC: 3E033GC Introduction of Other Therapeutic Substance into Peripheral Vein, Percutaneous Approach (ICD-10-PCS; 2024-01-28)
PROC: 3E0337Z Introduction of Electrolytic and Water Balance Substance into Peripheral Vein, Percutaneous Approach (ICD-10-PCS; 2024-01-28)
DX: I25.10 Atherosclerotic heart disease of native coronary artery without angina pectoris (principal); I11.0 Hypertensive heart disease with heart failure; E11.9 Type 2 diabetes mellitus without complications; E78.5 Hyperlipidemia, unspecified; E83.42 Hypomagnesemia; J45.909 Unspecified asthma, uncomplicated; E87.1 Hypo-osmolality and hyponatremia; Z95.5 Presence of coronary angioplasty implant and graft; D64.9 Anemia, unspecified; Z95.0 Presence of cardiac pacemaker; Z88.5 Allergy status to narcotic agent
CPT/HCPCS: 36415; 73030-TC-LT-FY; 73200-TC-RT; 80048; 80053; 82962; 83735; 84100; 84484; 85025; 85027; 85610; 85730; 93005; 93010; 93971; 96372; 96374; 96375; 99285-25; G0378; J0131

== ENCOUNTER 2024-01-31 19:09 | Observation (INO) | payer OTHER ==
[2024-01-31] MEDS: KETOROLAC TROMETHAMINE 30 MG/1 ML VIAL IM ONE (20:01)
[2024-01-31] MEDS: ACETAMINOPHEN 500 MG TABLET (FP) PO ONE (20:01)
[2024-01-31 20:08] VITALS: BMI 35.0
[2024-01-31] MEDS ORDERED: LIDOCAINE 4% PATCH TP ONE (20:19)
[2024-01-31] MEDS: LIDOCAINE 4% PATCH TP ONE (20:35)
[2024-02-01] MEDS: LIDOCAINE PATCH REMOVAL MC SCH (01:30)
[2024-02-01] MEDS ORDERED: ALBUTEROL SO4 HFA INHALER IH PRN (02:33)
[2024-02-01] MEDS: ACETAMINOPHEN 325 MG TABLET (FP) PO ONE (03:16)
[2024-02-01] MEDS: INSULIN ASPART SLIDING SCALE (NOVOLOG) 1 VIAL SQ SCH (06:05)
[2024-02-01] MEDS: INSULIN (LEVEMIR) 100 UNITS/ML UNITS SQ SCH ×2 (06:06→22:05)
[2024-02-01] MEDS: risperiDONE 1 MG TABLET PO SCH ×2 (06:07→22:05)
[2024-02-01 08:42] LABS: EPI CELLS 2 /uL (0-25.1); HYALINE CASTS 0 /uL (0-3.1); PH,URINE 5.5 (5.0-8.0); URINE APPEARANCE CLEAR; URINE BACTERIA 240 /uL (0-1359); URINE BILIRUBIN NEGATIVE (NEGATIVE); URINE COLOR YELLOW; URINE GLUCOSE (UA) 2+ (NEGATIVE); URINE KETONE NEGATIVE (NEGATIVE); URINE LEUK ESTERASE TRACE (NEGATIVE); URINE NITRITE NEGATIVE (NEGATIVE); URINE PROTEIN NEGATIVE (NEGATIVE); URINE RBC 2 /uL (0-23.9); URINE UROBILINOGEN 0.2 mg/dL (0.2-1.0); URINE WBC 12 /uL (0-25.8)
[2024-02-01 10:18] LABS: HEMOGLOBIN 9.7 GM/dL (10.7-15.3); MCH 30.8 pg (25.7-33.7); MCHC 33.4 g/dl (32.0-36.0); MEAN CELL VOLUME 92.1 fl (80-96); MEAN PLT VOLUME 8.1 fl (7.5-11.1); PLATELET COUNT 211 10^3/uL (134-434); RBC 3.15 M/mm3 (3.60-5.2); WHITE BLOOD COUNT 3.2 K/mm3 (4.0-10.0)
[2024-02-01] MEDS: LOSARTAN POTASSIUM 50 MG TABLET PO SCH (10:30)
[2024-02-01] MEDS: PANTOPRAZOLE 40 MG TABLET PO SCH (10:30)
[2024-02-01] MEDS: APIXABAN 5 MG TABLET PO SCH (10:30)
[2024-02-01] MEDS: amLODIPine BESYLATE 5 MG TABLET (FP) PO SCH (10:30)
[2024-02-01] MEDS: ASPIRIN COATED 81 MG TABLET.EC PO SCH (10:30)
[2024-02-01 11:18] LABS: POTASSIUM 4.1 mmol/L (3.5-5.1)
[2024-02-01 11:21] LABS: BLOOD UREA NITROGEN 9.4 mg/dL (7-18); CALCIUM 9.6 mg/dL (8.5-10.1); MAGNESIUM 1.5 mg/dL (1.8-2.4)
[2024-02-01 11:23] LABS: CREATININE 0.8 mg/dL (0.55-1.3)
[2024-02-01 11:25] LABS: PHOSPHOROUS 3.6 mg/dL (2.5-4.9)
[2024-02-01] MEDS: ACETAMINOPHEN 325 MG TABLET (FP) PO SCH (12:24)
[2024-02-01] MEDS: MAGNESIUM OXIDE 400 MG TABLET (FP) PO ONE (12:24)
[2024-02-01] MEDS: METHYL SALICYLATE/MENTHOL 30 GM TUBE TP SCH (12:24)
[2024-02-01] MEDS: BENZTROPINE MESYLATE 1 MG TABLET PO SCH (14:51)
[2024-02-01] MEDS: SOLIFENACIN SUCCINATE 5 MG TAB PO SCH (15:28)
[2024-02-01] MEDS: PATIENT'S OWN MEDICATION (NON-FORMULARY) (Vibegron [Gemtesa] 75 MG Tablet) PO SCH (19:28)
[2024-02-01] MEDS: ATORVASTATIN CA 40 MG TABLET (FP) PO SCH (22:04)
[2024-02-02 07:33] VITALS: RESP 18
[2024-02-02 12:31] VITALS: BP 118/94; PULSE 82; TEMP 98.2
== END 2024-02-02 12:57 | disposition home or self-care (01) ==
LOC: JER 19:09 → INTOOBSV 21:30 → JERBED 21:30 → J7W 02-01 00:53
PROVIDERS: ADMIT Internal Medicine; ATTEND Nurse Practitioner Family
PROC: 3E013VG Introduction of Insulin into Subcutaneous Tissue, Percutaneous Approach (ICD-10-PCS; principal; 2024-01-31)
DX: M19.012 Primary osteoarthritis, left shoulder (principal); E11.9 Type 2 diabetes mellitus without complications; I10 Essential (primary) hypertension; Z29.89 Encounter for other specified prophylactic measures; Z86.718 Personal history of other venous thrombosis and embolism; Z95.0 Presence of cardiac pacemaker; M25.512 Pain in left shoulder; Z79.01 Long term (current) use of anticoagulants; G89.4 Chronic pain syndrome; Z96.653 Presence of artificial knee joint, bilateral; Z87.738 Personal history of other specified (corrected) congenital malformations of digestive system; Z95.5 Presence of coronary angioplasty implant and graft; Z79.4 Long term (current) use of insulin
CPT/HCPCS: 36415; 80048; 81003; 82962; 83735; 84100; 85027; 87077; 87086; 96372; 97116-GP; 97161-GP; 99285-25; G0378

== ENCOUNTER 2024-02-22 16:14 | Emergency (ER) | payer OTHER ==
[2024-02-22 16:24] VITALS: RESP 16; TEMP 98.4; BMI 39.0
[2024-02-22] MEDS: KETOROLAC TROMETHAMINE 30 MG/1 ML VIAL IM ONE (17:52)
[2024-02-22] MEDS: NAPROXEN 500 MG TABLET PO ONE (17:53)
[2024-02-22 18:49] VITALS: BP 154/81; PULSE 72
[2024-02-22] MEDS ORDERED: LIDOCAINE 4% PATCH TP ONE (20:30)
[2024-02-22] MEDS ORDERED: ACETAMINOPHEN 500 MG TABLET (FP) ONE ×2 (20:32→20:46)
[2024-02-22] MEDS: LIDOCAINE 4% PATCH TP ONE (20:36)
[2024-02-22] MEDS: ACETAMINOPHEN 500 MG TABLET (FP) PO ONE (20:36)
[2024-02-22] MEDS ORDERED: LIDOCAINE PATCH REMOVAL MC SCH (22:00)
== END 2024-02-22 21:07 | disposition home or self-care (01) ==
LOC: JER 16:14
PROC: 3E0133Z Introduction of Anti-inflammatory into Subcutaneous Tissue, Percutaneous Approach (ICD-10-PCS; principal; 2024-02-22)
DX: M25.511 Pain in right shoulder (principal); M25.512 Pain in left shoulder; G89.29 Other chronic pain
CPT/HCPCS: 93005; 93010; 96372; 99284-25

== ENCOUNTER 2024-03-17 13:11 | Observation (INO) | payer OTHER ==
[2024-03-17] MEDS: SODIUM CHLORIDE 0.9% 500 ML INFUS.BAG IV ONE ×2 (14:23→18:01)
[2024-03-17 14:29] LABS: BASO % 0.7 % (0-2.0); EOS % 1.2 % (0-4.5); HEMATOCRIT 31.5 % (32.4-45.2); HEMOGLOBIN 10.5 GM/dL (10.7-15.3); LYMPH % 12.4 % (8-40); MCH 29.9 pg (25.7-33.7); MCHC 33.4 g/dl (32.0-36.0); MEAN CELL VOLUME 89.6 fl (80-96); MEAN PLT VOLUME 7.9 fl (7.5-11.1); MONO % 7.2 % (3.8-10.2); NEUT % 78.5 % (42.8-82.8); PLATELET COUNT 267 10^3/uL (134-434); RBC 3.51 M/mm3 (3.60-5.2)
[2024-03-17 14:40] LABS: VENOUS BASE EXCESS -2.8 mmol/L (-2-2); VENOUS O2 SATURATION 34.9 % (70-80); VENOUS PCO2 48.6 mmHg (38-52); VENOUS PH 7.31 (7.310-7.410)
[2024-03-17 14:53] LABS: CHLORIDE 95 mmol/L (98-107); POTASSIUM 4.9 mmol/L (3.5-5.1); SODIUM 131 mmol/L (136-145)
[2024-03-17 14:56] LABS: ALBUMIN 3.4 g/dl (3.4-5.0); ANION GAP 8 mmol/L (4-13); BLOOD UREA NITROGEN 15.7 mg/dL (7-18); CALCIUM 9.7 mg/dL (8.5-10.1); CO2 28 mmol/L (21-32)
[2024-03-17 14:58] LABS: GLUCOSE,RANDOM 462 mg/dL (74-106)
[2024-03-17 14:59] LABS: CREATININE 1.3 mg/dL (0.55-1.3); SGOT/AST 13 U/L (15-37); SGPT/ALT 18 U/L (13-61)
[2024-03-17 15:00] LABS: BILIRUBIN,TOTAL 0.3 mg/dL (0.2-1); TOT PROT 6.7 g/dl (6.4-8.2)
[2024-03-17 15:01] LABS: ALK PHOS 164 U/L (45-117)
[2024-03-17 15:13] LABS: LACTIC ACID 2.9 mmol/L (0.4-2.0)
[2024-03-17] MEDS ORDERED: ACETAMINOPHEN INJECTION 100 ML ONE (15:23)
[2024-03-17] MEDS ORDERED: LIDOCAINE 4% PATCH TP ONE (15:24)
[2024-03-17] MEDS: LIDOCAINE 4% PATCH TP ONE (15:33)
[2024-03-17] MEDS: ACETAMINOPHEN 1000 MG/100 ML BAG IVPB ONE (15:34)
[2024-03-17 17:15] LABS: EPI CELLS 16 /uL (0-25.1); HYALINE CASTS 1 /uL (0-3.1); PH,URINE 5.5 (5.0-8.0); URINE APPEARANCE CLOUDY; URINE BACTERIA 5989 /uL (0-1359); URINE BILIRUBIN NEGATIVE (NEGATIVE); URINE COLOR YELLOW; URINE GLUCOSE (UA) 3+ (NEGATIVE); URINE KETONE NEGATIVE (NEGATIVE); URINE LEUK ESTERASE 2+ (NEGATIVE); URINE NITRITE NEGATIVE (NEGATIVE); URINE PROTEIN TRACE (NEGATIVE); URINE RBC 12 /uL (0-23.9); URINE UROBILINOGEN 0.2 mg/dL (0.2-1.0); URINE WBC 245 /uL (0-25.8)
[2024-03-17] MEDS ORDERED: KETOROLAC TROMETHAMINE 15 MG/ML VIAL ONE (18:03)
[2024-03-17] MEDS: KETOROLAC TROMETHAMINE 15 MG/ML VIAL IVPUSH ONE (18:07)
[2024-03-17] MEDS: DEXTROSE 5% IVPB ONE (18:38)
[2024-03-17] MEDS: WATER IVPB ONE (18:38)
[2024-03-17] MEDS: CEFOTAXIME SODIUM IVPB ONE (18:38)
[2024-03-17] MEDS ORDERED: INSULIN (LEVEMIR) 100 UNITS/ML UNITS SQ ONE ×3 (20:20→20:21)
[2024-03-17] MEDS ORDERED: ALBUTEROL SO4 HFA INHALER IH PRN (20:22)
[2024-03-17] MEDS: INSULIN (LEVEMIR) 100 UNITS/ML UNITS SQ ONE (20:27)
[2024-03-17] MEDS: LIDOCAINE PATCH REMOVAL MC SCH ×2 (21:08→22:30)
[2024-03-17] MEDS ORDERED: INSULIN (LEVEMIR) 100 UNITS/ML UNITS SQ SCH (22:00)
[2024-03-17] MEDS: HALOPERIDOL 5 MG TABLET PO SCH (22:24)
[2024-03-17] MEDS: risperiDONE 1 MG TABLET PO SCH (22:24)
[2024-03-17] MEDS: APIXABAN 5 MG TABLET PO SCH (22:27)
[2024-03-17] MEDS: INSULIN (LEVEMIR) 100 UNITS/ML UNITS SQ SCH (22:27)
[2024-03-17] MEDS: ATORVASTATIN CA 40 MG TABLET (FP) PO SCH (22:27)
[2024-03-17] MEDS: INSULIN ASPART SLIDING SCALE (NOVOLOG) 1 VIAL SQ SCH (22:30)
[2024-03-17 23:01] VITALS: BMI 38.4
[2024-03-17] MEDS: ACETAMINOPHEN 325 MG TABLET (FP) PO SCH (23:39)
[2024-03-18] MEDS ORDERED: CEFOTAXIME SODIUM 500 MG in DEXTROSE 5%-WATER - 50 ML IVPB SCH (06:00)
[2024-03-18] MEDS: INSULIN (LEVEMIR) 100 UNITS/ML UNITS SQ SCH ×2 (06:22→21:49)
[2024-03-18] MEDS: risperiDONE 1 MG TABLET PO SCH (06:38)
[2024-03-18] MEDS ORDERED: PATIENT'S OWN MEDICATION (NON-FORMULARY) (Vibegron [Gemtesa] 75 MG Tablet) PO SCH (10:00)
[2024-03-18] MEDS: ASPIRIN COATED 81 MG TABLET.EC PO SCH (10:43)
[2024-03-18] MEDS: LIDOCAINE 5% TOPICAL PATCH TP SCH (10:43)
[2024-03-18] MEDS: LOSARTAN POTASSIUM 25 MG TABLET PO SCH (10:43)
[2024-03-18] MEDS: amLODIPine BESYLATE 5 MG TABLET (FP) PO SCH (10:43)
[2024-03-18] MEDS: SOLIFENACIN SUCCINATE 5 MG TAB PO SCH (10:45)
[2024-03-18] MEDS: BENZTROPINE MESYLATE 1 MG TABLET PO SCH (10:45)
[2024-03-18] MEDS: SODIUM CHLORIDE 1,000 ML IV SCH (14:06)
[2024-03-18] MEDS: ACETAMINOPHEN 1000 MG/100 ML BAG IVPB PRN (14:07)
[2024-03-18] MEDS: PIPERACILLIN/TAZOB 3.375 GM 50 ML IVPB SCH (18:52)
[2024-03-18] MEDS: POLYETHYLENE GLYCOL (HEALTHYLAX) 3350 17 GM PACKET PO ONE (22:49)
[2024-03-19 08:26] LABS: BASO % 0.9 % (0-2.0); EOS % 2.4 % (0-4.5); HEMATOCRIT 28.1 % (32.4-45.2); HEMOGLOBIN 9.4 GM/dL (10.7-15.3); LYMPH % 17.7 % (8-40); MCH 30.5 pg (25.7-33.7); MCHC 33.6 g/dl (32.0-36.0); MEAN CELL VOLUME 90.6 fl (80-96); MEAN PLT VOLUME 7.6 fl (7.5-11.1); MONO % 9.2 % (3.8-10.2); NEUT % 69.8 % (42.8-82.8); PLATELET COUNT 242 10^3/uL (134-434); RDW 13.1 % (11.6-15.6); WHITE BLOOD COUNT 4.9 K/mm3 (4.0-10.0)
[2024-03-19 08:44] LABS: POTASSIUM 4.6 mmol/L (3.5-5.1)
[2024-03-19 08:47] LABS: CALCIUM 9.2 mg/dL (8.5-10.1)
[2024-03-19 08:48] LABS: ALBUMIN 2.8 g/dl (3.4-5.0); BLOOD UREA NITROGEN 14.5 mg/dL (7-18)
[2024-03-19 08:50] LABS: MAGNESIUM 1.6 mg/dL (1.8-2.4)
[2024-03-19 08:51] LABS: CREATININE 1.1 mg/dL (0.55-1.3)
[2024-03-19 08:53] LABS: BILIRUBIN,TOTAL 0.4 mg/dL (0.2-1); TOT PROT 5.8 g/dl (6.4-8.2)
[2024-03-19] MEDS ORDERED: ACETAMINOPHEN 325 MG TABLET (FP) PO PRN (14:14)
[2024-03-19] MEDS: ACETAMINOPHEN 325 MG TABLET (FP) PO PRN (15:36)
[2024-03-20 07:13] LABS: BASO % 1.1 % (0-2.0); EOS % 2.4 % (0-4.5); HEMATOCRIT 28.5 % (32.4-45.2); HEMOGLOBIN 9.3 GM/dL (10.7-15.3); LYMPH % 18.9 % (8-40); MCH 29.7 pg (25.7-33.7); MCHC 32.7 g/dl (32.0-36.0); MEAN CELL VOLUME 90.9 fl (80-96); MEAN PLT VOLUME 7.6 fl (7.5-11.1); MONO % 10.5 % (3.8-10.2); NEUT % 67.1 % (42.8-82.8); PLATELET COUNT 245 10^3/uL (134-434); RBC 3.14 M/mm3 (3.60-5.2); RDW 13.1 % (11.6-15.6); WHITE BLOOD COUNT 4.4 K/mm3 (4.0-10.0)
[2024-03-20 07:31] LABS: POTASSIUM 4.3 mmol/L (3.5-5.1)
[2024-03-20 07:34] LABS: ALBUMIN 2.8 g/dl (3.4-5.0); BLOOD UREA NITROGEN 10.4 mg/dL (7-18); CALCIUM 9.2 mg/dL (8.5-10.1); MAGNESIUM 1.7 mg/dL (1.8-2.4)
[2024-03-20 07:37] LABS: CREATININE 0.9 mg/dL (0.55-1.3)
[2024-03-20 07:39] LABS: BILIRUBIN,TOTAL 0.5 mg/dL (0.2-1); TOT PROT 5.9 g/dl (6.4-8.2)
[2024-03-20] MEDS: INSULIN ASPART SLIDING SCALE (NOVOLOG) 1 VIAL SQ SCH (12:25)
[2024-03-20 18:03] VITALS: BP 155/67; PULSE 79; RESP 20; TEMP 98.8
[2024-03-20] MEDS ORDERED: INSULIN ASPART SLIDING SCALE (NOVOLOG) 1 VIAL SQ SCH (22:00)
== END 2024-03-20 18:11 | disposition home or self-care (01) ==
LOC: JER 13:11 → INTOOBSV 17:23 → JERBED 17:23 → UNDOADMOB 17:23 → OBSVTOIN 17:23 → JERBED 22:02 → J7W 22:02
PROVIDERS: ADMIT Student in an Organized Health Care Education/Training Program
PROC: 3E033NZ Introduction of Analgesics, Hypnotics, Sedatives into Peripheral Vein, Percutaneous Approach (ICD-10-PCS; principal; 2024-03-18)
PROC: 3E03329 Introduction of Other Anti-infective into Peripheral Vein, Percutaneous Approach (ICD-10-PCS; 2024-03-18)
PROC: 3E013VG Introduction of Insulin into Subcutaneous Tissue, Percutaneous Approach (ICD-10-PCS; 2024-03-18)
PROC: 3E0333Z Introduction of Anti-inflammatory into Peripheral Vein, Percutaneous Approach (ICD-10-PCS; 2024-03-18)
PROC: 3E0337Z Introduction of Electrolytic and Water Balance Substance into Peripheral Vein, Percutaneous Approach (ICD-10-PCS; 2024-03-18)
PROC: 3E023GC Introduction of Other Therapeutic Substance into Muscle, Percutaneous Approach (ICD-10-PCS; 2024-03-18)
PROC: 3E023NZ Introduction of Analgesics, Hypnotics, Sedatives into Muscle, Percutaneous Approach (ICD-10-PCS; 2024-03-18)
DX: N39.0 Urinary tract infection, site not specified (principal); B96.20 Unspecified Escherichia coli [E. coli] as the cause of diseases classified elsewhere; F25.9 Schizoaffective disorder, unspecified; E11.9 Type 2 diabetes mellitus without complications; E78.5 Hyperlipidemia, unspecified; Z79.4 Long term (current) use of insulin; I11.9 Hypertensive heart disease without heart failure; M25.512 Pain in left shoulder; J45.909 Unspecified asthma, uncomplicated; Z90.79 Acquired absence of other genital organ(s); Z87.738 Personal history of other specified (corrected) congenital malformations of digestive system; Z91.148 Patient's other noncompliance with medication regimen for other reason; Z88.8 Allergy status to other drugs, medicaments and biological substances; Z88.5 Allergy status to narcotic agent
CPT/HCPCS: 36415; 70450-TC; 71045-TC-FY; 73030-TC-LT-FY; 80053; 81003; 82010; 82803; 82962; 83036; 83605; 83735; 84484; 85025; 87086; 87186; 93005; 93010; 96365; 96366; 96372; 96375; 96376; 97116-GP; 97162-GP; 99285-25; G0378; J0131

== ENCOUNTER 2024-04-23 11:33 | Observation (INO) | payer OTHER ==
[2024-04-23 12:05] VITALS: BMI 39.5
[2024-04-23 14:11] LABS: HEMATOCRIT 21.9 % (32.4-45.2); HEMOGLOBIN 7.2 GM/dL (10.7-15.3); MCH 28.7 pg (25.7-33.7); PLATELET COUNT 335 10^3/uL (134-434); RBC 2.52 M/mm3 (3.60-5.2); RDW 13.5 % (11.6-15.6); WHITE BLOOD COUNT 4.4 K/mm3 (4.0-10.0)
[2024-04-23 14:15] LABS: URINE APPEARANCE CLEAR; URINE BILIRUBIN NEGATIVE (NEGATIVE); URINE COLOR YELLOW; URINE GLUCOSE (UA) NEGATIVE (NEGATIVE); URINE KETONE NEGATIVE (NEGATIVE); URINE LEUK ESTERASE NEGATIVE (NEGATIVE); URINE NITRITE NEGATIVE (NEGATIVE); URINE PROTEIN NEGATIVE (NEGATIVE); URINE UROBILINOGEN 0.2 mg/dL (0.2-1.0)
[2024-04-23 14:32] LABS: POTASSIUM 4.8 mmol/L (3.5-5.1)
[2024-04-23 14:33] LABS: CALCIUM 9.4 mg/dL (8.5-10.1)
[2024-04-23] MEDS: ACETAMINOPHEN 325 MG TABLET (FP) PO ONE (14:33)
[2024-04-23 14:34] LABS: ALBUMIN 2.9 g/dl (3.4-5.0); MAGNESIUM 1.7 mg/dL (1.8-2.4)
[2024-04-23 14:37] LABS: CREATININE 0.9 mg/dL (0.55-1.3); PHOSPHOROUS 3.4 mg/dL (2.5-4.9)
[2024-04-23 14:38] LABS: BILIRUBIN,TOTAL 0.3 mg/dL (0.2-1)
[2024-04-23 14:39] LABS: TOT PROT 6.3 g/dl (6.4-8.2)
[2024-04-23] MEDS ORDERED: MAGNESIUM SULFATE IN WATER 2 GM/50 ML IVPB IVPB ONE (15:32)
[2024-04-23] MEDS: MAGNESIUM SULF 50% (8.12 MEQ/2 ML-1 GM VIAL) IVPB ONE (15:32)
[2024-04-23] MEDS ORDERED: ALBUTEROL SO4 HFA INHALER IH PRN (18:29)
[2024-04-23 19:20] LABS: RETICULOCYTES 1.82 % (0.5-1.5)
[2024-04-23] MEDS ORDERED: risperiDONE 1 MG TABLET PO SCH (22:15)
[2024-04-23] MEDS: INSULIN (LEVEMIR) 100 UNITS/ML UNITS SQ SCH (22:39)
[2024-04-23] MEDS: HALOPERIDOL 5 MG TABLET PO SCH (22:41)
[2024-04-23] MEDS: ATORVASTATIN CA 40 MG TABLET (FP) PO SCH (22:41)
[2024-04-23] MEDS: risperiDONE 1 MG TABLET PO SCH (22:56)
[2024-04-23] MEDS: LOSARTAN POTASSIUM 25 MG TABLET PO ONE (23:02)
[2024-04-23] MEDS: guaiFENesin 200 MG/10 ML 10 ML UNIT-DOSE CUPS PO ONE (23:02)
[2024-04-24] MEDS ORDERED: ACETAMINOPHEN 325 MG TABLET (FP) PO SCH
[2024-04-24] MEDS: risperiDONE 3 MG TABLET PO SCH (00:03)
[2024-04-24] MEDS: ACETAMINOPHEN 325 MG TABLET (FP) PO PRN (05:34)
[2024-04-24] MEDS: INSULIN (LEVEMIR) 100 UNITS/ML UNITS SQ SCH (06:56)
[2024-04-24] MEDS: amLODIPine BESYLATE 5 MG TABLET (FP) PO SCH (10:37)
[2024-04-24] MEDS: risperiDONE 1 MG TABLET PO SCH (10:37)
[2024-04-24] MEDS: LOSARTAN POTASSIUM 25 MG TABLET PO SCH (10:37)
[2024-04-24] MEDS: BENZTROPINE MESYLATE 1 MG TABLET PO SCH (12:04)
[2024-04-24 13:43] LABS: BASO % 0.8 % (0-2.0); EOS % 1.3 % (0-4.5); HEMATOCRIT 25.1 % (32.4-45.2); HEMOGLOBIN 8.7 GM/dL (10.7-15.3); LYMPH % 14.4 % (8-40); MCH 29.4 pg (25.7-33.7); MCHC 34.6 g/dl (32.0-36.0); MEAN CELL VOLUME 84.9 fl (80-96); MEAN PLT VOLUME 7.4 fl (7.5-11.1); MONO % 12.7 % (3.8-10.2); NEUT % 70.8 % (42.8-82.8); PLATELET COUNT 324 10^3/uL (134-434); RBC 2.95 M/mm3 (3.60-5.2); RDW 14.4 % (11.6-15.6); WHITE BLOOD COUNT 4.8 K/mm3 (4.0-10.0)
[2024-04-24 14:02] LABS: POTASSIUM 4.8 mmol/L (3.5-5.1)
[2024-04-24 14:16] LABS: CALCIUM 9.1 mg/dL (8.5-10.1)
[2024-04-24 14:17] LABS: ALBUMIN 2.7 g/dl (3.4-5.0); BLOOD UREA NITROGEN 10.3 mg/dL (7-18); MAGNESIUM 1.8 mg/dL (1.8-2.4)
[2024-04-24 14:19] LABS: PHOSPHOROUS 3.3 mg/dL (2.5-4.9)
[2024-04-24 14:20] LABS: CREATININE 0.8 mg/dL (0.55-1.3)
[2024-04-24 14:21] LABS: BILIRUBIN,TOTAL 0.7 mg/dL (0.2-1)
[2024-04-24 14:23] LABS: TOT PROT 5.9 g/dl (6.4-8.2)
[2024-04-24] MEDS: amLODIPine BESYLATE 5 MG TABLET (FP) PO ONE (14:31)
[2024-04-25] MEDS: amLODIPine BESYLATE 10 MG TABLET (FP) PO SCH (09:03)
[2024-04-25 09:41] LABS: HEMATOCRIT 26.4 % (32.4-45.2); MCH 29.4 pg (25.7-33.7); MCHC 34.1 g/dl (32.0-36.0); MEAN CELL VOLUME 86.2 fl (80-96); MEAN PLT VOLUME 7.2 fl (7.5-11.1); PLATELET COUNT 331 10^3/uL (134-434); RBC 3.06 M/mm3 (3.60-5.2); RDW 13.8 % (11.6-15.6); WHITE BLOOD COUNT 5.7 K/mm3 (4.0-10.0)
[2024-04-25 10:02] LABS: POTASSIUM 4.6 mmol/L (3.5-5.1)
[2024-04-25 10:08] LABS: ALBUMIN 2.8 g/dl (3.4-5.0); BLOOD UREA NITROGEN 9.2 mg/dL (7-18); CALCIUM 9.5 mg/dL (8.5-10.1)
[2024-04-25 10:11] LABS: CREATININE 0.9 mg/dL (0.55-1.3)
[2024-04-25 10:13] LABS: BILIRUBIN,TOTAL 0.6 mg/dL (0.2-1)
[2024-04-26 08:24] LABS: HEMATOCRIT 25.8 % (32.4-45.2); HEMOGLOBIN 8.9 GM/dL (10.7-15.3); MCH 29.1 pg (25.7-33.7); MCHC 34.3 g/dl (32.0-36.0); MEAN CELL VOLUME 84.8 fl (80-96); MEAN PLT VOLUME 6.9 fl (7.5-11.1); PLATELET COUNT 294 10^3/uL (134-434); RBC 3.05 M/mm3 (3.60-5.2); WHITE BLOOD COUNT 5.2 K/mm3 (4.0-10.0)
[2024-04-26 08:38] LABS: POTASSIUM 4.4 mmol/L (3.5-5.1)
[2024-04-26 08:39] LABS: BLOOD UREA NITROGEN 9.9 mg/dL (7-18); CALCIUM 9.5 mg/dL (8.5-10.1)
[2024-04-26 08:43] LABS: CREATININE 0.8 mg/dL (0.55-1.3)
[2024-04-26] MEDS: POLYETHYLENE GLYCOL 3350 255 GM BTL PO ONE (17:46)
[2024-04-26] MEDS: MAGNESIUM CITRATE 300 ML BOTTLE PO ONE (17:47)
[2024-04-26] MEDS: BISACODYL 5 MG TABLET.DR (FP) PO ONE (17:48)
[2024-04-27 09:12] LABS: HEMATOCRIT 28.3 % (32.4-45.2); HEMOGLOBIN 9.5 GM/dL (10.7-15.3); MCH 28.7 pg (25.7-33.7); MCHC 33.7 g/dl (32.0-36.0); MEAN PLT VOLUME 6.6 fl (7.5-11.1); PLATELET COUNT 296 10^3/uL (134-434); RBC 3.33 M/mm3 (3.60-5.2); RDW 14.1 % (11.6-15.6); WHITE BLOOD COUNT 4.8 K/mm3 (4.0-10.0)
[2024-04-27 09:32] LABS: POTASSIUM 4.4 mmol/L (3.5-5.1)
[2024-04-27 09:33] LABS: BLOOD UREA NITROGEN 7.9 mg/dL (7-18)
[2024-04-27 09:35] LABS: CALCIUM 9.6 mg/dL (8.5-10.1)
[2024-04-27 09:36] LABS: CREATININE 0.8 mg/dL (0.55-1.3)
[2024-04-27] MEDS: SODIUM PHOSPHATE/NA BIPHOS 133 ML ENEMA RC ONE ×2 (11:04→11:54)
[2024-04-27] MEDS ORDERED: ETOMIDATE 20 MG/10 ML VIAL IVPUSH ONE (13:03)
[2024-04-27] MEDS ORDERED: PROPOFOL 40 ML ONE (13:03)
[2024-04-27] MEDS ORDERED: LIDOCAINE HCL 2% 100 MG/5 ML DISP.SYRIN ONE (13:04)
[2024-04-27] MEDS ORDERED: PHENYLEPHRINE HCL 10 MG/1 ML SINGLE DOSE VIAL ONE (13:05)
[2024-04-27] MEDS ORDERED: ePHEDrine SULFATE 50 MG/1 ML AMPULE ONE (13:05)
[2024-04-27] MEDS: PANTOPRAZOLE 40 MG TABLET PO SCH (16:45)
[2024-04-27 17:38] VITALS: RESP 18
[2024-04-27] MEDS: FERROUS SO4 325 MG TABLET (FP) PO SCH (23:10)
[2024-04-28] MEDS: ASCORBIC ACID 500 MG TABLET (FP) PO SCH (09:47)
[2024-04-28] MEDS: FOLIC ACID 1 MG TABLET (FP) PO SCH (09:47)
[2024-04-29] MEDS: INSULIN ASPART SLIDING SCALE (NOVOLOG) 1 VIAL SQ SCH (16:37)
[2024-04-30 07:02] VITALS: BP 145/65; PULSE 75; TEMP 99
[2024-04-30 09:45] LABS: BASO % 0.8 % (0-2.0); EOS % 1.6 % (0-4.5); HEMATOCRIT 26.2 % (32.4-45.2); HEMOGLOBIN 8.9 GM/dL (10.7-15.3); LYMPH % 16.6 % (8-40); MCH 28.4 pg (25.7-33.7); MCHC 33.8 g/dl (32.0-36.0); MEAN PLT VOLUME 7.2 fl (7.5-11.1); MONO % 11.4 % (3.8-10.2); NEUT % 69.6 % (42.8-82.8); PLATELET COUNT 270 10^3/uL (134-434); RBC 3.12 M/mm3 (3.60-5.2); RDW 13.9 % (11.6-15.6); WHITE BLOOD COUNT 5.2 K/mm3 (4.0-10.0)
[2024-04-30 10:08] LABS: POTASSIUM 4.8 mmol/L (3.5-5.1)
[2024-04-30] MEDS: POLYETHYLENE GLYCOL (HEALTHYLAX) 3350 17 GM PACKET PO SCH (10:19)
[2024-04-30 10:37] LABS: ALBUMIN 2.7 g/dl (3.4-5.0); BLOOD UREA NITROGEN 14.2 mg/dL (7-18)
[2024-04-30 10:40] LABS: CREATININE 0.9 mg/dL (0.55-1.3)
[2024-04-30 10:41] LABS: BILIRUBIN,TOTAL 0.4 mg/dL (0.2-1)
[2024-04-30 10:42] LABS: TOT PROT 6.2 g/dl (6.4-8.2)
== END 2024-04-30 15:00 | disposition home or self-care (01) ==
LOC: JER 11:33 → JERBED 16:20 → J6S 19:51
PROVIDERS: ADMIT Internal Medicine; ATTEND Internal Medicine
PROC: 30233N1 Transfusion of Nonautologous Red Blood Cells into Peripheral Vein, Percutaneous Approach (ICD-10-PCS; principal; 2024-04-23)
PROC: 3E013VG Introduction of Insulin into Subcutaneous Tissue, Percutaneous Approach (ICD-10-PCS; 2024-04-23)
PROC: 3E033GC Introduction of Other Therapeutic Substance into Peripheral Vein, Percutaneous Approach (ICD-10-PCS; 2024-04-23)
PROC: 0DB78ZX Excision of Stomach, Pylorus, Via Natural or Artificial Opening Endoscopic, Diagnostic (ICD-10-PCS; 2024-04-27)
PROC: 0DBK8ZX Excision of Ascending Colon, Via Natural or Artificial Opening Endoscopic, Diagnostic (ICD-10-PCS; 2024-04-27)
PROC: 0DBL8ZX Excision of Transverse Colon, Via Natural or Artificial Opening Endoscopic, Diagnostic (ICD-10-PCS; 2024-04-27)
DX: D64.89 Other specified anemias (principal); F25.9 Schizoaffective disorder, unspecified; I10 Essential (primary) hypertension; I25.10 Atherosclerotic heart disease of native coronary artery without angina pectoris; D12.3 Benign neoplasm of transverse colon; K29.71 Gastritis, unspecified, with bleeding; D12.2 Benign neoplasm of ascending colon; Z86.718 Personal history of other venous thrombosis and embolism; E87.0 Hyperosmolality and hypernatremia; E78.5 Hyperlipidemia, unspecified; Z79.01 Long term (current) use of anticoagulants
CPT/HCPCS: 0241U-QW; 36415; 36430; 71046-TC-FY; 80048; 80053; 81003; 82272; 82607; 82728; 82746; 82962; 83540; 83550; 83735; 84100; 84443; 84484; 85025; 85027; 85045; 86850; 86900; 86901; 86922; 87077; 87086; 88305-TC; 88342-TC; 93005; 93010; 96372; 96374; 97116-GP; 97162-GP; 99285-25; G0378; P9038; P9058

== ENCOUNTER 2024-05-07 03:31 | Emergency (ER) | payer OTHER ==
[2024-05-07 03:47] VITALS: RESP 18; BMI 38.7
[2024-05-07 04:30] LABS: BASO % 0.6 % (0-2.0); HEMOGLOBIN 8.1 GM/dL (10.7-15.3); LYMPH % 8.6 % (8-40); MCH 28.7 pg (25.7-33.7); MCHC 33.9 g/dl (32.0-36.0); MEAN CELL VOLUME 84.8 fl (80-96); MEAN PLT VOLUME 6.8 fl (7.5-11.1); MONO % 9.5 % (3.8-10.2); NEUT % 80.3 % (42.8-82.8); PLATELET COUNT 308 10^3/uL (134-434); RBC 2.83 M/mm3 (3.60-5.2); RDW 14.3 % (11.6-15.6)
[2024-05-07 04:57] LABS: POTASSIUM 4.4 mmol/L (3.5-5.1)
[2024-05-07 04:58] LABS: ALBUMIN 2.9 g/dl (3.4-5.0); BLOOD UREA NITROGEN 21.6 mg/dL (7-18); CALCIUM 8.9 mg/dL (8.5-10.1); MAGNESIUM 1.8 mg/dL (1.8-2.4)
[2024-05-07 05:02] LABS: CREATININE 1.1 mg/dL (0.55-1.3)
[2024-05-07 05:04] LABS: BILIRUBIN,TOTAL 0.3 mg/dL (0.2-1); TOT PROT 6.2 g/dl (6.4-8.2)
[2024-05-07] MEDS ORDERED: ACETAMINOPHEN 325 MG TABLET (FP) ONE (05:04)
[2024-05-07] MEDS: ACETAMINOPHEN 325 MG TABLET (FP) PO ONE (05:20)
[2024-05-07 06:46] LABS: PH,URINE 5.5 (5.0-8.0); URINE APPEARANCE CLEAR; URINE BILIRUBIN NEGATIVE (NEGATIVE); URINE COLOR YELLOW; URINE GLUCOSE (UA) NEGATIVE (NEGATIVE); URINE KETONE NEGATIVE (NEGATIVE); URINE LEUK ESTERASE TRACE (NEGATIVE); URINE NITRITE NEGATIVE (NEGATIVE); URINE PROTEIN NEGATIVE (NEGATIVE); URINE UROBILINOGEN 0.2 mg/dL (0.2-1.0)
[2024-05-07 08:34] LABS: EPI CELLS 5.8 /uL (0-25.1); HYALINE CASTS 0.13 /uL (0-3.1); URINE BACTERIA 49.1 /uL (0-1359); URINE RBC 9.1 /uL (0-23.9); URINE WBC 5.4 /uL (0-25.8)
[2024-05-07 13:24] VITALS: BP 151/75; PULSE 94; TEMP 98.7
== END 2024-05-07 13:31 | disposition home or self-care (01) ==
LOC: JER 03:31
DX: E11.649 Type 2 diabetes mellitus with hypoglycemia without coma (principal); E51.9 Thiamine deficiency, unspecified; E53.1 Pyridoxine deficiency; Z20.822 Contact with and (suspected) exposure to COVID-19
CPT/HCPCS: 0241U-QW; 36415; 71045-TC-FY; 80053; 81003; 82962; 83735; 85025; 87077; 87086; 99284-25

== ENCOUNTER 2024-05-10 01:03 | Emergency (ER) | payer OTHER ==
[2024-05-10 01:18] VITALS: BMI 41.0
[2024-05-10 05:51] VITALS: TEMP 98.4
[2024-05-10 08:37] VITALS: BP 169/94; PULSE 95; RESP 18
== END 2024-05-10 08:53 | disposition home or self-care (01) ==
LOC: JER 01:03
DX: E11.649 Type 2 diabetes mellitus with hypoglycemia without coma (principal); M25.511 Pain in right shoulder; M25.512 Pain in left shoulder
CPT/HCPCS: 82962; 99283-25

== ENCOUNTER 2024-06-07 13:32 | Inpatient (IN) | payer OTHER ==
[2024-06-07 14:49] LABS: BASO % 0.5 % (0-2.0); EOS % 0.8 % (0-4.5); HEMATOCRIT 24.3 % (32.4-45.2); LYMPH % 7.9 % (8-40); MCH 27.3 pg (25.7-33.7); MCHC 32.9 g/dl (32.0-36.0); MEAN CELL VOLUME 83.1 fl (80-96); MEAN PLT VOLUME 6.8 fl (7.5-11.1); MONO % 11.1 % (3.8-10.2); NEUT % 79.7 % (42.8-82.8); PLATELET COUNT 296 10^3/uL (134-434); RBC 2.92 M/mm3 (3.60-5.2); RDW 15.3 % (11.6-15.6); WHITE BLOOD COUNT 7.4 K/mm3 (4.0-10.0)
[2024-06-07 15:43] LABS: CHLORIDE 86 mmol/L (98-107); POTASSIUM 5.4 mmol/L (3.5-5.1)
[2024-06-07 15:45] LABS: CALCIUM 8.8 mg/dL (8.5-10.1)
[2024-06-07 15:46] LABS: ALBUMIN 2.4 g/dl (3.4-5.0); BLOOD UREA NITROGEN 22.1 mg/dL (7-18); CO2 27 mmol/L (21-32); GLUCOSE,RANDOM 365 mg/dL (74-106); MAGNESIUM 1.6 mg/dL (1.8-2.4)
[2024-06-07 15:49] LABS: CREATININE 1.2 mg/dL (0.55-1.3); PHOSPHOROUS 3.7 mg/dL (2.5-4.9); SGOT/AST 37 U/L (15-37); SGPT/ALT 39 U/L (13-61)
[2024-06-07 15:50] LABS: BILIRUBIN,TOTAL 0.6 mg/dL (0.2-1); TOT PROT 6.3 g/dl (6.4-8.2)
[2024-06-07 15:59] LABS: ALK PHOS 204 U/L (45-117); ANION GAP 6 mmol/L (4-13); SODIUM 119 mmol/L (136-145)
[2024-06-07 16:44] LABS: EPI CELLS 3 /uL (0-25.1); HYALINE CASTS 0 /uL (0-3.1); PH,URINE 5.5 (5.0-8.0); URINE APPEARANCE CLOUDY; URINE BACTERIA >9,000 /uL (0-1359); URINE BILIRUBIN NEGATIVE (NEGATIVE); URINE COLOR YELLOW; URINE GLUCOSE (UA) 2+ (NEGATIVE); URINE KETONE NEGATIVE (NEGATIVE); URINE LEUK ESTERASE 3+ (NEGATIVE); URINE NITRITE POSITIVE (NEGATIVE); URINE PROTEIN 2+ (NEGATIVE); URINE RBC 42 /uL (0-23.9); URINE UROBILINOGEN 0.2 mg/dL (0.2-1.0); URINE WBC 1561 /uL (0-25.8)
[2024-06-07] MEDS: FUROSEMIDE 20 MG TABLET (FP) PO ONE (18:20)
[2024-06-07] MEDS: CEFTRIAXONE 1 G/50 ML PREMIX 50 ML IVPB SCH (18:20)
[2024-06-07] MEDS: SODIUM CHLORIDE 1 GM TABLET PO SCH (21:05)
[2024-06-07] MEDS ORDERED: ALBUTEROL SO4 HFA INHALER IH PRN (22:37)
[2024-06-07] MEDS: MAGNESIUM 2GM/50ML STERILE WATER IVPB IVPB ONE (22:45)
[2024-06-08] MEDS: INSULIN ASPART SLIDING SCALE (NOVOLOG) 1 VIAL SQ SCH (06:19)
[2024-06-08] MEDS: risperiDONE 1 MG TABLET PO SCH ×2 (06:19→21:42)
[2024-06-08 08:44] LABS: BASO % 0.5 % (0-2.0); EOS % 0.7 % (0-4.5); HEMATOCRIT 21.5 % (32.4-45.2); HEMOGLOBIN 7.4 GM/dL (10.7-15.3); LYMPH % 7.6 % (8-40); MCH 28.2 pg (25.7-33.7); MCHC 34.6 g/dl (32.0-36.0); MEAN CELL VOLUME 81.5 fl (80-96); MEAN PLT VOLUME 7.1 fl (7.5-11.1); MONO % 12.3 % (3.8-10.2); NEUT % 78.9 % (42.8-82.8); PLATELET COUNT 264 10^3/uL (134-434); RBC 2.63 M/mm3 (3.60-5.2); RDW 15.2 % (11.6-15.6); WHITE BLOOD COUNT 7.2 K/mm3 (4.0-10.0)
[2024-06-08 09:05] LABS: IRON SERUM 33 ug/dL (50-175)
[2024-06-08 09:05] LABS: POTASSIUM 5.3 mmol/L (3.5-5.1)
[2024-06-08 09:06] LABS: TOTAL IRON BINDING CAPACITY 172 ug/dL (250-450)
[2024-06-08 09:18] LABS: ALBUMIN 2.3 g/dl (3.4-5.0); BLOOD UREA NITROGEN 27.4 mg/dL (7-18); CALCIUM 8.9 mg/dL (8.5-10.1)
[2024-06-08 09:21] LABS: BILIRUBIN,TOTAL 0.5 mg/dL (0.2-1); TOT PROT 6.1 g/dl (6.4-8.2)
[2024-06-08 09:22] LABS: CREATININE 1.1 mg/dL (0.55-1.3)
[2024-06-08 09:23] LABS: PHOSPHOROUS 3.4 mg/dL (2.5-4.9)
[2024-06-08] MEDS: TAMSULOSIN HCL 0.4 MG CAP PO SCH (09:45)
[2024-06-08] MEDS: APIXABAN 5 MG TABLET PO SCH (09:45)
[2024-06-08] MEDS: PANTOPRAZOLE 40 MG TABLET PO SCH (09:45)
[2024-06-08] MEDS: FOLIC ACID 1 MG TABLET (FP) PO SCH (09:45)
[2024-06-08] MEDS: ASCORBIC ACID 500 MG TABLET (FP) PO SCH (09:45)
[2024-06-08] MEDS ORDERED: ENOXAPARIN NA (PORCINE) 40 MG/0.4 ML DISP.SYRIN SQ SCH (10:00)
[2024-06-08] MEDS: FERROUS SO4 325 MG TABLET (FP) PO SCH (12:09)
[2024-06-08] MEDS: FUROSEMIDE 40 MG/4 ML INJECTABLE VIAL IVPUSH ONE (17:29)
[2024-06-08] MEDS: ATORVASTATIN CA 40 MG TABLET (FP) PO SCH (21:42)
[2024-06-08] MEDS: HALOPERIDOL 5 MG TABLET PO SCH (21:42)
[2024-06-09] MEDS: ACETAMINOPHEN 1000 MG/100 ML BAG IVPB ONE (01:04)
[2024-06-09] MEDS: LIDOCAINE 4% PATCH TP SCH (01:05)
[2024-06-09 08:04] LABS: MCH 28.4 pg (25.7-33.7); MCHC 34.6 g/dl (32.0-36.0); MEAN CELL VOLUME 82.1 fl (80-96); MEAN PLT VOLUME 6.9 fl (7.5-11.1); PLATELET COUNT 271 10^3/uL (134-434); RDW 14.9 % (11.6-15.6); WHITE BLOOD COUNT 8.5 K/mm3 (4.0-10.0)
[2024-06-09 08:13] LABS: POTASSIUM 5.2 mmol/L (3.5-5.1)
[2024-06-09 08:15] LABS: CALCIUM 8.6 mg/dL (8.5-10.1)
[2024-06-09 08:16] LABS: ALBUMIN 2.1 g/dl (3.4-5.0); BLOOD UREA NITROGEN 27.8 mg/dL (7-18)
[2024-06-09 08:19] LABS: CREATININE 1.1 mg/dL (0.55-1.3)
[2024-06-09 08:20] LABS: BILIRUBIN,TOTAL 0.6 mg/dL (0.2-1)
[2024-06-09 08:21] LABS: TOT PROT 5.8 g/dl (6.4-8.2)
[2024-06-09] MEDS: LIDOCAINE PATCH REMOVAL MC SCH (09:04)
[2024-06-09] MEDS: IRON SUCROSE INJECTION 200 MG in SODIUM CHLORIDE 100 ML IVPB ONE (11:20)
[2024-06-09] MEDS: ONDANSETRON 4 MG/2 ML VIAL IVPUSH PRN (12:20)
[2024-06-09 13:35] LABS: RETICULOCYTES 0.95 % (0.5-1.5)
[2024-06-09] MEDS: PROCHLORPERAZINE INJECTION 10 MG/2 ML VIAL IVPB ONE (23:05)
[2024-06-10] MEDS: SODIUM PHOSPHATE/NA BIPHOS 133 ML ENEMA RC ONE (01:10)
[2024-06-10 08:28] LABS: BASO % 0.2 % (0-2.0); EOS % 0.2 % (0-4.5); HEMATOCRIT 25.1 % (32.4-45.2); HEMOGLOBIN 8.7 GM/dL (10.7-15.3); LYMPH % 4.6 % (8-40); MCH 27.9 pg (25.7-33.7); MCHC 34.5 g/dl (32.0-36.0); MEAN CELL VOLUME 80.9 fl (80-96); MEAN PLT VOLUME 6.7 fl (7.5-11.1); MONO % 7.4 % (3.8-10.2); NEUT % 87.6 % (42.8-82.8); PLATELET COUNT 300 10^3/uL (134-434); RDW 15.4 % (11.6-15.6); WHITE BLOOD COUNT 11.1 K/mm3 (4.0-10.0)
[2024-06-10 08:50] LABS: ALBUMIN 2.3 g/dl (3.4-5.0); BLOOD UREA NITROGEN 19.1 mg/dL (7-18); CALCIUM 9.6 mg/dL (8.5-10.1)
[2024-06-10 08:54] LABS: BILIRUBIN,TOTAL 0.8 mg/dL (0.2-1); CREATININE 0.8 mg/dL (0.55-1.3)
[2024-06-10 08:55] LABS: TOT PROT 6.1 g/dl (6.4-8.2)
[2024-06-10] MEDS: SODIUM CHLORIDE 1,000 ML IV SCH (10:16)
[2024-06-10] MEDS: PANTOPRAZOLE SODIUM 40 MG VIAL IVPUSH SCH (11:32)
[2024-06-10] MEDS: SODIUM CHLORIDE 3% 500 ML/500 ML INFUS.BAG IV ONE (20:00)
[2024-06-10] MEDS: hydrALAZINE HCL 20 MG/ML VIAL IVPUSH PRN (21:14)
[2024-06-10 21:43] LABS: POTASSIUM 4.6 mmol/L (3.5-5.1)
[2024-06-10 21:50] LABS: BLOOD UREA NITROGEN 15.4 mg/dL (7-18)
[2024-06-10 21:52] LABS: CREATININE 0.9 mg/dL (0.55-1.3)
[2024-06-10] MEDS: CHLORHEXIDINE GLUCONATE 4% CLEANSER FOR DECOLONIZATION TP SCH (23:25)
[2024-06-10] MEDS: MUPIROCIN 2% TOPICAL OINTMENT FOR DECOLONIZATION NS SCH (23:50)
[2024-06-11 00:04] LABS: POTASSIUM 4.5 mmol/L (3.5-5.1)
[2024-06-11 00:05] LABS: CALCIUM 9.2 mg/dL (8.5-10.1)
[2024-06-11 00:06] LABS: BLOOD UREA NITROGEN 15.9 mg/dL (7-18)
[2024-06-11 00:09] LABS: CREATININE 0.8 mg/dL (0.55-1.3)
[2024-06-11] MEDS: hydrALAZINE HCL 20 MG/ML VIAL IVPUSH ONE (00:30)
[2024-06-11 02:18] LABS: POTASSIUM 4.5 mmol/L (3.5-5.1)
[2024-06-11 02:20] LABS: BLOOD UREA NITROGEN 15.6 mg/dL (7-18); CALCIUM 9.2 mg/dL (8.5-10.1)
[2024-06-11 02:24] LABS: CREATININE 0.8 mg/dL (0.55-1.3)
[2024-06-11 08:28] LABS: BASO % 0.4 % (0-2.0); EOS % 0.6 % (0-4.5); HEMATOCRIT 24.6 % (32.4-45.2); HEMOGLOBIN 8.3 GM/dL (10.7-15.3); LYMPH % 7.6 % (8-40); MCH 27.7 pg (25.7-33.7); MCHC 33.6 g/dl (32.0-36.0); MEAN CELL VOLUME 82.3 fl (80-96); MEAN PLT VOLUME 7.1 fl (7.5-11.1); MONO % 10.4 % (3.8-10.2); PLATELET COUNT 307 10^3/uL (134-434); RBC 2.99 M/mm3 (3.60-5.2); RDW 14.8 % (11.6-15.6); WHITE BLOOD COUNT 10.4 K/mm3 (4.0-10.0)
[2024-06-11 08:42] LABS: INR 1.38 (0.83-1.09); PROTHROMBIN TIME (PATIENT) 15.2 SEC (9.7-13.0)
[2024-06-11 08:45] LABS: ACTIVATED PTT 27.8 SECONDS (25.2-36.5)
[2024-06-11] MEDS ORDERED: INSULIN ASPART SLIDING SCALE (NOVOLOG) 1 VIAL SQ ONE (09:56)
[2024-06-11] MEDS ORDERED: ENOXAPARIN NA (PORCINE) 120 MG/0.8 ML DISP.SYRIN SQ SCH (10:00)
[2024-06-11] MEDS: SODIUM CHLORIDE 1,000 ML IV SCH ×2 (10:13→12:40)
[2024-06-11] MEDS ORDERED: ALBUTEROL SO4 HFA INHALER IH PRN (12:09)
[2024-06-11] MEDS ORDERED: ONDANSETRON 4 MG/2 ML VIAL IVPUSH PRN (12:09)
[2024-06-11] MEDS ORDERED: hydrALAZINE HCL 20 MG/ML VIAL IVPUSH PRN (12:09)
[2024-06-11 13:28] LABS: POTASSIUM 4.3 mmol/L (3.5-5.1)
[2024-06-11 13:29] LABS: CALCIUM 9.5 mg/dL (8.5-10.1)
[2024-06-11 13:30] LABS: BLOOD UREA NITROGEN 17.4 mg/dL (7-18)
[2024-06-11 15:55] VITALS: BMI 41.9
[2024-06-11] MEDS: INSULIN ASPART SLIDING SCALE (NOVOLOG) 1 VIAL SQ SCH (17:51)
[2024-06-11] MEDS ORDERED: MEROPENEM 1 GM in DEXTROSE 5%-WATER 100 ML IVPB SCH (18:00)
[2024-06-11 18:07] LABS: IG A QN SERUM. 258 mg/dL (64-422)
[2024-06-11] MEDS: MEROPENEM-0.9% SODIUM CHLORIDE 1 GM/50 ML BAG IVPB SCH (18:29)
[2024-06-11] MEDS ORDERED: MUPIROCIN 2% TOPICAL OINTMENT FOR DECOLONIZATION NS SCH (22:00)
[2024-06-11] MEDS ORDERED: CHLORHEXIDINE GLUCONATE 4% CLEANSER FOR DECOLONIZATION TP SCH (22:00)
[2024-06-11] MEDS: ATORVASTATIN CA 40 MG TABLET (FP) PO SCH (22:44)
[2024-06-11] MEDS: HALOPERIDOL 5 MG TABLET PO SCH (22:44)
[2024-06-11] MEDS: risperiDONE 1 MG TABLET PO SCH (22:45)
[2024-06-11] MEDS: SODIUM CHLORIDE 1 GM TABLET PO SCH (22:46)
[2024-06-11] MEDS: ENOXAPARIN NA (PORCINE) 120 MG/0.8 ML DISP.SYRIN SQ SCH (23:32)
[2024-06-11] MEDS: LIDOCAINE 4% PATCH TP SCH (23:32)
[2024-06-12] MEDS: risperiDONE 1 MG TABLET PO SCH (06:08)
[2024-06-12] MEDS: LOSARTAN POTASSIUM 25 MG TABLET PO SCH (10:00)
[2024-06-12] MEDS: FOLIC ACID 1 MG TABLET (FP) PO SCH (10:00)
[2024-06-12] MEDS: ASCORBIC ACID 500 MG TABLET (FP) PO SCH (10:00)
[2024-06-12] MEDS: LIDOCAINE PATCH REMOVAL MC SCH ×2 (10:01→10:10)
[2024-06-12] MEDS: PANTOPRAZOLE SODIUM 40 MG VIAL IVPUSH SCH (10:02)
[2024-06-12 10:11] LABS: HEMATOCRIT 24.4 % (32.4-45.2); HEMOGLOBIN 8.2 GM/dL (10.7-15.3); MCH 27.9 pg (25.7-33.7); MCHC 33.7 g/dl (32.0-36.0); MEAN CELL VOLUME 82.9 fl (80-96); MEAN PLT VOLUME 6.7 fl (7.5-11.1); PLATELET COUNT 300 10^3/uL (134-434); RBC 2.95 M/mm3 (3.60-5.2); RDW 15.4 % (11.6-15.6); WHITE BLOOD COUNT 9.3 K/mm3 (4.0-10.0)
[2024-06-12] MEDS: CEFTRIAXONE 1 G/50 ML PREMIX 50 ML IVPB SCH (10:13)
[2024-06-12 13:06] LABS: POTASSIUM 4.7 mmol/L (3.5-5.1)
[2024-06-12 13:25] LABS: ALBUMIN 2.2 g/dl (3.4-5.0)
[2024-06-12 13:27] LABS: CALCIUM 9.5 mg/dL (8.5-10.1)
[2024-06-12 13:29] LABS: BLOOD UREA NITROGEN 20.1 mg/dL (7-18); MAGNESIUM 1.9 mg/dL (1.8-2.4)
[2024-06-12 13:33] LABS: BILIRUBIN,TOTAL 0.7 mg/dL (0.2-1); PHOSPHOROUS 3.2 mg/dL (2.5-4.9)
[2024-06-12 18:08] LABS: FREE KAPPA,SERUM 38.4 mg/L (3.3-19.4)
[2024-06-12] MEDS: hydrALAZINE HCL 10 MG TABLET PO PRN (22:54)
[2024-06-13] MEDS: guaiFENesin/D-METHORPHAN HB 10 ML UNIT-DOSE CUPS PO ONE (06:36)
[2024-06-13] MEDS: SODIUM CHLORIDE 3% 500 ML/500 ML INFUS.BAG IV ONE (07:17)
[2024-06-13] MEDS: LIDOCAINE PATCH REMOVAL MC SCH (07:17)
[2024-06-13] MEDS: IRON SUCROSE INJECTION 200 MG in SODIUM CHLORIDE 100 ML IVPB ONE (12:36)
[2024-06-13 12:55] VITALS: RESP 20
[2024-06-13 14:10] VITALS: BP 151/76; PULSE 82; TEMP 98.7
[2024-06-17 15:06] LABS: RENIN ACTIVITY(PRA) 1.421 ng/mL/hr (0.167-5.380)
== END 2024-06-13 16:46 | DRG 812 ==
LOC: JER 13:32 → JERBED 14:24 → J4W 16:48 → JICU 06-10 20:02 → J5S 06-11 11:49 → J6S 06-11 22:25 → J7W 06-12 17:04
PROVIDERS: ADMIT Internal Medicine; ATTEND Internal Medicine
PROC: 30233N1 Transfusion of Nonautologous Red Blood Cells into Peripheral Vein, Percutaneous Approach (ICD-10-PCS; principal; 2024-06-08)
PROC: 05HD33Z Insertion of Infusion Device into Right Cephalic Vein, Percutaneous Approach (ICD-10-PCS; 2024-06-10)
DX: D64.89 Other specified anemias (principal); N39.0 Urinary tract infection, site not specified; E87.1 Hypo-osmolality and hyponatremia; Z16.12 Extended spectrum beta lactamase (ESBL) resistance; Z68.41 Body mass index [BMI] 40.0-44.9, adult; K56.699 Other intestinal obstruction unspecified as to partial versus complete obstruction; F25.9 Schizoaffective disorder, unspecified; E78.5 Hyperlipidemia, unspecified; E87.5 Hyperkalemia; I10 Essential (primary) hypertension; I25.10 Atherosclerotic heart disease of native coronary artery without angina pectoris; E11.649 Type 2 diabetes mellitus with hypoglycemia without coma; D63.8 Anemia in other chronic diseases classified elsewhere; E66.9 Obesity, unspecified; B96.29 Other Escherichia coli [E. coli] as the cause of diseases classified elsewhere; K21.9 Gastro-esophageal reflux disease without esophagitis; Z95.0 Presence of cardiac pacemaker
CPT/HCPCS: 36415; 36430; 71045-TC-FY; 74018-TC-FY; 74176-TC; 76705-TC; 80048; 80053; 81003; 82088; 82150; 82533; 82728; 82784; 82962; 83010; 83036; 83540; 83550; 83615; 83690; 83735; 83883; 83930; 83935; 84100; 84155; 84165; 84244; 84300; 84443; 84484; 85025; 85027; 85045; 85610; 85730; 86850; 86880; 86900; 86901; 86922; 87040; 87086; 87186; 93005; 93010; 97116-GP; 97162-GP; 99285-25; J0131; J1756; P9058

== ENCOUNTER 2024-07-05 07:43 | Emergency (ER) | payer OTHER ==
[2024-07-05 08:15] VITALS: BMI 43.8
[2024-07-05] MEDS ORDERED: ACETAMINOPHEN 325 MG TABLET (FP) ONE ×2 (08:20→17:09)
[2024-07-05] MEDS: ACETAMINOPHEN 500 MG TABLET (FP) PO ONE ×2 (08:54→17:37)
[2024-07-05 09:51] LABS: BASO % 0.6 % (0-2.0); EOS % 0.9 % (0-4.5); HEMATOCRIT 19.7 % (32.4-45.2); LYMPH % 8.8 % (8-40); MCHC 33.7 g/dl (32.0-36.0); MEAN PLT VOLUME 6.8 fl (7.5-11.1); MONO % 12.8 % (3.8-10.2); NEUT % 76.9 % (42.8-82.8); PLATELET COUNT 230 10^3/uL (134-434); RBC 2.38 M/mm3 (3.60-5.2); RDW 16.4 % (11.6-15.6); WHITE BLOOD COUNT 6.9 K/mm3 (4.0-10.0)
[2024-07-05 09:58] LABS: HEMOGLOBIN 6.7 GM/dL (10.7-15.3)
[2024-07-05 10:10] LABS: POTASSIUM 5.1 mmol/L (3.5-5.1)
[2024-07-05 10:13] LABS: CALCIUM 8.4 mg/dL (8.5-10.1)
[2024-07-05 10:14] LABS: ALBUMIN 1.7 g/dl (3.4-5.0); BLOOD UREA NITROGEN 19.3 mg/dL (7-18)
[2024-07-05 10:16] LABS: CREATININE 1.1 mg/dL (0.55-1.3)
[2024-07-05 10:18] LABS: BILIRUBIN,TOTAL 0.6 mg/dL (0.2-1)
[2024-07-05 10:19] LABS: TOT PROT 5.7 g/dl (6.4-8.2)
[2024-07-05] MEDS ORDERED: hydrALAZINE HCL 10 MG TABLET ONE (16:44)
[2024-07-05] MEDS: hydrALAZINE HCL 10 MG TABLET PO ONE (16:48)
[2024-07-05 18:06] VITALS: BP 160/66; PULSE 80; RESP 20; TEMP 98.5
== END 2024-07-05 17:38 ==
LOC: JER 07:43
DX: D50.9 Iron deficiency anemia, unspecified (principal); L22 Diaper dermatitis; R14.0 Abdominal distension (gaseous)
CPT/HCPCS: 36415; 36430; 80053; 85025; 86850; 86900; 86901; 86922; 99285-25; P9058

== ENCOUNTER 2024-07-12 08:49 | Inpatient (IN) | payer OTHER ==
[2024-07-12 11:10] LABS: INR 1.54 (0.83-1.09); PROTHROMBIN TIME (PATIENT) 16.9 SEC (9.7-13.0)
[2024-07-12 11:12] LABS: ACTIVATED PTT 38.4 SECONDS (25.2-36.5)
[2024-07-12 11:32] LABS: CALCIUM 8.7 mg/dL (8.5-10.1)
[2024-07-12 11:33] LABS: ALBUMIN 1.7 g/dl (3.4-5.0); BLOOD UREA NITROGEN 19.8 mg/dL (7-18)
[2024-07-12 11:38] LABS: TOT PROT 5.8 g/dl (6.4-8.2)
[2024-07-12 11:43] LABS: BILIRUBIN,TOTAL 0.5 mg/dL (0.2-1)
[2024-07-12 12:12] LABS: ABSOLUTE IMMATURE GRANULOCYTES 0.17 x10^3/uL (0.0-0.031); BASOPHILS # 0.03 x10^3/uL (0.01-0.08); EOSINOPHIL % 1.9 % (0.7-5.8); EOSINOPHILS # 0.17 x10^3/uL (0.04-0.36); HEMATOCRIT 21.4 % (34.1-44.9); HEMOGLOBIN 6.6 g/dL (11.2-15.7); MCHC 30.8 g/dl (32.2-35.5); MEAN CELL VOLUME 88.4 fl (79.4-94.8); MEAN PLT VOLUME 9.5 fl (9.4-12.3); MONOCYTE # 1.19 x10^3/uL (0.24-0.86); MONOCYTE % 13.5 % (4.7-12.5); PLATELET COUNT 253 x10^3/uL (182-369); RDW 15.7 % (12.4-16.6)
[2024-07-12] MEDS: ATORVASTATIN CA 40 MG TABLET (FP) PO SCH (21:18)
[2024-07-12] MEDS: HALOPERIDOL 5 MG TABLET PO SCH (21:19)
[2024-07-12] MEDS: ACETAMINOPHEN 1000 MG/100 ML BAG IVPB ONE (21:19)
[2024-07-13] MEDS: risperiDONE 1 MG TABLET PO SCH (06:02)
[2024-07-13] MEDS: ACETAMINOPHEN 500 MG TABLET (FP) PO ONE (06:02)
[2024-07-13 08:26] LABS: URINE APPEARANCE TURBID; URINE BILIRUBIN NEGATIVE (NEGATIVE); URINE COLOR YELLOW; URINE GLUCOSE (UA) 1+ (NEGATIVE); URINE KETONE NEGATIVE (NEGATIVE)
[2024-07-13 08:27] LABS: URINE PROTEIN 2+ (NEGATIVE)
[2024-07-13 08:28] LABS: EPI CELLS 72.5 /uL (0-25.1); URINE LEUK ESTERASE 3+ (NEGATIVE); URINE NITRITE NEGATIVE (NEGATIVE); URINE RBC 1010.5 /uL (0-23.9)
[2024-07-13] MEDS: LOSARTAN POTASSIUM 25 MG TABLET PO SCH (09:07)
[2024-07-13 09:21] LABS: HEMATOCRIT 23.4 % (34.1-44.9); HEMOGLOBIN 7.5 g/dL (11.2-15.7); MCHC 32.1 g/dl (32.2-35.5); MEAN CELL VOLUME 86.3 fl (79.4-94.8); MEAN PLT VOLUME 9.7 fl (9.4-12.3); PLATELET COUNT 277 x10^3/uL (182-369); RDW 15.6 % (12.4-16.6)
[2024-07-13 09:46] LABS: POTASSIUM 5.2 mmol/L (3.5-5.1)
[2024-07-13 09:53] LABS: ALBUMIN 1.6 g/dl (3.4-5.0); BLOOD UREA NITROGEN 17.1 mg/dL (7-18); CALCIUM 8.4 mg/dL (8.5-10.1); MAGNESIUM 1.7 mg/dL (1.8-2.4)
[2024-07-13 09:56] LABS: BILIRUBIN,TOTAL 0.6 mg/dL (0.2-1); TOT PROT 5.7 g/dl (6.4-8.2)
[2024-07-13 09:57] LABS: PHOSPHOROUS 3.2 mg/dL (2.5-4.9)
[2024-07-13] MEDS: PANTOPRAZOLE 40 MG TABLET PO SCH (11:17)
[2024-07-13] MEDS: amLODIPine BESYLATE 10 MG TABLET (FP) PO SCH (11:17)
[2024-07-13] MEDS: INSULIN (NOVOLOG) ASPART 100 UNITS/ML 10ML VIAL SQ SCH (11:22)
[2024-07-13] MEDS: ACETAMINOPHEN 1000 MG/100 ML BAG IVPB PRN (15:41)
[2024-07-13] MEDS: ERTAPENEM SODIUM 1 GM in SODIUM CHLORIDE 50 ML IVPB SCH (19:30)
[2024-07-13] MEDS: FUROSEMIDE 40 MG/4 ML INJECTABLE VIAL IVPUSH ONE (19:30)
[2024-07-13] MEDS: BENZONATATE 100 MG CAPSULE PO SCH (21:10)
[2024-07-13 23:51] LABS: BASOPHILS # 0.05 x10^3/uL (0.01-0.08); EOSINOPHIL % 1.2 % (0.7-5.8); EOSINOPHILS # 0.11 x10^3/uL (0.04-0.36); MONOCYTE # 1.03 x10^3/uL (0.24-0.86); MONOCYTE % 11.1 % (4.7-12.5); Reticulocyte % 1.48 % (0.5-1.7)
[2024-07-14] MEDS: FUROSEMIDE 40 MG/4 ML INJECTABLE VIAL IVPUSH SCH (16:48)
[2024-07-15] MEDS: ACETAMINOPHEN 1000 MG/100 ML BAG IVPB ONE (06:13)
[2024-07-15 08:38] LABS: HEMATOCRIT 22.5 % (34.1-44.9); HEMOGLOBIN 7.1 g/dL (11.2-15.7); MCHC 31.6 g/dl (32.2-35.5); MEAN CELL VOLUME 85.9 fl (79.4-94.8); MEAN PLT VOLUME 9.7 fl (9.4-12.3); PLATELET COUNT 269 x10^3/uL (182-369); RDW 15.7 % (12.4-16.6)
[2024-07-15 08:58] LABS: POTASSIUM 4.5 mmol/L (3.5-5.1)
[2024-07-15 09:03] LABS: ALBUMIN 1.5 g/dl (3.4-5.0); BLOOD UREA NITROGEN 18.9 mg/dL (7-18); CALCIUM 8.1 mg/dL (8.5-10.1)
[2024-07-15 09:04] LABS: MAGNESIUM 1.4 mg/dL (1.8-2.4)
[2024-07-15 09:06] LABS: CREATININE 1.1 mg/dL (0.55-1.3)
[2024-07-15 09:07] LABS: BILIRUBIN,TOTAL 0.5 mg/dL (0.2-1)
[2024-07-15 09:08] LABS: TOT PROT 5.4 g/dl (6.4-8.2)
[2024-07-15] MEDS: hydrALAZINE HCL 10 MG TABLET PO PRN (09:59)
[2024-07-15] MEDS: MINERAL OIL/PET HY-PHL TOPICAL OINTMENT 454 GM JAR TP SCH (10:20)
[2024-07-15] MEDS: ALBUTEROL SULFATE 0.021% (0.63 MG/3 ML) VIAL.NEB NEB SCH (14:38)
[2024-07-15] MEDS: FUROSEMIDE 40 MG/4 ML INJECTABLE VIAL IVPUSH ONE (15:42)
[2024-07-15] MEDS: IRON SUCROSE INJECTION 200 MG in SODIUM CHLORIDE 100 ML IVPB ONE (15:45)
[2024-07-15] MEDS ORDERED: SENNOSIDES 8.6MG TABLET (FP) PO PRN (19:52)
[2024-07-15] MEDS: LORATADINE 10 MG TABLET PO SCH (20:48)
[2024-07-15] MEDS: FLUTICASONE PROP 0.05% 16 GM NASAL SPRAY NS SCH (21:45)
[2024-07-16 08:40] LABS: HEMATOCRIT 22.2 % (34.1-44.9); MCHC 31.5 g/dl (32.2-35.5); MEAN CELL VOLUME 86.4 fl (79.4-94.8); MEAN PLT VOLUME 9.7 fl (9.4-12.3); PLATELET COUNT 252 x10^3/uL (182-369); RDW 15.6 % (12.4-16.6)
[2024-07-16 09:37] LABS: POTASSIUM 4.9 mmol/L (3.5-5.1)
[2024-07-16 10:16] LABS: CREATININE 1.1 mg/dL (0.55-1.3)
[2024-07-16 10:18] LABS: BLOOD UREA NITROGEN 19.2 mg/dL (7-18)
[2024-07-16] MEDS: FERROUS GLUCONATE 324 MG TAB (FP) PO SCH (11:05)
[2024-07-16 19:25] VITALS: RESP 18
[2024-07-17 08:40] LABS: HEMATOCRIT 23.6 % (34.1-44.9); HEMOGLOBIN 7.8 g/dL (11.2-15.7); MCHC 33.1 g/dl (32.2-35.5); MEAN CELL VOLUME 84.3 fl (79.4-94.8); MEAN PLT VOLUME 9.4 fl (9.4-12.3); PLATELET COUNT 247 x10^3/uL (182-369); RDW 15.5 % (12.4-16.6)
[2024-07-17 08:54] LABS: POTASSIUM 4.6 mmol/L (3.5-5.1)
[2024-07-17 08:56] LABS: CALCIUM 8.2 mg/dL (8.5-10.1)
[2024-07-17 08:57] LABS: ALBUMIN 1.5 g/dl (3.4-5.0); BLOOD UREA NITROGEN 19.1 mg/dL (7-18)
[2024-07-17 09:02] LABS: BILIRUBIN,TOTAL 0.6 mg/dL (0.2-1); TOT PROT 5.4 g/dl (6.4-8.2)
[2024-07-17] MEDS: IRON SUCROSE INJECTION 200 MG in SODIUM CHLORIDE 100 ML IVPB ONE (10:49)
[2024-07-17] MEDS ORDERED: INSULIN ASPART SLIDING SCALE (NOVOLOG) 1 VIAL SQ ONE ×3 (11:25→21:09)
[2024-07-17 13:03] VITALS: BMI 46.7
[2024-07-17] MEDS: AMINO ACIDS/PROTEIN HYDROLYS 30 ML LIQUID.PKT PO SCH (17:27)
[2024-07-18 00:16] LABS: POTASSIUM 4.8 mmol/L (3.5-5.1)
[2024-07-18 00:18] LABS: ALBUMIN 1.6 g/dl (3.4-5.0); CALCIUM 8.1 mg/dL (8.5-10.1); MAGNESIUM 1.3 mg/dL (1.8-2.4)
[2024-07-18 00:19] LABS: BLOOD UREA NITROGEN 21.8 mg/dL (7-18)
[2024-07-18 00:22] LABS: CREATININE 1.1 mg/dL (0.55-1.3)
[2024-07-18 00:24] LABS: BILIRUBIN,TOTAL 0.5 mg/dL (0.2-1); TOT PROT 5.5 g/dl (6.4-8.2)
[2024-07-18] MEDS: MAGNESIUM SULF 50% (8.12 MEQ/2 ML-1 GM VIAL) IVPB ONE ×2 (06:51→12:51)
[2024-07-18 09:33] LABS: POTASSIUM 4.8 mmol/L (3.5-5.1)
[2024-07-18 09:36] LABS: ALBUMIN 1.5 g/dl (3.4-5.0); BLOOD UREA NITROGEN 21.9 mg/dL (7-18); MAGNESIUM 1.5 mg/dL (1.8-2.4)
[2024-07-18 09:39] LABS: CREATININE 1.1 mg/dL (0.55-1.3)
[2024-07-18 09:41] LABS: BILIRUBIN,TOTAL 0.6 mg/dL (0.2-1); TOT PROT 5.4 g/dl (6.4-8.2)
[2024-07-18 10:24] LABS: HEMATOCRIT 24.1 % (34.1-44.9); HEMOGLOBIN 7.7 g/dL (11.2-15.7); MEAN CELL VOLUME 85.2 fl (79.4-94.8); RDW 15.3 % (12.4-16.6)
[2024-07-18 15:16] VITALS: BP 134/60; PULSE 86; TEMP 99
[2024-07-18 18:06] LABS: MEAN PLT VOLUME 9.9 fl (9.4-12.3); PLATELET COUNT 251 x10^3/uL (182-369)
== END 2024-07-18 15:14 | DRG 811 ==
LOC: JER 08:49 → JERBED 12:42 → J8W 18:12
PROVIDERS: ADMIT Internal Medicine; ATTEND Internal Medicine
PROC: 30233N1 Transfusion of Nonautologous Red Blood Cells into Peripheral Vein, Percutaneous Approach (ICD-10-PCS; principal; 2024-07-12)
DX: D64.9 Anemia, unspecified (principal); I50.31 Acute diastolic (congestive) heart failure; E87.1 Hypo-osmolality and hyponatremia; N39.0 Urinary tract infection, site not specified; Z68.42 Body mass index [BMI] 45.0-49.9, adult; F25.9 Schizoaffective disorder, unspecified; E78.5 Hyperlipidemia, unspecified; E11.9 Type 2 diabetes mellitus without complications; Z95.0 Presence of cardiac pacemaker; I11.0 Hypertensive heart disease with heart failure; Z86.718 Personal history of other venous thrombosis and embolism; E87.5 Hyperkalemia; I25.10 Atherosclerotic heart disease of native coronary artery without angina pectoris; K21.9 Gastro-esophageal reflux disease without esophagitis; E66.01 Morbid (severe) obesity due to excess calories
CPT/HCPCS: 0241U-QW; 36415; 36430; 71045-TC-FY; 80048; 80053; 81003; 82272; 82728; 82962; 83540; 83550; 83615; 83735; 83880; 84100; 85025; 85027; 85610; 85730; 86850; 86900; 86901; 86922; 87040; 87086; 87186; 87338; 87635; 93005; 93010; 93306-TC; 94640; 97161-GP; 99285-25; J0131; J1756; P9058

== ENCOUNTER 2024-08-27 02:28 | Inpatient (IN) | payer OTHER ==
[2024-08-27] MEDS ORDERED: ACETAMINOPHEN INJECTION 100 ML ONE (03:36)
[2024-08-27] MEDS: ACETAMINOPHEN 1000 MG/100 ML BAG IVPB ONE (03:58)
[2024-08-27 04:07] LABS: HEMOGLOBIN 7.7 g/dL (11.2-15.7)
[2024-08-27 04:09] LABS: ABSOLUTE IMMATURE GRANULOCYTES 0.27 x10^3/uL (0.0-0.031); BASOPHILS # 0.06 x10^3/uL (0.01-0.08); EOSINOPHIL % 1.3 % (0.7-5.8); EOSINOPHILS # 0.16 x10^3/uL (0.04-0.36); HEMATOCRIT 24.2 % (34.1-44.9); MCHC 31.8 g/dl (32.2-35.5); MEAN CELL VOLUME 85.8 fl (79.4-94.8); MONOCYTE # 1.41 x10^3/uL (0.24-0.86); PLATELET COUNT 125 x10^3/uL (182-369); RDW 15.9 % (12.4-16.6)
[2024-08-27 04:20] LABS: INR 2.55 (0.83-1.09); PROTHROMBIN TIME (PATIENT) 28.1 SEC (9.7-13.0)
[2024-08-27 04:22] LABS: ACTIVATED PTT 43.3 SECONDS (25.2-36.5)
[2024-08-27 04:34] LABS: POTASSIUM 4.1 mmol/L (3.5-5.1)
[2024-08-27 04:36] LABS: BLOOD UREA NITROGEN 34.6 mg/dL (7-18); CALCIUM 8.9 mg/dL (8.5-10.1)
[2024-08-27 04:39] LABS: CREATININE 1.3 mg/dL (0.55-1.3)
[2024-08-27 04:41] LABS: TOT PROT 6.2 g/dl (6.4-8.2)
[2024-08-27 05:13] LABS: ALBUMIN 1.6 g/dl (3.4-5.0)
[2024-08-27] MEDS: SODIUM CHLORIDE 1,000 ML IV SCH (06:12)
[2024-08-27] MEDS ORDERED: PANTOPRAZOLE 40 MG TABLET PO SCH (10:00)
[2024-08-27] MEDS: LIDOCAINE PATCH REMOVAL MC SCH (10:00)
[2024-08-27] MEDS ORDERED: PHYTONADIONE 10 MG/1 ML AMP IVPB ONE ×2 (10:30→14:45)
[2024-08-27] MEDS: ALBUTEROL SO4 2.5/IPRATROPIUM 0.5 INH SOL 3 ML VIAL.NEB. NEB SCH (12:35)
[2024-08-27] MEDS: LORATADINE 10 MG TABLET PO SCH (14:22)
[2024-08-27] MEDS: amLODIPine BESYLATE 10 MG TABLET (FP) PO SCH (14:22)
[2024-08-27] MEDS: LOSARTAN POTASSIUM 50 MG TABLET PO SCH (14:22)
[2024-08-27] MEDS: PANTOPRAZOLE 40 MG TABLET PO SCH (15:30)
[2024-08-27] MEDS: SODIUM CHLORIDE 1 GM TABLET PO SCH (15:30)
[2024-08-27] MEDS: D5-1/2NS+20 MEQ KCL - 20 MEQ/1,000 ML INFUS.BAG IV SCH (17:29)
[2024-08-27] MEDS: PHYTONADIONE 10 MG/1 ML AMP IVPB ONE (18:03)
[2024-08-27 18:45] VITALS: BMI 47.2
[2024-08-27] MEDS: ATORVASTATIN CA 40 MG TABLET (FP) PO SCH (22:50)
[2024-08-27] MEDS: HALOPERIDOL 5 MG TABLET PO SCH (23:10)
[2024-08-27] MEDS: LIDOCAINE 4% PATCH TP SCH (23:11)
[2024-08-28] MEDS: MAGNESIUM CITRATE 300 ML BOTTLE PO ONE ×2 (00:16→21:27)
[2024-08-28] MEDS: POLYETHYLENE GLYCOL (HEALTHYLAX) 3350 17 GM PACKET PO SCH ×2 (00:17→10:13)
[2024-08-28] MEDS: INSULIN (NOVOLOG) ASPART 100 UNITS/ML 10ML VIAL SQ ONE (00:47)
[2024-08-28] MEDS: risperiDONE 1 MG TABLET PO SCH (06:10)
[2024-08-28 07:48] LABS: RDW 16.4 % (12.4-16.6)
[2024-08-28 07:49] LABS: ABSOLUTE IMMATURE GRANULOCYTES 0.12 x10^3/uL (0.0-0.031); BASOPHILS # 0.06 x10^3/uL (0.01-0.08); EOSINOPHIL % 0.5 % (0.7-5.8); EOSINOPHILS # 0.06 x10^3/uL (0.04-0.36); HEMATOCRIT 25.7 % (34.1-44.9); HEMOGLOBIN 8.3 g/dL (11.2-15.7); MCHC 32.3 g/dl (32.2-35.5); MEAN CELL VOLUME 85.1 fl (79.4-94.8); MEAN PLT VOLUME 12.7 fl (9.4-12.3); MONOCYTE # 1.12 x10^3/uL (0.24-0.86); MONOCYTE % 8.9 % (4.7-12.5); PLATELET COUNT 109 x10^3/uL (182-369)
[2024-08-28 08:03] LABS: POTASSIUM 4.2 mmol/L (3.5-5.1)
[2024-08-28 08:06] LABS: ALBUMIN 1.5 g/dl (3.4-5.0); BLOOD UREA NITROGEN 34.5 mg/dL (7-18); CALCIUM 8.7 mg/dL (8.5-10.1)
[2024-08-28 08:10] LABS: CREATININE 1.4 mg/dL (0.55-1.3)
[2024-08-28 08:11] LABS: TOT PROT 5.8 g/dl (6.4-8.2)
[2024-08-28 08:43] LABS: INR 2.45 (0.83-1.09); PROTHROMBIN TIME (PATIENT) 26.9 SEC (9.7-13.0)
[2024-08-28] MEDS: PHYTONADIONE 10 MG/1 ML AMP IVPB ONE (10:43)
[2024-08-28] MEDS: LACTATED RINGERS SOLUTION 1,000 ML/1,000 ML INFUS.BAG IV SCH (10:43)
[2024-08-28] MEDS: INSULIN ASPART SLIDING SCALE (NOVOLOG) 1 VIAL SQ SCH (11:36)
[2024-08-28] MEDS: INSULIN GLARGINE (LANTUS) 100 UNITS/ML UNITS SQ SCH (22:58)
[2024-08-29 08:35] LABS: BASOPHILS # 0.07 x10^3/uL (0.01-0.08); EOSINOPHIL % 1.1 % (0.7-5.8); EOSINOPHILS # 0.16 x10^3/uL (0.04-0.36)
[2024-08-29 08:37] LABS: ABSOLUTE IMMATURE GRANULOCYTES 0.21 x10^3/uL (0.0-0.031); HEMATOCRIT 26.9 % (34.1-44.9); HEMOGLOBIN 8.3 g/dL (11.2-15.7); MCHC 30.9 g/dl (32.2-35.5); MEAN CELL VOLUME 86.5 fl (79.4-94.8); MEAN PLT VOLUME 12.3 fl (9.4-12.3); MONOCYTE # 1.31 x10^3/uL (0.24-0.86); MONOCYTE % 8.8 % (4.7-12.5); PLATELET COUNT 100 x10^3/uL (182-369); RDW 16.1 % (12.4-16.6)
[2024-08-29 08:52] LABS: INR 2.26 (0.83-1.09); PROTHROMBIN TIME (PATIENT) 24.6 SEC (9.7-13.0)
[2024-08-29 09:34] LABS: POTASSIUM 4.1 mmol/L (3.5-5.1)
[2024-08-29 09:37] LABS: CALCIUM 9.2 mg/dL (8.5-10.1)
[2024-08-29 09:38] LABS: ALBUMIN 1.6 g/dl (3.4-5.0); BLOOD UREA NITROGEN 37.2 mg/dL (7-18)
[2024-08-29 09:41] LABS: CREATININE 1.5 mg/dL (0.55-1.3)
[2024-08-29 09:42] LABS: BILIRUBIN,TOTAL 0.9 mg/dL (0.2-1)
[2024-08-29 09:43] LABS: TOT PROT 5.9 g/dl (6.4-8.2)
[2024-08-29] MEDS: POLYETHYLENE GLYCOL (HEALTHYLAX) 3350 17 GM PACKET PO ONE (09:43)
[2024-08-29] MEDS: NYSTATIN 100,000 UNIT/GM TOPICAL CREAM 15 GM TUBE TP SCH (10:42)
[2024-08-29] MEDS: ACETAMINOPHEN 325 MG TABLET (FP) PO PRN (10:42)
[2024-08-29] MEDS: FUROSEMIDE 40 MG/4 ML INJECTABLE VIAL IVPUSH SCH (14:02)
[2024-08-29] MEDS: PEG 3350/NA SULF BICARB CL/KCL 4000 ML SOLN.RECON PO ONE (15:47)
[2024-08-30 07:43] LABS: HEMATOCRIT 26.3 % (34.1-44.9); HEMOGLOBIN 8.1 g/dL (11.2-15.7); MCHC 30.8 g/dl (32.2-35.5); MEAN CELL VOLUME 87.4 fl (79.4-94.8); MEAN PLT VOLUME 11.3 fl (9.4-12.3); PLATELET COUNT 81 x10^3/uL (182-369); RDW 15.9 % (12.4-16.6)
[2024-08-30 07:53] LABS: INR 2.05 (0.83-1.09); PROTHROMBIN TIME (PATIENT) 22.3 SEC (9.7-13.0)
[2024-08-30 07:59] LABS: POTASSIUM 4.4 mmol/L (3.5-5.1)
[2024-08-30 08:07] LABS: ALBUMIN 1.6 g/dl (3.4-5.0); CALCIUM 8.5 mg/dL (8.5-10.1); MAGNESIUM 1.3 mg/dL (1.8-2.4)
[2024-08-30 08:10] LABS: CREATININE 1.4 mg/dL (0.55-1.3)
[2024-08-30 08:11] LABS: BILIRUBIN,TOTAL 1.2 mg/dL (0.2-1)
[2024-08-30 08:12] LABS: TOT PROT 5.7 g/dl (6.4-8.2)
[2024-08-30] MEDS: MAGNESIUM 2GM/50ML STERILE WATER IVPB IVPB ONE (09:55)
[2024-08-30] MEDS: PEG 3350/NA SULF BICARB CL/KCL 4000 ML SOLN.RECON PO ONE (17:08)
[2024-08-30] MEDS: PHYTONADIONE 10 MG/1 ML AMP SQ ONE (17:26)
[2024-08-30] MEDS: MAGNESIUM SULF 50% (8.12 MEQ/2 ML-1 GM VIAL) IVPB ONE (18:52)
[2024-08-30] MEDS: BISACODYL 5 MG TABLET.DR (FP) PO ONE (21:21)
[2024-08-31 08:24] LABS: ABSOLUTE IMMATURE GRANULOCYTES 0.26 x10^3/uL (0.0-0.031); BASOPHILS # 0.05 x10^3/uL (0.01-0.08); EOSINOPHIL % 1.3 % (0.7-5.8); EOSINOPHILS # 0.18 x10^3/uL (0.04-0.36); HEMATOCRIT 24.4 % (34.1-44.9); HEMOGLOBIN 7.7 g/dL (11.2-15.7); MCHC 31.6 g/dl (32.2-35.5); MEAN CELL VOLUME 85.6 fl (79.4-94.8); MONOCYTE % 8.9 % (4.7-12.5); PLATELET COUNT 76 x10^3/uL (182-369); RDW 15.9 % (12.4-16.6)
[2024-08-31 08:28] LABS: INR 1.93 (0.83-1.09)
[2024-08-31 09:16] LABS: CALCIUM 8.2 mg/dL (8.5-10.1)
[2024-08-31 09:18] LABS: ALBUMIN 1.5 g/dl (3.4-5.0); BLOOD UREA NITROGEN 33.1 mg/dL (7-18)
[2024-08-31 09:20] LABS: CREATININE 1.4 mg/dL (0.55-1.3)
[2024-08-31 09:23] LABS: BILIRUBIN,TOTAL 0.8 mg/dL (0.2-1); TOT PROT 5.4 g/dl (6.4-8.2)
[2024-08-31] MEDS: FUROSEMIDE 40 MG TABLET (FP) PO SCH (10:06)
[2024-09-01] MEDS: BENZONATATE 200 MG CAPSULE PO PRN (00:01)
[2024-09-01 08:39] LABS: HEMATOCRIT 28.2 % (34.1-44.9); HEMOGLOBIN 8.8 g/dL (11.2-15.7); MCHC 31.2 g/dl (32.2-35.5); MEAN CELL VOLUME 87.9 fl (79.4-94.8); MEAN PLT VOLUME 12.6 fl (9.4-12.3); PLATELET COUNT 61 x10^3/uL (182-369); RDW 15.9 % (12.4-16.6)
[2024-09-01 09:05] LABS: POTASSIUM 4.1 mmol/L (3.5-5.1)
[2024-09-01 09:11] LABS: CALCIUM 8.6 mg/dL (8.5-10.1)
[2024-09-01 09:12] LABS: ALBUMIN 1.6 g/dl (3.4-5.0); BLOOD UREA NITROGEN 34.8 mg/dL (7-18); MAGNESIUM 1.5 mg/dL (1.8-2.4)
[2024-09-01 09:15] LABS: CREATININE 1.5 mg/dL (0.55-1.3)
[2024-09-01 09:17] LABS: TOT PROT 5.7 g/dl (6.4-8.2)
[2024-09-01 13:00] LABS: HEPATITIS B SURF AG NON-MATERN NON-REACTIVE (NONREACTIVE)
[2024-09-01 13:29] LABS: HCV DIAGNOSTIC IN-HOUSE W/RFLX NON-REACTIVE (NONREACTIVE)
[2024-09-01 19:07] LABS: EPI CELLS >36 /uL (0-25.1); HYALINE CASTS 38 /uL (0-3.1); URINE APPEARANCE CLOUDY; URINE BILIRUBIN NEGATIVE (NEGATIVE); URINE COLOR ORANGE; URINE GLUCOSE (UA) NEGATIVE (NEGATIVE); URINE KETONE TRACE (NEGATIVE); URINE LEUK ESTERASE 2+ (NEGATIVE); URINE NITRITE NEGATIVE (NEGATIVE); URINE PROTEIN 3+ (NEGATIVE); URINE RBC 703 /uL (0-23.9); URINE WBC 33 /uL (0-25.8)
[2024-09-01] MEDS: guaiFENesin 200 MG/10 ML 10 ML UNIT-DOSE CUPS PO PRN (22:13)
[2024-09-02 10:55] LABS: ABSOLUTE IMMATURE GRANULOCYTES 0.29 x10^3/uL (0.0-0.031); BASOPHILS # 0.05 x10^3/uL (0.01-0.08); EOSINOPHIL % 0.8 % (0.7-5.8); HEMATOCRIT 25.7 % (34.1-44.9); HEMOGLOBIN 7.9 g/dL (11.2-15.7); MCHC 30.7 g/dl (32.2-35.5); MEAN PLT VOLUME 12.2 fl (9.4-12.3); MONOCYTE # 1.32 x10^3/uL (0.24-0.86); MONOCYTE % 11.1 % (4.7-12.5); PLATELET COUNT 52 x10^3/uL (182-369); RDW 16.4 % (12.4-16.6)
[2024-09-02 11:14] LABS: POTASSIUM 4.1 mmol/L (3.5-5.1)
[2024-09-02 11:17] LABS: CALCIUM 8.3 mg/dL (8.5-10.1)
[2024-09-02 11:18] LABS: ALBUMIN 1.5 g/dl (3.4-5.0); BLOOD UREA NITROGEN 36.7 mg/dL (7-18)
[2024-09-02 11:21] LABS: CREATININE 1.7 mg/dL (0.55-1.3)
[2024-09-02 11:22] LABS: BILIRUBIN,TOTAL 0.9 mg/dL (0.2-1); TOT PROT 5.4 g/dl (6.4-8.2)
[2024-09-02] MEDS ORDERED: PIPERACILLIN/TAZOB 3.375 GM 3.375 GM in DEXTROSE 5%-WATER - 50 ML IVPB SCH (13:30)
[2024-09-02] MEDS: PIPERACILLIN/TAZOB 3.375 GM 50 ML IVPB SCH (14:56)
[2024-09-02] MEDS: PIPERACILLIN/TAZOB 2.25 GM 2.25 GM/50 ML BAG IVPB SCH (15:56)
[2024-09-03 07:27] LABS: ABSOLUTE IMMATURE GRANULOCYTES 0.21 x10^3/uL (0.0-0.031); EOSINOPHIL % 0.8 % (0.7-5.8); EOSINOPHILS # 0.09 x10^3/uL (0.04-0.36); HEMOGLOBIN 8.1 g/dL (11.2-15.7); MONOCYTE # 1.13 x10^3/uL (0.24-0.86)
[2024-09-03 07:29] LABS: BASOPHILS # 0.05 x10^3/uL (0.01-0.08); MCHC 31.2 g/dl (32.2-35.5); RDW 16.6 % (12.4-16.6)
[2024-09-03 07:52] LABS: CHLORIDE 88 mmol/L (98-107); SODIUM 127 mmol/L (136-145)
[2024-09-03 08:03] LABS: ALBUMIN 1.5 g/dl (3.4-5.0); ANION GAP 9 mmol/L (4-13); BLOOD UREA NITROGEN 37.3 mg/dL (7-18); CALCIUM 8.2 mg/dL (8.5-10.1); CO2 30 mmol/L (21-32)
[2024-09-03 08:04] LABS: GLUCOSE,RANDOM 113 mg/dL (74-106)
[2024-09-03 08:07] LABS: CREATININE 1.8 mg/dL (0.55-1.3); SGOT/AST 80 U/L (15-37)
[2024-09-03 08:08] LABS: BILIRUBIN,TOTAL 0.9 mg/dL (0.2-1)
[2024-09-03 08:15] LABS: SGPT/ALT 12 U/L (13-61)
[2024-09-03 08:22] LABS: ALK PHOS 1150 U/L (45-117)
[2024-09-03 10:50] LABS: POTASSIUM 4.3 mmol/L (3.5-5.1)
[2024-09-03 10:52] LABS: ALBUMIN 1.4 g/dl (3.4-5.0); CALCIUM 8.4 mg/dL (8.5-10.1)
[2024-09-03 10:53] LABS: BLOOD UREA NITROGEN 35.7 mg/dL (7-18)
[2024-09-03 10:56] LABS: CREATININE 1.8 mg/dL (0.55-1.3)
[2024-09-03 10:57] LABS: BILIRUBIN,TOTAL 0.9 mg/dL (0.2-1); TOT PROT 5.4 g/dl (6.4-8.2)
[2024-09-03] MEDS: MEROPENEM 1 GM in DEXTROSE 5%-WATER 100 ML IVPB SCH (12:25)
[2024-09-03] MEDS: LOSARTAN POTASSIUM 50 MG TABLET PO SCH (12:57)
[2024-09-04] MEDS: FUROSEMIDE 40 MG/4 ML INJECTABLE VIAL IVPUSH SCH (06:30)
[2024-09-04 09:44] LABS: POTASSIUM 4.7 mmol/L (3.5-5.1)
[2024-09-04 10:12] LABS: BLOOD UREA NITROGEN 39.6 mg/dL (7-18); CALCIUM 8.4 mg/dL (8.5-10.1)
[2024-09-04 10:14] LABS: ALBUMIN 1.5 g/dl (3.4-5.0); MAGNESIUM 1.6 mg/dL (1.8-2.4)
[2024-09-04 10:17] LABS: CREATININE 1.7 mg/dL (0.55-1.3)
[2024-09-04 10:18] LABS: BILIRUBIN,TOTAL 0.8 mg/dL (0.2-1); TOT PROT 5.6 g/dl (6.4-8.2)
[2024-09-04] MEDS: AMINO ACIDS/PROTEIN HYDROLYS 30 ML LIQUID.PKT PO SCH (11:13)
[2024-09-04] MEDS: EMPAGLIFLOZIN (JARDIANCE) 10 MG TABLET PO SCH (11:14)
[2024-09-04] MEDS: metoPROLOL SUCCINATE 25 MG TAB.SR.24H (FP) PO SCH (11:17)
[2024-09-04] MEDS: MAGNESIUM OXIDE 400 MG TABLET (FP) PO ONE (16:57)
[2024-09-05] MEDS: EMPAGLIFLOZIN (JARDIANCE) 10 MG TABLET PO SCH (06:29)
[2024-09-05 08:04] LABS: HEMOGLOBIN 8.6 g/dL (11.2-15.7)
[2024-09-05 08:06] LABS: ABSOLUTE IMMATURE GRANULOCYTES 0.15 x10^3/uL (0.0-0.031); BASOPHILS # 0.06 x10^3/uL (0.01-0.08); EOSINOPHIL % 0.7 % (0.7-5.8); EOSINOPHILS # 0.09 x10^3/uL (0.04-0.36); HEMATOCRIT 27.7 % (34.1-44.9); MEAN CELL VOLUME 86.8 fl (79.4-94.8); MEAN PLT VOLUME 11.3 fl (9.4-12.3); MONOCYTE # 1.53 x10^3/uL (0.24-0.86); MONOCYTE % 11.9 % (4.7-12.5); PLATELET COUNT 53 x10^3/uL (182-369); RDW 16.5 % (12.4-16.6)
[2024-09-05 08:37] LABS: POTASSIUM 4.6 mmol/L (3.5-5.1)
[2024-09-05 08:41] LABS: BLOOD UREA NITROGEN 39.4 mg/dL (7-18); CALCIUM 8.6 mg/dL (8.5-10.1)
[2024-09-05 08:45] LABS: CREATININE 1.7 mg/dL (0.55-1.3)
[2024-09-05] MEDS: MINERAL OIL/PET HY-PHL TOPICAL OINTMENT 454 GM JAR TP SCH (16:05)
[2024-09-05 21:18] VITALS: RESP 18
[2024-09-06] MEDS: IRON SUCROSE INJECTION 200 MG in SODIUM CHLORIDE 100 ML IVPB ONE (08:57)
[2024-09-06 15:10] VITALS: BP 122/67; PULSE 73; TEMP 98.6
== END 2024-09-06 22:33 | DRG 811 ==
LOC: JER 02:28 → JERBED 04:53 → J7W 10:25 → OBSVTOIN 11:43
PROVIDERS: ADMIT Internal Medicine; ATTEND Internal Medicine
PROC: 30233N1 Transfusion of Nonautologous Red Blood Cells into Peripheral Vein, Percutaneous Approach (ICD-10-PCS; 2024-08-27)
PROC: 30233K1 Transfusion of Nonautologous Frozen Plasma into Peripheral Vein, Percutaneous Approach (ICD-10-PCS; principal; 2024-08-29)
DX: D64.9 Anemia, unspecified (principal); I50.33 Acute on chronic diastolic (congestive) heart failure; J18.9 Pneumonia, unspecified organism; N28.0 Ischemia and infarction of kidney; N39.0 Urinary tract infection, site not specified; Z68.42 Body mass index [BMI] 45.0-49.9, adult; E66.01 Morbid (severe) obesity due to excess calories; E11.9 Type 2 diabetes mellitus without complications; R79.1 Abnormal coagulation profile; I25.10 Atherosclerotic heart disease of native coronary artery without angina pectoris; N28.89 Other specified disorders of kidney and ureter; F25.9 Schizoaffective disorder, unspecified; M19.012 Primary osteoarthritis, left shoulder; R59.1 Generalized enlarged lymph nodes; K57.90 Diverticulosis of intestine, part unspecified, without perforation or abscess without bleeding; B96.1 Klebsiella pneumoniae [K. pneumoniae] as the cause of diseases classified elsewhere; K59.00 Constipation, unspecified; R20.0 Anesthesia of skin; E78.5 Hyperlipidemia, unspecified; K21.9 Gastro-esophageal reflux disease without esophagitis; I11.0 Hypertensive heart disease with heart failure; E87.70 Fluid overload, unspecified; Z86.0100 Personal history of colon polyps, unspecified; Z95.0 Presence of cardiac pacemaker; Z86.718 Personal history of other venous thrombosis and embolism
CPT/HCPCS: 36415; 36430; 71045-TC-FY; 71250-TC; 74176-TC; 80048; 80053; 81003; 82550; 82728; 82962; 82977; 83516; 83540; 83550; 83735; 84080; 85025; 85027; 85610; 85730; 86038; 86704; 86803; 86850; 86900; 86901; 86922; 87086; 87186; 87340; 87517; 87899; 93005; 93010; 93975; 94640; 97116-GP; 97162-GP; 99285-25; E0186; G0378; J0131; J1756; P9017; P9058

== ENCOUNTER 2024-10-02 05:28 | Inpatient (IN) | payer OTHER ==
[2024-10-02 06:19] VITALS: BMI 46.0
[2024-10-02 06:48] LABS: RDW 17.2 % (12.4-16.6)
[2024-10-02 06:49] LABS: POTASSIUM 4.4 mmol/L (3.5-5.1)
[2024-10-02 06:50] LABS: BASOPHILS # 0.02 x10^3/uL (0.01-0.08); EOSINOPHIL % 0.7 % (0.7-5.8); EOSINOPHILS # 0.08 x10^3/uL (0.04-0.36); HEMATOCRIT 23.3 % (34.1-44.9); HEMOGLOBIN 7.4 g/dL (11.2-15.7); MCHC 31.8 g/dl (32.2-35.5); MEAN CELL VOLUME 87.3 fl (79.4-94.8); MONOCYTE # 0.88 x10^3/uL (0.24-0.86); MONOCYTE % 7.5 % (4.7-12.5); PLATELET COUNT 19 x10^3/uL (182-369)
[2024-10-02 06:52] LABS: ALBUMIN 1.5 g/dl (3.4-5.0); BLOOD UREA NITROGEN 77.7 mg/dL (7-18); CALCIUM 7.1 mg/dL (8.5-10.1)
[2024-10-02 06:56] LABS: CREATININE 2.6 mg/dL (0.55-1.3)
[2024-10-02 06:57] LABS: BILIRUBIN,TOTAL 1.7 mg/dL (0.2-1); TOT PROT 5.8 g/dl (6.4-8.2)
[2024-10-02 07:20] LABS: INR 2.28 (0.83-1.09); PROTHROMBIN TIME (PATIENT) 25.1 SEC (9.7-13.0)
[2024-10-02 07:23] LABS: ACTIVATED PTT 41.8 SECONDS (25.2-36.5)
[2024-10-02] MEDS: DEXTROSE 50%-WATER - 25 GM/50 ML VIAL IVPUSH ONE (11:10)
[2024-10-02] MEDS ORDERED: predniSONE 20 MG TABLET (UD) ONE (11:11)
[2024-10-02] MEDS ORDERED: DEXAMETHASONE 4 MG TABLET (FP) ONE (11:14)
[2024-10-02] MEDS ORDERED: DEXAMETHASONE SOD PHOSPHATE 10 MG/1 ML VIAL ONE (16:38)
[2024-10-02] MEDS: DEXAMETHASONE 4 MG TABLET (FP) PO ONE (16:48)
[2024-10-02] MEDS: TRIMETHOBENZAMIDE HCL 200MG/2ML INJ IM PRN (22:28)
[2024-10-03] MEDS: TORSEMIDE 20 MG TABLET (FP) PO SCH (06:27)
[2024-10-03] MEDS: risperiDONE 2 MG TABLET PO SCH (06:28)
[2024-10-03] MEDS: INSULIN ASPART SLIDING SCALE (NOVOLOG) 1 VIAL SQ SCH (06:29)
[2024-10-03] MEDS: ALBUTEROL SO4 2.5/IPRATROPIUM 0.5 INH SOL 3 ML VIAL.NEB. NEB SCH (07:19)
[2024-10-03 08:23] LABS: HEMATOCRIT 25.3 % (34.1-44.9); HEMOGLOBIN 8.1 g/dL (11.2-15.7); MEAN CELL VOLUME 88.5 fl (79.4-94.8); PLATELET COUNT 35 x10^3/uL (182-369); RDW 17.2 % (12.4-16.6)
[2024-10-03 08:24] LABS: POTASSIUM 5.4 mmol/L (3.5-5.1)
[2024-10-03 08:39] LABS: PHOSPHOROUS 8.2 mg/dL (2.5-4.9)
[2024-10-03 08:41] LABS: BILIRUBIN,TOTAL 2.2 mg/dL (0.2-1); TOT PROT 6.1 g/dl (6.4-8.2)
[2024-10-03 08:49] LABS: CALCIUM 7.4 mg/dL (8.5-10.1)
[2024-10-03 08:50] LABS: ALBUMIN 1.6 g/dl (3.4-5.0); BLOOD UREA NITROGEN 89.1 mg/dL (7-18)
[2024-10-03 08:52] LABS: CREATININE 2.9 mg/dL (0.55-1.3)
[2024-10-03 09:00] LABS: MAGNESIUM 1.7 mg/dL (1.8-2.4)
[2024-10-03] MEDS: LORazepam 2 MG/ML SDV VIAL IVPUSH SCH (10:04)
[2024-10-03] MEDS: PANTOPRAZOLE 40 MG TABLET PO SCH (10:05)
[2024-10-03] MEDS: amLODIPine BESYLATE 10 MG TABLET (FP) PO SCH (10:05)
[2024-10-03] MEDS: metoPROLOL SUCCINATE 25 MG TAB.SR.24H (FP) PO SCH (10:05)
[2024-10-03] MEDS: methylPREDNISolone NA SUCC 1000 MG/8 ML VIAL IVPB ONE (10:08)
[2024-10-03] MEDS: DEXAMETHASONE 4 MG TABLET (FP) PO SCH (11:58)
[2024-10-03] MEDS: HALOPERIDOL 5 MG TABLET PO SCH (21:20)
[2024-10-03] MEDS: INSULIN GLARGINE (LANTUS) 100 UNITS/ML UNITS SQ SCH (21:21)
[2024-10-04] MEDS: risperiDONE 1 MG TABLET PO SCH (06:24)
[2024-10-04 08:22] LABS: HEMOGLOBIN 7.4 g/dL (11.2-15.7)
[2024-10-04 08:24] LABS: HEMATOCRIT 22.5 % (34.1-44.9); MCHC 32.9 g/dl (32.2-35.5); MEAN CELL VOLUME 84.9 fl (79.4-94.8); PLATELET COUNT 18 x10^3/uL (182-369); RDW 17.3 % (12.4-16.6)
[2024-10-04 08:42] LABS: CHLORIDE 92 mmol/L (98-107); POTASSIUM 4.9 mmol/L (3.5-5.1); SODIUM 129 mmol/L (136-145)
[2024-10-04 08:46] LABS: CALCIUM 7.1 mg/dL (8.5-10.1)
[2024-10-04 08:47] LABS: ANION GAP 16 mmol/L (4-13); CO2 21 mmol/L (21-32)
[2024-10-04 08:49] LABS: CREATININE 3.5 mg/dL (0.55-1.3); GLUCOSE,RANDOM 467 mg/dL (74-106)
[2024-10-04] MEDS: SODIUM CHLORIDE 250 ML IV STA (14:31)
[2024-10-04] MEDS: INSULIN (NOVOLOG) ASPART 100 UNITS/ML 10ML VIAL SQ ONE (14:31)
[2024-10-04] MEDS: SODIUM CHLORIDE 1,000 ML IV SCH ×2 (16:16→21:27)
[2024-10-04] MEDS: INSULIN GLARGINE (LANTUS) 100 UNITS/ML UNITS SQ SCH (21:28)
[2024-10-05 08:16] LABS: HEMATOCRIT 23.2 % (34.1-44.9); HEMOGLOBIN 7.7 g/dL (11.2-15.7); MCHC 33.2 g/dl (32.2-35.5); MEAN CELL VOLUME 84.4 fl (79.4-94.8); PLATELET COUNT 14 x10^3/uL (182-369); RDW 16.7 % (12.4-16.6)
[2024-10-05 08:42] LABS: BILIRUBIN,TOTAL 1.5 mg/dL (0.2-1); TOT PROT 5.9 g/dl (6.4-8.2)
[2024-10-05 09:02] LABS: POTASSIUM 4.8 mmol/L (3.5-5.1)
[2024-10-05 09:18] LABS: ALBUMIN 1.6 g/dl (3.4-5.0); CALCIUM 7.2 mg/dL (8.5-10.1)
[2024-10-05 09:20] LABS: CREATININE 3.6 mg/dL (0.55-1.3)
[2024-10-06 09:11] LABS: HEMOGLOBIN 7.9 g/dL (11.2-15.7); MCHC 32.9 g/dl (32.2-35.5); MEAN CELL VOLUME 82.8 fl (79.4-94.8); PLATELET COUNT 17 x10^3/uL (182-369); RDW 16.9 % (12.4-16.6)
[2024-10-06 09:28] LABS: CHLORIDE 94 mmol/L (98-107); SODIUM 131 mmol/L (136-145)
[2024-10-06 09:30] LABS: ALBUMIN 1.6 g/dl (3.4-5.0); ANION GAP 15 mmol/L (4-13); BLOOD UREA NITROGEN 103.7 mg/dL (7-18); CO2 22 mmol/L (21-32)
[2024-10-06 09:31] LABS: GLUCOSE,RANDOM 200 mg/dL (74-106)
[2024-10-06 09:33] LABS: SGOT/AST 30 U/L (15-37); SGPT/ALT 16 U/L (13-61)
[2024-10-06 09:34] LABS: CREATININE 3.7 mg/dL (0.55-1.3)
[2024-10-06 09:35] LABS: BILIRUBIN,TOTAL 1.2 mg/dL (0.2-1); TOT PROT 5.6 g/dl (6.4-8.2)
[2024-10-06 09:37] LABS: CALCIUM 6.7 mg/dL (8.5-10.1)
[2024-10-06 09:38] LABS: ALK PHOS 867 U/L (45-117)
[2024-10-06] MEDS: ACETAMINOPHEN 1000 MG/100 ML BAG IVPB PRN (12:23)
[2024-10-06] MEDS: DEXAMETHASONE SOD PHOSPHATE 10 MG/1 ML VIAL IVPB ONE (22:20)
[2024-10-07 08:15] LABS: RDW 17.3 % (12.4-16.6)
[2024-10-07 08:18] LABS: HEMATOCRIT 24.6 % (34.1-44.9); HEMOGLOBIN 8.5 g/dL (11.2-15.7); MCHC 34.6 g/dl (32.2-35.5); MEAN CELL VOLUME 81.2 fl (79.4-94.8); PLATELET COUNT 13 x10^3/uL (182-369)
[2024-10-07 08:38] LABS: CHLORIDE 95 mmol/L (98-107); POTASSIUM 5.2 mmol/L (3.5-5.1); SODIUM 130 mmol/L (136-145)
[2024-10-07 08:41] LABS: ALBUMIN 1.6 g/dl (3.4-5.0); ANION GAP 12 mmol/L (4-13); CO2 23 mmol/L (21-32); GLUCOSE,RANDOM 173 mg/dL (74-106)
[2024-10-07 08:44] LABS: CREATININE 3.7 mg/dL (0.55-1.3); SGOT/AST 29 U/L (15-37); SGPT/ALT 21 U/L (13-61)
[2024-10-07 08:46] LABS: BILIRUBIN,TOTAL 1.7 mg/dL (0.2-1); TOT PROT 5.7 g/dl (6.4-8.2)
[2024-10-07 08:55] LABS: ALK PHOS 954 U/L (45-117)
[2024-10-07] MEDS ORDERED: DEXAMETHASONE SOD PHOSPHATE 20 MG/5 ML VIAL IVPB SCH (12:00)
[2024-10-07] MEDS: DEXAMETHASONE SODIUM PHOSPHATE 40 MG in SODIUM CHLORIDE 50 ML IVPB SCH (14:09)
[2024-10-07] MEDS: SODIUM ZIRCONIUM CYCLOSILICATE (LOKELMA) 5 GM PACKET PO SCH (16:06)
[2024-10-08] MEDS: DEXTROSE 50%-WATER 25 GM/50 ML DISP.SYRIN IVPUSH ONE (06:30)
[2024-10-08] MEDS ORDERED: DEXTROSE 50%-WATER 25 GM/50 ML DISP.SYRIN ONE (11:39)
[2024-10-08] MEDS ORDERED: DEXTROSE 50%-WATER - 25 GM/50 ML VIAL IVPUSH PRN (11:46)
[2024-10-08 12:34] LABS: HEMATOCRIT 24.1 % (34.1-44.9); HEMOGLOBIN 7.8 g/dL (11.2-15.7); MCHC 32.4 g/dl (32.2-35.5); MEAN CELL VOLUME 84.3 fl (79.4-94.8); PLATELET COUNT 23 x10^3/uL (182-369); RDW 17.9 % (12.4-16.6)
[2024-10-08 13:16] LABS: CHLORIDE 97 mmol/L (98-107); POTASSIUM 5.4 mmol/L (3.5-5.1); SODIUM 133 mmol/L (136-145)
[2024-10-08 13:18] LABS: ALBUMIN 1.6 g/dl (3.4-5.0); GLUCOSE,RANDOM 54 mg/dL (74-106)
[2024-10-08 13:19] LABS: ANION GAP 14 mmol/L (4-13); CO2 22 mmol/L (21-32)
[2024-10-08 13:22] LABS: SGPT/ALT 21 U/L (13-61)
[2024-10-08 13:23] LABS: BILIRUBIN,TOTAL 2.7 mg/dL (0.2-1); CREATININE 3.8 mg/dL (0.55-1.3); SGOT/AST 33 U/L (15-37)
[2024-10-08 13:24] LABS: TOT PROT 5.5 g/dl (6.4-8.2)
[2024-10-08 13:25] LABS: ALK PHOS 788 U/L (45-117); BLOOD UREA NITROGEN 110.4 mg/dL (7-18); CALCIUM 6.6 mg/dL (8.5-10.1)
[2024-10-08] MEDS: DEXTROSE 5%-0.45% SALINE 1,000 ML IV SCH (16:17)
[2024-10-08] MEDS: DEXTROSE 50%-WATER 25 GM/50 ML DISP.SYRIN IVPUSH PRN (17:48)
[2024-10-09] MEDS: PIPERACILLIN/TAZOB 2.25 GM 2.25 GM/50 ML BAG IVPB SCH (14:06)
[2024-10-10] MEDS ORDERED: FENTANYL PATCH WASTE TD PRN (07:24)
[2024-10-10 08:47] LABS: CHLORIDE 96 mmol/L (98-107); SODIUM 131 mmol/L (136-145)
[2024-10-10 08:48] LABS: POTASSIUM 6.3 mmol/L (3.5-5.1)
[2024-10-10 08:55] LABS: ALBUMIN 1.3 g/dl (3.4-5.0); ANION GAP 19 mmol/L (4-13); CO2 17 mmol/L (21-32); GLUCOSE,RANDOM 238 mg/dL (74-106)
[2024-10-10 08:58] LABS: BILIRUBIN,TOTAL 4.1 mg/dL (0.2-1); CREATININE 4.2 mg/dL (0.55-1.3); SGOT/AST 26 U/L (15-37); SGPT/ALT 16 U/L (13-61); TOT PROT 4.5 g/dl (6.4-8.2)
[2024-10-10 08:59] LABS: BLOOD UREA NITROGEN 129.8 mg/dL (7-18)
[2024-10-10 09:01] LABS: CALCIUM 6.2 mg/dL (8.5-10.1)
[2024-10-10 09:02] LABS: ALK PHOS 552 U/L (45-117)
[2024-10-10] MEDS: fentaNYL 25mcg/hr PATCH.TD72 TD SCH (09:48)
[2024-10-10] MEDS ORDERED: HYDROmorphone HCL CARPU-JECT 2 MG/1 ML DISP.SYRIN IVPB PRN (10:14)
[2024-10-10] MEDS ORDERED: HALOPERIDOL LACTATE 5 MG/ML IM PRN (10:16)
[2024-10-10] MEDS: SCOPOLAMINE HYDROBROMIDE 1 PATCH PATCH.TD72 TD SCH (10:45)
[2024-10-10] MEDS: LORazepam 2 MG/ML SDV VIAL IVPUSH PRN (17:24)
[2024-10-10 22:12] VITALS: BP 80/40; PULSE 77; RESP 20; TEMP 98.1
== END 2024-10-11 13:17 | disposition expired | DRG 813 ==
LOC: JER 05:28 → JERBED 08:44 → J7W 17:22
PROVIDERS: ADMIT Internal Medicine; ATTEND Internal Medicine
DX: D69.6 Thrombocytopenia, unspecified (principal); N17.9 Acute kidney failure, unspecified; I50.22 Chronic systolic (congestive) heart failure; I13.0 Hypertensive heart and chronic kidney disease with heart failure and stage 1 through stage 4 chronic kidney disease, or unspecified chronic kidney disease; E78.5 Hyperlipidemia, unspecified; F25.9 Schizoaffective disorder, unspecified; E11.22 Type 2 diabetes mellitus with diabetic chronic kidney disease; N18.9 Chronic kidney disease, unspecified; I25.10 Atherosclerotic heart disease of native coronary artery without angina pectoris; E66.01 Morbid (severe) obesity due to excess calories; E87.5 Hyperkalemia; E11.649 Type 2 diabetes mellitus with hypoglycemia without coma; N28.89 Other specified disorders of kidney and ureter; D50.0 Iron deficiency anemia secondary to blood loss (chronic); D49.519 Neoplasm of unspecified behavior of unspecified kidney
CPT/HCPCS: 36415; 36430; 70450-TC; 71045-TC-FY; 76705-TC; 76775-TC; 76856-TC; 80048; 80053; 82962; 83735; 84100; 85025; 85027; 85610; 85730; 86850; 86900; 86901; 93005; 93010; 94640; 99285-25; E0186; J1100; P9037